=== PATIENT | female | born 1995 | race Caucasian/White ===

== ENCOUNTER → 2024-09-13 | Outpatient (CLI) | payer BC, SELFPAY ==
[2024-09-13 11:57] LABS: Absolute Lymphocyte Count 1.12 X10^3/uL (0.83-4.51); Absolute Neutrophil Count 4.6 X10^3/uL (2.0-7.7); Basophil# 0.02 X10^3/uL; Basophil% 0.3 % (0-1); Eosinophil# 0.05 X10^3/uL; Eosinophils% 0.8 % (0-5); Hemoglobin 14.1 g/dL (12.0-15.0); Lymphocyte # 1.12 X10^3/ul (0.83-4.51); Mean Corp Hgb Conc 34.4 g/dL (32-36); Mean Corpuscular Hgb 30.1 pg (27.0-32.0); Mean Corpuscular Volume 87.4 fL (81-99); Mean Platelet Vol. 10.9 fl (6.2-12.0); Monocyte# 0.44 X10^3/uL; Monocyte% 7.1 % (0-10); NRBC Flagged by Analyzer 0 % (0-5); Neutrophil # 4.58 X10^3/uL (2.7-7.7); Neutrophil % 73.5 % (47-70); Platelet Count 198 K/mm3 (150-450); RBC Distribution Width CV 12.3 % (11.6-14.6); RBC Distribution Width SD 38.9 fl (35.1-43.9); Red Blood Count 4.69 M/mm3 (4.2-5.4); White Blood Count 6.2 K/mm3 (4.4-11.0)
[2024-09-13 12:20] LABS: HIV Nonreactive (Nonreactive); Hepatitis C Antibody Nonreactive (Nonreactive); Rubella IgG REAC (Nonreactive); Syphilis Antibodies Nonreactive (Nonreactive)
[2024-09-13 12:45] LABS: Hemoglobin A1c 5.1 % (<=5.6)
[2024-09-14 19:20] LABS: Hepatitis B Surface Antigen Nonreactive (Nonreactive)
[2024-09-15 06:07] LABS: Chlamydia By Nucleic Acid AMP Negative (Negative); Gonococcus By Nucleic Acid AMP Negative (Negative)
== END | disposition home or self-care (01) ==
PROVIDERS: PCP Family Medicine; Referring Provider Advanced Practice Midwife; Visit Provider Advanced Practice Midwife
DX: O09.90 Supervision of high risk pregnancy, unspecified, unspecified trimester (principal); Z3A.00 Weeks of gestation of pregnancy not specified
CPT/HCPCS: 36415; 83036; 85025; 86703; 86762; 86780; 86803; 86850; 86900; 86901; 87086; 87088; 87340; 87491; 87591

== ENCOUNTER → 2025-01-11 | Outpatient (CLI) | payer BC, SELFPAY ==
[2025-01-11 16:32] LABS: Hematocrit 34.7 % (37-47); Hemoglobin 11.9 g/dL (12.0-15.0); Immature Granulocytes Count 0.030 X10^3/uL (0.0-0.0); Mean Corp Hgb Conc 34.3 g/dL (32-36); Mean Corpuscular Volume 87.2 fL (81-99); Mean Platelet Vol. 10.9 fl (6.2-12.0); NRBC Flagged by Analyzer 0 % (0-5); Platelet Count 146 K/mm3 (150-450); RBC Distribution Width CV 12.3 % (11.6-14.6); RBC Distribution Width SD 39.3 fl (35.1-43.9); Red Blood Count 3.98 M/mm3 (4.2-5.4); White Blood Count 6.7 K/mm3 (4.4-11.0)
[2025-01-11 17:18] LABS: Glucose Challenge Gest 1H 50g 119 mg/dL (70-140); HIV Nonreactive (Nonreactive); Syphilis Antibodies Nonreactive (Nonreactive)
== END | disposition home or self-care (01) ==
LOC: BWCLAB 15:37
PROVIDERS: PCP Family Medicine; Referring Provider Nurse Practitioner Women's Health; Visit Provider Nurse Practitioner Women's Health
DX: O09.92 Supervision of high risk pregnancy, unspecified, second trimester (principal); Z3A.00 Weeks of gestation of pregnancy not specified; Z13.1 Encounter for screening for diabetes mellitus
CPT/HCPCS: 36415; 82950; 85025; 86703; 86780

== ENCOUNTER → 2025-03-22 | Outpatient (CLI) | payer BC, SELFPAY | END | disposition home or self-care (01) | LOC: LABSPEC 16:35 | PROVIDERS: PCP Family Medicine; Visit Provider Advanced Practice Midwife | DX: O09.93 Supervision of high risk pregnancy, unspecified, third trimester (principal); Z3A.37 37 weeks gestation of pregnancy | CPT/HCPCS: 87081 ==

== ENCOUNTER → 2025-03-31 | Outpatient (CLI) | payer BC, SELFPAY ==
--- NOTE | 2025-03-31 12:50 | US_ITS ---
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 Maximum vertical pocket of 7.5 cm and JOSEF of 18 cm. Placenta is posterior position with grade 3 BPD of 9.5, OFD of the 11.8, HC of 34.2, AC of 37.4, and FL of 7 cm corresponding with average gestational age of 38 weeks and 5 days with FRANNY of 04/09/2025. Estimated weight of 3881g (90 percentile). US/OB Limited With Biometrics IMPRESSION: average gestational age of 38 weeks and 5 days with FRANNY of 04/09/2025. Placenta is posterior position with grade 3 Reading Location: [id number]
--- OUTSIDE RECORDS SUMMARY | 2025-03-31 13:02 | XMS RPT_ITS | CCD ---
Author Organization [facility] Inform ion [facility] Care Team Providers Care Vocational Evaluator Name Role Phone KRUSEMARK-MILLIN DO, CARON Primary Care Physi alessandra JASS COMMUNITY HEALTH WORKER-CNPATRICE Roberson Attending Unav ailable KRUSEMARK-MILLIN DO, CARON Primary Care Un available KRUSEMARK-MILLIN DO, CARON Primary Care Un available BEITYURY COMMUNITY HEALTH WORKER-CNDa, PATRICE Gallardo Attending Unav ailable KRUSEMARK-MILLIN DO, CARON Primary Care Un available BEITYURY DAVILA-GISELLE, PATRICE Gallardo Attending Unav ailable LATOYA IZQUIERDO MD Attending Unavailable KRUSEMARK-MILLIN DO, CARON Primary Care Un available PATRICE REGAN Attending Unavailable KRUSEMARK-MILLIN DO, CARON Primary Care Un available PATRICE REGAN Attending Unavailable KRUSEMARK-MILLIN DO, CARON Primary Care Un available PATRICE REGAN Attending Unavailable KRUSEMARK-MILLIN DO, CARON Primary Care Un available LATOYA IZQUIERDO MD Attending Unavailable KRUSEMARK-MILLIN DO, CARON Primary Care Un available PATRICE REGAN Attending Unavailable KRUSEMARK-MILLIN DO, CARON Primary Care Un available LATOYA IZQUIERDO MD Attending Unavailable KRUSEMARK-MILLIN DO, CARON Primary Care Un available PATRICE REGAN Attending Unavailable KRUSEMARK-MILLIN DO, CARON Primary Care Un available HOLLIS MEHTA MD Attending Unavailable KRUSEMARK-MILLIN DO, CARON Primary Care Un available HOLLIS MEHTA MD Attending Unavailable KRUSEMARK-MILLIN DO, CARON Primary Care Un available PATRICE REGAN Attending Unavailable KRUSEMARK-MILLIN DO, CARON Primary Care Un available BEITLER, PATRICE Attending Unavailable KRUSEMARK-MILLIN DO, CARON Primary Care Un available BEITLER, PATRICE Attending Unavailable KRUSEMARK-MILLIN DO, CARON Primary Care Un available BEITLER, PATRICE Attending Unavailable KRUSEMARK-MILLIN DO, CARON Primary Care Un available BEITLER, PATRICE Admitting Unavailable KRUSEMARK-MILLIN DO, CARON Primary Care Un available LATOYA IZQUIERDO MD Attending Unavailable BEITLER, PATRICE Attending Unavailable KRUSEMARK-MILLIN DO, CARON Primary Care Un available KRUSEMARK-MILLIN DO, CARON Primary Care Un available BEITLER COMMUNITY HEALTH WORKER-CNMPATRICE R Attending Unav ailable KRUSEMARK-MILLIN DO, CARON Primary Care Un available KRUSEMARK-MILLIN DO, CARON Attending Un available Gwen Claudio CNM Attending Provider [phone] Pee MONTELONGO, Dr. Reardon Primary Care Pat silveira Azalia Manzo RN Attending Provider Unavailabl e Ovidio-Natalia MONTELONGO, Dr. Reardon Referring Prov ider Gwen Claudio CNM Referring Provider Jessy Corbin Attending Provider [phone] Rafia Castorena DO, Dr. Reardon Attending Provider Efren VELASCO, Dr. Chavez Attending Provider [phone] GWEN CLAUDIO Referring Unavailable NO PRIMARY CAREMD Primary Care Unavailable BAUDILIO SAN Attending Unavailable NO PRIMARY CAREMD Primary Care Unavailable JUANPABLO CASTAÑEDA Attending Unavailable GWEN CLAUDIO Referring Unavailable Gwen Claudio CNM Attending Provider [phone] Pee MONTELONGO, Dr. Reardon Primary Care P raoul Jessy Corbin Referring Provider Pee MONTELONGO, Dr. Reardon Primary Care P alfie Pee MONTELONGO, Dr. Reardon Referring Prov ider Prudence OCCUPATIONAL SAFETY AND HEALTH MANAGER-C, Jessy Attending Physician [phone] Rafia Castorena DO, Dr. Reardon Attending Physician Efren VELASCO, Dr. Chavez Attending Physician Gwen Claudio CNM Attending Physician [phone] Pee MONTELONGO, Dr. Reardon Primary Care P hysician Miltonusedariusz-Natalia DO, Dr. Reardon Referring Prov ider [place] OCCUPATIONAL SAFETY AND HEALTH MANAGER-C, Jessy Attending Physician [phone] Pee DO, Dr. Reardon Primary Care P hysician Ovidio-Natalia DO, Dr. Reardon Referring Prov ider Efren VELASCO, Dr. Chavez Attending Physician [place] OCCUPATIONAL SAFETY AND HEALTH MANAGER-C, Jessy Attending Physician [phone] Prudence OCCUPATIONAL SAFETY AND HEALTH MANAGER-C, Jessy Referring Provider [phone] Gwen Claudio CNM Attending Physician [phone] Rafia Castorena DO, Dr. Reardon Attending Physician Azalia Manzo Attending Unavailable Krusemark-Millin, Caron Primary Care Unava ilable [place] OCCUPATIONAL SAFETY AND HEALTH MANAGER, Silvia Attending Unavailable Krusemark-Millin, Caron Referring Unava ilable Krusemark-Millin, Caron Primary Care Unava ilable Gwen Claudio Attending Unavailable Krusemark-Millin, Caron Primary Care Unava ilable Gwen Claudio Referring Unavailable Gwen Claudio Attending Unavailable [place] OCCUPATIONAL SAFETY AND HEALTH MANAGERJessy Referring Unavailable [place] OCCUPATIONAL SAFETY AND HEALTH MANAGER, Jessy Attending Unavailable Krusemark-Millin, Caron Primary Care Unava ilable Krusemark-Millin, Caron Referring Unava ilable Prudence OCCUPATIONAL SAFETY AND HEALTH MANAGER, Jessy Attending Unavailable Krusemark-Millin, Caron Primary Care Unava ilable Krusemark-Millin, Caron Referring Unava ilable Vandgarrison Castorena, Caron Attending Unavailabl e Krusemark-Millin, [facility] Care Unava ilable Krusemark-Millin, Caron Referring Unava ilable Marcanthony, Kathy Attending Unavailable Krusemark-Millin, [facility] Unava ilable Krusemark-Millin, Caron Referring Unava ilable Prudence OCCUPATIONAL SAFETY AND HEALTH MANAGER, Jessy Attending Unavailable Krusemark-Millin, [facility] Care Unava ilable Krusemark-Millin, Caron Referring Unava ilable Prudence OCCUPATIONAL SAFETY AND HEALTH MANAGER, Jessy Attending Unavailable Krusemark-Millin, [facility] Care Unava ilable Krusemark-Millin, Caron Referring Unava ilable Gwen Claudio Attending Unavailable Krusemark-Millin, [facility] Unava ilable Vande Velsteven, Caron Attending Unavailabl e Krusemark-Millin, Caron Referring Unava ilable Krusemark-Millin, [facility] Care Unava ilable Krusemark-Millin, [facility] Primary Care Unava ilable Vande Velsteven, Caron Attending Unavailabl e Krusemark-Millin, Caron Referring Unava ilable Krusemark-Millin, [facility] Care Unava ilable Marcsee, Kathy Attending Unavailable Krusemark-Millin, Caron Referring Unava ilable MarcanthKathy gilbert Attending Unavailable Krusemark-Millin, [facility] Care Unava ilable Krusemark-Millin, Caron Referring Unava ilable Gwen Claudio Attending Unavailable Allergies Allergy Classification Reported Allergen(s) Allergy Type Date of Onset Reaction(s) Facility (1 source) Food Allergies: Uncoded; Translations: [Food Allergies: Uncoded] Food allergy (disorder) 05-09-2023 [facility] Repository Medications Current Medications Medication Drug Class(es) Dates Sig (Normalized) Sig (Original) acetaminophen 500 mg oral tablet (2 sources) Start: 12-09-2023 End: 01-06-2024 Adult Aspirin Regimen 81 mg oral delayed release tablet (1 source) Start: 05-13-2023 Adult Aspirin Regimen 81 mg oral delayed release tablet Dose : 81 mg = 1 tab(s), Oral, qDay, # 30 tab(s), 5 Refill(s), Pharmacy: [facility]/pharmacy #[id number], 153, cm, 05/06/23 15:52:00 EST, Height, kg, 07/24/22 15:49:00 EDT, Dosing Weight Start Date: 05/13/23 Status: Ordered benzocaine 200 mg/ml topical spray (2 sources) Standardized Chemical Allergen Start: 12-09-2023 Start: 12-09-2023 End: 12-23-2023 apply 1 dose topically four times daily Americaine 20% topical spray Dose = 1 zelalem, Topical, QID, X 14 day(s), # 1 EA, 0 Refill(s), Pharmacy: [facility]/pharmacy #[id number], 152.4, cm, 12/08/23 20:15:00 EDT, Height, kg, 12/08/23 20:15:00 EDT, Dosing Weight Start Date: 12/09/23 Stop Date: 12/23/23 Status: Ordered Blood Glucose Test Machine (4 sources) Start: 09-20-2023 Blood Glucose Test Machine See Instructions, Use as directed Brand type per insurance or patient preference, # 1 EA, 0 Refill(s), Pharmacy: [facility]/pharmacy #[id number], Gestational diabetes, 152, cm, 08/25/23 15:07:00 EDT, Height, 73.7, kg, 07/30/23 14:27:00 EDT, Dosing Weight Start Date: 09/20/23 Status: Ordered docosahexaenoic acid 200 mg oral capsule (11 sources) Start: 08-19-2024 famotidine 20 mg oral tablet (5 sources) Histamine-2 Receptor Antagonist Start: 10-08-2023 Multivitamins with Vitamin B Complex, Vitamin C, Minerals and L-Methylfolate oral capsule (8 sources) Start: 12-22-2023 take 1 capsule by mouth once daily Multivitamins with Vitamin B Complex, Vitamin C, Minerals and L-Methylfolate oral capsule Dose = 1 cap(s), Oral, Daily, 0 Refill(s) Start Date: 12/22/23 Status: Ordered Repeat number: 1 Start: 05-06-2023 take 1 capsule by mo uth once daily Multivitamins with Vitamin B Complex, Vitamin C, Minerals and L-Methylfolate oral capsule Dose = 1 cap(s), Oral, Daily, 0 Refill(s) Start Date: 05/06/23 Status: Ordered sertraline 50 mg oral tablet (1 source) Serotonin Reuptake Inhibitor Start: 03-14-2024 sertraline 50 mg ora l tablet Dose : 50 mg = 1 tab(s), Oral, qDay, # 90 tab(s), 3 Refill(s), [id number] 152.4, cm, 02/24/24 13:01:00 EDT, Height, kg, 02/24/24 13:01:00 EDT, Dosing Weight Start Date: 03/14/24 Status: Ordered Quantity: 90.0 Unit: tab(s) Repeat number: 4 valACYclovir 500 mg oral tablet (16 sources) Herpesvirus Nucleoside Analog DNA Polymerase Inhibitor, Herpes Simplex Virus Nucleoside Analog DNA Polymerase Inhibitor, Herpes Zoster Virus Nucleoside Analog DNA Polymerase Inhibitor Start: 07-24-2022 valACYclovir 500 mg oral tablet Dose : 500 mg = 1 tab(s), Oral, qDay, takes PRN for cold sores, # 60 tab(s), 0 Refill(s) Start Date: 04/08/23 Status: Ordered Quantity: 60.0 Unit: tab(s) Repeat number: 1 Start: 11-13-2020 take 1 tablet by raj th once daily valACYclovir 500 mg oral tablet See Instructions, TAKE 1 TABLET BY MOUTH ONCE DAILY, # 90 tab(s), 3 Refill(s), [id number], 154.9, cm, 09/12/20 9:42:00 EDT, Height, 68.6, kg, 09/12/20 9:42:00 EDT, Dosing Weight Start Date: 11/13/20 Status: Ordered Completed/Discontinued Medications Medication Drug Class(es) Dates Sig (Normalized) Sig (Original) ferrous sulfate 325 mg oral tablet (2 sources) Start: 02-24-2024 ferrous sulfate 325 mg (65 mg elemental iron) oral tablet 90 EA, 0 Refill(s), TAKE 1 TABLET BY MOUTH EVERY DAY, 0 Refill(s) Start Date: 02/24/24 Status: Ordered Repeat number: 1 Start: 11-25-2023 ferrous sulfat e 325 mg (65 mg elemental iron) oral tablet Dose : 325 mg = 1 tab(s), Oral, qDay, # 100 tab(s), 0 Refill(s), Pharmacy: [facility]/pharmacy #[id number], 38 weeks gestation of Gestational diabetes, diet controlled, 152, cm, 11/25/23 15:31:00 EDT, Height, kg, 07/30/23 14:27:00 EDT, Dosing Weight Start Date: 11/25/23 Status: Ordered ibuprofen 800 mg oral tablet (2 sources) Nonsteroidal Anti-inflammatory Drug Start: 02-24-2024 ibuprofen 800 mg oral tablet 42 EA, 0 Refill(s), TAKE 1 TABLET BY MOUTH EVERY 8 HOURS FOR 14 DAYS, 0 Refill(s) Start Date: 02/24/24 Status: Ordered Repeat number: 1 Start: 12-09-2023 End: 12-23-2023 ibuprofen 800 mg oral tablet Dose : 800 mg = 1 tab(s), Oral, q8h, X 14 day(s), # 42 tab(s), 0 Refill(s), 12/23/23 10:16:00 PM EDT, [id number], 152.4, cm, 12/08/23 20:15:00 EDT, Height, kg, 12/08/23 20:15:00 EDT, Dosing Weight Start Date: 12/09/23 Stop Date: 12/23/23 Status: Ordered Problems Active Problems Problem Classification Problem Date Documented Da te Episodic/Chronic Abdominal pain (13 sources) Epigastric pain; Translations: [Abdominal pain] 01-23-2020 Episodic Anxiety disorders (1 source) Anxiety 02-24-2024 Chronic Deficiency and other anemia (2 sources) Iron deficiency anemia 06-12-2018 Episodic Diabetes or abnormal glucose tolerance complicating ; childbirth; or the puerperium (3 sources) Gestational diabetes mellitus complicating ; Translations: [Gestational diabetes mellitus in , diet controlled] Onset: Episodic Disorders of lipid metabolism (10 sources) Hyperlipidemia 07-24-2022 Chronic Esophageal disorders (12 sources) Gastroesophageal reflux disease 01-23-2020 Chronic Gastroduodenal ulcer (except hemorrhage) (20 sources) Gastric ulcer; Translations: [Gastric ulcer, unspecified as acute or chronic, without hemorrhage or perforation] Onset: 5 09-09-2024 Chronic Comment on above: +H. Pylori Headache; including migraine (10 sources) Headache 09-12-2020 Episodic Menstrual disorders (5 sources) Secondary amenorrhea; Translations: [Secondary physiologic amenorrhea] Onset: 3 Chronic Miscellaneous mental health disorders (1 source) depression 02-24-2024 Episodic Nausea and vomiting (10 sources) Nausea 01-23-2020 Episodic Nutritional deficiencies (11 sources) Vitamin D deficiency 07-23-2021 Chronic Other complications of (1 source) ; Translations: [Outcome of delivery, unspecified] Onset: 4 Episodic Other complications of (20 sources) History of gestational diabetes mellitus; Translations: [Supervision of with other poor reproductive or obstetric history, unspecified trimester] 09-09-2024 Episodic Comment on above: Was diet controlled Was diet controlled; Nl HgbA1c @ NOB Other complications of (20 sources) High risk ; Translations: [Supervision of high risk , unspecified, unspecified trimester] 09-09-2024 Episodic Comment on above: ; FRANNY 04/11; PC: Malave; : Edinson PRR, ; FRANNY 04/11; PC: Malave; : Edinson PRR, ; FRANNY 04/11; boy PC: Ananda; : Edinson Other complications of (20 sources) H/O: depression; Translations: [History of depression, currently ] 09-09-2024 Episodic Comment on above: no meds Other complications of (1 source) Supervision of with other poor reproductive or obstetric history, unspecified trimester; Translations: [Supervision of with other poor reproductive or obstetric history, unspecified trimester] Onset: 5 Episodic Other complications of (1 source) Supervision of high risk , unspecified, second trimester; Translations: [Supervision of high risk , unspecified, second trimester] Onset: 5 Episodic Other complications of (1 source) Other specified related conditions, unspecified trimester; Translations: [Other specified related conditions, unspecified trimester] Onset: 5 Episodic Other gastrointestinal disorders (5 sources) Abdominal bloating 01-23-2020 Episodic Other inflammatory condition of skin (5 sources) Perioral dermatitis 06-15-2018 Chronic Other lower respiratory disease (1 source) Dyspnea 06-20-2019 Episodic Other non-traumatic joint disorders (12 sources) Knee pain 06-21-2020 Episodic Other screening for suspected conditions (not mental disorders or infectious disease) (4 sources) Finding of screening status; Translations: [Encounter for screening, unspecified] Onset: 4 Episodic Other skin disorders (12 sources) Acne 06-20-2019 Episodic Other upper respiratory disease (11 sources) Allergic rhinitis 07-23-2021 Chronic Other upper respiratory infections (17 sources) Pharyngitis; Translations: [Sore throat symptom] 11-20-2020 Episodic Residual codes; unclassified (12 sources) FH: Hereditary spherocytosis 06-20-2019 Episodic Residual codes; unclassified (1 source) Gestation period, 29 weeks; Translations: [29 weeks gestation of ] Episodic Residual codes; unclassified (1 source) Gestation period, 38 weeks; Translations: [38 weeks gestation of ] Episodic Residual codes; unclassified (3 sources) 35 weeks gestation of ; Translations: [35 weeks gestation of ] Onset: 4 Episodic Residual codes; unclassified (20 sources) Positive measurement finding; Translations: [Other nonspecific abnormal findings] 09-09-2024 Episodic [place] on above: [place] 2022 [place]. Residual codes; unclassified (1 source) 29 weeks gestation of ; Translations: [29 weeks gestation of ] Onset: 5 Episodic Screening and history of mental health and substance abuse codes (1 source) Personal history of other mental and behavioral disorders; Translations: [Personal history of other mental and behavioral disorders] Onset: 5 Episodic Unclassified (15 sources) Patient encounter status 06-20-2019 Unclassified (1 source) Other specified diseases and conditions complicating ; Translations: [Other specified diseases and conditions complicating ] Onset: 5 Unclassified (1 source) Pelvic and perineal pain unspecified side; Translations: [Pelvic and perineal pain unspecified side] Onset: 5 Past or Other Problems Problem Classification Problem Date Documented Da te Episodic/Chronic Other complications of (1 source) Supervision of high risk , unspecified, unspecified trimester; Translations: [Supervision of high risk , unspecified, unspecified trimester] Onset: 09-16-2024 Episodic Other and delivery including normal (20 sources) ; Translations: [Encounter for supervision of normal , unspecified, unspecified trimester] Onset: 03-04-2023 04-08-2023 Episodic Comment on above: Discussed genetic/ca rrier testing - undecided Discussed genetic/ca rrier testing - declined. needs fu views. Residual codes; unclassified (1 source) 21 weeks gestation of ; Translations: [21 weeks gestation of ] Onset: 12-01-2024 Episodic Residual codes; unclassified (1 source) 10 weeks gestation of ; Translations: [10 weeks gestation of ] Onset: 09-13-2024 Episodic Viral infection (20 sources) Oral herpes simplex infection; Translations: [Herpes simplex type 1 infection] Onset: 09-13-2024 07-23-2021 Episodic Comment on above: Valtrex for outbreak s Results Test Name Value Interpretation Reference Range Facility Online Content Developer Office Visit Reporton 03-13-2025 Online Content Developer Office Visit Report [facility] [address], [address] [place] [address] OFFICE VISIT Date of Service: 03/13/25 MR#: [id number] Acct: [id number] Name: CARMEN THOMPSON Rep #: [id number] : 1995 Provider: Dr. Kathy amato MD Age/Sex: 29/F Location: [facility] [place] Status: Signed Intake Vital Signs 02/09/25 15:28 03/08/25 15:34 03/13/25 10:36 Height 5 ft 5 ft 5 ft Weight: 168 lb 1 oz BMI 32.8 BP 108/71 Intake Visit Reasons: 35 WK 6D OB 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: No Is patient in pain?: No Allergies No Known Allergies Allergy (Verified 03/13/25 10:35) Medications ???Medication ???Instructions ???Recorded ???Confirmed ???Type docosahexaenoic acid 200 mg mg PO 08/19/24 03/13/25 History capsule ( DHA) Last Menstrual Period: 06/15/24 Zika: Zika virus screening: Negative : No PFSH PFSH Medical History 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 Hx of gestational diabetes in prior , currently Surgical History H/O colposcopy with cervical biopsy Family History Father Diabetes Hyperlipidemia Hypertension Chronic mental illness Mother Hypertension Sister Hereditary spherocytosis Social History adopted: No household members: spouse, children and other details: Pt's mom housing: house number of children: 1 current occupational status: employed 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 current occupational exposures/hazards: Yes pets and animals: Yes (Not managing litter box) pets and animals: cat(s) and other details: chinchillas history of recent travel: No sexually active: Yes Smoking Status: Never smoker second hand exposure: Yes (PT's mother - smokes outside) alcohol intake: current alcohol intake frequency: holidays/special occasions only details: Not while substance use type: does not use diet: lactose free well-balanced diet: about half the time caffeine: Yes Type: coffee eating out: rarely or never during the past year weight has: decreased > 10 lbs what type of physical activity do you participate in: walking frequency: 1-2 times per week duration: < 15 minutes/day jarrod/christianity: Denominational seatbelt use: always do you feel safe at home: Yes 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 Date Name GA/Weeks Outcome Route Bth Weight Infant Gen Labor Lgth Anesthesia Del Locatn Provider FOB 12/09/23 Ananda 40 live - full term vacuum 7lbs 2oz Male epidural [place] Delivery Date: 12/09/23 Last Updated by: Azalia Manzo RN GDM, nuchal cord, Induced d/t est baby size HPI 35 WK 6D OB Details: CARMEN THOMPSON is a 29 year old who presents for routine OB visit. OB Visit FRANNY Calculator Estimated Delivery Date Method Current WG Current Estimate 04/11/25 Ultrasound #2 35w 6d Other Estimates 04/11/25 Ultrasound #1 35w 6d Expected Delivery Route/Plan Lsvd labor Preferences- CB/BF classes: no labor support person: Edinson labor intervention preferences: [] pain management options preferred: epidural cut cord/dad catch: cord : yes PP control planned: discussed discussed possible routes of delivery and associated risks: [] special requests: [] Specific Issue/Plans Covid status: [] Flu vaccine: declied Tdap vaccine: declined Rhogam: NA LARC form signed: yes movement and labor precautions reviewed. Problem list reviewed and updated with the most current plan of care details and appropriate orders placed. Relevant counseling for the gestational age provided. Continue routine care and follow up unless otherwise noted in visit notes/problem list details Initial Weight: 133 lb Date -???-???-???-???-???-? ??-???-???-???-???-??? -???- EGA Weight BP Urine Prot -???-???-???-???-???-? ??-???-???-???-???-??? -???- Glucose FHR FuHt Pres Dilation -???-???-???-???-???-? ??-???-???-???-???-??? -???- Effaced St Visit Note 09/13/24 -???-???-???-???-???-? ??-???-???-???-???-??? -???- 10w 0d 133 lb 2 oz (+2 oz) 108/74 -???-???-???-???-???-? ??-???-???-???-???-??? -???- 180 -???-???-???-???-???-? ??-???-???-???-???-??? -???- KW- CRL cons with dates. declines NIPT. labs today. anatomy US ordered 10/04/24 -???-???-???-???-???-? ??-???-???-???-???-??? -???- 13w 0d 137 lb 2 oz (+4 lb 2 oz) 100/69 Ne (more content not included)... Normal [facility] - Chemistry and C hemistry - challengeOrdered By: Kathy Schwartz on 03-08-2025 Glucose Ql (U) Negative [facility] - UrinalysisOrder ed By: Kathy Schwartz on 03-08-2025 Protein Ql (U) Negative [facility] Online Content Developer Office Visit Reporton 03-08-2025 Online Content Developer Office Visit Report [facility] [address], [address] [place] [address] OFFICE VISIT Date of Service: 03/08/25 MR#: [id number] Acct: [id number] Name: CARMEN THOMPSON Rep #: [id number] : 1995 Provider: Dr. Kathy amato MD Age/Sex: 29/F Location: [facility] Status: Signed Intake Vital Signs 01/11/25 15:29 02/21/25 15:27 03/08/25 15:34 Height 5 ft 5 ft 5 ft Weight: 167 lb 1 oz BMI 32.6 BP 113/76 Intake Visit Reasons: [id number] ob 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: No Is patient in pain?: No Allergies No Known Allergies Allergy (Verified 03/08/25 15:37) Medications ???Medication ???Instructions ???Recorded ???Confirmed ???Type docosahexaenoic acid 200 mg mg PO 08/19/24 03/08/25 History capsule ( DHA) Last Menstrual Period: 06/15/24 Zika: Zika virus screening: Negative : No PFSH PFSH Medical History 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 Hx of gestational diabetes in prior , currently Surgical History H/O colposcopy with cervical biopsy Family History Father Diabetes Hyperlipidemia Hypertension Chronic mental illness Mother Hypertension Sister Hereditary spherocytosis Social History adopted: No household members: spouse, children and other details: Pt's mom housing: house number of children: 1 current occupational status: employed 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 occupational exposures/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: Yes pets and animals: Yes (Not managing litter box) pets and animals: cat(s) and other details: chinchillas history of recent travel: No sexually active: Yes Smoking Status: Never smoker second hand exposure: Yes (PT's mother - smokes outside) alcohol intake: current alcohol intake frequency: holidays/special occasions only details: Not while substance use type: does not use diet: lactose free well-balanced diet: about half the time caffeine: Yes Type: coffee eating out: rarely or never during the past year weight has: decreased > 10 lbs what type of physical activity do you participate in: walking frequency: 1-2 times per week duration: < 15 minutes/day jarrod/christianity: Denominational seatbelt use: always do you feel safe at home: Yes 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 Date Name GA/Weeks Outcome Route Bth Weight Infant Gen Labor Lgth Anesthesia Del Locatn Provider FOB 12/09/23 Ananda 40 live - full term vacuum 7lbs 2oz Male epidural [facility] [place] Delivery Date: 12/09/23 Last Updated by: Azalia Manzo RN GDM, nuchal cord, Induced d/t est baby size HPI 35wk1d ob Details: CARMEN THOMPSON is a 29 year old who presents for routine OB visit. OB Visit FRANNY Calculator Estimated Delivery Date Method Current WG Current Estimate 04/11/25 Ultrasound #2 35w 1d Other Estimates 04/11/25 Ultrasound #1 35w 1d Expected Delivery Route/Plan Lsvd labor Preferences- CB/BF classes: no labor support person: [place] labor intervention preferences: [] pain management options preferred: epidural cut cord/dad catch: cord : yes PP control planned: discussed discussed possible routes of delivery and associated risks: [] special requests: [] Specific Issue/Plans Covid status: [] Flu vaccine: declied Tdap vaccine: declined Rhogam: NA LARC form signed: yes movement and labor precautions reviewed. Problem list reviewed and updated with the most current plan of care details and appropriate orders placed. Relevant counseling for the gestational age provided. Continue routine care and follow up unless otherwise noted in visit notes/problem list details Initial Weight: 133 lb Date -???-???-???-???-???-? ??-???-???-???-???-??? -???- EGA Weight BP Urine Prot -???-???-???-???-???-? ??-???-???-???-???-??? -???- Glucose FHR FuHt Pres Dilation -???-???-???-???-???-? ??-???-???-???-???-??? -???- Effaced St Visit Note 09/13/24 -???-???-???-???-???-? ??-???-???-???-???-??? -???- 10w 0d 133 lb 2 oz (+2 oz) 108/74 -???-???-???-???-???-? ??-???-???-???-???-??? -???- 180 -???-???-???-???-???-? ??-???-???-???-???-??? -???- KW- CRL cons with dates. declines NIPT. labs today. anatomy US ordered 10/04/24 -???-???-???-???-???-? ??-???-???-???-???-??? -???- 13w 0d 137 lb 2 oz (+4 lb 2 oz) 100/69 Negati (more content not included)... Normal [facility] Laboratory - Chemistry and C hemistry - challengeOrdered By: Caron Castorena on 02-21-2025 Bilirubin Ql (U) Negative [facility] Glucose Ql (U) 100 g/dL [facility] Ketones Ql (U) Negative [facility] pH (U) 5.0 [pH] [facility] Specific gravity (U) [Rel density] 1.020 [facility] Urobilinogen (U) [Mass/Vol] 0.8252310 mg/dL [facility] - Hematology and Cell countsOrdered By: Caron Castorena on 02-21-2025 Hemoglobin Ql (U) Negative [facility] - Specimen inform ationOrdered By: Caron Castorena on 02-21-2025 Clarity (U) Clear [facility] Color (U) Yellow [facility] Laboratory - UrinalysisOrder ed By: Caron Castorena on 02-21-2025 Nitrite Ql (U) Negative [facility] Protein Ql (U) Trace [facility] No Panel InformationOrdered By: Caron Castorena on 02-21-2025 Urine Leukocytes Negatve [facility] Online Content Developer Office Visit Reporton 02-21-2025 Online Content Developer Office Visit Report [facility] [address], [address] [place] [address] OFFICE VISIT Date of Service: 02/21/25 MR#: [id number] Acct: [id number] Name: CARMEN THOMPSON Rep #: [id number] : 1995 Provider: Dr. Caron Castro DO Age/Sex: 29/F Location: [facility] Status: Signed Intake Vital Signs 01/11/25 15:29 02/09/25 15:28 02/21/25 15:26 02/21/25 15:27 Height 5 ft 5 ft 5 ft 5 ft Weight: 168 lb 1 oz BMI 32.8 BP 121/81 H Intake Visit Reasons: 33 wk ob 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: No Is patient in pain?: No Allergies No Known Allergies Allergy (Verified 02/21/25 15:25) Medications ???Medication ???Instructions ???Recorded ???Confirmed ???Type docosahexaenoic acid 200 mg mg PO 08/19/24 02/21/25 History capsule ( DHA) Last Menstrual Period: 06/15/24 Zika: Zika virus screening: Negative : No PFSH PFSH Medical History 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 Hx of gestational diabetes in prior , currently Surgical History H/O colposcopy with cervical biopsy Family History Father Diabetes Hyperlipidemia Hypertension Chronic mental illness Mother Hypertension Sister Hereditary spherocytosis Social History adopted: No household members: spouse, children and other details: Pt's mom housing: house number of children: 1 current occupational status: employed 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 occupational exposures/hazards: Yes pets and animals: Yes (Not managing litter box) pets and animals: cat(s) and other details: [email or web address] history of recent travel: No sexually active: Yes Smoking Status: Never smoker second hand exposure: Yes (PT's mother - smokes outside) alcohol intake: current alcohol intake frequency: holidays/special occasions only details: Not while substance use type: does not use diet: lactose free well-balanced diet: about half the time caffeine: Yes Type: coffee eating out: rarely or never during the past year weight has: decreased > 10 lbs what type of physical activity do you participate in: walking frequency: 1-2 times per week duration: < 15 minutes/day jarrod/christianity: Denominational seatbelt use: always do you feel safe at home: Yes additional 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 Date Name GA/Weeks Outcome Route Bth Weight Gen Labor Lgth Anesthesia Del Locatn Provider FOB 12/09/23 Ananda 40 live - full term vacuum 7lbs 2oz Male epidural [facility] Delivery Date: 12/09/23 Last Updated by: Azalia Manzo RN GDM, nuchal cord, Induced d/t est baby size HPI 33 wk ob Details: CARMEN THOMPSON is a 29 year old who presents for routine OB visit. OB Visit FRANNY Calculator Estimated Delivery Date Method Current WG Current Estimate 04/11/25 Ultrasound #2 33w 0d Other Estimates 04/11/25 Ultrasound #1 33w 0d Expected Delivery Route/Plan Labor Preferences- CB/BF classes: no labor support person: [place] labor intervention preferences: [] pain management options preferred: epidural cut cord/dad catch: cord : yes PP control planned: discussed discussed possible routes of delivery and associated risks: [] special requests: [] Specific Issue/Plans Covid status: [] Flu vaccine: [] Tdap vaccine: [] Rhogam: NA LARC form signed: yes Problem list reviewed and updated with the most current plan of care details and appropriate orders placed. Relevant counseling for the gestational age provided. Continue routine care and follow up unless otherwise noted in visit notes/problem list details Initial Weight: 133 lb Date -???-???-???-???-???-? ??-???-???-???-???-??? -???- EGA Weight BP Urine Prot -???-???-???-???-???-? ??-???-???-???-???-??? -???- Glucose FHR FuHt Pres Dilation -???-???-???-???-???-? ??-???-???-???-???-??? -???- Effaced St Visit Note 09/13/24 -???-???-???-???-???-? ??-???-???-???-???-??? -???- 10w 0d 133 lb 2 oz (+2 oz) 108/74 -???-???-???-???-???-? ??-???-???-???-???-??? -???- 180 -???-???-???-???-???-? ??-???-???-???-???-??? -???- KW- CRL cons with dates. declines NIPT. labs today. anatomy US ordered 10/04/24 -???-???-???-???-???-? ??-???-???-???-???-??? -???- 13w 0d 137 lb 2 oz (+4 lb 2 oz) 100/69 Negative -???-???-???-???-???-? ??-???-? (more content not included)... Normal [facility] - Chemistry and C hemistry - challengeOrdered By: Caron Castorena on 02-09-2025 Glucose Ql (U) Negative [facility] Laboratory - UrinalysisOrder ed By: Caron Castorena on 02-09-2025 Protein Ql (U) Negative [facility] Online Content Developer Office Visit Reporton 02-09-2025 Online Content Developer Office Visit Report [facility]'s [address], [address] [place] [address] OFFICE VISIT Date of Service: 02/09/25 MR#: [id number] Acct: [id number] Name: CARMEN THOMPSON Rep #: [id number] : 1995 Provider: Dr. Caron Castro DO Age/Sex: 29/F Location: [facility] Status: Signed Intake Vital Signs 12/26/24 15:38 01/24/25 14:51 02/09/25 15:27 02/09/25 15:28 Height 5 ft 5 ft 5 ft 5 ft Weight: 165 lb BMI 32.2 BP 103/68 Intake Visit Reasons: 32 WK OB 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: No Is patient in pain?: No Allergies No Known Allergies Allergy (Verified 02/09/25 15:26) Medications ???Medication ???Instructions ???Recorded ???Confirmed ???Type docosahexaenoic acid 200 mg mg PO 08/19/24 02/09/25 History capsule ( DHA) Last Menstrual Period: 06/15/24 Zika: Zika virus screening: Negative : No PFSH PFSH Medical History 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 Hx of gestational diabetes in prior , currently Surgical History H/O colposcopy with cervical biopsy Family History Father Diabetes Hyperlipidemia Hypertension Chronic mental illness Mother Hypertension Sister Hereditary spherocytosis Social History adopted: No household members: spouse, children and other details: Pt's mom housing: house number of children: 1 current occupational status: employed 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 occupational exposures/hazards: Yes pets and animals: Yes (Not managing litter box) pets and animals: cat(s) and other details: jennifer history of recent travel: No sexually active: Yes Smoking Status: Never smoker second hand exposure: Yes (PT's mother - smokes outside) alcohol intake: current alcohol intake frequency: holidays/special occasions only details: Not while substance use type: does not use diet: lactose free well-balanced diet: about half the time caffeine: Yes Type: coffee eating out: rarely or never during the past year weight has: decreased > 10 lbs what type of physical activity do you participate in: walking frequency: 1-2 times per week duration: < 15 minutes/day jarrod/christianity: Denominational seatbelt use: always do you feel safe at home: Yes additional social history: : [place] 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 Date Name GA/Weeks Outcome Route Bth Weight Infant Gen Labor Lgth Anesthesia Del Russellatn Provider FOB 12/09/23 Ananda 40 live - full term vacuum 7lbs 2oz Male epidural [facility] Delivery Date: 12/09/23 Last Updated by: Azalia Manzo RN GDM, nuchal cord, Induced d/t est baby size HPI 32 WK OB Details: CARMEN THOMPSON is a 29 year old who presents for routine OB visit. OB Visit FRANNY Calculator Estimated Delivery Date Method Current WG Current Estimate 04/11/25 Ultrasound #2 31w 2d Other Estimates 04/11/25 Ultrasound #1 31w 2d Expected Delivery Route/Plan Labor Preferences- CB/BF classes: no labor support person: [place] labor intervention preferences: [] pain management options preferred: epidural cut cord/dad catch: cord : yes PP control planned: discussed discussed possible routes of delivery and associated risks: [] special requests: [] Specific Issue/Plans Covid status: [] Flu vaccine: [] Tdap vaccine: [] Rhogam: NA LARC form signed: yes Problem list reviewed and updated with the most current plan of care details and appropriate orders placed. Relevant counseling for the gestational age provided. Continue routine care and follow up unless otherwise noted in visit notes/problem list details Initial Weight: 133 lb Date -???-???-???-???-???-? ??-???-???-???-???-??? -???- EGA Weight BP Urine Prot -???-???-???-???-???-? ??-???-???-???-???-??? -???- Glucose FHR FuHt Pres Dilation -???-???-???-???-???-? ??-???-???-???-???-??? -???- Effaced St Visit Note 09/13/24 -???-???-???-???-???-? ??-???-???-???-???-??? -???- 10w 0d 133 lb 2 oz (+2 oz) 108/74 -???-???-???-???-???-? ??-???-???-???-???-??? -???- 180 -???-???-???-???-???-? ??-???-???-???-???-??? -???- KW- CRL cons with dates. declines NIPT. labs today. anatomy US ordered 10/04/24 -???-???-???-???-???-? ??-???-???-???-???-??? -???- 13w 0d 137 lb 2 oz (+4 lb 2 oz) 100/69 Negative -???-???-???-???-???-? ??-???-???-???- (more content not included)... Normal [facility] - Chemistry and C hemistry - challengeOrdered By: Gwen Claudio on 01-24-2025 Glucose Ql (U) Negative [facility] Laboratory - UrinalysisOrder ed By: Gwen Claudio on 01-24-2025 Protein Ql (U) Negative [facility] Online Content Developer Office Visit Reporton 01-24-2025 Online Content Developer Office Visit Report [facility]'s [address], [address] [place] [address] OFFICE VISIT Date of Service: 01/24/25 MR#: [id number] Acct: [id number] Name: CARMEN THOMPSON Rep #: [id number] : 1995 Provider: GISELLE Brock ams Age/Sex: 29/F Location: [facility] Status: Signed Intake Vital Signs 12/26/24 15:38 01/11/25 15:29 01/24/25 14:51 Height 5 ft 5 ft 5 ft Weight: 164 lb BMI 32.0 BP 105/72 Intake Visit Reasons: 30 WK OB Chief Complaint: 30wk OB 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: No Is patient in pain?: No Allergies No Known Allergies Allergy (Verified 01/24/25 14:48) Medications ???Medication ???Instructions ???Recorded ???Confirmed ???Type docosahexaenoic acid 200 mg mg PO 08/19/24 01/24/25 History capsule ( DHA) Last Menstrual Period: 06/15/24 : No Have you fallen in the past year?: No PFSH PFSH Medical History 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 Hx of gestational diabetes in prior , currently Surgical History H/O colposcopy with cervical biopsy Family History Father Diabetes Hyperlipidemia Hypertension Chronic mental illness Mother Hypertension Sister Hereditary spherocytosis Social History adopted: No household members: spouse, children and other details: Pt's mom housing: house number of children: 1 current occupational status: employed 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 current occupational exposures/hazards: Yes pets and animals: Yes (Not managing litter box) pets and animals: cat(s) and other details: jennifer history of recent travel: No sexually active: Yes Smoking Status: Never smoker second hand exposure: Yes (PT's mother - smokes outside) alcohol intake: current alcohol intake frequency: holidays/special occasions only details: Not while substance use type: does not use diet: lactose free well-balanced diet: about half the time caffeine: Yes Type: coffee eating out: rarely or never during the past year weight has: decreased > 10 lbs what type of physical activity do you participate in: walking frequency: 1-2 times per week duration: < 15 minutes/day jarrod/christianity: Denominational seatbelt use: always do you feel safe at home: Yes 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 Date Name GA/Weeks Outcome Route Bth Weight Infant Gen Labor Lgth Anesthesia Del Locatn Provider FOB 12/09/23 Malave 40 live - full term vacuum 7lbs 2oz Male epidural [facility] Delivery Date: 12/09/23 Last Updated by: Azalia Manzo RN GDM, nuchal cord, Induced d/t est baby size HPI 30 WK OB Details: CARMEN THOMPSON is a 29 year old who presents for routine OB visit. OB Visit FRANNY Calculator Estimated Delivery Date Method Current WG Current Estimate 04/11/25 Ultrasound #2 29w 0d Other Estimates 04/11/25 Ultrasound #1 29w 0d Expected Delivery Route/Plan Labor Preferences- CB/BF classes: no labor support person: [place] labor intervention preferences: [] pain management options preferred: epidural cut cord/dad catch: cord : yes PP control planned: discussed discussed possible routes of delivery and associated risks: [] special requests: [] Specific Issue/Plans Covid status: [] Flu vaccine: [] Tdap vaccine: [] Rhogam: NA LARC form signed: yes Problem list reviewed and updated with the most current plan of care details and appropriate orders placed. Relevant counseling for the gestational age provided. Continue routine care and follow up unless otherwise noted in visit notes/problem list details Initial Weight: 133 lb Date -???-???-???-???-???-? ??-???-???-???-???-??? -???- EGA Weight BP Urine Prot -???-???-???-???-???-? ??-???-???-???-???-??? -???- Glucose FHR FuHt Pres Dilation -???-???-???-???-???-? ??-???-???-???-???-??? -???- Effaced St Visit Note 09/13/24 -???-???-???-???-???-? ??-???-???-???-???-??? -???- 10w 0d 133 lb 2 oz (+2 oz) 108/74 -???-???-???-???-???-? ??-???-???-???-???-??? -???- 180 -???-???-???-???-???-? ??-???-???-???-???-??? -???- KW- CRL cons with dates. declines NIPT. labs today. anatomy US ordered 10/04/24 -???-???-???-???-???-? ??-???-???-???-???-??? -???- 13w 0d 137 lb 2 oz (+4 lb 2 oz) 100/69 Negative -???-???-???-???-???-? ??-???-???-???-???-??? -???- Negative (more content not included)... Normal [facility] Absolute lymphocyte countOrd ered By: Jessy Foss on 01-11-2025 Lymphocytes Auto (Unsp spec) [#/Vol] 1.49 10*3/uL 0.83-4.51 [facility] Absolute neutrophil countOrd ered By: Jessy Foss on 01-11-2025 Neutrophils (Bld) [#/Vol] 4.7 10*3/uL 2.0-7.7 [facility] Automated lymphocyte count a s percentage of total leukocytesOrdered By: Jessy Foss on 01-11-2025 Lymphocytes/100 WBC Auto (Unsp spec) 22.4 % 19-41 [facility] Basophil percentageOrdered B y: Jessy Prudence on 01-11-2025 Basophils/100 WBC (Bld) 0.0 % 0-1 [facility] CBC W/Diff, Automatedon 01-02 Absolute Lymph 1.49 X10 3/uL Normal 0.83-4.51 [facility] Comment on above: Performed By: #### L 501.0250, L100.0100, L509.8002, [id number] #### [facility] [address] [place], [address] Absolute Neut 4.7 X10 3/uL Normal 2.0-7.7 [facility] Comment on above: Performed By: #### L 501.0250, L100.0100, L509.8002, [id number] #### [facility] [address] [place], [address] Basophils/100 WBC (Bld) 0.0 % Normal 0-1 W [facility] Comment on above: Performed By: #### L 501.0250, L100.0100, L509.8002, [id number] #### [facility] [address] [place], [address] Eosinophils/100 WBC (Bld) 0.9 % Normal 0-5 [facility] Comment on above: Performed By: #### L 501.0250, L100.0100, L509.8002, [id number] #### [facility] [address] [place], [address] Erythrocyte distribution width (RBC) [Ratio] 12.3 % Normal 11.6-14.6 [facility] Comment on above: Performed By: #### L 501.0250, L100.0100, L509.8002, [id number] #### [facility] [address] [place], [address] Hematocrit (Bld) [Volume fraction] 34.7 % Low 37-47 [facility] Comment on above: Performed By: #### L 501.0250, L100.0100, L509.8002, [id number] #### [facility] [address] [place], [address] Hemoglobin (Bld) [Mass/Vol] 11.9 g/dL Low 12.0-15.0 [facility] Comment on above: Performed By: #### L 501.0250, L100.0100, L509.8002, [id number] #### [facility] [address] [place], [address] IG% 0.500 Normal 0.0-0.9 [facility] Comment on above: Result Comment: IG% - Immature Granulocytes (promyelocytes, myelocytes and metamyelocytes) > 1% indicates that a LEFT SHIFT is Present. Performed By: #### L 501.0250, L100.0100, L509.8002, [id number] #### [facility] [address], [address] Lymphocytes/100 WBC (Bld) 22.4 % Normal 19-41 [facility] Comment on above: Performed By: #### L 501.0250, L100.0100, L509.8002, [id number] #### [facility] [address] [place], [address] MCH (RBC) [Entitic mass] 29.9 pg Normal 27.0-32.0 [facility] Comment on above: Performed By: #### L 501.0250, L100.0100, L509.8002, [id number] #### [facility] [address] [place], [address] MCHC (RBC) [Mass/Vol] 34.3 g/dL Normal 32-36 [facility] Comment on above: Performed By: #### L 501.0250, L100.0100, L509.8002, [id number] #### [facility] [address] [place], [address] MCV (RBC) [Entitic vol] 87.2 fL Normal 81-99 [facility] Comment on above: Performed By: #### L 501.0250, L100.0100, L509.8002, [id number] #### [facility] [address] [place], [address] Monocytes/100 WBC (Bld) 6.3 % Normal 0-10 W [facility] Comment on above: Performed By: #### L 501.0250, L100.0100, L509.8002, [id number] #### [facility] [address] [place], [address] Neutrophils/100 WBC (Bld) 69.9 % Normal 47-70 [facility] Comment on above: Performed By: #### L 501.0250, L100.0100, L509.8002, [id number] #### [facility] [address] [place], [address] Nucleated RBC (Bld) [#/Vol] 0 10*3/uL Normal 0-5 [facility] Comment on above: Performed By: #### L 501.0250, L100.0100, L509.8002, [id number] #### [facility] [address] [place], [address] Platelet mean volume (Bld) [Entitic vol] 10.9 fL Normal 6.2-12.0 [facility] Comment on above: Performed By: #### L 501.0250, L100.0100, L509.8002, [id number] #### [facility] [address] [place], [address] Platelets (Bld) [#/Vol] 146 10*3/uL Low 150-450 [facility] Comment on above: Performed By: #### L 501.0250, L100.0100, L509.8002, [id number] #### [facility] [address] [place], [address] RBC (Bld) [#/Vol] 3.98 10*6/uL Low 4.2-5.4 [facility] Comment on above: Performed By: #### L 501.0250, L100.0100, L509.8002, [id number] #### [facility] [address] [place], [address] RDW SD 39.3 fl Normal 35.1-43.9 [facility] Comment on above: Performed By: #### L 501.0250, L100.0100, L509.8002, [id number] #### [facility] [address] [place], [address] WBC (Bld) [#/Vol] 6.7 10*3/uL Normal 4.4-11.0 [facility] Comment on above: Performed By: #### L 501.0250, L100.0100, L509.8002, L3890.6006 #### [facility] [address] [place], [address] Eosinophil percentageOrdered By: Jessy Foss on 01-11-2025 Eosinophils/100 WBC (Bld) 0.9 % 0-5 [facility] Erythrocyte distribution wid th ratioOrdered By: Jessymike Foss on 01-11-2025 Erythrocyte distribution width (RBC) [Ratio] 12.3 % 11.6-14.6 [facility] Erythrocyte distribution wid th standard deviationOrdered By: Jessymike Foss on 01-11-2025 Erythrocyte distribution width (RBC) [Ratio] 39.3 fl 35.1-43.9 [facility] Glucose Challenge Gest 1H 50 j carlos 01-11-2025 GLU GEST 50g 1H 119 mg/dL Normal 70-140 [facility] Comment on above: Performed By: #### L 501.0250, L100.0100, L509.8002, L3890.6006 #### [facility] [address] [place], [address] Glucose measurement at 2 melodie rs post-dose gestational glucose tolerance testOrdered By: Jessy Foss on 01-11-2025 Glucose [Mass/Vol] 119 mg/dL 70-140 [facility] HIVon 01-11-2025 HIV Non-Reactive Normal Nonreactive [facility] Comment on above: Result Comment: Non- Reactive Reactive Repeatedly reactive samples must be confirmed according to CDC recommended confirmatory algorithms. The subresults for either HIVAG or AHIV can be used as an aid in the selection of the confirmation algorithm for reactive samples. Send out specimens with Reactive results to [facility] for confirmation. Order the HIV antibody detection and differentiation: lc#[id number] Performed By: #### L 501.9985, L509.4006, L3890.6301, BTS, L3890.6102, L3890.6006, L509.8002, L100.0100 #### [facility] [address] [place], [place], [id number] Hematocrit Auto (Bld) [Volum e fraction]Ordered By: Jessy Foss on 01-11-2025 Hematocrit (Bld) [Volume fraction] 34.7 % Low 37-47 [facility] Hemoglobin measurementOrdere d By: Jessy Foss on 01-11-2025 Hemoglobin (Bld) [Mass/Vol] 11.9 g/dL Low 12.0-15.0 [facility] Immature granulocytes/100 WB C Auto (Bld)Ordered By: Jessy Foss on 01-11-2025 Immature granulocytes/100 WBC (Bld) 0.500 % 0.0-0.9 [facility] Comment on above: IG% - Immature Granu locytes (promyelocytes, myelocytes and metamyelocytes) > 1% indicates that a LEFT SHIFT is Present. Laboratory - Chemistry and C hemistry - challengeOrdered By: Jessy Foss on 01-11-2025 Glucose Ql (U) Negative [facility] - UrinalysisOrder ed By: Jessy Foss on 01-11-2025 Protein Ql (U) Negative [facility] MCV (mean corpuscular volume ) determinationOrdered By: Jessy Foss on 01-11-2025 MCV (RBC) [Entitic vol] 87.2 fL 81-99 [facility] Mean corpuscular hemoglobin (MCH) determinationOrdered By: Jessy Foss on 01-11-2025 MCH (RBC) [Entitic mass] 29.9 pg 27.0-32.0 [facility] Mean corpuscular hemoglobin concentration (MCHC) determinationOrdered By: Jessy Foss on 01-11-2025 MCHC (RBC) [Mass/Vol] 34.3 g/dL 32-36 [facility] Mean platelet volume determi nationOrdered By: Jessy Foss on 01-11-2025 Platelet mean volume (Bld) [Entitic vol] 10.9 fL 6.2-12.0 [facility] Monocyte percentageOrdered B y: Jessy Foss on 01-11-2025 Monocytes/100 WBC (Bld) 6.3 % 0-10 [facility] Neutrophil percentageOrdered By: Jessy Foss on 01-11-2025 Neutrophils/100 WBC (Bld) 69.9 % 47-70 [facility] No Panel InformationOrdered By: Jessy Foss on 01-11-2025 HIV (1&2) Antibody Non-Reactive Nonreactive [facility] Comment on above: Non-ReactiveReactive Repeatedly reactive samples must be confirmed according to CDC recommended confirmatory algorithms. The subresults for either HIVAG or AHIV can be used as an aid in the selection of the confirmation algorithm for reactive samples.Send out specimens with Reactive results to [facility] for confirmation.Order the HIV antibody detection and differentiation: #[id number] Nucleated red blood cell per centageOrdered By: Jessy Foss on 01-11-2025 Nucleated RBC/100 WBC (Bld) [Ratio] 0 % 0-5 [facility] Online Content Developer Office Visit Reporton 01-11-2025 Online Content Developer Office Visit Report [facility]'[address], [address] [place] [address] OFFICE VISIT Date of Service: 01/11/25 MR#: [id number] Acct: [id number] Name: JAYCARMENMARLIN VARNER Rep #: [id number] : 1995 Provider: ANA MARÍA rodriguez Age/Sex: 29/F Location: [facility] Status: Signed Intake Vital Signs 12/01/24 16:03 12/26/24 15:38 01/11/25 15:29 Height 5 ft 5 ft 5 ft Weight: 161 lb 3 oz BMI 31.4 BP 111/74 Intake Visit Reasons: 28wk ob/glucose Chief Complaint: 28 Week OB/Glucose 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: No Is patient in pain?: No Allergies No Known Allergies Allergy (Verified 01/11/25 15:33) Medications ???Medication ???Instructions ???Recorded ???Confirmed ???Type docosahexaenoic acid 200 mg mg PO 08/19/24 01/11/25 History capsule ( DHA) Last Menstrual Period: 06/15/24 Zika: Zika virus screening: Negative : No PFSH PFSH Medical History 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 Hx of gestational diabetes in prior , currently Surgical History H/O colposcopy with cervical biopsy Family History Father Diabetes Hyperlipidemia Hypertension Chronic mental illness Mother Hypertension Sister Hereditary spherocytosis Social History adopted: No household members: spouse, children and other details: Pt's mom housing: house number of children: 1 current occupational status: employed 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 current occupational exposures/hazards: Yes pets and animals: Yes (Not managing litter box) pets and animals: cat(s) and other details: chinchillas history of recent travel: No sexually active: Yes Smoking Status: Never smoker second hand exposure: Yes (PT's mother - smokes outside) alcohol intake: current alcohol intake frequency: holidays/special occasions only details: Not while substance use type: does not use diet: lactose free well-balanced diet: about half the time caffeine: Yes Type: coffee eating out: rarely or never during the past year weight has: decreased > 10 lbs what type of physical activity do you participate in: walking frequency: 1-2 times per week duration: < 15 minutes/day jarrod/christianity: Denominational seatbelt use: always do you feel safe at home: Yes 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 Date Name GA/Weeks Outcome Route Bth Weight Gen Labor Lgth Anesthesia Del Locatn Provider FOB 12/09/23 Ananda 40 live - full term vacuum 7lbs 2oz Male epidural [facility] Delivery Date: 12/09/23 Last Updated by: Azalia Manzo RN GDM, nuchal cord, Induced d/t est baby size HPI 28wk ob/glucose Details: CARMEN THOMPSON is a 29 year old who presents for routine OB visit. OB Visit FRANNY Calculator Estimated Delivery Date Method Current WG Current Estimate 04/11/25 Ultrasound #2 27w 1d Other Estimates 04/11/25 Ultrasound #1 27w 1d Expected Delivery Route/Plan Labor Preferences- CB/BF classes: no labor support person: Edinson labor intervention preferences: [] pain management options preferred: epidural cut cord/dad catch: cord : yes PP control planned: discussed discussed possible routes of delivery and associated risks: [] special requests: [] Specific Issue/Plans Covid status: [] Flu vaccine: [] Tdap vaccine: [] Rhogam: NA LARC form signed: yes Problem list reviewed and updated with the most current plan of care details and appropriate orders placed. Relevant counseling for the gestational age provided. Continue routine care and follow up unless otherwise noted in visit notes/problem list details Initial Weight: 133 lb Date -???-???-???-???-???-? ??-???-???-???-???-??? -???- EGA Weight BP Urine Prot -???-???-???-???-???-? ??-???-???-???-???-??? -???- Glucose FHR FuHt Pres Dilation -???-???-???-???-???-? ??-???-???-???-???-??? -???- Effaced St Visit Note 09/13/24 -???-???-???-???-???-? ??-???-???-???-???-??? -???- 10w 0d 133 lb 2 oz (+2 oz) 108/74 -???-???-???-???-???-? ??-???-???-???-???-??? -???- 180 -???-???-???-???-???-? ??-???-???-???-???-??? -???- KW- CRL cons with dates. declines NIPT. labs today. anatomy US ordered 10/04/24 -???-???-???-???-???-? ??-???-???-???-???-??? -???- 13w 0d 137 lb 2 oz (+4 lb 2 oz) 100/69 Negative -???-?? (more content not included)... Normal [facility] Platelet countOrdered By: Jose Foss on 01-11-2025 Platelets (Bld) [#/Vol] 146 10*3/uL Low 150-450 [facility] RBC Auto (Bld) [#/Vol]Ordere d By: Jessy Foss on 01-11-2025 RBC (Bld) [#/Vol] 3.98 10*6/uL Low 4.2-5.4 [facility] Syphilis Antibodieson 2024 Syphilis Abs Non-Reactive Normal Nonreactive [facility] Comment on above: Performed By: #### L 501.9985, L509.4006, L3890.6301, BTS, L3890.6102, L3890.6006, L509.8002, L100.0100 #### [facility] [address] [place], [address] White blood cell (WBC) count Ordered By: Jessy Foss on 01-11-2025 WBC (Bld) [#/Vol] 6.7 10*3/uL 4.4-11.0 [facility] - Chemistry and C hemistry - challengeOrdered By: Jessy Foss on 12-26-2024 Glucose Ql (U) Negative [facility] - UrinalysisOrder ed By: Jessy Foss on 12-26-2024 Protein Ql (U) Negative [facility] Online Content Developer Office Visit Reporton 12-26-2024 Online Content Developer Office Visit Report [facility]'[address], [address] [place] [address] OFFICE VISIT Date of Service: 12/26/24 MR#: [id number] Acct: [id number] Name: CARMEN THOMPSON Rep #: [id number] : 1995 Provider: ANA MARÍA rodriguez Age/Sex: 29/F Location: [facility] Status: Signed Intake Vital Signs 10/04/24 09:38 12/01/24 16:03 12/26/24 15:33 12/26/24 15:38 Height 5 ft 5 ft 5 ft 5 ft Weight: 158 lb 7 oz BMI 30.9 BP 104/70 Intake Visit Reasons: 26 wk ob Chief Complaint: 26 Week OB 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: No Is patient in pain?: No Allergies No Known Allergies Allergy (Verified 12/26/24 15:31) Medications ???Medication ???Instructions ???Recorded ???Confirmed ???Type docosahexaenoic acid 200 mg mg PO 08/19/24 12/26/24 History capsule ( DHA) Last Menstrual Period: 06/15/24 Zika: Zika virus screening: Negative : Yes PFSH PFSH Medical History 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 Hx of gestational diabetes in prior , currently Surgical History H/O colposcopy with cervical biopsy Family History Father Diabetes Hyperlipidemia Hypertension Chronic mental illness Mother Hypertension Sister Hereditary spherocytosis Social History adopted: No household members: spouse, children and other details: Pt's mom housing: house number of children: 1 current occupational status: employed 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 current occupational exposures/hazards: Yes pets and animals: Yes (Not managing litter box) pets and animals: cat(s) and other details: chinjamiras history of recent travel: No sexually active: Yes Smoking Status: Never smoker second hand exposure: Yes (PT's mother - smokes outside) alcohol intake: current alcohol intake frequency: holidays/special occasions only details: Not while substance use type: does not use diet: lactose free well-balanced diet: about half the time caffeine: Yes Type: coffee eating out: rarely or never during the past year weight has: decreased > 10 lbs what type of physical activity do you participate in: walking frequency: 1-2 times per week duration: < 15 minutes/day jarrod/christianity: Denominational seatbelt use: always do you feel safe at home: Yes 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 Date Name GA/Weeks Outcome Route Bth Weight Infant Gen Labor Lgth Anesthesia Del Locatn Provider FOB 12/09/23 Ananda 40 live - full term vacuum 7lbs 2oz Male epidural [facility] Delivery Date: 12/09/23 Last Updated by: Azalia Manzo RN GDM, nuchal cord, Induced d/t est baby size HPI 26 wk ob Details: CARMEN THOMPSON is a 29 year old who presents for routine OB visit. OB Visit FRANNY Calculator Estimated Delivery Date Method Current WG Current Estimate 04/11/25 Ultrasound #2 24w 6d Other Estimates 04/11/25 Ultrasound #1 24w 6d Expected Delivery Route/Plan Labor Preferences- CB/BF classes: no labor support person: Edinson labor intervention preferences: [] pain management options preferred: epidural cut cord/dad catch: cord : yes PP control planned: discussed discussed possible routes of delivery and associated risks: [] special requests: [] Specific Issue/Plans Covid status: [] Flu vaccine: [] Tdap vaccine: [] Rhogam: [] LARC form signed: yes Problem list reviewed and updated with the most current plan of care details and appropriate orders placed. Relevant counseling for the gestational age provided. Continue routine care and follow up unless otherwise noted in visit notes/problem list details Initial Weight: 133 lb Date -???-???-???-???-???-? ??-???-???-???-???-??? -???- EGA Weight BP Urine Prot -???-???-???-???-???-? ??-???-???-???-???-??? -???- Glucose FHR FuHt Pres Dilation -???-???-???-???-???-? ??-???-???-???-???-??? -???- Effaced St Visit Note 09/13/24 -???-???-???-???-???-? ??-???-???-???-???-??? -???- 10w 0d 133 lb 2 oz (+2 oz) 108/74 -???-???-???-???-???-? ??-???-???-???-???-??? -???- 180 -???-???-???-???-???-? ??-???-???-???-???-??? -???- KW- CRL cons with dates. declines NIPT. labs today. anatomy US ordered 10/04/24 -???-???-???-???-???-? ??-???-???-???-???-??? -???- 13w 0d 137 lb 2 oz (+4 lb 2 oz) 100/69 Negative -???-? (more content not included)... Normal [facility] - Chemistry and C hemistry - challengeOrdered By: Kathy Schwartz on 12-01-2024 Glucose Ql (U) Negative [facility] - UrinalysisOrder ed By: Kathy Schwartz on 12-01-2024 Protein Ql (U) Negative [facility] Online Content Developer Office Visit Reporton 12-01-2024 Online Content Developer Office Visit Report [facility] [address], [address] [place] [address] OFFICE VISIT Date of Service: 12/01/24 MR#: [id number] Acct: [id number] Name: CARMEN THOMPSON Rep #: [id number] : 1995 Provider: Dr. Kathy amato MD Age/Sex: 29/F Location: [facility] Status: Signed Intake Vital Signs 09/13/24 08:51 11/02/24 15:54 12/01/24 15:59 12/01/24 16:03 Height 5 ft 5 ft 5 ft 5 ft Weight: 152 lb 8 oz BMI 29.7 BP 109/71 Intake Visit Reasons: 22wk ob 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: No Is patient in pain?: No Feel stressed/tense/nervous /anxious/difficulty sleeping: not at all Allergies No Known Allergies Allergy (Verified 12/01/24 15:59) Medications ???Medication ???Instructions ???Recorded ???Confirmed ???Type docosahexaenoic acid 200 mg mg PO 08/19/24 12/01/24 History capsule ( DHA) Last Menstrual Period: 06/15/24 Zika: Zika virus screening: Negative : No PFSH PFSH Medical History (Updated 12/01/24 @ 16:[address] 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: Yes pets and animals: Yes (Not managing litter box) pets and animals: cat(s) and other details: chinchillas history of recent travel: No sexually active: Yes Smoking Status: Never smoker second hand exposure: Yes (PT's mother - smokes outside) alcohol intake: current alcohol intake frequency: holidays/special occasions only details: Not while substance use type: does not use diet: lactose free well-balanced diet: about half the time caffeine: Yes Type: coffee eating out: rarely or never during the past year weight has: decreased > 10 lbs what type of physical activity do you participate in: walking frequency: 1-2 times per week duration: < 15 minutes/day jarrod/christianity: Denominational seatbelt use: always do you feel safe at home: Yes 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 Date Name GA/Weeks Outcome Route Bth Weight Gen Labor Lgth Anesthesia Del Locatn Provider FOB 12/09/23 Ananda 40 live - full term vacuum 7lbs 2oz Male epidural [facility] Delivery Date: 12/09/23 Last Updated by: Azalia Manzo RN GDM, nuchal cord, Induced d/t est baby size HPI 22wk ob Details: CARMEN THOMPSON is a 29 year old who presents for routine OB visit. OB Visit FRANNY Calculator Estimated Delivery Date Method Current WG Current Estimate 04/11/25 Ultrasound #2 21w 2d Other Estimates 04/11/25 Ultrasound #1 21w 2d Expected Delivery Route/Plan Labor Preferences- CB/BF classes: [] labor support person: [] labor intervention preferences: [] pain management options preferred: [] cut cord/dad catch: [] : [] PP control planned: [] discussed possible routes of delivery and associated risks: [] special requests: [] Specific Issue/Plans Covid status: [] Flu vaccine: [] Tdap vaccine: [] Rhogam: [] LARC form signed: [] Problem list reviewed and updated with the most current plan of care details and appropriate orders placed. Relevant counseling for the gestational age provided. Continue routine care and follow up unless otherwise noted in visit notes/problem list details Initial Weight: 133 lb Date -???-???-???-???-???-? ??-???-???-???-???-??? -???- EGA Weight BP Urine Prot -???-???-???-???-???-? ??-???-???-???-???-??? -???- Glucose FHR FuHt Pres Dilation -???-???-???-???-???-? ??-???-???-???-???-??? -???- Effaced St Visit Note 09/13/24 -???-???-???-???-???-? ??-???-???-???-???-??? -???- 10w 0d 133 lb 2 oz (+2 oz) 108/74 -???-???-???-???-???-? ??-???-???-???-???-??? -???- 180 -???-???-???-???-???-? ??-???-???-???-???-??? -???- KW- CRL cons with dates. declines NIPT. labs today. anatomy US ordered 10/04/24 -???-???-???-???-???-? ??-???-???-???-???-??? -???- 13w 0d 137 lb 2 oz (+4 lb 2 oz) 1 (more content not included)... Normal [facility] - Chemistry and C hemistry - challengeOrdered By: Caron Castorena on 11-02-2024 Glucose Ql (U) Negative [facility] - UrinalysisOrder ed By: Caron Castorena on 11-02-2024 Protein Ql (U) Negative [facility] Online Content Developer Office Visit Reporton 11-02-2024 Online Content Developer Office Visit Report [facility]'s [address], [address] [place] [address] OFFICE VISIT Date of Service: 11/02/24 MR#: [id number] Acct: [id number] Name: CARMEN THOMPSON Rep #: [id number] : 1995 Provider: Dr. Carno Castro DO Age/Sex: 29/F Location: [facility] Status: Signed Intake Vital Signs 09/13/24 08:51 10/04/24 09:38 11/02/24 15:54 11/02/24 15:54 Height 5 ft 5 ft 5 ft 5 ft Weight: 143 lb 6 oz BMI 28.0 BP 110/70 Intake Visit Reasons: 18wk ob 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: No Is patient in pain?: No Allergies No Known Allergies Allergy (Verified 11/02/24 15:53) Medications ???Medication ???Instructions ???Recorded ???Confirmed ???Type docosahexaenoic acid 200 mg mg PO 08/19/24 11/02/24 History capsule ( DHA) Last Menstrual Period: 06/15/24 Zika: Zika virus screening: Negative : No PFSH PFSH Medical History (Updated 11/02/24 @ 15:54 by Serena Castro) 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 Hx of gestational diabetes in prior , currently Surgical History H/O colposcopy with cervical biopsy Family History Father Diabetes Hyperlipidemia Hypertension Chronic mental illness Mother Hypertension Sister Hereditary spherocytosis Social History adopted: No household members: spouse, children and other details: Pt's mom housing: house number of children: 1 current occupational status: employed 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 occupational exposures/hazards: Yes pets and animals: Yes (Not managing litter box) pets and animals: cat(s) and other details: jennifer history of recent travel: No sexually active: Yes Smoking Status: Never smoker second hand exposure: Yes (PT's mother - smokes outside) alcohol intake: current alcohol intake frequency: holidays/special occasions only details: Not while substance use type: does not use diet: lactose free well-balanced diet: about half the time caffeine: Yes Type: coffee eating out: rarely or never during the past year weight has: decreased > 10 lbs what type of physical activity do you participate in: walking frequency: 1-2 times per week duration: < 15 minutes/day jarrod/christianity: Denominational seatbelt use: always do you feel safe at home: Yes 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 Date Name GA/Weeks Outcome Route Bth Weight Gen [facility] F[facility]/09/23 Ananda 40 live - full term vacuum 7lbs 2oz Male epidural [facility] Delivery Date: 12/09/23 Last Updated by: Azalia Manzo RN GDM, nuchal cord, Induced d/t est baby size HPI 18wk ob Details: CARMEN THOMPSON is a 29 year old who presents for routine OB visit. OB Visit FRANNY Calculator Estimated Delivery Date Method Current WG Current Estimate 04/11/25 Ultrasound #2 17w 1d Other Estimates 04/11/25 Ultrasound #1 17w 1d Expected Delivery Route/Plan Labor Preferences- CB/BF classes: [] labor support person: [] labor intervention preferences: [] pain management options preferred: [] cut cord/dad catch: [] : [] PP control planned: [] discussed possible routes of delivery and associated risks: [] special requests: [] Specific Issue/Plans Covid status: [] Flu vaccine: [] Tdap vaccine: [] Rhogam: [] LARC form signed: [] Problem list reviewed and updated with the most current plan of care details and appropriate orders placed. Relevant counseling for the gestational age provided. Continue routine care and follow up unless otherwise noted in visit notes/problem list details Initial Weight: 133 lb Date -???-???-???-???-???-? ??-???-???-???-???-??? -???- EGA Weight BP Urine Prot -???-???-???-???-???-? ??-???-???-???-???-??? -???- Glucose FHR FuHt Pres Dilation -???-???-???-???-???-? ??-???-???-???-???-??? -???- Effaced St Visit Note 09/13/24 -???-???-???-???-???-? ??-???-???-???-???-??? -???- 10w 0d 133 lb 2 oz (+2 oz) 108/74 -???-???-???-???-???-? ??-???-???-???-???-??? -???- 180 -???-???-???-???-???-? ??-???-???-???-???-??? -???- KW- CRL cons with dates. declines NIPT. labs today. anatomy US ordered 10/04/24 -???-???-???-???-???-? ??-???-???-???-???-??? -???- 13w 0d 137 lb 2 oz (+4 lb 2 oz) 100/69 Negative -???-???-???-???-???-? ??-???-???-???-???-??? -???- (more content not included)... Normal [facility] Laboratory - Chemistry and C hemistry - challengeOrdered By: Jessy Foss on 10-04-2024 Glucose Ql (U) Negative [facility] - UrinalysisOrder ed By: Jessy Foss on 10-04-2024 Protein Ql (U) Negative [facility] Online Content Developer Office Visit Reporton 10-04-2024 Online Content Developer Office Visit Report [facility]'s [address], [address] [place] [address] OFFICE VISIT Date of Service: 10/04/24 MR#: [id number] Acct: [id number] Name: CARMEN THOMPSON Rep #: [id number] : 1995 Provider: ANA MARÍA rodriguez Age/Sex: 29/F Location: [facility] [place] Status: Signed Intake Vital Signs 08/19/24 13:28 09/13/24 08:51 10/04/24 09:38 Height 5 ft 5 ft 5 ft Weight: 138 lb 133 lb 2 oz 137 lb 2 oz BMI 26.9 25.9 26.7 BP 108/74 100/69 Intake Visit Reasons: 14wk OB Chief Complaint: 14 Week OB 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: No Is patient in pain?: No Allergies No Known Allergies Allergy (Verified 10/04/24 09:42) Medications ???Medication ???Instructions ???Recorded ???Confirmed ???Type docosahexaenoic acid 200 mg mg PO 08/19/24 10/04/24 History capsule ( DHA) Last Menstrual Period: 06/15/24 Zika: Zika virus screening: Negative : No PFSH PFSH Medical History (Updated 10/04/24 @ 10:04 by Jessy Foss OCCUPATIONAL SAFETY AND HEALTH MANAGER, DAVINA-C) 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 Hx of gestational diabetes in prior , currently Surgical History H/O colposcopy with cervical biopsy Family History Father Diabetes Hyperlipidemia Hypertension Chronic mental illness Mother Hypertension Sister Hereditary spherocytosis Social History adopted: No household members: spouse, children and other details: Pt's mom housing: house number of children: 1 current occupational status: employed 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 occupational exposures/hazards: Yes pets and animals: Yes (Not managing litter box) pets and animals: cat(s) and other details: chinjoséllas history of recent travel: No sexually active: Yes Smoking Status: Never smoker second hand exposure: Yes (PT's mother - smokes outside) alcohol intake: current alcohol intake frequency: holidays/special occasions only details: Not while substance use type: does not use diet: lactose free well-balanced diet: about half the time caffeine: Yes Type: coffee eating out: rarely or never during the past year weight has: decreased > 10 lbs what type of physical activity do you participate in: walking frequency: 1-2 times per week duration: < 15 minutes/day jarrod/christianity: Denominational seatbelt use: always do you feel safe at home: Yes 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 Date Name GA/Weeks Outcome Route Bth Weight Gen Labor Lgth Anesthesia Del Locatn Provider FOB 12/09/23 Ananda 40 live - full term vacuum 7lbs 2oz Male epidural [facility] Delivery Date: 12/09/23 Last Updated by: Azalia Manzo RN GDM, nuchal cord, Induced d/t est baby size HPI 14wk OB Details: CARMEN THOMPSON is a 29 year old who presents for routine OB visit. OB Visit [place]AN[place] Calculator Estimated Delivery Date Method Current WG Current Estimate 04/11/25 Ultrasound #2 13w 0d Other Estimates 04/11/25 Ultrasound #1 13w 0d Expected Delivery Route/Plan Labor Preferences- CB/BF classes: [] labor support person: [] labor intervention preferences: [] pain management options preferred: [] cut cord/dad catch: [] : [] PP control planned: [] discussed possible routes of delivery and associated risks: [] special requests: [] Specific Issue/Plans Covid status: [] Flu vaccine: [] Tdap vaccine: [] Rhogam: [] LARC form signed: [] Problem list reviewed and updated with the most current plan of care details and appropriate orders placed. Relevant counseling for the gestational age provided. Continue routine care and follow up unless otherwise noted in visit notes/problem list details Initial Weight: 133 lb Date -???-???-???-???-???-? ??-???-???-???-???-??? -???- EGA Weight BP Urine Prot -???-???-???-???-???-? ??-???-???-???-???-??? -???- Glucose FHR FuHt Pres Dilation -???-???-???-???-???-? ??-???-???-???-???-??? -???- Effaced St Visit Note 09/13/24 -???-???-???-???-???-? ??-???-???-???-???-??? -???- 10w 0d 133 lb 2 oz (+2 oz) 108/74 -???-???-???-???-???-? ??-???-???-???-???-??? -???- 180 -???-???-???-???-???-? ??-???-???-???-???-??? -???- KW- CRL cons with dates. declines NIPT. labs today. anatomy US ordered 10/04/24 -???-???-???-???-???-? ??-???-???-???-???-??? -???- 13w 0d 137 lb 2 oz (+4 lb 2 oz) 100/69 Negative -???-???-? (more content not included)... Normal [facility] Chlamydia/GC ÁNGEL aptimaon CHLAMY,NUC ACID Negative Normal Negative [facility] Comment on above: Performed By: #### L 501.9985, L509.4006, L3890.6301, BTS, L3890.6102, L3890.6006, L509.8002, L100.0100 #### [facility] [address] [place], [place], [id number] GC BY NUC ACID Negative Normal Negative [facility] Comment on above: Result Comment: Perf ormed at: =G - [facility] [address] [id number] Edging Catcher: Lara Domingo MD, Phone: [phone] Performed By: #### L 501.9985, L509.4006, L3890.6301, BTS, L3890.6102, L3890.6006, L509.8002, L100.0100 #### [facility] [address] [place], [place], [id number] Urine Cultureon 09-15-2024 URC Below infection leve l. Mixed Gram Pos Gram Neg Org Lemmon Count <1000 MIXC Mixed contaminants. Submit a new specimen if indicated. Normal [facility] Comment on above: Performed By: #### L 501.9985, L509.4006, L3890.6301, BTS, L3890.6102, L3890.6006, L509.8002, L100.0100 #### [facility] [address] [place], [place], [id number] L3890.6102on 09-14-2024 HEP B Surf Ag Non-Reactive Normal Nonreactive [facility] Comment on above: Result Comment: Reac tive: Presumptive evidence of HBV. Repeatedly reactive samples must be confirmed using a neutralization test ([employer] HBsAg Confirmatory Test) Non-Reactive: HBsAg not detected; does not exclude the possibility of exposure to HBV Performed By: #### L 501.9985, L509.4006, L3890.6301, BTS, L3890.6102, L3890.6006, L509.8002, L100.0100 #### [facility] [address] [place], [place], [id number] [phone] Absolute lymphocyte countOrd ered By: Gwen Claudio on 09-13-2024 Lymphocytes Auto (Unsp spec) [#/Vol] 1.12 10*3/uL 0.83-4.51 [facility] Absolute neutrophil countOrd ered By: Gwen Claudio on 09-13-2024 Neutrophils (Bld) [#/Vol] 4.6 10*3/uL 2.0-7.7 [facility] Automated lymphocyte count a s percentage of total leukocytesOrdered By: Gwen Claudio on 09-13-2024 Lymphocytes/100 WBC Auto (Unsp spec) 18.0 % Low 19-41 [facility] Basophil percentageOrdered B y: Gwen Claudio on 09-13-2024 Basophils/100 WBC (Bld) 0.3 % 0-1 W [facility] CBC W/Diff, Automatedon 09-01 Absolute Lymph 1.12 X10 3/uL Normal 0.83-4.51 [facility] Comment on above: Performed By: #### L 501.9985, L509.4006, L3890.6301, BTS, L3890.6102, L3890.6006, L509.8002, L100.0100 #### [facility] [address] [place], [address] Absolute Neut 4.6 X10 3/uL Normal 2.0-7.7 [facility] Comment on above: Performed By: #### L 501.9985, L509.4006, L3890.6301, BTS, L3890.6102, L3890.6006, L509.8002, L100.0100 #### [facility] [address] [place], [address] Basophils/100 WBC (Bld) 0.3 % Normal 0-1 W [facility] Comment on above: Performed By: #### L 501.9985, L509.4006, L3890.6301, BTS, L3890.6102, L3890.6006, L509.8002, L100.0100 #### [facility] [address] [place], [address] Eosinophils/100 WBC (Bld) 0.8 % Normal 0-5 [facility] Comment on above: Performed By: #### L 501.9985, L509.4006, L3890.6301, BTS, L3890.6102, L3890.6006, L509.8002, L100.0100 #### [facility] [address] [place], [address] Erythrocyte distribution width (RBC) [Ratio] 12.3 % Normal 11.6-14.6 [facility] Comment on above: Performed By: #### L 501.9985, L509.4006, L3890.6301, BTS, L3890.6102, L3890.6006, L509.8002, L100.0100 #### [facility] [address] [place], [address] Hematocrit (Bld) [Volume fraction] 41.0 % Normal 37-47 [facility] Comment on above: Performed By: #### L 501.9985, L509.4006, L3890.6301, BTS, L3890.6102, L3890.6006, L509.8002, L100.0100 #### [facility] [address] [place], [address] Hemoglobin (Bld) [Mass/Vol] 14.1 g/dL Normal 12.0-15.0 [facility] Comment on above: Performed By: #### L 501.9985, L509.4006, L3890.6301, BTS, L3890.6102, L3890.6006, L509.8002, L100.0100 #### [facility] [address] [place], [address] IG% 0.300 Normal 0.0-0.9 [facility] Comment on above: Result Comment: IG% - Immature Granulocytes (promyelocytes, myelocytes and metamyelocytes) > 1% indicates that a LEFT SHIFT is Present. Performed By: #### L 501.9985, L509.4006, L3890.6301, BTS, L3890.6102, L3890.6006, L509.8002, L100.0100 #### [facility] [address], [address] Lymphocytes/100 WBC (Bld) 18.0 % Low 19-41 [facility] Comment on above: Performed By: #### L 501.9985, L509.4006, L3890.6301, BTS, L3890.6102, L3890.6006, L509.8002, L100.0100 #### [facility] [address] [place], [address] MCH (RBC) [Entitic mass] 30.1 pg Normal 27.0-32.0 [facility] Comment on above: Performed By: #### L 501.9985, L509.4006, L3890.6301, BTS, L3890.6102, L3890.6006, L509.8002, L100.0100 #### [facility] [address] [place], [address] MCHC (RBC) [Mass/Vol] 34.4 g/dL Normal 32-36 [facility] Comment on above: Performed By: #### L 501.9985, L509.4006, L3890.6301, BTS, L3890.6102, L3890.6006, L509.8002, L100.0100 #### [facility] [address] [place], [address] MCV (RBC) [Entitic vol] 87.4 fL Normal 81-99 W [facility] Comment on above: Performed By: #### L 501.9985, L509.4006, L3890.6301, BTS, L3890.6102, L3890.6006, L509.8002, L100.0100 #### [facility] [address] [place], [address] Monocytes/100 WBC (Bld) 7.1 % Normal 0-10 W [facility] Comment on above: Performed By: #### L 501.9985, L509.4006, L3890.6301, BTS, L3890.6102, L3890.6006, L509.8002, L100.0100 #### [facility] [address] [place], [address] Neutrophils/100 WBC (Bld) 73.5 % High 47-70 [facility] Comment on above: Performed By: #### L 501.9985, L509.4006, L3890.6301, BTS, L3890.6102, L3890.6006, L509.8002, L100.0100 #### [facility] [address] [place], [address] Nucleated RBC (Bld) [#/Vol] 0 10*3/uL Normal 0-5 [facility] Comment on above: Performed By: #### L 501.9985, L509.4006, L3890.6301, BTS, L3890.6102, L3890.6006, L509.8002, L100.0100 #### [facility] [address] [place], [address] Platelet mean volume (Bld) [Entitic vol] 10.9 fL Normal 6.2-12.0 [facility] Comment on above: Performed By: #### L 501.9985, L509.4006, L3890.6301, BTS, L3890.6102, L3890.6006, L509.8002, L100.0100 #### [facility] [address] [place], [address] Platelets (Bld) [#/Vol] 198 10*3/uL Normal 150-450 [facility] Comment on above: Performed By: #### L 501.9985, L509.4006, L3890.6301, BTS, L3890.6102, L3890.6006, L509.8002, L100.0100 #### [facility] [address] [place], [address] RBC (Bld) [#/Vol] 4.69 10*6/uL Normal 4.2-5.4 [facility] Comment on above: Performed By: #### L 501.9985, L509.4006, L3890.6301, BTS, L3890.6102, L3890.6006, L509.8002, L100.0100 #### [facility] [address] [place], [address] RDW SD 38.9 fl Normal 35.1-43.9 [facility] Comment on above: Performed By: #### L 501.9985, L509.4006, L3890.6301, BTS, L3890.6102, L3890.6006, L509.8002, L100.0100 #### [facility] [address] [place], [address] WBC (Bld) [#/Vol] 6.2 10*3/uL Normal 4.4-11.0 [facility] Comment on above: Performed By: #### L 501.9985, L509.4006, L3890.6301, BTS, L3890.6102, L3890.6006, L509.8002, L100.0100 #### [facility] [address] [place], [address] Chlamydia trachomatis rRNA d etection by probe and target amplification methodOrdered By: Gwen Claudio on 09-13-2024 C. trachomatis rRNA ÁNGEL+probe Ql (Unsp spec) Negative Negative [facility] Eosinophil percentageOrdered By: Gwen Claudio on 09-13-2024 Eosinophils/100 WBC (Bld) 0.8 % 0-5 [facility] Erythrocyte distribution wid th ratioOrdered By: Gewn Claudio on 09-13-2024 Erythrocyte distribution width (RBC) [Ratio] 12.3 % 11.6-14.6 [facility] Erythrocyte distribution wid th standard deviationOrdered By: Gwen Claudio on 09-13-2024 Erythrocyte distribution width (RBC) [Ratio] 38.9 fl 35.1-43.9 [facility] HIVon 09-13-2024 HIV Non-Reactive Normal Nonreactive [facility] Comment on above: Result Comment: Non- Reactive Reactive Repeatedly reactive samples must be confirmed according to CDC recommended confirmatory algorithms. The subresults for either HIVAG or AHIV can be used as an aid in the selection of the confirmation algorithm for reactive samples. Send out specimens with Reactive results to [facility] for confirmation. Order the HIV antibody detection and differentiation: lc#[id number] Performed By: #### L 501.9985, L509.4006, L3890.6301, BTS, L3890.6102, L3890.6006, L509.8002, L100.0100 #### [facility] [address] [place], [address] Hematocrit Auto (Bld) [Volum e fraction]Ordered By: Gwen Claudio on 09-13-2024 Hematocrit (Bld) [Volume fraction] 41.0 % 37-47 [facility] Hemoglobin A1con 09-13-2024 HbA1c (Bld) [Mass fraction] 5.1 % Normal <=5.6 [facility] Comment on above: Result Comment: Norm al < 5.7 % Prediabetic 5.7 - 6.4 % Diabetic >or= 6.5 % Please note range changes. Performed By: #### L 501.9985, L509.4006, L3890.6301, BTS, L3890.6102, L3890.6006, L509.8002, L100.0100 #### [facility] [address] [place], [place], [address] Hemoglobin A1c percentageOrd ered By: Gwen Claudio on 09-13-2024 HbA1c (Bld) [Mass fraction] 5.1 % <5.7 [facility] Comment on above: Normal < 5.7 % Predi abetic 5.7 - 6.4 % Diabetic >or= 6.5 % Please note range changes. Hemoglobin measurementOrdere d By: Gwen Claudio on 09-13-2024 Hemoglobin (Bld) [Mass/Vol] 14.1 g/dL 12.0-15.0 [facility] Hepatitis C Antibodyon 09-13 Hepatitis C Ab Non-Reactive Normal Nonreactive [facility] Comment on above: Result Comment: Reac tive: Presumptive evidence of antibodies to HCV. Follow CDC recommendations for supplemental testing. Non-Reactive: Antibodies to HCV were not detected; does not exclude the possibility of exposure to HCV Reactive Results are presumptive evidence of antibodies to HCV. Follow CDC recommendations for supplemental testing. Order confirmation testing: HCV Quant by PCR testing - HCVPCR #[id number] Non Reactive: < 0.8 Equivocal: >/= 0.8 to < 1.0 Reactive: >/= 1.0 The CDC requires that a reactive/equivocal HCV antibody result be sent out for confirmation. HCV Quant by PCR testing. Performed By: #### L 501.9985, L509.4006, L3890.6301, BTS, L3890.6102, L3890.6006, L509.8002, L100.0100 #### [facility] [address] [place], [address] Immature granulocytes/100 WB C Auto (Bld)Ordered By: Gwen Claudio on 09-13-2024 Immature granulocytes/100 WBC (Bld) 0.300 % 0.0-0.9 [facility] Comment on above: IG% - Immature Granu locytes (promyelocytes, myelocytes and metamyelocytes) > 1% indicates that a LEFT SHIFT is Present. L509.4006on 09-13-2024 Rubella IgG REAC Normal Nonreactive [facility] Comment on above: Result Comment: Anti body Result: Interpretation Non-Reactive: Non-Immune Reactive: Immune The following results were obtained with the [employer] Rubella IgG assay. Results from assays of other manufacturers cannot be used interchangeably. Performed By: #### L 501.9985, L509.4006, L3890.6301, BTS, L3890.6102, L3890.6006, L509.8002, L100.0100 #### [facility] [address] [place], [address] Laboratory - Microbiology an d Antimicrobial susceptibilityOrdered By: Gwen Claudio on 09-13-2024 HBV surface Ag Ql (S) Non-Reactive Nonreactive [facility] Comment on above: Reactive: Presumptiv e evidence of HBV. Repeatedly reactive samples must be confirmed using a neutralization test ([employer] HBsAg Confirmatory Test)Non-Reactive: HBsAg not detected; does not exclude the possibility of exposure to HBV MCV (mean corpuscular volume ) determinationOrdered By: Gwen Claudio on 09-13-2024 MCV (RBC) [Entitic vol] 87.4 fL 81-99 [facility] Mean corpuscular hemoglobin (MCH) determinationOrdered By: Gwen Claudio on 09-13-2024 MCH (RBC) [Entitic mass] 30.1 pg 27.0-32.0 [facility] Mean corpuscular hemoglobin concentration (MCHC) determinationOrdered By: Gwen Claudio on 09-13-2024 MCHC (RBC) [Mass/Vol] 34.4 g/dL 32-36 [facility] Mean platelet volume determi nationOrdered By: Gwen Claudio on 09-13-2024 Platelet mean volume (Bld) [Entitic vol] 10.9 fL 6.2-12.0 [facility] Monocyte percentageOrdered B y: Gwen Claudio on 09-13-2024 Monocytes/100 WBC (Bld) 7.1 % 0-10 [facility] Neisseria gonorrhoeae nuclei c acid detection by amplified probe techniqueOrdered By: Gwen Claudio on 09-13-2024 N. gonorrhoeae DNA ÁNGEL+probe Ql (Unsp spec) Negative Negative [facility] Comment on above: Performed at: =[address] [id number] Director: Lara Domingo MD, Phone: [phone] Neutrophil percentageOrdered By: Gwen Claudio on 09-13-2024 Neutrophils/100 WBC (Bld) 73.5 % High 47-70 [facility] No Panel InformationOrdered By: Gwen Claudio on 09-13-2024 HIV (1&2) Antibody Non-Reactive Nonreactive [facility] Comment on above: Non-ReactiveReactive Repeatedly reactive samples must be confirmed according to CDC recommended confirmatory algorithms. The subresults for either HIVAG or AHIV can be used as an aid in the selection of the confirmation algorithm for reactive samples.Send out specimens with Reactive results to [facility] for confirmation.Order the HIV antibody detection and differentiation: #[id number] Nucleated red blood cell per centageOrdered By: Gwen Claudio on 09-13-2024 Nucleated RBC/100 WBC (Bld) [Ratio] 0 % 0-5 [facility] Online Content Developer Office Visit Reporton 09-13-2024 Online Content Developer Office Visit Report [facility]'s [address], [address] [place] [address] OFFICE VISIT Date of Service: 09/13/24 MR#: [id number] Acct: [id number] Name: CARMEN THOMPSON Rep #: [id number] : 1995 Provider: GISELLE Brock ams Age/Sex: 29/F Location: [facility] Status: Signed Intake Vital Signs 03/01/24 15:53 08/19/24 13:28 09/13/24 08:51 Height 5 ft 5 ft 5 ft Weight: 133 lb 2 oz BMI 25.9 BP 108/74 Intake Visit Reasons: New OB, 8 months PP, US at [place], FRANNY 04/11 Chief Complaint: New OB 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: No Is patient in pain?: No Allergies No Known Allergies Allergy (Verified 09/13/24 08:49) Medications ???Medication ???Instructions ???Recorded ???Confirmed ???Type docosahexaenoic acid 200 mg mg PO 08/19/24 09/13/24 History capsule ( DHA) Last Menstrual Period: 06/15/24 : Yes PFSH PFSH Medical History 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 Hx of gestational diabetes in prior , currently Surgical History H/O colposcopy with cervical biopsy Family History Father Diabetes Hyperlipidemia Hypertension Chronic mental illness Mother Hypertension Sister Hereditary spherocytosis Social History adopted: No household members: spouse, children and other details: Pt's mom housing: house number of children: 1 current occupational status: employed 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 occupational exposures/hazards: Yes pets and animals: Yes (Not managing litter box) pets and animals: cat(s) and other details: chinjamiras history of recent travel: No sexually active: Yes Smoking Status: Never smoker second hand exposure: Yes (PT's mother - smokes outside) alcohol intake: current alcohol intake frequency: holidays/special occasions only details: Not while substance use type: does not use diet: lactose free well-balanced diet: about half the time caffeine: Yes Type: coffee eating out: rarely or never during the past year weight has: decreased > 10 lbs what type of physical activity do you participate in: walking frequency: 1-2 times per week duration: < 15 minutes/day jarrod/christianity: Denominational seatbelt use: always do you feel safe at home: Yes additional social history: : [place] 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 Date Name GA/Weeks Outcome Route Bth Weight Gen Labor Lgth Anesthesia Del Locatn Provider FOB 12/09/23 Ananda 40 live - full term vacuum 7lbs 2oz Male epidural [facility] [place] Delivery Date: 12/09/23 Last Updated by: Azalia Manzo RN GDM, nuchal cord, Induced d/t est baby size HPI New OB, 8 months PP, US at [place], FRANNY 04/11 Details: CARMEN THOMPSON is a 29 year old who presents for New OB visit. OB Visit [place]ANNY Calculator Estimated Delivery Date Method Current WG Current Estimate 04/11/25 Ultrasound #2 10w 0d Other Estimates 04/11/25 Ultrasound #1 10w 0d Estimated Due Date: 04/11/25 Expected Delivery Route/Plan Labor Preferences- CB/BF classes: [] labor support person: [] labor intervention preferences: [] pain management options preferred: [] cut cord/dad catch: [] : [] PP control planned: [] discussed possible routes of delivery and associated risks: [] special requests: [] Specific Issue/Plans Covid status: [] Flu vaccine: [] Tdap vaccine: [] Rhogam: [] LARC form signed: [] Problem list reviewed and updated with the most current plan of care details and appropriate orders placed. Relevant counseling for the gestational age provided. Continue routine care and follow up unless otherwise noted in visit notes/problem list details Initial Weight: 133 lb Date -???-???-???-???-???-? ??-???-???-???-???-??? -???- EGA Weight BP Urine Prot -???-???-???-???-???-? ??-???-???-???-???-??? -???- Glucose FHR FuHt Pres Dilation -???-???-???-???-???-? ??-???-???-???-???-??? -???- Effaced St Visit Note 09/13/24 -???-???-???-???-???-? ??-???-???-???-???-??? -???- 10w 0d 133 lb 2 oz (+2 oz) 108/74 -???-???-???-???-???-? ??-???-???-???-???-??? -???- 180 -???-???-???-???-???-? ??-???-???-???-???-??? -???- KW- CRL cons with dates. declines NIPT. labs today. anatomy US ordered Menstrual History Last Menstrual Period: 06/15/24 Reported LMP: unknown (Had period in April and June) Normal amount/ (more content not included)... Normal [facility] Platelet countOrdered By: Benjamin Claudio on 09-13-2024 Platelets (Bld) [#/Vol] 198 10*3/uL 150-450 [facility] RBC Auto (Bld) [#/Vol]Ordere d By: Gwen Claudio on 09-13-2024 RBC (Bld) [#/Vol] 4.69 10*6/uL 4.2-5.4 [facility] Syphilis Antibodieson 2024 Syphilis Abs Non-Reactive Normal Nonreactive [facility] Comment on above: Performed By: #### L 501.9985, L509.4006, L3890.6301, BTS, L3890.6102, L3890.6006, L509.8002, L100.0100 #### [facility] [address] [place], [place], [id number] Type AND Screenon 09-13-2024 Ab SCREEN GEL Negative Normal [facility] Comment on above: Order Comment: PN Performed By: #### L 501.9985, L509.4006, L3890.6301, BTS, L3890.6102, L3890.6006, L509.8002, L100.0100 #### [facility] [address] [place], [address] Urine cultureOrdered By: Titi Claudio on 09-13-2024 Bacteria identified Cx Nom (U) Mixed Gram Pos & Gram Neg Org Abnormal [facility] White blood cell (WBC) count Ordered By: Gwen lCaudio on 09-13-2024 WBC (Bld) [#/Vol] 6.2 10*3/uL 4.4-11.0 [facility] - Chemistry and C hemistry - challengeOrdered By: Gwen Claudio on 08-19-2024 HCG ( test) Ql (U) Positive [facility] Office Visit Reporton 2024 Office Visit Report [facility] [address] [place] [address] OFFICE VISIT Date of Service: 08/19/24 MR#: [id number] Acct: [id number] Patient: CARMEN THOMPSON Rep #: [id number] : 1995 Provider: GISELLE Brock ams Age/Sex: 29/F Location: [facility] Status: Signed Intake Vital Signs 03/01/24 15:53 08/19/24 13:28 Height 5 ft 5 ft Weight: 138 lb BMI 26.9 Intake Visit Reasons: Urine preg, new pt, multipara 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: No Is patient in pain?: No Allergies No Known Allergies Allergy (Verified 08/19/24 13:30) Medications ???Medication ???Instructions ???Recorded ???Confirmed ???Type docosahexaenoic acid 200 mg mg PO 08/19/24 08/19/24 History capsule ( DHA) Post menopausal: No Patient : Yes Have you fallen in the past year?: No Results POC Urine Office , Urine Positive Last Edit by Keisha Osei on 08/19/24 13:36 Assessment and Plan Assessment and Plan Orders: Orders POC Urine 08/19/24 Z34.90 - Encounter for supervision of normal , unspecified, unspecified trimester Clinical Quality Measures Falls Risk Screening/Assistive Devices Have you fallen in the past year?: No 08/22/24 1643 Date Gwen Claudio CNM Cosigner Signature: Date (if applicable) CC: Normal [facility] HPon 05-17-2024 H. Pylori IgG Positive Normal [facility] Comment on above: Result Comment: INTE RPRETATION OF H. PYLORI IGG BY EIA: Negative No detectable antibodies to H. pylori. Positive H. pylori IgG antibody detected. Equivocal Equivocal for IgG antibodies to H. pylori. Repeat testing if still indicated. Performed By: #### L IP, GFR, CMP #### [address] [address] #### HP #### [address] [address] .GFRon 05-11-2024 GFR 161 ml/min/1.73sqm [facility] Comment on above: Result Comment: GFR Population mean for , Non- Americans Ages 20-29 = 116 mL/min/1.73 sq.m. Ages 30-39 = 107 mL/min/1.73 sq.m. Ages 40-49 = 99 mL/min/1.73 sq.m. Ages 50-59 = 93 mL/min/1.73 sq.m. Ages 60-69 = 85 mL/min/1.73 sq.m. Ages 70+ = 75 mL/min/1.73 sq.m. Chronic Kidney Disease: Less than 60 mL/min/1.73 square meters End Stage Renal Disease: Less than 15 mL/min/1.73 square meters Performed By: #### L IP, GFR, CMP #### [address] [address] #### HP #### [address] [address] GFR Non- 133 ml/min/1.73sqm [facility] Comment on above: Result Comment: GFR Population mean for , Non- Americans Ages 20-29 = 116 mL/min/1.73 sq.m. Ages 30-39 = 107 mL/min/1.73 sq.m. Ages 40-49 = 99 mL/min/1.73 sq.m. Ages 50-59 = 93 mL/min/1.73 sq.m. Ages 60-69 = 85 mL/min/1.73 sq.m. Ages 70+ = 75 mL/min/1.73 sq.m. Chronic Kidney Disease: Less than 60 mL/min/1.73 square meters End Stage Renal Disease: Less than 15 mL/min/1.73 square meters Performed By: #### L IP, GFR, CMP #### [place] [address] #### HP #### [address] [address] [facility] Albumin Level 3.7 G/dL Normal 3.5-5.0 [facility] Comment on above: Performed By: #### L IP, GFR, CMP #### [place] [address] #### HP #### [address] [address] Albumin/Globulin [Mass ratio] 1.2 {ratio} Normal 1.1-2.5 [facility] Comment on above: Performed By: #### L IP, GFR, CMP #### [place] [address] #### HP #### [address] [address] ALP [Catalytic activity/Vol] 101 U/L Normal 40-135 [facility] Comment on above: Performed By: #### L IP, GFR, CMP #### [address] [address] #### HP #### [address] [address] ALT [Catalytic activity/Vol] 21 U/L Normal 14-59 [facility] Comment on above: Performed By: #### L IP, GFR, CMP #### [address] [address] #### HP #### [address] [address] AST [Catalytic activity/Vol] 12 U/L Normal 10-40 [facility] Comment on above: Performed By: #### L IP, GFR, CMP #### [place] [address] #### HP #### [address] [address] Bili Total 0.2 mg/dL Normal 0.2-1.0 [facility] Comment on above: Result Comment: Use of this assay is not recommended for patients undergoing treatment with eltrombopag due to the potential for falsely elevated results. Performed By: #### L IP, GFR, CMP #### [place] [address] #### HP #### [place] [address] BUN/Creatinine Ratio 30 ratio High 7-27 [facility] Comment on above: Performed By: #### L IP, GFR, CMP #### [place] [address] #### HP #### [address] [address] Calcium [Mass/Vol] 8.9 mg/dL Normal 8.4-10.2 [facility] Comment on above: Performed By: #### L IP, GFR, CMP #### [place] [address] #### HP #### [address] [address] Chloride [Moles/Vol] 106 mmol/L Normal 98-107 [facility] Comment on above: Performed By: #### L IP, GFR, CMP #### [place] [address] #### HP #### [address] [address] CO2 [Moles/Vol] 29 mmol/L Normal 22-29 [facility] Comment on above: Performed By: #### L IP, GFR, CMP #### [place] [address] #### HP #### [address] [address] Creatinine [Mass/Vol] 0.54 mg/dL Low 0.55-1.02 [facility] Comment on above: Result Comment: Test ing performed on Siemens Dimension EXL analyzer using a modified kinetic Lokesh technique. Performed By: #### L IP, GFR, CMP #### [address] [address] #### HP #### [address] [address] Electrolyte Balance 7.0 mEq/L Normal 4.0-15.0 [facility] Comment on above: Performed By: #### L IP, GFR, CMP #### [place] [address] #### HP #### [address] [address] Globulin 3.0 G/dL Normal [facility] Comment on above: Performed By: #### L IP, GFR, CMP #### [place] [address] #### HP #### [address] [address] Glucose [Mass/Vol] 82 mg/dL Normal 70-105 [facility] Comment on above: Performed By: #### L IP, GFR, CMP #### [place] [address] #### HP #### [address] [address] Potassium [Moles/Vol] 4.5 mmol/L Normal 3.5-5.1 [facility] Comment on above: Performed By: #### L IP, GFR, CMP #### [place] [address] #### HP #### [address] [address] Sodium [Moles/Vol] 142 mmol/L Normal 136-145 [facility] Comment on above: Performed By: #### L IP, GFR, CMP #### [address] [address] #### HP #### [address] [address] Total Protein 6.7 G/dL Normal 6.4-8.2 [facility] Comment on above: Performed By: #### L IP, GFR, CMP #### [place] [address] #### HP #### [place] [address] Urea nitrogen [Mass/Vol] 16 mg/dL Normal 7-18 [facility] Comment on above: Performed By: #### L IP, GFR, CMP #### [place] [id number] #### HP #### [place] [address] LABORATORYOrdered By: SYSTEM SYSTEM on 05-11-2024 Albumin BCP dye [Mass/Vol] 3.7 G/dL Normal 3.5 - 5.0 G/dL AO ADM SS Albumin/Globulin [Mass ratio] 1.2 {ratio} Normal 1.1 - 2.5 ratio AO ADM SS ALP [Catalytic activity/Vol] 101 U/L Normal 40 - 135 U/L AO ADM SS ALT With P-5'-P [Catalytic activity/Vol] 21 U/L Normal 14 - 59 U/L AO ADM SS AST With P-5'-P [Catalytic activity/Vol] 12 U/L Normal 10 - 40 U/L AO ADM SS Bilirubin [Mass/Vol] 0.2 mg/dL Normal 0.2 - 1 .0 mg/dL AO ADM SS Comment on above: Interpretive Data: U se of this assay is not recommended for patients undergoing treatment with eltrombopag due to the potential for falsely elevated results. Calcium [Mass/Vol] 8.9 mg/dL Normal 8.4 - 10. 2 mg/dL AO ADM SS Chloride [Moles/Vol] 106 mmol/L Normal 98 - 10 7 mmol/L AO ADM SS CO2 [Moles/Vol] 29 mmol/L Normal 22 - 29 mmol/L AO ADM SS Creatinine [Mass/Vol] 0.54 mg/dL Low 0.55 - 1.02 mg/dL AO ADM SS Comment on above: Interpretive Data: T esting performed on Siemens Dimension EXL analyzer using a modified kinetic Lokesh technique. Electrolyte Balance 7.0 mEq/L Normal 4.0 - 15 .0 mEq/L AO ADM SS GFR/1.73 sq M.predicted among blacks MDRD (S/P/Bld) [Vol rate/Area] 161 ml/min/1.73sqm Invalid Interpretation Code AO Chemistry S Comment on above: Interpretive Data: GFR Population mean for , Non- Americans Ages 20-29 = 116 mL/min/1.73 sq.m. Ages 30-39 = 107 mL/min/1.73 sq.m. Ages 40-49 = 99 mL/min/1.73 sq.m. Ages 50-59 = 93 mL/min/1.73 sq.m. Ages 60-69 = 85 mL/min/1.73 sq.m. Ages 70+ = 75 mL/min/1.73 sq.m. Chronic Kidney Disease: Less than 60 mL/min/1.73 square meters End Stage Renal Disease: Less than 15 mL/min/1.73 square meters GFR/1.73 sq M.predicted among non-blacks MDRD (S/P/Bld) [Vol rate/Area] 133 ml/min/1.73sqm Invalid Interpretation Code AO Chemistry S Comment on above: Interpretive Data: GFR Population mean for , Non- Americans Ages 20-29 = 116 mL/min/1.73 sq.m. Ages 30-39 = 107 mL/min/1.73 sq.m. Ages 40-49 = 99 mL/min/1.73 sq.m. Ages 50-59 = 93 mL/min/1.73 sq.m. Ages 60-69 = 85 mL/min/1.73 sq.m. Ages 70+ = 75 mL/min/1.73 sq.m. Chronic Kidney Disease: Less than 60 mL/min/1.73 square meters End Stage Renal Disease: Less than 15 mL/min/1.73 square meters Globulin 3.0 G/dL Invalid Interpretation Code AO ADM SS Glucose [Mass/Vol] 82 mg/dL Normal 70 - 105 mg/dL AO ADM SS Lipase [Catalytic activity/Vol] 63 U/L Normal 16 - 77 U/L AO ADM SS Potassium [Moles/Vol] 4.5 mmol/L Normal 3.5 - 5.1 mmol/L AO ADM SS Protein [Mass/Vol] 6.7 G/dL Normal 6.4 - 8.2 G/dL AO ADM SS Sodium [Moles/Vol] 142 mmol/L Normal 136 - 145 mmol/L AO ADM SS Urea nitrogen [Mass/Vol] 16 mg/dL Normal 7 - 18 mg/dL AO ADM SS Urea nitrogen/Creatinine [Mass ratio] 30 ratio High 7 - 27 ratio AO ADM SS LIPon 05-11-2024 Lipase Level 63 U/L Normal 16-77 [facility] Comment on above: Performed By: #### L IP, GFR, CMP #### [place] [address] #### HP #### [place] [address] HHon 12-10-2023 Hematocrit (Bld) [Volume fraction] 30.2 % Low 37.0-47.0 [facility] ([place] Comment on above: Performed By: #### C BC, CMP, A1C, GFR, ANEU, ADIFF #### [place] [address] #### RUBIS, HBSAG, VARIS, RPR, HCV1 #### [place] [address] Hgb 10.2 G/dL Low 12.0-16.0 [facility] ([place] Comment on above: Performed By: #### C BC, CMP, A1C, GFR, ANEU, ADIFF #### [place] [address] #### RUBIS, HBSAG, VARIS, RPR, HCV1 #### [place] [address] LABORATORYOrdered By: SYSTEM SYSTEM on 12-10-2023 Hematocrit (Bld) [Volume fraction] 30.2 % Low 37.0 - 47.0 % AO Workflow SS Hemoglobin (Bld) [Mass/Vol] 10.2 G/dL Low 12.0 - 16.0 G/dL AO Workflow SS RPRon 12-10-2023 Reagin Ab RPR Ql (S) Non-Reactive Normal Non-Reactive [facility] ([place] Comment on above: Result Comment: The RPR test is a non-treponemal assay useful as an aid in the diagnosis of primary and secondary syphilis. It converts to positive generally within 2 weeks after the appearance of a lesion. This test is also useful for monitoring response to antibiotic therapy. A positive RPR screening test will be followed by the FTA ABS test. False positive RPR tests may occur in 1) patients with underlying autoimmune disorders, 2) elderly patients, 3) , and 4) other conditions with abnormal serum globulins. Performed By: #### G L3 #### [address] [address] .Auto Diffon 12-08-2023 Basophil, Absolute 0.0 10 3/mcL Normal 0.0-0.2 [facility] ([place]) Comment on above: Performed By: #### G L2 #### [address] [address] Basophils/100 WBC (Bld) 0.3 % Normal 0.0-2.5 [facility] ([place] Comment on above: Performed By: #### G L2 #### [address] [address] Eosinophil, Absolute 0.0 10 3/mcL Normal 0.0-0.4 [facility] ([place]) Comment on above: Performed By: #### G L2 #### [address] [address] Eosinophils/100 WBC (Bld) 0.6 % Normal 0.0-7.0 [facility] ([place] Comment on above: Performed By: #### G L2 #### [address] [address] Lymphocyte, Absolute 1.7 10 3/mcL Normal 0.8-3.9 [facility] ([place] Comment on above: Performed By: #### G L2 #### [address] [address] Lymphocytes/100 WBC (Bld) 24.6 % Normal 10.0-50.0 [facility] ([place] Comment on above: Performed By: #### G L2 #### [address] [address] Monocyte, Absolute 0.6 10 3/mcL Normal 0.2-1.0 [facility] ([place] Comment on above: Performed By: #### G L2 #### [address] [address] Monocytes/100 WBC (Bld) 8.4 % Normal 1.7-13.0 [facility] [place] Comment on above: Performed By: #### G L2 #### [address] [address] Neutrophils/100 WBC (Bld) 66.1 % Normal 37.0-80.0 [facility] ([place] Comment on above: Performed By: #### G L2 #### [address] [address] .NEUABSon 12-08-2023 Neutrophil, Absolute 4.7 10 3/mcL Normal 2.9-6.2 [facility] ([place] Comment on above: Performed By: #### Mercy L2 #### [address] [address] ABO/Rh (Gel)on 12-08-2023 ABO/Rh Interp Positive Invalid Interpretation Code [facility] ([place] Comment on above: Performed By: #### G L2 #### [address] [address] ABS (Gel)on 12-08-2023 ABSC Interp (Gel) Negative Normal [facility] ([place] Comment on above: Performed By: #### G L3 #### [address] [address] CBCon 12-08-2023 Erythrocyte distribution width (RBC) [Ratio] 14.7 % High 11.5-14.5 [facility] ([place] Comment on above: Performed By: #### G L2 #### [address] [address] Hematocrit (Bld) [Volume fraction] 33.9 % Low 37.0-47.0 [facility] ([place] Comment on above: Performed By: #### G L2 #### [address] [address] Hgb 11.6 G/dL Low 12.0-16.0 [facility] ([place] Comment on above: Performed By: #### G L2 #### [address] [address] MCH (RBC) [Entitic mass] 28.4 pg Normal 27.0-31.2 [facility] ([place] Comment on above: Performed By: #### G L2 #### [address] [address] MCHC 34.3 G/dL Normal 33.0-37.0 [facility] ([place] Comment on above: Performed By: #### G L2 #### [address] [address] MCV (RBC) [Entitic vol] 82.9 fL Normal 80.0-94.0 [facility] [place] Comment on above: Performed By: #### G L2 #### [address] [address] Platelet 147 10 3/mcL Normal 130-400 [facility] ([place] Comment on above: Performed By: #### G L2 #### [address] [address] Platelet mean volume (Bld) [Entitic vol] 9.3 fL Normal 7.4-10.4 [facility] ([place] Comment on above: Performed By: #### G L2 #### [address] [address] RBC 4.09 10 6/mcL Low 4.20-5.40 [facility] ([place] Comment on above: Performed By: #### G L2 #### [address] [address] WBC 7.1 10 3/mcL Normal 4.6-10.8 [facility] ([place] Comment on above: Performed By: #### G L2 #### [address] [address] LABORATORYOrdered By: Cecile Dubon on 12-08-2023 ABO and Rh group Nom (Bld) Blood group A Rh(D) positive Invalid Interpretation Code AO BB Auto SS Blood group antibody screen Ql Negative ABSC (12/08/23 9:13 PM) Normal AO BB Auto SS LABORATORYOrdered By: SYSTEM SYSTEM on 12-08-2023 Basophil, Absolute 0.0 103/mcL Normal 0.0 - 0.2 10^3/mcL AO Workflow SS Basophils/100 WBC (Bld) 0.3 % Normal 0.0 - 2.5 % AO Workflow SS Eosinophil, Absolute 0.0 103/mcL Normal 0.0 - 0 .4 10^3/mcL AO Workflow SS Eosinophils/100 WBC (Bld) 0.6 % Normal 0.0 - 7.0 % AO Workflow SS Erythrocyte distribution width (RBC) [Ratio] 14.7 % High 11.5 - 14.5 % AO Workflow SS Hematocrit (Bld) [Volume fraction] 33.9 % Low 37.0 - 47.0 % AO Workflow SS Hemoglobin (Bld) [Mass/Vol] 11.6 G/dL Low 12.0 - 16.0 G/dL AO Workflow SS Lymphocyte, Absolute 1.7 103/mcL Normal 0.8 - 3 .9 10^3/mcL AO Workflow SS Lymphocytes/100 WBC (Bld) 24.6 % Normal 10.0 - 50.0 % AO Workflow SS MCH (RBC) [Entitic mass] 28.4 pg Normal 27.0 - 31.2 pg AO Workflow SS MCHC 34.3 G/dL Normal 33.0 - 37.0 G/dL AO Workflow SS MCV (RBC) [Entitic vol] 82.9 fL Normal 80.0 - 94.0 fL AO Workflow SS Monocyte, Absolute 0.6 103/mcL Normal 0.2 - 1.0 10^3/mcL AO Workflow SS Monocytes/100 WBC (Bld) 8.4 % Normal 1.7 - 13.0 % AO Workflow SS Neutrophil, Absolute 4.7 103/mcL Normal 2.9 - 6 .2 10^3/mcL AO Workflow SS Neutrophils/100 WBC (Bld) 66.1 % Normal 37.0 - 80.0 % AO Workflow SS Platelet mean volume (Bld) [Entitic vol] 9.3 fL Normal 7.4 - 10.4 fL AO Workflow SS Platelets (Bld) [#/Vol] 147 103/mcL Normal 130 - 400 10^3/mcL AO Workflow SS RBC (Bld) [#/Vol] 4.09 106/mcL Low 4.20 - 5.4 0 10^6/mcL AO Workflow SS WBC (Bld) [#/Vol] 7.1 103/mcL Normal 4.6 - 10.8 10^3/mcL AO Workflow SS LABORATORYOrdered By: Urszula Blanca on 12-08-2023 Reagin Ab RPR Ql (S) Non-Reactive 1 (12/08/23 9:13 PM) Normal Non-Reactive [facility] Viro/Sero SS Comment on above: Interpretive Data: T he RPR test is a non-treponemal assay useful as an aid in the diagnosis of primary and secondary syphilis. It converts to positive generally within 2 weeks after the appearance of a lesion. This test is also useful for monitoring response to antibiotic therapy. A positive RPR screening test will be followed by the FTA ABS test. False positive RPR tests may occur in 1) patients with underlying autoimmune disorders, 2) elderly patients, 3) , and 4) other conditions with abnormal serum globulins. LABORATORYOrdered By: Shravan Villeda on 12-08-2023 ABO and Rh group Nom (Bld) A positive (12/08/23 8:15 PM) [facility] Work Phone: Group B Strep Date Performed [id number] [facility] Work Phone: Group B Strep, External Negative (12/08/23 8:15 PM) [facility] Work Phone: Hepatitis B Date Performed [id number] [facility] Work Phone: Hepatitis B, External Negative (12/08/23 8:15 PM) [facility] Work Phone: HIV Antibodies, External Negative (8/6/24 8:15 PM) [facility] Work Phone: RPR, External Nonreactive (12/08/23 8:15 PM) [facility] Work Phone: Rubella, External Immune (12/08/23 8:15 PM) [facility] Work Phone: [id number] 11-27-2023 HSV 1 IgG Type Spec 36.60 Index High 0.00-0.90 [facility] ([place]) Comment on above: Result Comment: Nega tive <0.91 Equivocal 0.91 - 1.09 Positive >1.09 Note: Negative indicates no antibodies detected to HSV-1. Equivocal may suggest early infection. If clinically appropriate, retest at later date. Positive indicates antibodies detected to HSV-1. Performed By: #### C BC, CMP, A1C, GFR, ANEU, ADIFF #### [facility] [address] [place], [place] [address] #### RUBIS, HBSAG, VARIS, RPR, HCV1 #### [address] [address] HSV 2 IgG Type Spec <0.91 Normal 0.00-0.90 [facility] ([place]) Comment on above: Result Comment: Nega tive <0.91 Equivocal 0.91 - 1.09 Positive >1.09 HSV-2 Antibody Interpretation: Current guidelines and recommendations do not recommend routine screening for HSV-2 in asymptomatic individuals, including those that are . A negative antibody result indicates no detectable antibodies to HSV-2 were found. If recent exposure is suspected, retest in 4 to 6 weeks. Equivocal samples should be retested in 4 to 6 weeks. A positive result indicates the presence of detectable IgG antibody to HSV-2. FALSE POSITIVE RESULTS MAY OCCUR. Repeat testing, or testing by a different method, may be indicated in some settings (e.g. patients with low likelihood of HSV infection). If clinically appropriate, retest 4 to 6 weeks later. HSV-2 IgG antibody testing results should be clinically correlated. Performed At: [address] [id number] Susanne Dwyer PhD Ph:[phone] Performed By: #### C BC, CMP, A1C, GFR, ANEU, ADIFF #### [address] [address] #### RUBIS, HBSAG, VARIS, RPR, HCV1 #### [address] [address] HSVABon 11-20-2023 HSV IgM Qualitative Negative Normal Negative [facility] ([place]) Comment on above: Result Comment: HSV IgM antibody test is typically used as an aid in diagnosis of primary HSV infection. A negative HSV IgM result cannot exclude recent primary HSV infection if the specimen collected within 7-10 days after onset of signs and symptoms. Should suspect lesions be present, HSV PCR is strongly recommended, if possible. Otherwise, repeat serology using both HSV-1 IgG and HSV-2 IgG after 3-6 weeks is suggested. Performed By: [facility] [address] [place] [address] Edging Catcher: Don Connell III, M.D. CLIA#: [id number] Performed By: #### C BC, CMP, A1C, GFR, ANEU, ADIFF #### [address] [address] #### RUBIS, HBSAG, VARIS, RPR, HCV1 #### [place] [id number] RPRon 11-19-2023 Reagin Ab RPR Ql (S) Non-Reactive Normal Non-Reactive [facility] ([place] Comment on above: Result Comment: The RPR test is a non-treponemal assay useful as an aid in the diagnosis of primary and secondary syphilis. It converts to positive generally within 2 weeks after the appearance of a lesion. This test is also useful for monitoring response to antibiotic therapy. A positive RPR screening test will be followed by the FTA ABS test. False positive RPR tests may occur in 1) patients with underlying autoimmune disorders, 2) elderly patients, 3) , and 4) other conditions with abnormal serum globulins. Performed By: #### G L3 #### [address] [address] .Auto Diffon 11-18-2023 Basophil, Absolute 0.0 10 3/mcL Normal 0.0-0.2 [facility] ([place]) Comment on above: Performed By: #### G L3 #### [address] [address] Basophils/100 WBC (Bld) 0.3 % Normal 0.0-2.5 [facility] ([place]) Comment on above: Performed By: #### G L3 #### [address] [address] Eosinophil, Absolute 0.0 10 3/mcL Normal 0.0-0.4 [facility] ([place] Comment on above: Performed By: #### G L3 #### [address] [address] Eosinophils/100 WBC (Bld) 0.5 % Normal 0.0-7.0 [facility] ([place] Comment on above: Performed By: #### G L3 #### [address] [address] Lymphocyte, Absolute 1.8 10 3/mcL Normal 0.8-3.9 [facility] ([place] Comment on above: Performed By: #### G L3 #### [address] [address] Lymphocytes/100 WBC (Bld) 22.5 % Normal 10.0-50.0 [facility] ([place] Comment on above: Performed By: #### G L3 #### [address] [address] Monocyte, Absolute 0.6 10 3/mcL Normal 0.2-1.0 [facility] [facility] ([place] Comment on above: Performed By: #### G L3 #### [address] [address] Monocytes/100 WBC (Bld) 7.2 % Normal 1.7-13.0 [facility] ([place]) Comment on above: Performed By: #### G L3 #### [address] [address] Neutrophils/100 WBC (Bld) 69.5 % Normal 37.0-80.0 [facility] ([place]) Comment on above: Performed By: #### G L3 #### [address] [address] .NEUABSon 11-18-2023 Neutrophil, Absolute 5.5 10 3/mcL Normal 2.9-6.2 [facility] ([place]) Comment on above: Performed By: #### G L3 #### [address] [address] CBCon 11-18-2023 Erythrocyte distribution width (RBC) [Ratio] 13.9 % Normal 11.5-14.5 [facility] ([place] Comment on above: Performed By: #### G L3 #### [address] [address] Hematocrit (Bld) [Volume fraction] 35.1 % Low 37.0-47.0 [facility] ([place] Comment on above: Performed By: #### G L3 #### [address] [address] Hgb 11.9 G/dL Low 12.0-16.0 [facility] ([place] Comment on above: Performed By: #### G L3 #### [address] [address] MCH (RBC) [Entitic mass] 28.6 pg Normal 27.0-31.2 [facility] ([place] Comment on above: Performed By: #### G L3 #### [address] [address] MCHC 33.8 G/dL Normal 33.0-37.0 [facility] ([place] Comment on above: Performed By: #### G L3 #### [address] [address] MCV (RBC) [Entitic vol] 84.7 fL Normal 80.0-94.0 [facility] [place] Comment on above: Performed By: #### G L3 #### [address] [address] Platelet 155 10 3/mcL Normal 130-400 [facility] ([place] Comment on above: Performed By: #### G L3 #### [address] [address] Platelet mean volume (Bld) [Entitic vol] 8.9 fL Normal 7.4-10.4 [facility] ([place] Comment on above: Performed By: #### G L3 #### [address] [address] RBC 4.15 10 6/mcL Low 4.20-5.40 [facility] ([place] Comment on above: Performed By: #### G L3 #### [address] [address] WBC 7.9 10 3/mcL Normal 4.6-10.8 [facility] ([place] Comment on above: Performed By: #### G L3 #### [address] [address] GBSPCRon 11-12-2023 Group B Strep (PCR) Negative Normal Negative [facility] ([place]) Comment on above: Performed By: #### G BSPCR #### [address] [address] Group B Strep PCR Int Normal l [facility] ([place]) Comment on above: Result Comment: Grou p B Streptococcus DNA not detected by Real-Time Polymerase Chain Reaction (PCR). A negative result does rule out the possibility of Group B Streptococcus concentration is below the level of detection. If the patient has signs or symptoms of infection, other laboratory tests and clinical information should be used to confirm the negative result. This test is not intended to differentiate carriers of Group B Streptococcus from those with Streptococcus disease. See Below Performed By: #### G BSPCR #### [address] [address] LABORATORYOrdered By: Dariusz caro on 11-10-2023 Group B Strep PCR Int Group B Streptococ cus DNA not detected by Real-Time Polymerase Chain Reaction (PCR). A negative result does rule out the possibility of Group B Streptococcus concentration is below the level of detection. If the patient has signs or symptoms of infection, other laboratory tests and clinical information should be used to confirm the negative result. This test is not intended to differentiate carriers of Group B Streptococcus from those with Streptococcus disease. Invalid Interpretation Code AO Auto Urine SS S. agalactiae DNA ÁNGEL+probe Ql (Vag+Rectum) Negative (11/10/23 3:36 PM) Normal Negative AO Auto Urine SS ABO/Rh (Gel)on 10-07-2023 ABO/Rh Interp Positive Invalid Interpretation Code [facility] ([place] Comment on above: Performed By: #### G L3 #### [place] [address] LABORATORYOrdered By: James Palacio on 10-07-2023 ABO and Rh group Nom (Bld) Blood group A Rh(D) positive Invalid Interpretation Code AO BB Auto SS GL1on 09-19-2023 Glucose [Mass/Vol] 163 mg/dL Normal 120-190 [facility] ([place]) Comment on above: Performed By: #### G L2 #### [place] [id number] GL2on 09-19-2023 Glucose [Mass/Vol] 158 mg/dL Normal 70-165 [facility] ([place]) Comment on above: Performed By: #### G L2 #### [address] [address] GL3on 09-19-2023 Glucose [Mass/Vol] 142 mg/dL Normal 70-145 [facility] ([place] Comment on above: Performed By: #### G L3 #### [address] [address] GLFon 09-19-2023 Glucose [Mass/Vol] 82 mg/dL Low 83-110 [facility] ([place]) Comment on above: Performed By: #### G L3 #### [address] [address] RPRon 09-16-2023 Reagin Ab RPR Ql (S) Non-Reactive Normal Non-Reactive [facility] ([place] Comment on above: Result Comment: The RPR test is a non-treponemal assay useful as an aid in the diagnosis of primary and secondary syphilis. It converts to positive generally within 2 weeks after the appearance of a lesion. This test is also useful for monitoring response to antibiotic therapy. A positive RPR screening test will be followed by the FTA ABS test. False positive RPR tests may occur in 1) patients with underlying autoimmune disorders, 2) elderly patients, 3) , and 4) other conditions with abnormal serum globulins. Performed By: #### C BC, CMP, A1C, GFR, ANEU, ADIFF #### [place] [address] #### RUBIS, HBSAG, VARIS, RPR, HCV1 #### [place] [address] .Auto Diffon 09-15-2023 Basophil, Absolute 0.0 10 3/mcL Normal 0.0-0.2 [facility] ([place]) Comment on above: Performed By: #### C BC, CMP, A1C, GFR, ANEU, ADIFF #### [place] [address] #### RUBIS, HBSAG, VARIS, RPR, HCV1 #### [place] [address] Basophils/100 WBC (Bld) 0.1 % Normal 0.0-2.5 [facility] [place] Comment on above: Performed By: #### C BC, CMP, A1C, GFR, ANEU, ADIFF #### [place] [address] #### RUBIS, HBSAG, VARIS, RPR, HCV1 #### [place] [address] Eosinophil, Absolute 0.1 10 3/mcL Normal 0.0-0.4 [facility] ([place] Comment on above: Performed By: #### C BC, CMP, A1C, GFR, ANEU, ADIFF #### [place] [address] #### RUBIS, HBSAG, VARIS, RPR, HCV1 #### [address] [address] Eosinophils/100 WBC (Bld) 0.9 % Normal 0.0-7.0 [facility] ([place] Comment on above: Performed By: #### C BC, CMP, A1C, GFR, ANEU, ADIFF #### [address] [address] #### RUBIS, HBSAG, VARIS, RPR, HCV1 #### [address] [address] Lymphocyte, Absolute 1.7 10 3/mcL Normal 0.8-3.9 [facility] ([place] Comment on above: Performed By: #### C BC, CMP, A1C, GFR, ANEU, ADIFF #### [place] [address] #### RUBIS, HBSAG, VARIS, RPR, HCV1 #### [address] [address] Lymphocytes/100 WBC (Bld) 23.2 % Normal 10.0-50.0 [facility] ([place] Comment on above: Performed By: #### C BC, CMP, A1C, GFR, ANEU, ADIFF #### [place] [address] #### RUBIS, HBSAG, VARIS, RPR, HCV1 #### [address] [address] Monocyte, Absolute 0.6 10 3/mcL Normal 0.2-1.0 [facility] ([place]) Comment on above: Performed By: #### C BC, CMP, A1C, GFR, ANEU, ADIFF #### [place] [address] #### RUBIS, HBSAG, VARIS, RPR, HCV1 #### [address] [address] Monocytes/100 WBC (Bld) 8.8 % Normal 1.7-13.0 [facility] ([place]) Comment on above: Performed By: #### C BC, CMP, A1C, GFR, ANEU, ADIFF #### [address] [address] #### RUBIS, HBSAG, VARIS, RPR, HCV1 #### [address] [address] Neutrophils/100 WBC (Bld) 67.0 % Normal 37.0-80.0 [facility] ([place] Comment on above: Performed By: #### C BC, CMP, A1C, GFR, ANEU, ADIFF #### [address] [address] #### RUBIS, HBSAG, VARIS, RPR, HCV1 #### [address] [address] .NEUABSon 09-15-2023 Neutrophil, Absolute 4.8 10 3/mcL Normal 2.9-6.2 [facility] ([place] Comment on above: Performed By: #### C BC, CMP, A1C, GFR, ANEU, ADIFF #### [place] [address] #### RUBIS, HBSAG, VARIS, RPR, HCV1 #### [address] [address] CBCon 09-15-2023 Erythrocyte distribution width (RBC) [Ratio] 13.1 % Normal 11.5-14.5 [facility] ([place] Comment on above: Performed By: #### C BC, CMP, A1C, GFR, ANEU, ADIFF #### [address] [address] #### RUBIS, HBSAG, VARIS, RPR, HCV1 #### [address] [address] Hematocrit (Bld) [Volume fraction] 33.8 % Low 37.0-47.0 [facility] ([place] Comment on above: Performed By: #### C BC, CMP, A1C, GFR, ANEU, ADIFF #### [address] [address] #### RUBIS, HBSAG, VARIS, RPR, HCV1 #### [address] [address] Hgb 11.8 G/dL Low 12.0-16.0 [facility] ([place] Comment on above: Performed By: #### C BC, CMP, A1C, GFR, ANEU, ADIFF #### [place] [address] #### RUBIS, HBSAG, VARIS, RPR, HCV1 #### [place] [address] MCH (RBC) [Entitic mass] 30.2 pg Normal 27.0-31.2 [facility] ([place]) Comment on above: Performed By: #### C BC, CMP, A1C, GFR, ANEU, ADIFF #### [place] [address] #### RUBIS, HBSAG, VARIS, RPR, HCV1 #### [place] [address] MCHC 35.0 G/dL Normal 33.0-37.0 [facility] ([place] Comment on above: Performed By: #### C BC, CMP, A1C, GFR, ANEU, ADIFF #### [place] [address] #### RUBIS, HBSAG, VARIS, RPR, HCV1 #### [place] [address] MCV (RBC) [Entitic vol] 86.5 fL Normal 80.0-94.0 [facility] [place] Comment on above: Performed By: #### C BC, CMP, A1C, GFR, ANEU, ADIFF #### [place] [address] #### RUBIS, HBSAG, VARIS, RPR, HCV1 #### [place] [address] Platelet 165 10 3/mcL Normal 130-400 [facility] ([place] Comment on above: Performed By: #### C BC, CMP, A1C, GFR, ANEU, ADIFF #### [place] [address] #### RUBIS, HBSAG, VARIS, RPR, HCV1 #### [place] [address] Platelet mean volume (Bld) [Entitic vol] 8.7 fL Normal 7.4-10.4 [facility] ([place] Comment on above: Performed By: #### C BC, CMP, A1C, GFR, ANEU, ADIFF #### [place] [address] #### RUBIS, HBSAG, VARIS, RPR, HCV1 #### [place] [address] RBC 3.90 10 6/mcL Low 4.20-5.40 [facility] ([place] Comment on above: Performed By: #### C BC, CMP, A1C, GFR, ANEU, ADIFF #### [place] [address] #### RUBIS, HBSAG, VARIS, RPR, HCV1 #### [place] [address] WBC 7.2 10 3/mcL Normal 4.6-10.8 [facility] ([place] Comment on above: Performed By: #### C BC, CMP, A1C, GFR, ANEU, ADIFF #### [place] [address] #### RUBIS, HBSAG, VARIS, RPR, HCV1 #### [place] [address] [id number] 09-15-2023 Glucose [Mass/Vol] 158 mg/dL High 70-140 [facility] ([place]) Comment on above: Performed By: #### C BC, CMP, A1C, GFR, ANEU, ADIFF #### [place] [address] #### RUBIS, HBSAG, VARIS, RPR, HCV1 #### [place] [address] LABORATORYOrdered By: SYSTEM SYSTEM on 09-15-2023 Basophil, Absolute 0.0 103/mcL Normal 0.0 - 0.2 10^3/mcL AO Workflow SS Basophils/100 WBC (Bld) 0.1 % Normal 0.0 - 2.5 % AO Workflow SS Eosinophil, Absolute 0.1 103/mcL Normal 0.0 - 0 .4 10^3/mcL AO Workflow SS Eosinophils/100 WBC (Bld) 0.9 % Normal 0.0 - 7.0 % AO Workflow SS Erythrocyte distribution width (RBC) [Ratio] 13.1 % Normal 11.5 - 14.5 % AO Workflow SS Glucose [Mass/Vol] 158 mg/dL High 70 - 140 mg/dL AO ADM SS Hematocrit (Bld) [Volume fraction] 33.8 % Low 37.0 - 47.0 % AO Workflow SS Hemoglobin (Bld) [Mass/Vol] 11.8 G/dL Low 12.0 - 16.0 G/dL AO Workflow SS Lymphocyte, Absolute 1.7 103/mcL Normal 0.8 - 3 .9 10^3/mcL AO Workflow SS Lymphocytes/100 WBC (Bld) 23.2 % Normal 10.0 - 50.0 % AO Workflow SS MCH (RBC) [Entitic mass] 30.2 pg Normal 27.0 - 31.2 pg AO Workflow SS MCHC 35.0 G/dL Normal 33.0 - 37.0 G/dL AO Workflow SS MCV (RBC) [Entitic vol] 86.5 fL Normal 80.0 - 94.0 fL AO Workflow SS Monocyte, Absolute 0.6 103/mcL Normal 0.2 - 1.0 10^3/mcL AO Workflow SS Monocytes/100 WBC (Bld) 8.8 % Normal 1.7 - 13.0 % AO Workflow SS Neutrophil, Absolute 4.8 103/mcL Normal 2.9 - 6 .2 10^3/mcL AO Workflow SS Neutrophils/100 WBC (Bld) 67.0 % Normal 37.0 - 80.0 % AO Workflow SS Platelet mean volume (Bld) [Entitic vol] 8.7 fL Normal 7.4 - 10.4 fL AO Workflow SS Platelets (Bld) [#/Vol] 165 103/mcL Normal 130 - 400 10^3/mcL AO Workflow SS RBC (Bld) [#/Vol] 3.90 106/mcL Low 4.20 - 5.4 0 10^6/mcL AO Workflow SS WBC (Bld) [#/Vol] 7.2 103/mcL Normal 4.6 - 10.8 10^3/mcL AO Workflow SS VARISon 05-22-[address] Positive Normal [facility] ([place] Comment on above: Result Comment: INTE RPRETATION OF VARICELLA IMMUNE STATUS IgG BY EIA: Negative: No detectable VZV IgG antibody. Positive: VZV IgG antibody Detected. If clinically indicated, order Varicella IgM to rule out recent infection. Equivocal: Equivocal for antibodies to VZV. Suggest repeat testing in 10-14 days. Performed By: #### G L2 #### [place] [address] RPRon 05-21-2023 Reagin Ab RPR Ql (S) Non-Reactive Normal Non-Reactive [facility] ([place] Comment on above: Result Comment: The RPR test is a non-treponemal assay useful as an aid in the diagnosis of primary and secondary syphilis. It converts to positive generally within 2 weeks after the appearance of a lesion. This test is also useful for monitoring response to antibiotic therapy. A positive RPR screening test will be followed by the FTA ABS test. False positive RPR tests may occur in 1) patients with underlying autoimmune disorders, 2) elderly patients, 3) , and 4) other conditions with abnormal serum globulins. Performed By: #### G L2 #### [place] [address] RUBISon 05-21-[address] Positive Normal Positive [facility] ([place] Comment on above: Result Comment: This immune status assay detects IgM and/or IgG antibody to Rubella. Interpret results in conjunction with clinical history. POS: Antibody detected; exposure at undetermined recent or distant time. If clinically indicated, order Rubella IGM to rule out recent infection. NEG: No antibody detected. Performed By: #### G L2 #### [place] [address] .Auto Diffon 05-20-2023 Basophil, Absolute 0.0 10 3/mcL Normal 0.0-0.2 [facility] ([place]) Comment on above: Performed By: #### C BC, CMP, A1C, GFR, ANEU, ADIFF #### [place] [address] #### RUBIS, HBSAG, VARIS, RPR, HCV1 #### [address] [address] Basophils/100 WBC (Bld) 0.3 % Normal 0.0-2.5 [facility] ([place]) Comment on above: Performed By: #### C BC, CMP, A1C, GFR, ANEU, ADIFF #### [place] [address] #### RUBIS, HBSAG, VARIS, RPR, HCV1 #### [address] [address] Eosinophil, Absolute 0.1 10 3/mcL Normal 0.0-0.4 [facility] ([place]) Comment on above: Performed By: #### C BC, CMP, A1C, GFR, ANEU, ADIFF #### [place] [address] #### RUBIS, HBSAG, VARIS, RPR, HCV1 #### [address] [address] Eosinophils/100 WBC (Bld) 0.9 % Normal 0.0-7.0 [facility] ([place]) Comment on above: Performed By: #### C BC, CMP, A1C, GFR, ANEU, ADIFF #### [place] [address] #### RUBIS, HBSAG, VARIS, RPR, HCV1 #### [address] [address] Lymphocyte, Absolute 1.9 10 3/mcL Normal 0.8-3.9 [facility] ([place]) Comment on above: Performed By: #### C BC, CMP, A1C, GFR, ANEU, ADIFF #### [place] [address] #### RUBIS, HBSAG, VARIS, RPR, HCV1 #### [address] [address] Lymphocytes/100 WBC (Bld) 23.3 % Normal 10.0-50.0 [facility] ([place]) Comment on above: Performed By: #### C BC, CMP, A1C, GFR, ANEU, ADIFF #### [address] [address] #### RUBIS, HBSAG, VARIS, RPR, HCV1 #### [address] [address] Monocyte, Absolute 0.6 10 3/mcL Normal 0.2-1.0 [facility] ([place] Comment on above: Performed By: #### C BC, CMP, A1C, GFR, ANEU, ADIFF #### [address] [address] #### RUBIS, HBSAG, VARIS, RPR, HCV1 #### [address] [address] Monocytes/100 WBC (Bld) 7.0 % Normal 1.7-13.0 [facility] [place] Comment on above: Performed By: #### C BC, CMP, A1C, GFR, ANEU, ADIFF #### [address] [address] #### RUBIS, HBSAG, VARIS, RPR, HCV1 #### [address] [address] Neutrophils/100 WBC (Bld) 68.5 % Normal 37.0-80.0 [facility] ([place] Comment on above: Performed By: #### C BC, CMP, A1C, GFR, ANEU, ADIFF #### [address] [address] #### RUBIS, HBSAG, VARIS, RPR, HCV1 #### [address] [address] .GFRon 05-20-2023 GFR 243 ml/min/1.73sqm Normal [facility] ([place] Comment on above: Result Comment: GFR Population mean for , Non- Americans Ages 20-29 = 116 mL/min/1.73 sq.m. Ages 30-39 = 107 mL/min/1.73 sq.m. Ages 40-49 = 99 mL/min/1.73 sq.m. Ages 50-59 = 93 mL/min/1.73 sq.m. Ages 60-69 = 85 mL/min/1.73 sq.m. Ages 70+ = 75 mL/min/1.73 sq.m. Chronic Kidney Disease: Less than 60 mL/min/1.73 square meters End Stage Renal Disease: Less than 15 mL/min/1.73 square meters Performed By: #### C BC, CMP, A1C, GFR, ANEU, ADIFF #### [address] [address] #### RUBIS, HBSAG, VARIS, RPR, HCV1 #### [address] [address] GFR Non- 200 ml/min/1.73sqm Normal [facility] ([place] Comment on above: Result Comment: GFR Population mean for , Non- Americans Ages 20-29 = 116 mL/min/1.73 sq.m. Ages 30-39 = 107 mL/min/1.73 sq.m. Ages 40-49 = 99 mL/min/1.73 sq.m. Ages 50-59 = 93 mL/min/1.73 sq.m. Ages 60-69 = 85 mL/min/1.73 sq.m. Ages 70+ = 75 mL/min/1.73 sq.m. Chronic Kidney Disease: Less than 60 mL/min/1.73 square meters End Stage Renal Disease: Less than 15 mL/min/1.73 square meters Performed By: #### C BC, CMP, A1C, GFR, ANEU, ADIFF #### [address] [address] #### RUBIS, HBSAG, VARIS, RPR, HCV1 #### [address] [address] .NEUABSon 05-20-2023 Neutrophil, Absolute 5.6 10 3/mcL Normal 2.9-6.2 [facility] ([place] Comment on above: Performed By: #### C BC, CMP, A1C, GFR, ANEU, ADIFF #### [address] [address] #### RUBIS, HBSAG, VARIS, RPR, HCV1 #### [address] [address] A1Con 05-20-2023 HbA1c (Bld) [Mass fraction] 5.0 % Normal 4.3-6.4 [facility] ([place] Comment on above: Performed By: #### C BC, CMP, A1C, GFR, ANEU, ADIFF #### [place] [address] #### RUBIS, HBSAG, VARIS, RPR, HCV1 #### [address] [address] CBCon 05-20-2023 Erythrocyte distribution width (RBC) [Ratio] 12.9 % Normal 11.5-14.5 [facility] ([place] Comment on above: Performed By: #### C BC, CMP, A1C, GFR, ANEU, ADIFF #### [place] [address] #### RUBIS, HBSAG, VARIS, RPR, HCV1 #### [place] [address] Hematocrit (Bld) [Volume fraction] 36.4 % Low 37.0-47.0 [facility] ([place]) Comment on above: Performed By: #### C BC, CMP, A1C, GFR, ANEU, ADIFF #### [place] [address] #### RUBIS, HBSAG, VARIS, RPR, HCV1 #### [address] [address] Hgb 12.8 G/dL Normal 12.0-16.0 [facility] ([place]) Comment on above: Performed By: #### C BC, CMP, A1C, GFR, ANEU, ADIFF #### [place] [address] #### RUBIS, HBSAG, VARIS, RPR, HCV1 #### [place] [id number] MCH (RBC) [Entitic mass] 29.3 pg Normal 27.0-31.2 [facility] ([place] Comment on above: Performed By: #### C BC, CMP, A1C, GFR, ANEU, ADIFF #### [place] [address] #### RUBIS, HBSAG, VARIS, RPR, HCV1 #### [address] [address] MCHC 35.2 G/dL Normal 33.0-37.0 [facility] ([place] Comment on above: Performed By: #### C BC, CMP, A1C, GFR, ANEU, ADIFF #### [place] [address] #### RUBIS, HBSAG, VARIS, RPR, HCV1 #### [place] [address] MCV (RBC) [Entitic vol] 83.2 fL Normal 80.0-94.0 [facility] [place] Comment on above: Performed By: #### C BC, CMP, A1C, GFR, ANEU, ADIFF #### [place] [address] #### RUBIS, HBSAG, VARIS, RPR, HCV1 #### [address] [address] Platelet 233 10 3/mcL Normal 130-400 [facility] ([place] Comment on above: Performed By: #### C BC, CMP, A1C, GFR, ANEU, ADIFF #### [place] [address] #### RUBIS, HBSAG, VARIS, RPR, HCV1 #### [place] [address] Platelet mean volume (Bld) [Entitic vol] 8.2 fL Normal 7.4-10.4 [facility] ([place] Comment on above: Performed By: #### C BC, CMP, A1C, GFR, ANEU, ADIFF #### [place] [address] #### RUBIS, HBSAG, VARIS, RPR, HCV1 #### [place] [id number] RBC 4.38 10 6/mcL Normal 4.20-5.40 [facility] ([place] Comment on above: Performed By: #### C BC, CMP, A1C, GFR, ANEU, ADIFF #### [place] [address] #### RUBIS, HBSAG, VARIS, RPR, HCV1 #### [place] [address] WBC 8.1 10 3/mcL Normal 4.6-10.8 [facility] ([place] Comment on above: Performed By: #### C BC, CMP, A1C, GFR, ANEU, ADIFF #### [place] [address] #### RUBIS, HBSAG, VARIS, RPR, HCV1 #### [place] [address] CMPon 05-20-2023 Albumin Level 3.2 G/dL Low 3.5-5.0 [facility] ([place] Comment on above: Performed By: #### C BC, CMP, A1C, GFR, ANEU, ADIFF #### [place] [address] #### RUBIS, HBSAG, VARIS, RPR, HCV1 #### [place] [address] Albumin/Globulin [Mass ratio] 0.9 {ratio} Low 1.1-2.5 [facility] ([place] Comment on above: Performed By: #### C BC, CMP, A1C, GFR, ANEU, ADIFF #### [place] [address] #### RUBIS, HBSAG, VARIS, RPR, HCV1 #### [place] [address] ALP [Catalytic activity/Vol] 53 U/L Normal 40-135 [facility] ([place] Comment on above: Performed By: #### C BC, CMP, A1C, GFR, ANEU, ADIFF #### [address] [address] #### RUBIS, HBSAG, VARIS, RPR, HCV1 #### [address] [address] ALT [Catalytic activity/Vol] 41 U/L Normal 14-59 [facility] ([place] Comment on above: Performed By: #### C BC, CMP, A1C, GFR, ANEU, ADIFF #### [place] [address] #### RUBIS, HBSAG, VARIS, RPR, HCV1 #### [address] [address] AST [Catalytic activity/Vol] 17 U/L Normal 10-40 [facility] ([place] Comment on above: Performed By: #### C BC, CMP, A1C, GFR, ANEU, ADIFF #### [place] [address] #### RUBIS, HBSAG, VARIS, RPR, HCV1 #### [address] [address] Bili Total 0.2 mg/dL Normal 0.2-1.0 [facility] ([place] Comment on above: Result Comment: Use of this assay is not recommended for patients undergoing treatment with eltrombopag due to the potential for falsely elevated results. Performed By: #### C BC, CMP, A1C, GFR, ANEU, ADIFF #### [place] [address] #### RUBIS, HBSAG, VARIS, RPR, HCV1 #### [address] [address] BUN/Creatinine Ratio 37 ratio High 7-27 [facility] ([place] Comment on above: Performed By: #### C BC, CMP, A1C, GFR, ANEU, ADIFF #### [place] [address] #### RUBIS, HBSAG, VARIS, RPR, HCV1 #### [address] [address] Calcium [Mass/Vol] 9.0 mg/dL Normal 8.4-10.2 [facility] ([place]) Comment on above: Performed By: #### C BC, CMP, A1C, GFR, ANEU, ADIFF #### [address] [address] #### RUBIS, HBSAG, VARIS, RPR, HCV1 #### [address] [address] Chloride [Moles/Vol] 103 mmol/L Normal 98-107 [facility] ([place]) Comment on above: Performed By: #### C BC, CMP, A1C, GFR, ANEU, ADIFF #### [address] [address] #### RUBIS, HBSAG, VARIS, RPR, HCV1 #### [address] [address] CO2 [Moles/Vol] 24 mmol/L Normal 22-29 [facility] ([place] Comment on above: Performed By: #### C BC, CMP, A1C, GFR, ANEU, ADIFF #### [address] [address] #### RUBIS, HBSAG, VARIS, RPR, HCV1 #### [address] [address] Creatinine [Mass/Vol] 0.38 mg/dL Low 0.55-1.02 [facility] ([place]) Comment on above: Performed By: #### C BC, CMP, A1C, GFR, ANEU, ADIFF #### [address] [address] #### RUBIS, HBSAG, VARIS, RPR, HCV1 #### [address] [address] Electrolyte Balance 11.0 mEq/L Normal 4.0-15.0 [facility] ([place]) Comment on above: Performed By: #### C BC, CMP, A1C, GFR, ANEU, ADIFF #### [address] [address] #### RUBIS, HBSAG, VARIS, RPR, HCV1 #### [address] [address] Globulin 3.4 G/dL Normal [facility] ([place]) Comment on above: Performed By: #### C BC, CMP, A1C, GFR, ANEU, ADIFF #### [place] [address] #### RUBIS, HBSAG, VARIS, RPR, HCV1 #### [address] [address] Glucose [Mass/Vol] 84 mg/dL Normal 70-105 [facility] ([place]) Comment on above: Performed By: #### C BC, CMP, A1C, GFR, ANEU, ADIFF #### [place] [id number] #### RUBIS, HBSAG, VARIS, RPR, HCV1 #### [address] [address] Potassium [Moles/Vol] 4.4 mmol/L Normal 3.5-5.1 [facility] ([place]) Comment on above: Performed By: #### C BC, CMP, A1C, GFR, ANEU, ADIFF #### [address] [address] #### RUBIS, HBSAG, VARIS, RPR, HCV1 #### [address] [address] Sodium [Moles/Vol] 138 mmol/L Normal 136-145 [facility] ([place]) Comment on above: Performed By: #### C BC, CMP, A1C, GFR, ANEU, ADIFF #### [place] [address] #### RUBIS, HBSAG, VARIS, RPR, HCV1 #### [address] [address] Total Protein 6.6 G/dL Normal 6.4-8.2 [facility] ([place]) Comment on above: Performed By: #### C BC, CMP, A1C, GFR, ANEU, ADIFF #### [place] [address] #### RUBIS, HBSAG, VARIS, RPR, HCV1 #### [place] [address] Urea nitrogen [Mass/Vol] 14 mg/dL Normal 7-18 [facility] ([place]) Comment on above: Performed By: #### C BC, CMP, A1C, GFR, ANEU, ADIFF #### [place] [address] #### RUBIS, HBSAG, VARIS, RPR, HCV1 #### [place] [address] HBSAGon 05-20-2023 Hep B Surf Ag Non-Reactive Normal Non-Reactive [facility] ([place]) Comment on above: Performed By: #### C BC, CMP, A1C, GFR, ANEU, ADIFF #### [place] [address] #### RUBIS, HBSAG, VARIS, RPR, HCV1 #### [place] [address] HCVon 05-20-2023 Hep C Ab Non-Reactive Normal Non-Reactive [facility] ([place]) Comment on above: Performed By: #### G L2 #### [place] [address] Hep C Ab Int Normal [facility] ([place]) Comment on above: Result Comment: Nonr eactive: Samples with a value < 0.80 are considered nonreactive (negative) for antibodies to HCV. A negative test result does not exclude the possibility of exposure to or infection with HCV. HCV antibodies may be undetectable in some stages of the infection and in some clinical conditions. See Interp Performed By: #### G L2 #### [place] [address] HIVRPon 05-20-2023 HIV p24 Antigen Non-Reactive Normal Non-Reactive [facility] ([place]) Comment on above: Result Comment: Dete ction of p24 may be inhibited by biotin in the sample, causing false negative results in acute infection. Therefore do not test samples from patients who are taking biotin. Performed By: #### G L2 #### [place] [id number] HIV P24 Int Non-Reactive Invalid Interpretation Code [facility] ([place]) Comment on above: Performed By: #### G L2 #### [place] [id number] [place] [id number] Rapid HIV 1/2 Antibody Non-Reactive Normal Non-Reactiv e [facility] ([place]) Comment on above: Performed By: #### G L2 #### [place] [id number] RHIV 1/2 Ab Int Non-Reactive Invalid Interpretation Code [facility] ([place]) Comment on above: Performed By: #### G L2 #### [place] [address] LABORATORYOrdered By: Juma Martinez on 05-20-2023 HIV 1 p24 Ab Ql (S) Non-Reactive 2 (05/20/23 3:44 PM) Normal Non-Reactive AO Rapid Testing SS Comment on above: Interpretive Data: D etection of p24 may be inhibited by biotin in the sample, causing false negative results in acute infection. Therefore do not test samples from patients who are taking biotin. HIV 1 p24 Ab Ql (S) Non-Reactive Invalid Interpretation Code AO Rapid Testing SS HIV 1+2 Ab IA Ql Non-Reactive Invalid Interpretation Code AO Rapid Testing SS HIV 1+2 Ab IA.rapid Ql (Unsp spec) Non-Reactive (05/20/23 3:44 PM) Normal Non-Reactive AO Rapid Testing SS LABORATORYOrdered By: Inst[employer] SYSTEM on 05-20-2023 Albumin BCP dye [Mass/Vol] 3.2 G/dL Low 3.5 - 5.0 G/dL AO ADM SS Albumin/Globulin [Mass ratio] 0.9 {ratio} Low 1.1 - 2.5 ratio AO ADM SS ALP [Catalytic activity/Vol] 53 U/L Normal 40 - 135 U/L AO ADM SS ALT With P-5'-P [Catalytic activity/Vol] 41 U/L Normal 14 - 59 U/L AO ADM SS AST With P-5'-P [Catalytic activity/Vol] 17 U/L Normal 10 - 40 U/L AO ADM SS Basophil, Absolute 0.0 103/mcL Normal 0.0 - 0.2 10^3/mcL AO Workflow SS Basophils/100 WBC (Bld) 0.3 % Normal 0.0 - 2.5 % AO Workflow SS Bilirubin [Mass/Vol] 0.2 mg/dL Normal 0.2 - 1 .0 mg/dL AO ADM SS Comment on above: Interpretive Data: U se of this assay is not recommended for patients undergoing treatment with eltrombopag due to the potential for falsely elevated results. Calcium [Mass/Vol] 9.0 mg/dL Normal 8.4 - 10. 2 mg/dL AO ADM SS Chloride [Moles/Vol] 103 mmol/L Normal 98 - 10 7 mmol/L AO ADM SS CO2 [Moles/Vol] 24 mmol/L Normal 22 - 29 mmol/L AO ADM SS Creatinine [Mass/Vol] 0.38 mg/dL Low 0.55 - 1.02 mg/dL AO ADM SS Electrolyte Balance 11.0 mEq/L Normal 4.0 - 15 .0 mEq/L AO ADM SS Eosinophil, Absolute 0.1 103/mcL Normal 0.0 - 0 .4 10^3/mcL AO Workflow SS Eosinophils/100 WBC (Bld) 0.9 % Normal 0.0 - 7.0 % AO Workflow SS Erythrocyte distribution width (RBC) [Ratio] 12.9 % Normal 11.5 - 14.5 % AO Workflow SS GFR/1.73 sq M.predicted among blacks MDRD (S/P/Bld) [Vol rate/Area] 243 ml/min/1.73sqm Invalid Interpretation Code AO Chemistry S Comment on above: Interpretive Data: GFR Population mean for , Non- Americans Ages 20-29 = 116 mL/min/1.73 sq.m. Ages 30-39 = 107 mL/min/1.73 sq.m. Ages 40-49 = 99 mL/min/1.73 sq.m. Ages 50-59 = 93 mL/min/1.73 sq.m. Ages 60-69 = 85 mL/min/1.73 sq.m. Ages 70+ = 75 mL/min/1.73 sq.m. Chronic Kidney Disease: Less than 60 mL/min/1.73 square meters End Stage Renal Disease: Less than 15 mL/min/1.73 square meters GFR/1.73 sq M.predicted among non-blacks MDRD (S/P/Bld) [Vol rate/Area] 200 ml/min/1.73sqm Invalid Interpretation Code AO Chemistry S Comment on above: Interpretive Data: GFR Population mean for , Non- Americans Ages 20-29 = 116 mL/min/1.73 sq.m. Ages 30-39 = 107 mL/min/1.73 sq.m. Ages 40-49 = 99 mL/min/1.73 sq.m. Ages 50-59 = 93 mL/min/1.73 sq.m. Ages 60-69 = 85 mL/min/1.73 sq.m. Ages 70+ = 75 mL/min/1.73 sq.m. Chronic Kidney Disease: Less than 60 mL/min/1.73 square meters End Stage Renal Disease: Less than 15 mL/min/1.73 square meters Globulin 3.4 G/dL Invalid Interpretation Code AO ADM SS Glucose [Mass/Vol] 84 mg/dL Normal 70 - 105 mg/dL AO ADM SS HbA1c (Bld) [Mass fraction] 5.0 % Normal 4.3 - 6.4 % AO ADM SS HBV surface Ag IA Ql Non-Reactive (05/20/23 3:43 PM) Normal Non-Reactive AH ADM SS Hematocrit (Bld) [Volume fraction] 36.4 % Low 37.0 - 47.0 % AO Workflow SS Hemoglobin (Bld) [Mass/Vol] 12.8 G/dL Normal 12.0 - 16.0 G/dL AO Workflow SS Lymphocyte, Absolute 1.9 103/mcL Normal 0.8 - 3 .9 10^3/mcL AO Workflow SS Lymphocytes/100 WBC (Bld) 23.3 % Normal 10.0 - 50.0 % AO Workflow SS MCH (RBC) [Entitic mass] 29.3 pg Normal 27.0 - 31.2 pg AO Workflow SS MCHC 35.2 G/dL Normal 33.0 - 37.0 G/dL AO Workflow SS MCV (RBC) [Entitic vol] 83.2 fL Normal 80.0 - 94.0 fL AO Workflow SS Monocyte, Absolute 0.6 103/mcL Normal 0.2 - 1.0 10^3/mcL AO Workflow SS Monocytes/100 WBC (Bld) 7.0 % Normal 1.7 - 13.0 % AO Workflow SS Neutrophil, Absolute 5.6 103/mcL Normal 2.9 - 6 .2 10^3/mcL AO Workflow SS Neutrophils/100 WBC (Bld) 68.5 % Normal 37.0 - 80.0 % AO Workflow SS Platelet mean volume (Bld) [Entitic vol] 8.2 fL Normal 7.4 - 10.4 fL AO Workflow SS Platelets (Bld) [#/Vol] 233 103/mcL Normal 130 - 400 10^3/mcL AO Workflow SS Potassium [Moles/Vol] 4.4 mmol/L Normal 3.5 - 5.1 mmol/L AO ADM SS Protein [Mass/Vol] 6.6 G/dL Normal 6.4 - 8.2 G/dL AO ADM SS RBC (Bld) [#/Vol] 4.38 106/mcL Normal 4.20 - 5.4 0 10^6/mcL AO Workflow SS Sodium [Moles/Vol] 138 mmol/L Normal 136 - 145 mmol/L AO ADM SS Urea nitrogen [Mass/Vol] 14 mg/dL Normal 7 - 18 mg/dL AO ADM SS Urea nitrogen/Creatinine [Mass ratio] 37 ratio High 7 - 27 ratio AO ADM SS WBC (Bld) [#/Vol] 8.1 103/mcL Normal 4.6 - 10.8 10^3/mcL AO Workflow SS LABORATORYOrdered By: Pascual Claudio on 05-20-2023 HCV Ab IA Ql Non-Reactive (05/20/23 3:43 PM) Normal Non-Reactive ADM SS HCV Ab IA Ql Nonreactive: Samples with a value < 0.80 are considered nonreactive (negative) for antibodies to HCV.A negative test result does not exclude the possibility of exposure to or infection with HCV. HCV antibodies may be undetectable in some stages of the infection and in some clinical conditions. Invalid Interpretation Code Chemistry S [employer] Coordinator Cytology Reporton 2022 Dental [employer] Coordinator Cytology Report . Pathology Reports Accession: Collected Date/Time: Received Date/Time: Pathologist: [id number] 04/08/2023 16:40 EST 04/08/2023 18:00 EST [employer] Coordinator Cytology Report SPECIMEN: Specimen Description: Liquid Prep Reflex ASCUS+ Specimen: Cervical Screening or Diagnostic: Screening RELEVANT HISTORY: LMP: 03/04 : Yes SPECIMEN ADEQUACY: SATISFACTORY FOR EVALUATION Endocervical/Transform ational zone component present INTERPRETATION/RESULTS : NEGATIVE FOR INTRAEPITHELIAL LESION OR MALIGNANCY COMMENT: This Pap Test was successfully processed and evaluated with the assistance of the [employer] Thin[employer] Test Imaging System. Electronically Signed by Pathology report verified by [facility] Screened by: DW Electronically signed by Keyanna Claudio Sign-Out Date: 04/15/2023 14:00 Performing Lab: [facility], [address] [place] [address] Pathology Dept Disclaimer The Pap test is a screening test for cervical cancer. As evidenced by published data, it is subject to both inherent false negative and false positive results. Your patient's results should be interpreted in context with pertinent clinical history including gynecological examination. Normal [facility] ([place]) CTPCRon 04-10-2023 C. trachomatis Interp Normal See CT Interp N [facility] ([place]) Comment on above: Result Comment: C. t rachomatis DNA not detected. Specimen is presumptive negative for C. trachomatis. A negative result does not preclude C. trachomatis infection because results depend on adequate specimen collection, absence of inhibitors, and sufficient DNA to be detected. See CT Interp N Performed By: #### C TPCR, [id number] #### [place] [address] C.trachomatis PCR Negative Normal Negative [facility] ([place]) Comment on above: Result Comment: Mole cular (PCR) assay performed on the [employer] 4800 system. Performed By: #### C TPCR, [email or web address] #### [place] [address] Chlam Source Cervix Normal [facility] ([place]) Comment on above: Performed By: #### C TPCR, [id number] #### [place] [address] C. trachomatis Interp Normal See CT Interp N [facility] ([place]) Comment on above: Result Comment: C. t rachomatis DNA not detected. Specimen is presumptive negative for C. trachomatis. A negative result does not preclude C. trachomatis infection because results depend on adequate specimen collection, absence of inhibitors, and sufficient DNA to be detected. See CT Interp N Performed By: #### C BC, CMP, A1C, GFR, ANEU, ADIFF #### [address] [address] #### RUBIS, HBSAG, VARIS, RPR, HCV1 #### [address] [address] C.trachomatis PCR Negative Normal Negative [facility] ([place]) Comment on above: Result Comment: Mole cular (PCR) assay performed on the [employer] system. Performed By: #### C BC, CMP, A1C, GFR, ANEU, ADIFF #### [address] [address] #### RUBIS, HBSAG, VARIS, RPR, HCV1 #### [address] [address] Chlam Source Cervix Normal [facility] ([place]) Comment on above: Performed By: #### C BC, CMP, A1C, GFR, ANEU, ADIFF #### [address] [address] #### RUBIS, HBSAG, VARIS, RPR, HCV1 #### [address] [address] [id number] 04-10-2023 GC PCR Source Cervix Normal [facility] ([place]) Comment on above: Performed By: #### C TPCR, NGPCR1 #### [address] [address] N. gonorrhoeae (PCR) Negative Normal Negative [facility] ([place]) Comment on above: Result Comment: Mole cular (PCR) assay performed on the [employer]00 System. Performed By: #### C TPCR, NGPCR1 #### [address] [address] N. gonorrhoeae Interp Normal See NG Interp N [facility] ([place]) Comment on above: Result Comment: N. g onorrhoeae DNA not detected. Specimen is presumptive negative for N. gonorrhoeae. A negative result does not preclude Neisseria gonorrhoeae infection because results depend on adequate specimen collection, absence of inhibitors, and sufficient DNA to be detected. See NG Interp N Performed By: #### C TPCR, NGPCR1 #### [address] [address] GC PCR Source Cervix Normal [facility] ([place]) Comment on above: Performed By: #### C BC, CMP, A1C, GFR, ANEU, ADIFF #### [address] [address] #### RUBIS, HBSAG, VARIS, RPR, HCV1 #### [place] [id number] N. gonorrhoeae (PCR) Negative Normal Negative [facility] ([place]) Comment on above: Result Comment: Casie oneill (PCR) assay performed on the [employer]00 System. Performed By: #### C BC, CMP, A1C, GFR, ANEU, ADIFF #### [place] [address] #### RUBIS, HBSAG, VARIS, RPR, HCV1 #### [place] [id number] N. gonorrhoeae Interp Normal See NG Interp N [facility] ([place]) Comment on above: Result Comment: N. g onorrhoeae DNA not detected. Specimen is presumptive negative for N. gonorrhoeae. A negative result does not preclude Neisseria gonorrhoeae infection because results depend on adequate specimen collection, absence of inhibitors, and sufficient DNA to be detected. See NG Interp N Performed By: #### C BC, CMP, A1C, GFR, ANEU, ADIFF #### [place] [address] #### RUBIS, HBSAG, VARIS, RPR, HCV1 #### [place] [id number] DRUGUon 04-09-2023 Amphetamine (u) Negative Normal Negative [facility] ([place]) Comment on above: Performed By: #### D RUGU #### [place] [id number] Barbiturate (u) Negative Normal Negative [facility] ([place]) Comment on above: Performed By: #### Elizabeth RUGU #### [facility] [address] [place] [address] Benzodiazepine (u) Negative Normal Negative [facility] ([place]) Comment on above: Performed By: #### Elizabeth RUGU #### [facility] [address] [place] [address] Cannabinoid (u) Negative Normal Negative [facility] ([place]) Comment on above: Performed By: #### Elizabeth RUGU #### [facility] [address] [place] [address] Cocaine Ql (U) Negative Normal Negative [facility] ([place]) Comment on above: Performed By: #### Elizabeth RUGU #### [address] [address] Fentanyl (u) Negative Normal Negative [facility] ([place]) Comment on above: Result Comment: Test ing has been performed FOR MEDICAL PURPOSES ONLY. Performed By: #### Elizabeth RUGU #### [address] [address] Methadone Ql (U) Negative Normal Negative [facility] ([place]) Comment on above: Performed By: #### Elizabeth RUGU #### [address] [address] Opiate (u) Negative Normal Negative [facility] ([place]) Comment on above: Performed By: #### Elizabeth RUGU #### [address] [address] Oxycodone (u) Negative Normal Negative [facility] ([place]) Comment on above: Result Comment: Test ing has been performed FOR MEDICAL PURPOSES ONLY. Performed By: #### Elizabeth RUGU #### [facility] [address] [place] [address] PCP (u) Negative Normal Negative [facility] ([place]) Comment on above: Performed By: #### Elizabeth RUGU #### [address] [address] Propoxyphene (u) Negative Normal Negative [facility] ([place]) Comment on above: Performed By: #### Elizabeth RUGU #### [address] [address] U pH Drug Scrn 6.5 Normal 5.0-8.0 [facility] ([place]) Comment on above: Performed By: #### Elizabeth CASTILLO #### [place] [phone] Urine Drugs screened: See Below Normal [facility] ([place]) Comment on above: Result Comment: This drug screen is a presumptive screening only. No confirmation will be performed unless requested. Drugs screened include: Threshold Amphetamines/Methamphetamines 1,000 ng/mL Barbiturates 200 ng/mL Benzodiazepine metabolites 200 ng/mL Cannabinoids (THC metabolites) 50 ng/mL Benzoylecognine (Cocaine metab) 300 ng/mL Opiates 300 ng/mL Phencyclidine (PCP) 25 ng/mL Methadone 300 ng/mL Propoxyphene 300 ng/mL Fentanyl 1.0 ng/mL Oxycodone 100 ng/mL Testing has been performed FOR MEDICAL PURPOSES ONLY. Performed By: ###Susan CASTILLO #### [place] [address] Amphetamine (u) Negative Normal Negative [facility] ([place]) Comment on above: Performed By: #### C BC, CMP, A1C, GFR, ANEU, ADIFF #### [place] [address] #### RUBIS, HBSAG, VARIS, RPR, HCV1 #### [place] [address] Barbiturate (u) Negative Normal Negative [facility] ([place]) Comment on above: Performed By: #### C BC, CMP, A1C, GFR, ANEU, ADIFF #### [address] [address] #### RUBIS, HBSAG, VARIS, RPR, HCV1 #### [place] [phone] Benzodiazepine (u) Negative Normal Negative [facility] ([place]) Comment on above: Performed By: #### C BC, CMP, A1C, GFR, ANEU, ADIFF #### [place] [address] #### RUBIS, HBSAG, VARIS, RPR, HCV1 #### [place] [address] Cannabinoid (u) Negative Normal Negative [facility] ([place] Comment on above: Performed By: #### C BC, CMP, A1C, GFR, ANEU, ADIFF #### [place] [address] #### RUBIS, HBSAG, VARIS, RPR, HCV1 #### [place] [address] Cocaine Ql (U) Negative Normal Negative [facility] ([place] Comment on above: Performed By: #### C BC, CMP, A1C, GFR, ANEU, ADIFF #### [place] [address] #### RUBIS, HBSAG, VARIS, RPR, HCV1 #### [place] [address] Fentanyl (u) Negative Normal Negative [facility] ([place] Comment on above: Result Comment: Test ing has been performed FOR MEDICAL PURPOSES ONLY. Performed By: #### C BC, CMP, A1C, GFR, ANEU, ADIFF #### [place] [address] #### RUBIS, HBSAG, VARIS, RPR, HCV1 #### [place] [address] Methadone Ql (U) Negative Normal Negative [facility] ([place] Comment on above: Performed By: #### C BC, CMP, A1C, GFR, ANEU, ADIFF #### [place] [address] #### RUBIS, HBSAG, VARIS, RPR, HCV1 #### [place] [address] Opiate (u) Negative Normal Negative [facility] ([place] Comment on above: Performed By: #### C BC, CMP, A1C, GFR, ANEU, ADIFF #### [place] [address] #### RUBIS, HBSAG, VARIS, RPR, HCV1 #### [address] [address] Oxycodone (u) Negative Normal Negative [facility] ([place] Comment on above: Result Comment: Test ing has been performed FOR MEDICAL PURPOSES ONLY. Performed By: #### C BC, CMP, A1C, GFR, ANEU, ADIFF #### [address] [address] #### RUBIS, HBSAG, VARIS, RPR, HCV1 #### [address] [address] PCP (u) Negative Normal Negative [facility] ([place] Comment on above: Performed By: #### C BC, CMP, A1C, GFR, ANEU, ADIFF #### [place] [address] #### RUBIS, HBSAG, VARIS, RPR, HCV1 #### [place] [address] Propoxyphene (u) Negative Normal Negative [facility] ([place] Comment on above: Performed By: #### C BC, CMP, A1C, GFR, ANEU, ADIFF #### [place] [address] #### RUBIS, HBSAG, VARIS, RPR, HCV1 #### [place] [phone] U pH Drug Scrn 6.5 Normal 5.0-8.0 [facility] ([place]) Comment on above: Performed By: #### C BC, CMP, A1C, GFR, ANEU, ADIFF #### [place] [address] #### RUBIS, HBSAG, VARIS, RPR, HCV1 #### [place] [address] Urine Drugs screened: See Below Normal [facility] ([place] Comment on above: Result Comment: This drug screen is a presumptive screening only. No confirmation will be performed unless requested. Drugs screened include: Threshold Amphetamines/Methamphetamines 1,000 ng/mL Barbiturates 200 ng/mL Benzodiazepine metabolites 200 ng/mL Cannabinoids (THC metabolites) 50 ng/mL Benzoylecognine (Cocaine metab) 300 ng/mL Opiates 300 ng/mL Phencyclidine (PCP) 25 ng/mL Methadone 300 ng/mL Propoxyphene 300 ng/mL Fentanyl 1.0 ng/mL Oxycodone 100 ng/mL Testing has been performed FOR MEDICAL PURPOSES ONLY. Performed By: #### C BC, CMP, A1C, GFR, ANEU, ADIFF #### [facility] [address] [place], [place] [address] #### RUBIS, HBSAG, VARIS, RPR, HCV1 #### [address] [address] LABORATORYOrdered By: Ana Acosta on 04-08-2023 Amphetamines Screen Ql (U) Negative *NA* (04/08/23 3:49 PM) Invalid Interpretation Code Negative AH ADM SS Barbiturates Screen Ql (U) Negative *NA* (04/08/23 3:49 PM) Invalid Interpretation Code Negative AH ADM SS Benzodiazepines Ql (U) Negative *NA* (04/08/23 3:49 PM) Invalid Interpretation Code Negative AH ADM SS Benzoylecgonine Screen Ql (U) Negative *NA* (04/08/23 3:49 PM) Invalid Interpretation Code Negative AH ADM SS Cannabinoids Screen Ql (U) Negative *NA* (04/08/23 3:49 PM) Invalid Interpretation Code Negative AH ADM SS fentaNYL Screen Ql (U) Negative 1 *NA* (04/08/23 3:49 PM) Invalid Interpretation Code Negative AH ADM SS Comment on above: Interpretive Data: T esting has been performed FOR MEDICAL PURPOSES ONLY. Methadone Screen Ql (U) Negative *NA* (04/08/23 3:49 PM) Invalid Interpretation Code Negative AH ADM SS Opiates Screen Ql (U) Negative *NA* (04/08/23 3:49 PM) Invalid Interpretation Code Negative AH ADM SS oxyCODONE Ql (U) Negative 2 *NA* (04/08/23 3:49 PM) Invalid Interpretation Code Negative AH ADM SS Comment on above: Interpretive Data: T esting has been performed FOR MEDICAL PURPOSES ONLY. pH (U) 6.5 [pH] Normal 5.0 - 8.0 AH Chemistry S Phencyclidine Ql (U) Negative *NA* (04/08/23 3:49 PM) Invalid Interpretation Code Negative AH ADM SS Propoxyphene Screen Ql (U) Negative *NA* (04/08/23 3:49 PM) Invalid Interpretation Code Negative AH ADM SS Urine Drugs screened: See Below 3 (04/08/23 3:49 PM) Normal AH Chemistry S Comment on above: Interpretive Data: T his drug screen is a presumptive screening only. No confirmation will be performed unless requested. Drugs screened include: Threshold Amphetamines/Methamphetamines 1,000 ng/mL Barbiturates 200 ng/mL Benzodiazepine metabolites 200 ng/mL Cannabinoids (THC metabolites) 50 ng/mL Benzoylecognine (Cocaine metab) 300 ng/mL Opiates 300 ng/mL Phencyclidine (PCP) 25 ng/mL Methadone 300 ng/mL Propoxyphene 300 ng/mL Fentanyl 1.0 ng/mL Oxycodone 100 ng/mL Testing has been performed FOR MEDICAL PURPOSES ONLY. LABORATORYOrdered By: Nicole nicole on 04-08-2023 C. trachomatis DNA ÁNGEL+probe Ql (Unsp spec) Negative 5 (04/08/23 3:49 PM) Normal Negative AH Auto Viro/Sero SS Comment on above: Interpretive Data: M olecular (PCR) assay performed on the [employer] system. C. trachomatis DNA ÁNGEL+probe Ql (Unsp spec) C. trachomatis DNA not detected. Specimen is presumptive negative forC. trachomatis.A negative result does not preclude C. trachomatis infection becauseresults depend on adequate specimen collection, absence of inhibitors,and sufficient DNA to be detected. Normal See CT Interp N AH Auto Viro/Sero SS N. gonorrhoeae DNA ÁNGEL+probe Ql (Unsp spec) Negative 4 (04/08/23 3:49 PM) Normal Negative AH Auto Viro/Sero SS Comment on above: Interpretive Data: M olecular (PCR) assay performed on the [employer] System. N. gonorrhoeae DNA ÁNGEL+probe Ql (Unsp spec) N. gonorrhoeae DNA not detected. Specimen is presumptive negative forN. gonorrhoeae. A negative result does not preclude Neisseria gonorrhoeaeinfection because results depend on adequate specimen collection, absenceof inhibitors, and sufficient DNA to be detected. Normal See NG Interp N AH Auto Viro/Sero SS Laboratory - Specimen inform ationOrdered By: Nicole Diehl on 04-08-2023 Specimen source Nom (Unsp spec) Cervix (04/08/23 3:49 PM) Normal Auto Viro/Sero SS No Panel Informationon 04-08 Culture Urine 10,000 - 50,000 cfu/ ml Mixed growth consistent with normal urogenital connie. [facility] Work Phone: LABORATORYOrdered By: SYSTEM SYSTEM on 07-11-2021 Follitropin Qn 4.6 m[IU]/mL Invalid Interpretation Code ADM SS Insulin Qn 31.33 munit/L Invalid Interpretation Code 2.60 - 37.60 mU/L AH ADM SS Lutropin Qn 2.5 m[IU]/mL Invalid Interpretation Code ADM SS LABORATORYOrdered By: Juma Justice on 07-11-2021 Glucose [Mass/Vol] 80 mg/dL Invalid Interpretation Code 70 - 105 mg/dL AO ADM SS TSH Qn 1.36 m[IU]/L Invalid Interpretation Code 0.36 - 3.74 mcIU/mL AO ADM SS Vital Signs Date Time Vital Sign Value Performing Clinician Facility 03-08-2025 15:34-0500 Body height 152.[address] aCron Glasgow DO Work Phone: [facility] 03-08-2025 15:34-0500 Body mass index (BMI) [Ratio] 32.6 kg/m2 Dr. Caron Glasgow DO Work Phone: [facility] 03-08-2025 15:34-0500 Body weight 75.[address] Caron Glasgow DO Work Phone: [facility] 03-08-2025 15:34-0500 Diastolic blood pressure 76 mm[Hg] Dr. Caron Glasgow DO Work Phone: [facility] 03-08-2025 15:34-0500 Systolic blood pressure 113 mm[Hg] Dr. Caron Glasgow DO Work Phone: [facility] 02-21-2025 15:27-0400 Body height 152.[address] Caron Glasgow DO Work Phone: [facility] 02-21-2025 15:26-0400 Body mass index (BMI) [Ratio] 32.8 kg/m2 Dr. Caron Glasgow DO Work Phone: [facility] 02-21-2025 15:26-0400 Body weight 76.[address] Caron Glasgow DO Work Phone: [facility] 02-21-2025 15:26-0400 Diastolic blood pressure 81 mm[Hg] Dr. Caron Glasgow DO Work Phone: [facility] 02-21-2025 15:26-0400 Systolic blood pressure 121 mm[Hg] Dr. Caron Glasgow DO Work Phone: [facility] 02-09-2025 15:27-0400 Body mass index (BMI) [Ratio] 32.2 kg/m2 Dr. Caron Glasgow DO Work Phone: [facility] 02-09-2025 15:27-0400 Body weight 74.[address] Caron Glasgow DO Work Phone: [facility] 02-09-2025 15:27-0400 Diastolic blood pressure 68 mm[Hg] Dr. Caron Glasgow DO Work Phone: [facility] 02-09-2025 15:27-0400 Systolic blood pressure 103 mm[Hg] Dr. Caron Glasgow DO Work Phone: [facility] 01-24-2025 14:51-0400 Body height 152.[address] Caron Glasgow DO Work Phone: [facility] 01-24-2025 14:51-0400 Body mass index (BMI) [Ratio] 32 kg/m2 Dr. Caron Glasgow DO Work Phone: [facility] 01-24-2025 14:51-0400 Body weight 74.[address] Caron Glasgow DO Work Phone: [facility] 01-24-2025 14:51-0400 Diastolic blood pressure 72 mm[Hg] Dr. Caron Glasgow DO Work Phone: [facility] 01-24-2025 14:51-0400 Systolic blood pressure 105 mm[Hg] Dr. Caron Glasgow DO Work Phone: [facility] 01-11-2025 15:29-0400 Body height 152.[address] Caron Glasgow DO Work Phone: [facility] 01-11-2025 15:29-0400 Body mass index (BMI) [Ratio] 31.4 kg/m2 Dr. Caron Glasgow DO Work Phone: [facility] 01-11-2025 15:29-0400 Body weight 73.[address] Caron Glasgow DO Work Phone: [facility] 01-11-2025 15:29-0400 Diastolic blood pressure 74 mm[Hg] Dr. Caron Glasgow DO Work Phone: [facility] 01-11-2025 15:29-0400 Systolic blood pressure 111 mm[Hg] Dr. Caron Glasgow DO Work Phone: [facility] 12-26-2024 15:38-0400 Body height 152.[address] Caron Glasgow DO Work Phone: [facility] 12-26-2024 15:33-0400 Body mass index (BMI) [Ratio] 30.9 kg/m2 Dr. Caron Glasgow DO Work Phone: [facility] 12-26-2024 15:33-0400 Body weight 71.[address] Caron Glasgow DO Work Phone: [facility] 12-26-2024 15:33-0400 Diastolic blood pressure 70 mm[Hg] Dr. Caron Glasgow DO Work Phone: [facility] 12-26-2024 15:33-0400 Systolic blood pressure 104 mm[Hg] Dr. Caron Glasgow DO Work Phone: [facility] 12-01-2024 16:03-0400 Body height 152.[address] Caron Glasgow DO Work Phone: [facility] 12-01-2024 15:59-0400 Body mass index (BMI) [Ratio] 29.7 kg/m2 Dr. Caron Glasgow DO Work Phone: [facility] 12-01-2024 15:59-0400 Body weight 69.[address] Caron Glasgow DO Work Phone: [facility] 12-01-2024 15:59-0400 Diastolic blood pressure 71 mm[Hg] Dr. Caron Glasgow DO Work Phone: [facility] 12-01-2024 15:59-0400 Systolic blood pressure 109 mm[Hg] Dr. Caron Glasgow DO Work Phone: [facility] 11-02-2024 15:54-0400 Body height 152.[address] Caron Glasgow DO Work Phone: [facility] 11-02-2024 15:54-0400 Body mass index (BMI) [Ratio] 28 kg/m2 Dr. Caron Glasgow DO Work Phone: [facility] 11-02-2024 15:54-0400 Body weight 65.[address] Caron Glasgow DO Work Phone: [facility] 11-02-2024 15:54-0400 Diastolic blood pressure 70 mm[Hg] Dr. Caron Glasgow DO Work Phone: [facility] 11-02-2024 15:54-0400 Systolic blood pressure 110 mm[Hg] Dr. Caron Glasgow DO Work Phone: [facility] 10-04-2024 09:38-0400 Body height 152.[address] Caron Glasgow DO Work Phone: [facility] 10-04-2024 09:38-0400 Body mass index (BMI) [Ratio] 26.7 kg/m2 Dr. Caron Glasgow DO Work Phone: [facility] 10-04-2024 09:38-0400 Body weight 62.[address] Caron Glasgow DO Work Phone: [facility] 10-04-2024 09:38-0400 Diastolic blood pressure 69 mm[Hg] Dr. Caron Glasgow DO Work Phone: [facility] 10-04-2024 09:38-0400 Systolic blood pressure 100 mm[Hg] Dr. Caron Glasgow DO Work Phone: [facility] 09-13-2024 08:51-0400 Body height 152.[address] Caron Glasgow DO Work Phone: [facility] 09-13-2024 08:51-0400 Body mass index (BMI) [Ratio] 25.9 kg/m2 Dr. Caron Glasgow DO Work Phone: [facility] 09-13-2024 08:51-0400 Body weight 60.[address] Caron Glasgow DO Work Phone: [facility] 09-13-2024 08:51-0400 Diastolic blood pressure 74 mm[Hg] Dr. Caron Glasgow DO Work Phone: [facility] 09-13-2024 08:51-0400 Systolic blood pressure 108 mm[Hg] Dr. Caron Glasgow DO Work Phone: [facility] 08-19-2024 13:28-0400 Body mass index (BMI) [Ratio] 26.9 kg/m2 Dr. Caron Glasgow DO Work Phone: [facility] 08-19-2024 13:28-0400 Body weight 62.[address] Caron Glasgow DO Work Phone: [facility] 12-11-2023 09:54-0400 Body temperature 97.7 [degF] PATRICE REGAN APRN-CNM [facility] 12-11-2023 09:54-0400 Diastolic Blood Pressure Non-Invasive 72 mm[Hg] PATRICE REGAN APRN-[facility] 12-11-2023 09:54-0400 Heart rate 97 /min PATRICE REGAN COMMUNITY HEALTH WORKER-CNM [facility] 12-11-2023 09:54-0400 Reason For Taking VItal Signs PATRICE REGAN COMMUNITY HEALTH WORKER-CNM [facility] 12-11-2023 09:54-0400 Respiratory rate 18 /min PATRICE REGAN APRN-CN[facility] 12-11-2023 09:54-0400 Systolic Blood Pressure Non-Invasive 110 mm[Hg] PATRICE BEITLER COMMUNITY HEALTH WORKER-CN[facility] 12-11-2023 00:02-0400 Body temperature 96.8 [degF] PATRICE BEITLER COMMUNITY HEALTH WORKER-CN[facility] 12-11-2023 00:02-0400 Diastolic Blood Pressure Non-Invasive 72 mm[Hg] PATRICE BEITLER COMMUNITY HEALTH WORKER-CNM [facility] 12-11-2023 00:02-0400 Heart rate 81 /min PATRICE BEITLER COMMUNITY HEALTH WORKER-CNM [facility] 12-11-2023 00:02-0400 Reason For Taking VItal Signs PATRICE BEITLER COMMUNITY HEALTH WORKER-CNM [facility] 12-11-2023 00:02-0400 Respiratory rate 16 /min PATRICE BEITLER COMMUNITY HEALTH WORKER-CNM [facility] 12-11-2023 00:02-0400 Systolic Blood Pressure Non-Invasive 110 mm[Hg] PATRICE BEITLER COMMUNITY HEALTH WORKER-CN[facility] 12-10-2023 16:30-0400 Body temperature 97.52 [degF] PATRICE BEITLER COMMUNITY HEALTH WORKER-CN[facility] 12-10-2023 16:30-0400 Diastolic Blood Pressure Non-Invasive 63 mm[Hg] PATRICE BEITLER COMMUNITY HEALTH WORKER-CNM [facility] 12-10-2023 16:30-0400 Heart rate 99 /min PATRICE BEITLER COMMUNITY HEALTH WORKER-CN[facility] 12-10-2023 16:30-0400 Respiratory rate 16 /min PTARICE REGAN COMMUNITY HEALTH WORKER-[facility] 12-10-2023 16:30-0400 Systolic Blood Pressure Non-Invasive 100 mm[Hg] PATRICE WHITTENITLER COMMUNITY HEALTH WORKER-CN[facility] 12-10-2023 08:48-0400 Body temperature 97.16 [degF] PATRICE BEITLER COMMUNITY HEALTH WORKER-CN[facility] 12-10-2023 08:48-0400 Reason For Taking VItal Signs PATRICE REGAN COMMUNITY HEALTH WORKER-[facility] 12-09-2023 06:00-0400 Body temperature 98.6 [degF] PATRICE WHITTENITLER COMMUNITY HEALTH WORKER-[facility] 12-09-2023 03:40-0400 Body temperature 98.24 [degF] PATRICE BEITLER COMMUNITY HEALTH WORKER-CN[facility] 12-08-2023 20:15-0400 Body height 152.4 cm PATRICE WHITTENRANLER COMMUNITY HEALTH WORKER-CN[facility] 12-08-2023 20:15-0400 Body weight 78.1 kg PATRICE BARRAGANLER COMMUNITY HEALTH WORKER-CN[facility] 12-08-2023 20:15-0400 Body weight 33.63 kg/m2 PATRICE BEITLER COMMUNITY HEALTH WORKER-CNM [facility] 06-16-2022 18:33-0500 Body height 152.[address] FAITH COOK DO [facility] 06-16-2022 18:33-0500 Body temperature 98.06 [degF] DR FAITH COOK DO [facility] 06-16-2022 18:33-0500 Body weight 68.[address] FAITH COOK DO [facility] 06-16-2022 18:33-0500 Diastolic Blood Pressure Non-Invasive [address] FAITH COOK DO [facility] 06-16-2022 18:33-0500 Heart rate 88 /min DR FAITH COOK DO [facility] 06-16-2022 18:33-0500 Respiratory rate 20 /min DR FAITH COOK DO [facility] 06-16-2022 18:33-0500 Systolic Blood Pressure Non-Invasive [address] FAITH COOK DO [facility] Encounters Encounter Date Encounter Type Care Provider Facility Start: 03-13-2025 End: 03-13-2025 ambulatory Kathy Schwartz Facility:[facility] Start: 03-08-2025 End: 03-08-2025 ambulatory Caron Glasgow Facility:[facility] Start: 02-21-2025 End: 02-21-[address] Caron Everett DO -[facility] Work Phone: Start: 02-21-2025 End: 02-21-[address] Caron Glasgow DO Work Phone: -[facility] Start: 02-09-2025 End: 02-09-[address] Caron Everett DO -[facility] Work Phone: Start: 02-09-2025 End: 02-09-[address] Caron Glasgow DO Work Phone: -[facility] Start: 01-24-2025 End: 01-24-2025 Patient encounter procedure Gwen Claudio CNM -[facility] Work Phone: Start: 01-24-2025 End: 01-24-[address] Caron Glasgow DO Work Phone: -[facility] Start: 01-11-2025 End: 01-11-2025 Patient encounter procedure Jessy Foss OCCUPATIONAL SAFETY AND HEALTH MANAGER-C -[facility] Work Phone: Start: 01-11-2025 End: 01-11-[address] Caron Glasgow DO Work Phone: [facility] Start: 01-11-2025 End: 01-11-2025 ambulatory Jessy Foss OCCUPATIONAL SAFETY AND HEALTH MANAGER Facility:[facility] Start: 12-26-2024 End: 12-26-2024 Patient encounter procedure Jessy Foss OCCUPATIONAL SAFETY AND HEALTH MANAGER-C -[facility] Work Phone: Start: 12-26-2024 End: 12-26-[address] Caron Glasgow DO Work Phone: -[facility] Start: 12-22-2024 End: 12-22-2024 ambulatory GWEN CLAUDIO [facility] Start: 12-01-2024 End: 12-01-[address] Kathy Schwartz MD -[facility] Work Phone: Start: 12-01-2024 End: 12-01-[address] Caron Glasgow DO Work Phone: -[facility] Start: 11-17-2024 End: 11-17-2024 ambulatory MD ARUN PEREZ [facility] Start: 11-02-2024 End: 11-02-[address] Caron Everett DO -[facility] Work Phone: Start: 11-02-2024 End: 11-02-[address] Caron Glasgow DO Work Phone: -[facility] Start: 10-04-2024 End: 10-04-2024 Patient encounter procedure Jessy GOTTI -[facility] Work Phone: Start: 10-04-2024 End: 10-04-[address] Caron Glasgow DO Work Phone: [facility] Work Phone: Start: 09-13-2024 End: 09-13-2024 Patient encounter procedure Gwen FRANKS -[facility] Work Phone: Start: 09-13-2024 End: 09-13-[address] Caron Glasgow DO Work Phone: [facility] Work Phone: Start: 09-13-2024 End: 09-13-2024 ambulatory Caron Glasgow Facility:[facility] Start: 09-09-2024 Non-patient / Non-visit Azalia Manzo RN -[facility] Work Phone: Start: 09-09-2024 ambulatory Azalia Manzo Facility :[facility] Start: 08-19-2024 End: 08-19-2024 Patient encounter procedure Gwen Claudio CNM -[facility] Work Phone: Start: 08-19-2024 End: 08-19-2024 ambulatory Gwen Claudio Facility:[facility] Start: 08-16-2024 ambulatory CARON GLASGOW DO Facility:[facility] Start: 05-11-2024 End: 05-11-2024 ambulatory CARON GLASGOW DO Facility:[facility] Start: 05-11-2024 End: 05-11-2024 Patient encounter procedure CARON PEE DO [facility] Start: 04-05-2024 ambulatory Silvia Nils OCCUPATIONAL SAFETY AND HEALTH MANAGER Faci lity:[facility] Start: 12-08-2023 End: 12-11-2023 Evaluation and management of inpatient PATRICE Gallardo JASS COMMUNITY HEALTH WORKER-CNM [facility] Start: 11-26-2023 End: 11-26-2023 ambulatory HOLLIS MEHTA MD Facility:[facility] Start: 11-26-2023 End: 11-26-2023 Patient encounter procedure HOLLIS MEHTA MD [facility] Start: 11-18-2023 End: 11-18-2023 ambulatory HOLLIS MEHTA MD Facility:[facility] Start: 11-12-2023 End: 11-12-2023 ambulatory PATRICE REGAN Facility:[facility] Start: 11-10-2023 End: 11-14-2023 ambulatory LATOYA IZQUIERDO MD Facility:[facility] Start: 11-10-2023 End: 11-14-2023 Outreach Lab LATOYA IZQUIERDO MD [facility] Start: 10-23-2023 ambulatory PATRICE REGAN Facilit y:B Start: 10-14-2023 End: 10-14-2023 ambulatory PATRICE REGAN Facility:[facility] Start: 10-14-2023 End: 10-14-2023 Patient encounter procedure PATRICE Gallardo JASS COMMUNITY HEALTH WORKER-CNM [facility] Start: 10-07-2023 End: 10-07-2023 ambulatory PATRICE JASS Facility:[facility] Start: 10-07-2023 End: 10-07-2023 Patient encounter procedure PATRICEMICHEAL REGAN COMMUNITY HEALTH WORKER-CNM [facility] Start: 09-19-2023 End: 09-19-2023 ambulatory LATOYA IZQUIERDO MD Facility:[facility] Start: 09-15-2023 End: 09-15-2023 ambulatory LATOYA IZQUIERDO MD Facility:[facility] Start: 09-15-2023 End: 09-15-2023 Patient encounter procedure LATOYA IZQUIERDO MD [facility] Start: 07-20-2023 End: 07-20-2023 ambulatory PATRICE JASS Facility:[facility] Start: 07-20-2023 End: 07-20-2023 Patient encounter procedure PATRICE BARRAGANYURY COMMUNITY HEALTH WORKER-CNM [facility] Start: 05-20-2023 End: 05-20-2023 ambulatory PATRICE WHITTENVINEET Facility:[facility] Start: 05-20-2023 End: 05-20-2023 Patient encounter procedure PATRICE WHITTENITYURY COMMUNITY HEALTH WORKER-CNM [facility] Start: 04-23-2023 End: 04-23-2023 ambulatory PATRICE WHITTENVINEET Facility:[facility] Start: 04-23-2023 End: 04-23-2023 Patient encounter procedure PATRICE WHITTENITLER COMMUNITY HEALTH WORKER-CNM [facility] Start: 04-16-2023 ambulatory PATRICERAYMOND WHITTENVINEET Facilit y:B Start: 04-08-2023 End: 04-13-2023 ambulatory PATRICE WHITTENVINEET COMMUNITY HEALTH WORKER-CNM Facility:A Start: 04-08-2023 End: 04-12-2023 ambulatory PATRICE JASS Facility:A Start: 04-08-2023 End: 04-13-2023 ambulatory CARON GLASGOW DO Facility:[facility] Start: 04-08-2023 End: 04-12-2023 ambulatory PATRICE REGAN Facility:[facility] Start: 04-08-2023 End: 04-12-2023 Outreach Lab PATRICE REGAN COMMUNITY HEALTH WORKER-CNM [facility] Start: 06-16-2022 End: 06-16-2022 Emergency department patient visit DR FAITH COOK DO [facility] Start: 07-11-2021 End: 07-11-2021 Patient encounter procedure LEY LEE MD [facility] Procedures Date Procedure Procedure Detail Performing Clinician Start: 01-11-2025 Serologic test for syphilis Dr. Caron Glasgow DO Work Phone: Start: 09-13-[address] Guerda Glasgow DO Work Phone: Start: 09-13-2024 Hepatitis C antibody measurement Dr. Caron Glasgow DO Work Phone: Comment on above: Reactive: Presumptiv e evidence of antibodies to HCV. Follow CDC recommendations for supplemental testing.Non-Reactive: Antibodies to HCV were not detected; does not exclude the possibility of exposure to HCVReactive Results are presumptive evidence of antibodies to HCV. Follow CDC recommendations for supplemental testing.Order confirmation testing: HCV Quant by PCR testing - HCVPCR #[id number] Non Reactive: < 0.8 Equivocal: >/= 0.8 to < 1.0 Reactive: >/= 1.0The CDC requires that a reactive/equivocal HCV antibody result be sent out for confirmation. HCV Quant by PCR testing. Start: 09-13-[address] Caron Glasgow DO Work Phone: Comment on above: Antibody Result: Int erpretationNon-Reactive: Non- ImmuneReactive: ImmuneThe following results were obtained with the [employer] Rubella IgG assay. Results from assays of other manufacturers cannot be used interchangeably. Start: 09-13-2024 Serologic test for syphilis Dr. Caron Glasgow DO Work Phone: [employer] PATRICE JASS JIMENEZ None (qualifier value) SREE LEE MD None (qualifier value) GUERDA GLASGOW DO Plan of Treatment Date Care Activity Detail Author Start: 03-08-2025 End: 03-08-2025 Patient encounter procedure History of depression, currently -[facility] Work Phone: Start: 02-21-2025 End: 02-21-2025 Patient encounter procedure History of depression, currently -[facility] Work Phone: Start: 02-21-2025 [facility] Start: 01-11-2025 CBC W Auto Differential panel - Blood [facility] Start: 01-11-2025 Measurement of glucose 2 hours after glucose challenge for glucose tolerance test [facility] Start: 01-11-2025 Serologic test for syphilis [facility] Start: 01-11-2025 [facility] Start: 09-13-2024 CBC W Auto Differential panel - Blood [facility] Start: 09-13-2024 Hemoglobin A1c/Hemoglobin.total in Blood [facility] Start: 09-13-2024 Hepatitis C antibody measurement [facility] Start: 09-13-2024 Rubella IgG measurement [facility] Start: 09-13-2024 Serologic test for syphilis [facility] Start: 09-13-2024 [facility] CBC W Auto Different ial panel - Blood [facility] Chlamydia deoxyribon ucleic acid detection [facility] Erythrocyte mean cor puscular volume determination [facility] Erythrocyte mean cor puscular volume determination [facility] Hematocrit [Volume F raction] of Blood [facility] Hematocrit [Volume F raction] of Blood [facility] Hemoglobin [Mass/vol ume] in Blood [facility] Hemoglobin [Mass/vol ume] in Blood [facility] Hepatitis B virus canales rface Ag [Presence] in Serum [facility] Leukocytes [#/volume ] in Blood [facility] Leukocytes [#/volume ] in Blood [facility] Mean corpuscular hem oglobin concentration determination [facility] Mean corpuscular hem oglobin concentration determination [facility] Mean corpuscular hem oglobin determination [facility] Mean corpuscular hem oglobin determination [facility] Measurement of gluco se 2 hours after glucose challenge for glucose tolerance test [facility] Neutrophil count [facility] Neutrophil count [facility] Neutrophil percent differential count [facility] Neutrophil percent differential count [facility] Platelets [#/volume] in Blood [facility] Platelets [#/volume] in Blood [facility] Red blood cell count [facility] Red blood cell count [facility] Red cell distributio n width determination [facility] Red cell distributio n width determination [facility] Serologic test for syph[place] [facility] P[place] Date Payer Category Payer Unknown [id number] 2024 Unknown [id number] 2024 Self-pay 2023 Unknown [id number] 1993 Unknown [id number] 2.16.8 40.1.100502.3.579.2.627 1993 Unknown [id number] 2.16.8 40.1.699549.3.579.2.627 1993 Unknown [id number] 2.16.8 40.1.445730.3.579.2.627 1993 Unknown [id number] 2.16.8 40.1.975295.3.579.2.627 1993 Unknown [id number] 2.16.8 40.1.913145.3.579.2.627 1993 Unknown [id number] 2.16.8 40.1.944538.3.579.2.627 1993 Unknown [id number] 2.16.8 40.1.129525.3.579.2.627 1993 Unknown [id number] 2.16.8 40.1.826210.3.579.2.627 1993 Unknown [id number] 2.16.8 40.1.640584.3.579.2.627 1993 Unknown [id number] 2.16.8 40.1.443710.3.579.2.627 1993 Unknown [id number] 2.16.8 40.1.231237.3.579.2.627 1993 Unknown [id number] 2.16.8 40.1.944585.3.579.2.627 1993 Unknown [id number] 2.16.8 40.1.194603.3.579.2.627 1993 Unknown [id number] 2.16.8 40.1.312724.3.579.2.627 1993 Unknown [id number] 2.16.8 40.1.815212.3.579.2.627 1993 Unknown [id number] 2.16.8 40.1.482994.3.579.2.627 1993 Unknown [id number] 2.16.8 40.1.185506.3.579.2.627 1993 Unknown [id number] 2.16.8 40.1.848619.3.579.2.627 1993 Unknown [id number] 2.16.8 40.1.333521.3.579.2.627 1993 Unknown [id number] 2.16.8 40.1.293097.3.579.2.627 1993 Unknown [id number] 2.16.8 40.1.704917.3.579.2.627 1993 Unknown [id number] 2.16. 840.1.603903.3.579.2.479 1993 Unknown [id number] 2.16. 840.1.254092.3.579.2.479 Unknown [id number] 2.16.8 40.1.178092.3.579.2.462 Unknown [id number] 2.16.8 40.1.160488.3.579.2.462 Unknown [id number] 2.16.8 40.1.587289.3.579.2.462 Unknown [id number] 2.16.8 40.1.256403.3.579.2.462 Unknown [id number] 2.16.8 40.1.985214.3.579.2.462 Unknown [id number] 2.16.8 40.1.585092.3.579.2.462 Unknown [id number] 2.16.8 40.1.465413.3.579.2.462 Unknown [id number] 2.16.8 40.1.327686.3.579.2.462 Unknown [id number] 2.16.8 40.1.489801.3.579.2.462 Unknown [id number] 2.16.8 40.1.744899.3.579.2.462 Unknown [id number] 2.16.8 40.1.264677.3.579.2.462 Unknown [id number] 2.16.8 40.1.496754.3.579.2.462 Unknown [id number] 2.16.8 40.1.661835.3.579.2.462 Unknown [id number] 2.16.8 40.1.892082.3.579.2.462 Unknown [id number] 2.16.8 40.1.485373.3.579.2.462 Unknown [id number] 2.16.8 40.1.356216.3.579.2.462 Social History Date Type Detail Facility Start: 06-15-2018 End: 09-09-2024 Never smoked tobacco (finding) [facility] Sex Assigned At [facility] Start: 1995 Sex Assigned At Female A [facility] Start: 06-12-2005 Sex Female (finding) [facility] Sex Female [facility] Medical Equipment Procedure Code Equipment Code Equipment Origin al Text Equipment Identifier Dates See Instructions , 1 bottle of 100, # 1 EA, 11 Refill(s), Pharmacy: [facility]/pharmacy #[id number], Gestational diabetes, 152, cm, 08/25/23 15:07:00 EDT, Height, 73.7, kg, 07/30/23 14:27:00 EDT, Dosing Weight Start: 09-20-2023 See Instructions , check blood sugar 4x per day, # 100 EA, 11 Refill(s), Pharmacy: [facility]/pharmacy #[id number], Gestational diabetes, 152, cm, 08/25/23 15:07:00 EDT, Height, 73.7, kg, 07/30/23 14:27:00 EDT, Dosing Weight Start: 09-20-2023 See Instructions , 1 bottle of 100, # 200 EA, 3 Refill(s), Pharmacy: [facility]/pharmacy #[id number], Gestational diabetes, 152, cm, 10/06/23 15:45:00 EDT, Height, 73.7, kg, 07/30/23 14:27:00 EDT, Dosing Weight Start: 10-14-2023 See Instructions , check blood sugar 4x per day, # 200 EA, 3 Refill(s), Pharmacy: [facility]/pharmacy #[id number], Gestational diabetes, 152, cm, 10/06/23 15:45:00 EDT, Height, 73.7, kg, 07/30/23 14:27:00 EDT, Dosing Weight Start: 10-14-2023 See Instructions , 1 bottle of 200. check glucose 4 times per day., # 200 EA, 2 Refill(s), Pharmacy: [facility]/pharmacy #[id number], Gestational diabetes, 152, cm, 10/06/23 15:45:00 EDT, Height, 73.7, kg, 07/30/23 14:27:00 EDT, Dosing Weight Start: 10-15-2023 See Instructions , check blood sugar 4x per day, # 200 EA, 3 Refill(s), Pharmacy: [facility]/pharmacy #[id number], Gestational diabetes, 152, cm, 10/06/23 15:45:00 EDT, Height, 73.7, kg, 07/30/23 14:27:00 EDT, Dosing Weight Start: 10-14-2023 See Instructions , 1 bottle of 200. check glucose 4 times per day., # 200 EA, 2 Refill(s), Pharmacy: [facility]/pharmacy #[id number], Gestational diabetes, 152, cm, 10/06/23 15:45:00 EDT, Height, 73.7, kg, 07/30/23 14:27:00 EDT, Dosing Weight Start: 10-15-2023 See Instructions , check blood sugar 4x per day, # 200 EA, 3 Refill(s), Pharmacy: [facility]/pharmacy #[id number], Gestational diabetes, 152, cm, 10/06/23 15:45:00 EDT, Height, 73.7, kg, 07/30/23 14:27:00 EDT, Dosing Weight Start: 10-14-2023 Functional Status Date Assessment Result Facility 12-11-2023 Functional Status Repositions self [facility] 12-11-2023 Functional Status [facility] 12-11-2023 Functional Status [facility] 12-10-2023 Functional Status Ambulation in Room [facility] 12-10-2023 Functional Status [facility] 12-08-2023 Functional Status Home independently [facility] 06-16-2022 Functional Status Room check performed [facility] 06-16-2022 Functional Status [facility] Mental Status Date Assessment Result Facility 12-10-2023 Mental Status Oriented x 4 [facility] 06-16-2022 Mental Status Orientation Oriented x 4 [facility] 06-16-2022 Mental Status [facility] Clinical Notes 06-16-2022 to 02-21-2025 Note Date & Type Note Facility 02-21-2025 Progress note [facility] 02-21-2025 Progress note Note Date/Time February 21, 2025 4:54pm [facility] [address], [address] [place] [address] OFFICE VISIT Date of Service: 02/21/25 MR#: [id number] Acct: [id number] Name: CARMEN THOMPSON Rep #: [id number] : 1995 Provider: Dr. Antonia Everett DO Age/Sex: 29/F Location: [facility] Status: Signed Intake Vital Signs 01/11/25 15:29 02/09/25 15:28 02/21/25 15:26 02/21/25 15:27 Height 5 ft 5 ft 5 ft 5 ft Weight: 168 lb 1 oz BMI 32.8 BP 121/81 H Intake Visit Reasons: 33 wk ob 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: No Is patient in pain?: No Allergies No Known Allergies Allergy (Verified 02/21/25 15:25) Medications ?Medication ?Instructions ?Recorded ?Confirmed ?Type docosahexaenoic acid 200 mg mg PO 08/19/24 02/21/25 Hi story capsule ( DHA) Last Menstrual Period: 06/15/24 Zika: Zika virus screening: Negative : No PFSH PFSH Medical History 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 Hx of gestational diabetes in prior , currently Surgical History H/O colposcopy with cervical biopsy Family History Father Diabetes Hyperlipidemia Hypertension Chronic mental illness Mother Hypertension Sister Hereditary spherocytosis Social History adopted: No household members: spouse, children and other details: Pt's mom housing: house number of children: 1 current occupational status: employed 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 occupational exposures/hazards: Yes pets and animals: Yes (Not managing litter box) pets and animals: cat(s) and other details: chinchillas history of recent travel: No sexually active: Yes Smoking Status: Never smoker second hand exposure: Yes (PT's mother - smokes outside) alcohol intake: current alcohol intake frequency: holidays/special occasions only details: Not while substance use type: does not use diet: lactose free well-balanced diet: about half the time caffeine: Yes Type: coffee eating out: rarely or never during the past year weight has: decreased > 10 lbs what type of physical activity do you participate in: walking frequency: 1-2 times per week duration: < 15 minutes/day jarrod/christianity: Denominational seatbelt use: always do you feel safe at home: Yes 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 Date Name GA/Weeks Outcome Route Bth Weight Gen Labor Lgth Anesthesia Del Locatn Provider FOB 12/09/23 Ananda 40 live - full term vacuum 7lbs 2oz Male epidural [facility] [place] Delivery Date: 12/09/23 Last Updated by: Azalia Manzo RN GDM, nuchal cord, Induced d/t est baby size HPI 33 wk ob Details: CARMEN THOMPSON is a 29 year old who presents for routine OB visit. OB Visit FRANNY Calculator Estimated Delivery Date Method Current WG Current Estimate 04/11/25 Ultrasound #2 33w 0d Other Estimates 04/11/25 Ultrasound #1 33w 0d Expected Delivery Route/Plan Labor Preferences- CB/BF classes: no labor support person: Edinson labor intervention preferences: [] pain management options preferred: epidural cut cord/dad catch: cord : yes PP control planned: discussed discussed possible routes of delivery and associated risks: [] special requests: [] Specific Issue/Plans Covid status: [] Flu vaccine: [] Tdap vaccine: [] Rhogam: NA LARC form signed: yes Problem list reviewed and updated with the most current plan of care details and appropriate orders placed. Relevant counseling for the gestational age provided. Continue routine care and follow up unless otherwise noted in visit notes/problem list details Initial Weight: 133 lb Date -?-?-?-?-?-?-?-?-?-?-?-?- EGA Weight BP Urine Prot -?-?-?-?-?-?-?-?-?-?-?-?- Glucose FHR FuHt Pres Dilation -?-?-?-?-?-?-?-?-?-?-?-?- Effaced St Visit Note 09/13/24 -?-?-?-?-?-?-?-?-?-?-?-?- 10w 0d 133 lb 2 oz (+2 oz) 108/74 -?-?-?-?-?-?-?-?-?-?-?-?- 180 -?-?-?-?-?-?-?-?-?-?-?-?- KW- CRL cons wit h dates. declines NIPT. labs today. anatomy US ordered 10/04/24 -?-?-?-?-?-?-?-?-?-?-?-?- 13w 0d 137 lb 2 oz (+4 lb 2 oz) 100/69 Negative -?-?-?-?-?-?-?-?-?-?-?-?- Negative 164 -?-?-?-?-?-?-?-?-?-?-?-?- MH-No VB. Nausea persists but manageable. Reviewed nl PN labs. 11/02/24 -?-?-?-?-?-?-?-?-?-?-?-?- 17w 1d 143 lb 6 oz (+10 lb 6 oz) 110/70 Negative -?-?-?-?-?-?-?-?-?-?-?-?- Negative 145 -?-?-?-?-?-?-?-?-?-?-?-?- JV- no complaint s today. has anatomy scan 11/1712/01/24 -?-?-?-?-?-?-?-?-?-?-?-?- 21w 2d 152 lb 8 oz (+19 lb 8 oz) 109/71 Negative -?-?-?-?-?-?-?-?-?-?-?-?- Negative 145 -?-?-?-?-?-?-?-?-?-?-?-?- - no vb lof go od fm no regular ctx 12/26/24 -?-?-?-?-?-?-?-?-?-?-?-?- 24w 6d 158 lb 7 oz (+25 lb 7 oz) 104/70 Negative -?-?-?-?-?-?-?-?-?-?-?-?- Negative 152 -?-?-?-?-?-?-?-?-?-?-?-?- -No vB, LOF. G ood FM. Larc 01/11/25 -?-?-?-?-?-?-?-?-?-?--?-?- 27w 1d 161 lb 3 oz (+28 lb 3 oz) 111/74 Negative -?-?-?-?-?-?-?-?-?-?-?-?- Negative 142 28 -?-?-?-?-?-?-?-?-?-?-?-?- -No Vb, LOF. G ood FM. 28 wk labs pending 01/24/25 -?-?-?-?-?-?-?-?-?-?-?-?- 29w 0d 164 lb (+31 lb) 105/72 Negative -?-?-?--?-?-?-?-?-?-?-?-?- Negative 138 30 -?-?-?-?-?-?-?-?-?-?-?-?- - no vb/lof/ct x. good fm. 02/09/25 -?-?-?-?-?-?-?-?-?-?-?-?- 31w 2d 165 lb (+32 lb) 103/68 Negative -?-?-?-?-?-?-?-?-?-?-?-?- Negative 130 32 -?-?-?-?-?-?-?-?-?-?-?-?- JV- declines flu . wants to use FMLA a few days a week at end of . no lof, vaginal bleeding, or dec. 02/21/25 -?-?-?-?-?-?-?-?-?-?-?-?- 33w 0d 168 lb 1 oz (+35 lb 1 oz) 121/81 Trace -?-?-?-?-?-?-?-?-?-?-?-?- 100 g/dL 160 33 Cephalic -?-?-?-?-?-?-?-?-?-?-?-?- JV- no lof, vagi nal bleeding, or dec fm. has lower pelvic pressure. baby may have moved from transverse to head down. ACOG First Trimester First Trimester: Desire for , Alcohol, Tobacco Cessation, Illicit/Recreational Drug/Substance Use, Intimate Partner Violence, Barriers to care, Unstable Housing, Communication Barriers, Environmental/Work Hazards, Anticipated Course of Care, Toxoplasmosis Precations, Use of Any medications, Sexual activity, Exercise, Dental Care, Sauna/Hot tub use, Seat Belt use, Childbirth classes/Hospital facilities, Travel, Indications for Ultrasound and Screening for Aneuploidy; Discussed Second Trimester Second Trimester: Signs and Symptoms of Labor, Selecting a care provider, Reproductive Life Planning & Contreception, Care Planning, Depression/Anxiety and Intimate Partner Violence; Discussed Tobacco Cessation Third Trimester Third Trimester: Pain Management Plans, Labor support person(s), Immediate Larc, Circumcision preference, Signs and Symptoms of Preeclampsia, Feeding No , [place] Education and Family Medical Leave or Disability Forms Results POC Urinalysis Dip (Clinic) Office Urine Color Yellow Last Edit by Serena Castro on 02/21/25 15:37 Office Urine Clarity Clear Last Edit by Serena Castro on 02/21/25 15:37 Office Urine Glucose 100 g/dL Last Edit by Serena Castro on 02/21/25 15: 37 Office Urine Ketones Negative Last Edit by Serena Castro on 02/21/25 15: 37 Off Ur Spec [place] 1.020 Last Edit by Serena Castro on 02/21/25 15:37 Office Urine pH 5.0 Last Edit by Serena Castro on 02/21/25 15:37 Office Urine Bilirubin Negative Last Edit by Serena Castro on 02/21/25 15:37 Office Urine Urobilinogen 0.2 mg/dL Last Edit by Serena Castro on 15:37 Office Urine Blood Negative Last Edit by Serena Castro on 02/21/25 15:37 Office Urine Blood Hemolyzed Last Edit by Serena Castro on 02/21/25 15: 37 Office Urine Protein Trace Last Edit by Serena Castro on 02/21/25 15:37 Office Urine Nitrate Negative Last Edit by Serena Castro on 02/21/25 15: 37 Off Ur Leukocytes Negatve Last Edit by Serena Castro on 02/21/25 15:37 Coding Level of Care Code OB Routine Diagnoses Supervision of high risk in second trimester O09.92 Trimester: second trimester 33 weeks gestation of Z3A.33 Weeks of gestation: 33 weeks History of depression, currently O99.891; Z86.59 Hx of gestational diabetes in prior , currently O09.299; Z86.32 Assessment and Plan Assessment and Plan (1) Supervision of high-risk : Status: Acute Qualifiers: Trimester: second trimester Qualified Code(s): O09.92 - Supervision of high risk , unspecified, second trimester Comment: PRR, ; FRANNY 04/11; boy PC: Ananda; : [place] (2) : Status: Acute Qualifiers: Weeks of gestation: 33 weeks Qualified Code(s): Z3A.33 - 33 weeks gestation of Comment: Discussed genetic/carrier testing - declined. needs fu views. (3) History of depression, currently : Status: Acute Comment: no meds (4) Hx of gestational diabetes in prior , currently : Status: Acute Comment: Was diet controlled; Nl HgbA1c @ NOB Orders: Orders POC Urinalysis 2 Dip (Clinic) Today POC Urinalysis Dip (Clinic) Today O26.899 - Other specified related conditions, unspecified trimester, R10.20 - Pelvic and perineal pain unspecified side 02/21/25 1557 <Electronically signed by Caron Figueroa DO> Date _ Caron Vande Velde DO [facility] Signature: Date (if applicable) CC: ~ [facility] Work Phone: 1(281) 486-429010-09-2025 [facility] [address] [place] [address], [address] [place] [phone] OFFICE VISIT Date of Service: 02/09/25 MR#: [id number] Acct: [id number] Name: CARMEN THOMPSON Rep #: [id number] : 1995 Provider: Dr. Antonia Everett DO Age/Sex: 29/F Location: [facility] Status: Signed Intake Vital Signs 12/26/24 15:38 01/24/25 14:51 02/09/25 15:27 02/09/25 15:28 Height 5 ft 5 ft 5 ft 5 ft Weight: 165 lb BMI 32.2 BP 103/68 Intake Visit Reasons: 32 WK OB 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: No Is patient in pain?: No Allergies No Known Allergies Allergy (Verified 02/09/25 15:26) Medications ?Medication ?Instructions ?Recorded ?Confirmed ?Type docosahexaenoic acid 200 mg mg PO 08/19/24 02/09/25 Hi story capsule ( DHA) Last Menstrual Period: 06/15/24 Zika: Zika virus screening: Negative : No PFSH PFSH Medical History 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 Hx of gestational diabetes in prior , currently Surgical History H/O colposcopy with cervical biopsy Family History Father Diabetes Hyperlipidemia Hypertension Chronic mental illness Mother Hypertension Sister Hereditary spherocytosis Social History adopted: No household members: spouse, children and other details: Pt's mom housing: house number of children: 1 current occupational status: employed 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 occupational exposures/hazards: Yes pets and animals: Yes (Not managing litter box) pets and animals: cat(s) and other details: jennifer history of recent travel: No sexually active: Yes Smoking Status: Never smoker second hand exposure: Yes (PT's mother - smokes outside) alcohol intake: current alcohol intake frequency: holidays/special occasions only details: Not while substance use type: does not use diet: lactose free well-balanced diet: about half the time caffeine: Yes Type: coffee eating out: rarely or never during the past year weight has: decreased > 10 lbs what type of physical activity do you participate in: walking frequency: 1-2 times per week duration: < 15 minutes/day jarrod/christianity: Denominational seatbelt use: always do you feel safe at home: Yes 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 Date Name GA/Weeks Outcome Route Bth Weight Infant Gen Labor Lgth Anesthesia Del Locatn Provider FOB 12/09/23 Ananda 40 live - full term vacuum 7lbs 2oz Male epidural [place] [facility] [place] Delivery Date: 12/09/23 Last Updated by: Azalia Manzo RN GDM, nuchal cord, Induced d/t est baby size HPI 32 WK OB Details: CARMEN THOMPSON is a 29 year old who presents for routine OB visit. OB Visit FRANNY Calculator Estimated Delivery Date Method Current WG Current Estimate 04/11/25 Ultrasound #2 31w 2d Other Estimates 04/11/25 Ultrasound #1 31w 2d Expected Delivery Route/Plan Labor Preferences- CB/BF classes: no labor support person: Edinson labor intervention preferences: [] pain management options preferred: epidural cut cord/dad catch: cord : yes PP control planned: discussed discussed possible routes of delivery and associated risks: [] special requests: [] Specific Issue/Plans Covid status: [] Flu vaccine: [] Tdap vaccine: [] Rhogam: NA LARC form signed: yes Problem list reviewed and updated with the most current plan of care details and appropriate ordersplaced. Relevant counseling for the gestational age provided. Continue routine care and follow up unless otherwise noted in visit notes/problem list details Initial Weight: 133 lb Date -?-?-?-?-?-?-?-?-?-?-?-?- EGA Weight BP Urine Prot -?-?-?-?-?-?-?-?-?-?-?-?- Glucose FHR FuHt Pres Dilation -?-?-?-?-?-?-?-?-?-?-?-?- Effaced St Visit Note 09/13/24 -?-?-?-?-?-?-?-?-?-?-?-?- 10w 0d 133 lb 2 oz (+2 oz) 108/74 -?-?-?-?-?-?-?-?-?-?-?-?- 180 -?-?-?-?-?-?-?-?-?-?-?-?- KW- CRL cons wit h dates. declines NIPT. labs today. anatomy US ordered 10/04/24 -?-?-?-?-?-?-?-?-?-?-?-?- 13w 0d 137 lb 2 oz (+4 lb 2 oz) 100/69 Negative -?-?-?-?-?-?-?-?-?-?-?-?- Negative 164 -?-?-?--?-?-?-?-?-?-?-?-?- MH-No VB. Nausea persists but manageable. Reviewed nl PN labs. 11/02/24 -?-?-?-?-?-?-?-?-?-?-?-?- 17w 1d 143 lb 6 oz (+10 lb 6 oz) 110/70 Negative -?-?-?-?-?-?-?-?-?-?-?-?- Negative 145 -?-?-?-?-?-?-?-?-?-?-?-?- JV- no complaint s today. has anatomy scan 11/1712/01/24 -?-?-?-?-?-?-?-?-?-?-?-?- 21w 2d 152 lb 8 oz (+19 lb 8 oz) 109/71 Negative -?-?-?-?-?-?-?-?-?-?-?-?- Negative 145 -?-?-?-?-?-?-?-?-?-?-?-?- - no vb lof go od fm no regular ctx 12/26/24 -?-?-?-?-?-?-?-?-?-?-?-?- 24w 6d 158 lb 7 oz (+25 lb 7 oz) 104/70 Negative -?-?-?-?-?-?-?-?-?-?-?-?- Negative 152 -?-?-?-?-?-?-?-?-?-?-?-?- -No vB, LOF. G ood FM. [place] 01/11/25 -?-?-?-?-?-?-?-?-?-?-?-?- 27w 1d 161 lb 3 oz (+28 lb 3 oz) 111/74 Negative -?-?-?-?-?-?-?-?-?-?-?-?- Negative 142 28 -?-?-?-?-?-?-?-?-?-?-?-?- -No Vb, LOF. G ood FM. 28 wk labs pending 01/24/25 -?-?-?-?-?-?-?-?-?-?-?-?- 29w 0d 164 lb (+31 lb) 105/72 Negative -?-?-?-?-?-?-?-?-?-?--?-?- Negative 138 30 -?-?-?-?-?-?-?-?-?-?-?-?- KW- no vb/lof/ct x. good fm. 02/09/25 -?-?-?-?-?-?-?-?-?-?-?-?- 31w 2d 165 lb (+32 lb) 103/68 Negative -?-?-?-?-?-?-?-?-?-?-?-?- Negative 130 32 -?-?-?-?-?-?-?-?-?-?-?-?- JV- declines flu . wants to use FMLA a few days a week at end of . no lof, vaginal bleeding, or dec. ACOG First Trimester First Trimester: Desire for , Alcohol, Tobacco Cessation, Illicit/Recreational Drug/Substance Use, Intimate Partner Violence, Barriers to care, Unstable Housing, Communication Barriers, Environmental/Work Hazards, Anticipated Course of Care, Toxoplasmosis Precations, Use of Any med ications, Sexual activity, Exercise, Dental Care, Sauna/Hot tub use, Seat Belt use, Childbirth classes/Hospital facilities, Travel, Indications for Ultrasound and Screening for Aneuploidy; Discussed Second Trimester Second Trimester: Signs and Symptoms of Labor, Selecting a care provider, Reproductive Life Planning & Contreception, Care Planning, Depression/Anxiety and Intimate Partner Violence; Discussed Tobacco Cessation Third Trimester Third Trimester: Pain Management Plans, Labor support person(s), Immediate Larc, Circumcision preference, Signs and Symptoms of Preeclampsia, Feeding No , Education and Family Medical Leave or Disability Forms Results POC Urinalysis 2 Dip (Clinic) Office Urine Glucose Negative Last Edit by Serena Castro on 02/09/25 15: 34 Office Urine Protein Negative Last Edit by Serena Castro on 02/09/25 15: 34 Coding Level of Care Code OB Routine Diagnoses Supervision of high risk in second trimester O09.92 Trimester: second trimester 29 weeks gestation of Z3A.29 Weeks of gestation: 29 weeks History of depression, currently O99.891; Z86.59 Hx of gestational diabetes in prior , currently O09.299; Z86.32 Assessment and Plan Assessment and Plan (1) Supervision of high-risk : Status: Acute Qualifiers: Trimester: second trimester Qualified Code(s): O09.92 - Supervision of high risk , unspecified, second trimester Comment: PRR, ; FRANNY 04/11; boy PC: Ananda; : [place] (2) : Status: Acute Qualifiers: Weeks of gestation: 29 weeks Qualified Code(s): Z3A.29 - 29 weeks gestation of Comment: Discussed genetic/carrier testing - declined. needs fu views. (3) History of depression, currently : Status: Acute Comment: no meds (4) Hx of gestational diabetes in prior , currently : Status: Acute Comment: Was diet controlled; Nl HgbA1c @ NOB Orders: Orders POC Urinalysis 2 Dip (Clinic) Today 02/09/25 1551 e Raffaele DO> Date _ Caron Everett DO Cosigner Signature: Date (if applicable) CC: ~ [facility]10-09-2025 Progress note Author Caron Castorena [facility] Note Date/Time February 09, 2025 3: 51pm [facility] [address], [address] [place] [address] OFFICE VISIT Date of Service: 02/09/25 MR#: [id number] Acct: [id number] Name: CARMEN THOMPSON Rep #: [id number] : 1995 Provider: Dr. Antonia Everett DO Age/Sex: 29/F Location: [facility] Status: Signed Intake Vital Signs 12/26/24 15:38 01/24/25 14:51 02/09/25 15:27 02/09/25 15:28 Height 5 ft 5 ft 5 ft 5 ft Weight: 165 lb BMI 32.2 BP 103/68 Intake Visit Reasons: 32 WK OB 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: No Is patient in pain?: No Allergies No Known Allergies Allergy (Verified 02/09/25 15:26) Medications ?Medication ?Instructions ?Recorded ?Confirmed ?Type docosahexaenoic acid 200 mg mg PO 08/19/24 02/09/25 Hi story capsule ( DHA) Last Menstrual Period: 06/15/24 Zika: Zika virus screening: Negative : No PFSH PFSH Medical History 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 Hx of gestational diabetes in prior , currently Surgical History H/O colposcopy with cervical biopsy Family History Father Diabetes Hyperlipidemia Hypertension Chronic mental illness Mother Hypertension Sister Hereditary spherocytosis Social History adopted: No household members: spouse, children and other details: Pt's mom housing: house number of children: 1 current occupational status: employed 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 current occupational exposures/hazards: Yes pets and animals: Yes (Not managing litter box) pets and animals: cat(s) and other details: chinchillas history of recent travel: No sexually active: Yes Smoking Status: Never smoker second hand exposure: Yes (PT's mother - smokes outside) alcohol intake: current alcohol intake frequency: holidays/special occasions only details: Not while substance use type: does not use diet: lactose free well-balanced diet: about half the time caffeine: Yes Type: coffee eating out: rarely or never during the past year weight has: decreased > 10 lbs what type of physical activity do you participate in: walking frequency: 1-2 times per week duration: < 15 minutes/day jarrod/christianity: Denominational seatbelt use: always do you feel safe at home: Yes 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 Date Name GA/Weeks Outcome Route Bth Weight Gen Labor Lgth Anesthesia Del Locatn Provider FOB 12/09/23 [place] 40 live - full term vacuum 7lbs 2oz Male epidural [place] [facility] Delivery Date: 12/09/23 Last Updated by: Azalia Manzo RN GDM, nuchal cord, Induced d/t est baby size HPI 32 WK OB Details: CARMEN THOMPSON is a 29 year old who presents for routine OB visit. OB Visit FRANNY Calculator Estimated Delivery Date Method Current WG Current Estimate 04/11/25 Ultrasound #2 31w 2d Other Estimates 04/11/25 Ultrasound #1 31w 2d Expected Delivery Route/Plan Labor Preferences- CB/BF classes: no labor support person: Edinson labor intervention preferences: [] pain management options preferred: epidural cut cord/dad catch: cord : yes PP control planned: discussed discussed possible routes of delivery and associated risks: [] special requests: [] Specific Issue/Plans Covid status: [] Flu vaccine: [] Tdap vaccine: [] Rhogam: NA LARC form signed: yes Problem list reviewed and updated with the most current plan of care details and appropriate orders placed. Relevant counseling for the gestational age provided. Continue routine care and follow up unless otherwise noted in visit notes/problem list details Initial Weight: 133 lb Date -?-?-?-?-?-?-?-?-?-?-?-?- EGA Weight BP Urine Prot -?-?-?-?-?-?-?-?-?-?-?-?- Glucose FHR FuHt Pres Dilation -?-?-?-?-?-?-?-?-?-?-?-?- Effaced St Visit Note 09/13/24 -?-?-?-?-?-?-?-?-?-?-?-?- 10w 0d 133 lb 2 oz (+2 oz) 108/74 -?-?-?-?-?-?-?-?-?-?-?-?- 180 -?-?-?-?-?-?-?-?-?-?-?-?- KW- CRL cons wit h dates. declines NIPT. labs today. anatomy US ordered 10/04/24 -?-?-?-?-?-?-?-?-?-?-?-?- 13w 0d 137 lb 2 oz (+4 lb 2 oz) 100/69 Negative -?-?-?-?-?-?-?-?-?-?-?-?- Negative 164 -?-?-?--?-?-?-?-?-?-?-?-?- MH-No VB. Nausea persists but manageable. Reviewed nl PN labs. 11/02/24 -?-?-?-?-?-?-?-?-?-?-?-?- 17w 1d 143 lb 6 oz (+10 lb 6 oz) 110/70 Negative -?-?-?-?-?-?-?-?-?-?-?-?- Negative 145 -?-?-?-?-?-?-?-?-?-?-?-?- JV- no complaint s today. has anatomy scan 11/1712/01/24 -?-?-?-?-?-?-?-?-?-?-?-?- 21w 2d 152 lb 8 oz (+19 lb 8 oz) 109/71 Negative -?-?-?-?-?-?-?-?-?-?-?-?- Negative 145 -?-?-?-?-?-?-?-?-?-?-?-?- - no vb lof go od fm no regular ctx 12/26/24 -?-?-?-?-?-?-?-?-?-?-?-?- 24w 6d 158 lb 7 oz (+25 lb 7 oz) 104/70 Negative -?-?-?-?-?-?-?-?-?-?-?-?- Negative 152 -?-?-?-?-?-?-?-?-?-?-?-?- -No vB, LOF. G ood FM. [facility] 01/11/25 -?-?-?-?-?-?-?-?-?-?-?-?- 27w 1d 161 lb 3 oz (+28 lb 3 oz) 111/74 Negative -?-?-?-?-?-?-?-?-?-?-?-?- Negative 142 28 -?-?-?-?-?-?-?-?-?-?-?-?- MH-No Vb, LOF. G ood FM. 28 wk labs pending 01/24/25 -?-?-?-?-?-?-?-?-?-?-?-?- 29w 0d 164 lb (+31 lb) 105/72 Negative -?-?-?-?-?-?-?-?-?-?--?-?- Negative 138 30 -?-?-?-?-?-?-?-?-?-?-?-?- KW- no vb/lof/ct x. good fm. 02/09/25 -?-?-?-?-?-?-?-?-?-?-?-?- 31w 2d 165 lb (+32 lb) 103/68 Negative -?-?-?-?-?-?-?-?-?-?-?-?- Negative 130 32 -?-?-?-?-?-?-?-?-?-?-?-?- JV- declines flu . wants to use FMLA a few days a week at end of . no lof, vaginal bleeding, or dec. ACOG First Trimester First Trimester: Desire for , Alcohol, Tobacco Cessation, Illicit/Recreational Drug/Substance Use, Intimate Partner Violence, Barriers to care, Unstable Housing, Communication Barriers, Environmental/Work Hazards, Anticipated Course of Care, Toxoplasmosis Precations, Use of Any medications, Sexual activity, Exercise, Dental Care, Sauna/Hot tub use, Seat Belt use, Childbirth classes/Hospital facilities, Travel, Indications for Ultrasound and Screening for Aneuploidy; Discussed Second Trimester Second Trimester: Signs and Symptoms of Labor, Selecting a care provider, Reproductive Life Planning & Contreception, Care Planning, Depression/Anxiety and Intimate Partner Violence; Discussed Tobacco Cessation Third Trimester Third Trimester: Pain Management Plans, Labor support person(s), Immediate Larc, Circumcision preference, Signs and Symptoms of Preeclampsia, Infant Feeding No , Education and Family Medical Leave or Disability Forms Results POC Urinalysis 2 Dip (Clinic) Office Urine Glucose Negative Last Edit by Serena Castro on 02/09/25 15: 34 Office Urine Protein Negative Last Edit by Serena Castro on 02/09/25 15: 34 Coding Level of Care Code OB Routine Diagnoses Supervision of high risk in second trimester O09.92 Trimester: second trimester 29 weeks gestation of Z3A.29 Weeks of gestation: 29 weeks History of depression, currently O99.891; Z86.59 Hx of gestational diabetes in prior , currently O09.299; Z86.32 Assessment and Plan Assessment and Plan (1) Supervision of high-risk : Status: Acute Qualifiers: Trimester: second trimester Qualified Code(s): O09.92 - Supervision of high risk , unspecified, second trimester Comment: PRR, ; FRANNY 04/11; boy PC: Ananda; : Edinson (2) : Status: Acute Qualifiers: Weeks of gestation: 29 weeks Qualified Code(s): Z3A.29 - 29 weeks gestation of Comment: Discussed genetic/carrier testing - declined. needs fu views. (3) History of depression, currently : Status: Acute Comment: no meds (4) Hx of gestational diabetes in prior , currently : Status: Acute Comment: Was diet controlled; Nl HgbA1c @ NOB Orders: Orders POC Urinalysis 2 Dip (Clinic) Today 02/09/25 1551 <Electronically signed by Caron Figueroa DO> Date _ Caron Everett DO [facility] Bransonign Signature: Date (if applicable) CC: ~ [facility] Work Phone: [phone] [phone] [facility] [address] [place] [address], [address] [place] [address] OFFICE VISIT Date of Service: 01/24/25 MR#: [id number] Acct: [id number] Name: CARMEN THOMPSON Rep #: [id number] : 1995 Provider: GISELLE Claudio Age/Sex: 29/F Location: [facility] [place] Status: Signed Intake Vital Signs 12/26/24 15:38 01/11/25 15:29 01/24/25 14:51 Height 5 ft 5 ft 5 ft Weight: 164 lb BMI 32.0 BP 105/72 Intake Visit Reasons: 30 WK OB Chief Complaint: 30wk OB 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: No Is patient in pain?: No Allergies No Known Allergies Allergy (Verified 01/24/25 14:48) Medications ?Medication ?Instructions ?Recorded ?Confirmed ?Type docosahexaenoic acid 200 mg mg PO 08/19/24 01/24/25 Hi story capsule ( DHA) Last Menstrual Period: 06/15/24 : No Have you fallen in the past year?: No PFSH PFSH Medical History 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 Hx of gestational diabetes in prior , currently Surgical History H/O colposcopy with cervical biopsy Family History Father Diabetes Hyperlipidemia Hypertension Chronic mental illness Mother Hypertension Sister Hereditary spherocytosis Social History adopted: No household members: spouse, children and other details: Pt's mom housing: house number of children: 1 current occupational status: employed 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 current occupational exposures/hazards: Yes pets and animals: Yes (Not managing litter box) pets and animals: cat(s) and other details[facility] history of recent travel: No sexually active: Yes Smoking Status: Never smoker second hand exposure: Yes (PT's mother - smokes outside) alcohol intake: current alcohol intake frequency: holidays/special occasions only details: Not while substance use type: does not use diet: lactose free well-balanced diet: about half the time caffeine: Yes Type: coffee eating out: rarely or never during the past year weight has: decreased > 10 lbs what type of physical activity do you participate in: walking frequency: 1-2 times per week duration: < 15 minutes/day jarrod/christianity: Denominational seatbelt use: always do you feel safe at home: Yes additional 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 Date Name GA/Weeks Outcome Route Bth Weight Infant Gen Labor Lgth Anesthesia Del Locatn Provider FOB 12/09/23 Ananda 40 live - full term vacuum 7lbs 2oz Male epidural [facility] Delivery Date: 12/09/23 Last Updated by: Azalia Manzo RN GDM, nuchal cord, Induced d/t est baby size HPI 30 WK OB Details: CARMEN THOMPSON is a 29 year old who presents for routine OB visit. OB Visit FRANNY Calculator Estimated Delivery Date Method Current WG Current Estimate 04/11/25 Ultrasound #2 29w 0d Other Estimates 04/11/25 Ultrasound #1 29w 0d Expected Delivery Route/Plan Labor Preferences- CB/BF classes: no labor support person: Edinson labor intervention preferences: [] pain management options preferred: epidural cut cord/dad catch: cord : yes PP control planned: discussed discussed possible routes of delivery and associated risks: [] special requests: [] Specific Issue/Plans Covid status: [] Flu vaccine: [] Tdap vaccine: [] Rhogam: NA LARC form signed: yes Problem list reviewed and updated with the most current plan of care details and appropriate ordersplaced. Relevant counseling for the gestational age provided. Continue routine care and follow up unless otherwise noted in visit notes/problem list details Initial Weight: 133 lb Date -?-?-?-?-?-?-?-?-?-?-?-?- EGA Weight BP Urine Prot -?-?-?-?-?-?-?-?-?-?-?-?- Glucose FHR FuHt Pres Dilation -?-?-?-?-?-?-?-?-?-?-?-?- Effaced St Visit Note 09/13/24 -?-?-?-?-?-?-?-?-?-?-?-?- 10w 0d 133 lb 2 oz (+2 oz) 108/74 -?-?-?-?-?-?-?-?-?-?-?-?- 180 -?-?-?-?-?-?-?-?-?-?-?-?- KW- CRL cons wit h dates. declines NIPT. labs today. anatomy US ordered 10/04/24 -?-?-?-?-?-?-?-?--?-?-?-?- 13w 0d 137 lb 2 oz (+4 lb 2 oz) 100/69 Negative -?-?-?-?-?-?-?-?-?-?-?-?- Negative 164 -?-?-?-?-?-?-?-?-?-?-?-?- -No VB. Nausea persists but manageable. Reviewed nl PN labs. 11/02/24 -?-?-?-?-?-?-?-?-?-?-?-?- 17w 1d 143 lb 6 oz (+10 lb 6 oz) 110/70 Negative -?-?-?-?-?-?-?-?-?-?-?-?- Negative 145 -?-?-?-?-?-?-?-?-?-?-?-?- JV- no complaint s today. has anatomy scan 11/1712/01/24 -?-?-?-?-?-?-?-?-?-?-?-?- 21w 2d 152 lb 8 oz (+19 lb 8 oz) 109/71 Negative -?-?-?-?-?-?-?-?-?-?-?-?- Negative 145 -?-?-?-?-?-?-?-?-?-?-?-?- SM- no vb lof go od fm no regular ctx 12/26/24 -?-?-?-?-?-?-?-?-?-?-?-?- 24w 6d 158 lb 7 oz (+25 lb 7 oz) 104/70 Negative -?-?-?-?-?-?-?-?-?-?-?-?- Negative 152 -?-?-?-?-?-?-?-?-?-?-?-?- MH-No vB, LOF. G ood FM. Larc 01/11/25 -?-?-?-?-?-?-?-?-?-?-?-?- 27w 1d 161 lb 3 oz (+28 lb 3 oz) 111/74 Negative -?-?-?-?-?-?-?-?-?-?-?-?- Negative 142 28 -?-?-?-?-?-?-?-?-?-?-?-?- MH-No Vb, LOF. G ood FM. 28 wk labs pending 01/24/25 -?-?-?-?-?-?-?-?-?-?-?-?- 29w 0d 164 lb (+31 lb) 105/72 Negative -?-?-?-?-?-?-?-?-?-?-?-?- Negative 138 30 -?-?-?-?-?-?-?-?-?-?-?-?- KW- no vb/lof/ct x. good fm. ACOG First Trimester First Trimester: Desire for , Alcohol, Tobacco Cessation, Illicit/Recreational Drug/Substance Use, Intimate Partner Violence, Barriers to care, Unstable Housing, Communication Barriers, Environmental/Work Hazards, Anticipated Course of Care, Toxoplasmosis Precations, Use of Any med ications, Sexual activity, Exercise, Dental Care, Sauna/Hot tub use, Seat Belt use, Childbirth classes/Hospital facilities, Travel, Indications for Ultrasound and Screening for Aneuploidy; Discussed Second Trimester Second Trimester: Signs and Symptoms of Labor, Selecting a care provider, Reproductive Life Planning & Contreception, Care Planning, Depression/Anxiety and Intimate Partner Violence; Discussed Tobacco Cessation Third Trimester Third Trimester: Pain Management Plans, Labor support person(s), Immediate Larc, Circumcision preference, Signs and Symptoms of Preeclampsia, Infant Feeding No , Education and Family Medical Leave or Disability Forms ROS Const Reports system reviewed and no additional complaints, except as documented Eyes Reports system reviewed and no additional complaints, except as documented ENT Reports system reviewed and no additional complaints, except as documented Card Reports system reviewed and no additional complaints, except as documented Resp Reports system reviewed and no additional complaints, except as documented GI Reports system reviewed and no additional complaints, except as documented, Denies nausea and Denies vomiting Reports system reviewed and no additional complaints, except as documented Musc Reports system reviewed and no additional complaints, except as documented Skin/Breast Reports system reviewed and no additional complaints, except as documented Neuro Yes system reviewed and no additional complaints, except as documented Psych Reports system reviewed and no additional complaints, except as documented Endo Reports system reviewed and no additional complaints, except as documented Francesco/Lymph Reports system reviewed and no additional complaints, except as documented Aller/Immun Reports system reviewed and no additional complaints, except as documented Exam Const General: cooperative, healthy appearing and no acute distress Orientation: alert, awake and oriented x3 Neck Neck: normal visual inspection and full ROM Resp Effort & Inspection: normal respiratory effort, able to speak in complete sentences and symmetric chest movement GI Inspection: normal to inspection Palpation: soft and other Other: gravid Skin General: no rashes or lesions noted Neuro General: patient alert, patient awake and patient oriented x3 Cognition: normal cognition Speech: speech normal Gait: normal gait Motor: muscle tone normal throughout Extrem General: normal to inspection and full ROM Psych Appearance: grossly normal Mental Status: mental status grossly normal Mood: congruent mood Affect: normal affect Speech and Movement: speech and movement normal Attitude: cooperative Thought Process: normal Thought Content: normal Judgment: judgment good Results POC Urinalysis 2 Dip (Clinic) Office Urine Glucose Negative Last Edit by Kristina Veras on 01/24/25 14:57 Office Urine Protein Negative Last Edit by Kristina Veras on 01/24/25 14:57 Coding Level of Care Code OB Routine Diagnoses Supervision of high risk in second trimester O09.92 Trimester: second trimester 29 weeks gestation of Z3A.29 Weeks of gestation: 29 weeks History of depression, currently O99.891; Z86.59 Hx of gestational diabetes in prior , currently O09.299; Z86.32 Assessment and Plan Assessment and Plan (1) Supervision of high-risk : Status: Acute Qualifiers: Trimester: second trimester Qualified Code(s): O09.92 - Supervision of high risk , unspecified, second trimester Comment: PRR, ; FRANNY 04/11; boy PC: Ananda; : Edinson (2) : Status: Acute Qualifiers: Weeks of gestation: 29 weeks Qualified Code(s): Z3A.29 - 29 weeks gestation of Comment: Discussed genetic/carrier testing - declined. needs fu views. (3) History of depression, currently : Status: Acute Comment: no meds (4) Hx of gestational diabetes in prior , currently : Status: Acute Comment: Was diet controlled; Nl HgbA1c @ NOB Orders: Orders POC Urinalysis 2 Dip (Clinic) Today Plan Details Additional Comments: ACOG trimester education reviewed and updated. see problem list details for updated plan management information and see below for orders placed atthis visit. [place] appropriate handout given. Clinical Quality Measures Falls Risk Screening/Assistive Devices Have you fallen in the past year?: No 01/24/25 1509 s CNM> Date _ Gwen Noam GISELLE Cosigner Signature: Date (if applicable) CC: ~ [facility]09-23-2025 Progress note Author Gwen Claudio [facility] Note Date/Time January 24, 2025 3:09pm [facility] [address], [address] [place] [address] OFFICE VISIT Date of Service: 01/24/25 MR#: [id number] Acct: [id number] Name: CARMEN THOMPSON Rep #: [id number] : 1995 Provider: GISELLE Claudio Age/Sex: 29/F Location: [facility] [place] Status: Signed Intake Vital Signs 12/26/24 15:38 01/11/25 15:29 01/24/25 14:51 Height 5 ft 5 ft 5 ft Weight: 164 lb BMI 32.0 BP 105/72 Intake Visit Reasons: 30 WK OB Chief Complaint: 30wk OB 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: No Is patient in pain?: No Allergies No Known Allergies Allergy (Verified 01/24/25 14:48) Medications ?Medication ?Instructions ?Recorded ?Confirmed ?Type docosahexaenoic acid 200 mg mg PO 08/19/24 01/24/25 Hi story capsule ( DHA) Last Menstrual Period: 06/15/24 : No Have you fallen in the past year?: No PFSH PFSH Medical History 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 Hx of gestational diabetes in prior , currently Surgical History H/O colposcopy with cervical biopsy Family History Father Diabetes Hyperlipidemia Hypertension Chronic mental illness Mother Hypertension Sister Hereditary spherocytosis Social History adopted: No household members: spouse, children and other details: Pt's mom housing: house number of children: 1 current occupational status: employed 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 occupational exposures/hazards: Yes pets and animals: Yes (Not managing litter box) pets and animals: cat(s) and other details: [place] history of recent travel: No sexually active: Yes Smoking Status: Never smoker second hand exposure: Yes (PT's mother - smokes outside) alcohol intake: current alcohol intake frequency: holidays/special occasions only details: Not while substance use type: does not use diet: lactose free well-balanced diet: about half the time caffeine: Yes Type: coffee eating out: rarely or never during the past year weight has: decreased > 10 lbs what type of physical activity do you participate in: walking frequency: 1-2 times per week duration: < 15 minutes/day jarrod/christianity: Denominational seatbelt use: always do you feel safe at home: Yes 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 Date Name GA/Weeks Outcome Route Bth Weight Infant Gen Labor Lgth Anesthesia Del Locatn Provider FOB 12/09/23 Ananda 40 live - full term vacuum 7lbs 2oz Male epidural [facility] Delivery Date: 12/09/23 Last Updated by: Azalia Manzo RN GDM, nuchal cord, Induced d/t est baby size HPI 30 WK OB Details: CARMEN THOMPSON is a 29 year old who presents for routine OB visit. OB Visit FRANNY Calculator Estimated Delivery Date Method Current WG Current Estimate 04/11/25 Ultrasound #2 29w 0d Other Estimates 04/11/25 Ultrasound #1 29w 0d Expected Delivery Route/Plan Labor Preferences- CB/BF classes: no labor support person: Edinson labor intervention preferences: [] pain management options preferred: epidural cut cord/dad catch: cord : yes PP control planned: discussed discussed possible routes of delivery and associated risks: [] special requests: [] Specific Issue/Plans Covid status: [] Flu vaccine: [] Tdap vaccine: [] Rhogam: NA LARC form signed: yes Problem list reviewed and updated with the most current plan of care details and appropriate orders placed. Relevant counseling for the gestational age provided. Continue routine care and follow up unless otherwise noted in visit notes/problem list details Initial Weight: 133 lb Date -?-?-?-?-?-?-?-?-?-?-?-?- EGA Weight BP Urine Prot -?-?-?-?-?-?-?-?-?-?-?-?- Glucose FHR FuHt Pres Dilation -?-?-?-?-?-?-?-?-?-?-?-?- Effaced St Visit Note 09/13/24 -?-?-?-?-?-?-?-?-?-?-?-?- 10w 0d 133 lb 2 oz (+2 oz) 108/74 -?-?-?-?-?-?-?-?-?-?-?-?- 180 -?-?-?-?-?-?-?-?-?-?-?-?- KW- CRL cons wit h dates. declines NIPT. labs today. anatomy US ordered 10/04/24 -?-?-?-?-?-?-?-?--?-?-?-?- 13w 0d 137 lb 2 oz (+4 lb 2 oz) 100/69 Negative -?-?-?-?-?-?-?-?-?-?-?-?- Negative 164 -?-?-?-?-?-?-?-?-?-?-?-?- MH-No VB. Nausea persists but manageable. Reviewed nl PN labs. 11/02/24 -?-?-?-?-?-?-?-?-?-?-?-?- 17w 1d 143 lb 6 oz (+10 lb 6 oz) 110/70 Negative -?-?-?-?-?-?-?-?-?-?-?-?- Negative 145 -?-?-?-?-?-?-?-?-?-?-?-?- JV- no complaint s today. has anatomy scan 11/1712/01/24 -?-?-?-?-?-?-?-?-?-?-?-?- 21w 2d 152 lb 8 oz (+19 lb 8 oz) 109/71 Negative -?-?-?-?-?-?-?-?-?-?-?-?- Negative 145 -?-?-?-?-?-?-?-?-?-?-?-?- - no vb lof go od fm no regular ctx 12/26/24 -?-?-?-?-?-?-?-?-?-?-?-?- 24w 6d 158 lb 7 oz (+25 lb 7 oz) 104/70 Negative -?-?-?-?-?-?-?-?-?-?-?-?- Negative 152 -?-?-?-?-?-?-?-?-?-?-?-?- -No vB, LOF. G ood FM. Larc 01/11/25 -?-?-?-?-?-?-?-?-?-?-?-?- 27w 1d 161 lb 3 oz (+28 lb 3 oz) 111/74 Negative -?-?-?-?-?-?-?-?-?-?-?-?- Negative 142 28 -?-?-?-?-?-?-?-?-?-?-?-?- -No Vb, LOF. G ood FM. 28 wk labs pending 01/24/25 -?-?-?-?-?-?-?-?-?-?-?-?- 29w 0d 164 lb (+31 lb) 105/72 Negative -?-?-?-?-?-?-?-?-?-?-?-?- Negative 138 30 -?-?-?-?-?-?-?-?-?-?-?-?- - no vb/lof/ct x. good fm. ACOG First Trimester First Trimester: Desire for , Alcohol, Tobacco Cessation, Illicit/Recreational Drug/Substance Use, Intimate Partner Violence, Barriers to care, Unstable Housing, Communication Barriers, Environmental/Work Hazards, Anticipated Course of Care, Toxoplasmosis Precations, Use of Any medications, Sexual activity, Exercise, Dental Care, Sauna/Hot tub use, Seat Belt use, Childbirth classes/Hospital facilities, Travel, Indications for Ultrasound and Screening for Aneuploidy; Discussed Second Trimester Second Trimester: Signs and Symptoms of Labor, Selecting a care provider, Reproductive Life Planning & Contreception, Care Planning, Depression/Anxiety and Intimate Partner Violence; Discussed Tobacco Cessation Third Trimester Third Trimester: Pain Management Plans, Labor support person(s), Immediate Larc, Circumcision preference, Signs and Symptoms of Preeclampsia, Infant Feeding No , [place] Education and Family Medical Leave or Disability Forms ROS Const Reports system reviewed and no additional complaints, except as documented Eyes Reports system reviewed and no additional complaints, except as documented ENT Reports system reviewed and no additional complaints, except as documented Card Reports system reviewed and no additional complaints, except as documented Resp Reports system reviewed and no additional complaints, except as documented GI Reports system reviewed and no additional complaints, except as documented, Denies nausea and Denies vomiting Reports system reviewed and no additional complaints, except as documented Musc Reports system reviewed and no additional complaints, except as documented Skin/Breast Reports system reviewed and no additional complaints, except as documented Neuro Yes system reviewed and no additional complaints, except as documented Psych Reports system reviewed and no additional complaints, except as documented Endo Reports system reviewed and no additional complaints, except as documented Francesco/Lymph Reports system reviewed and no additional complaints, except as documented Aller/Immun Reports system reviewed and no additional complaints, except as documented Exam Const General: cooperative, healthy appearing and no acute distress Orientation: alert, awake and oriented x3 Neck Neck: normal visual inspection and full ROM Resp Effort & Inspection: normal respiratory effort, able to speak in complete sentences and symmetric chest movement GI Inspection: normal to inspection Palpation: soft and other Other: gravid Skin General: no rashes or lesions noted Neuro General: patient alert, patient awake and patient oriented x3 Cognition: normal cognition Speech: speech normal Gait: normal gait Motor: muscle tone normal throughout Extrem General: normal to inspection and full ROM Psych Appearance: grossly normal Mental Status: mental status grossly normal Mood: congruent mood Affect: normal affect Speech and Movement: speech and movement normal Attitude: cooperative Thought Process: normal Thought Content: normal Judgment: judgment good Results POC Urinalysis 2 Dip (Clinic) Office Urine Glucose Negative Last Edit by Kristina Veras on 01/24/25 14:57 Office Urine Protein Negative Last Edit by Kristina Veras on 01/24/25 14:57 Coding Level of Care Code OB Routine Diagnoses Supervision of high risk in second trimester O09.92 Trimester: second trimester 29 weeks gestation of Z3A.29 Weeks of gestation: 29 weeks History of depression, currently O99.891; Z86.59 Hx of gestational diabetes in prior , currently O09.299; Z86.32 Assessment and Plan Assessment and Plan (1) Supervision of high-risk : Status: Acute Qualifiers: Trimester: second trimester Qualified Code(s): O09.92 - Supervision of high risk , unspecified, second trimester Comment: PRR, ; FRANNY 04/11; boy PC: Ananda; : Edinson (2) : Status: Acute Qualifiers: Weeks of gestation: 29 weeks Qualified Code(s): Z3A.29 - 29 weeks gestation of Comment: Discussed genetic/carrier testing - declined. needs fu views. (3) History of depression, currently : Status: Acute Comment: no meds (4) Hx of gestational diabetes in prior , currently : Status: Acute Comment: Was diet controlled; Nl HgbA1c @ NOB Orders: Orders POC Urinalysis 2 Dip (Clinic) Today Plan Details Additional Comments: ACOG trimester education reviewed and updated. see problem list details for updated plan management information and see below for orders placed at this visit. [place] appropriate handout given. Clinical Quality Measures Falls Risk Screening/Assistive Devices Have you fallen in the past year?: No 01/24/25 1509 <Electronically signed by Gwen mclean CNM> Date _ Gwen Claudio CNM Cosigner Signature: Date (if applicable) CC: ~ [facility] Work Phone: 1(194) 597-893808-25-2025 [facility] [address] [place] [address], [address] [place] [address] OFFICE VISIT Date of Service: 12/26/24 MR#: [id number] Acct: [id number] Name: CARMEN THOMPSON Rep #: [id number] : 1995 Provider: ANA MARÍA Foss Age/Sex: 29/F Location: [facility] [place] Status: Signed Intake Vital Signs 10/04/24 09:38 12/01/24 16:03 12/26/24 15:33 12/26/24 15:38 Height 5 ft 5 ft 5 ft 5 ft Weight: 158 lb 7 oz BMI 30.9 BP 104/70 Intake Visit Reasons: 26 wk ob Chief Complaint: 26 Week OB 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: No Is patient in pain?: No Allergies No Known Allergies Allergy (Verified 12/26/24 15:31) Medications ?Medication ?Instructions ?Recorded ?Confirmed ?Type docosahexaenoic acid 200 mg mg PO 08/19/24 12/26/24 Hi story capsule ( DHA) Last Menstrual Period: 06/15/24 Zika: Zika virus screening: Negative : Yes PFSH PFSH Medical History 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 Hx of gestational diabetes in prior , currently Surgical History H/O colposcopy with cervical biopsy Family History Father Diabetes Hyperlipidemia Hypertension Chronic mental illness Mother Hypertension Sister Hereditary spherocytosis Social History adopted: No household members: spouse, children and other details: Pt's mom housing: house number of children: 1 current occupational status: employed 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 occupational exposures/hazards: Yes pets and animals: Yes (Not managing litter box) pets and animals: cat(s) and other details: chinchillas history of recent travel: No sexually active: Yes Smoking Status: Never smoker second hand exposure: Yes (PT's mother - smokes outside) alcohol intake: current alcohol intake frequency: holidays/special occasions only details: Not while substance use type: does not use diet: lactose free well-balanced diet: about half the time caffeine: Yes Type: coffee eating out: rarely or never during the past year weight has: decreased > 10 lbs what type of physical activity do you participate in: walking frequency: 1-2 times per week duration: < 15 minutes/day jarrod/christianity: Denominational seatbelt use: always do you feel safe at home: Yes 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 Date Name GA/Weeks Outcome Route Bth Weight Gen Labor Lgth Anesthesia Del Locatn Provider FOB 12/09/23 Ananda 40 live - full term vacuum 7lbs 2oz Male epidural [facility] [place] Delivery Date: 12/09/23 Last Updated by: Azalia Manzo RN GDM, nuchal cord, Induced d/t est baby size HPI 26 wk ob Details: CARMEN THOMPSON is a 29 year old who presents for routine OB visit. OB Visit FRANNY Calculator Estimated Delivery Date Method Current WG Current Estimate 04/11/25 Ultrasound #2 24w 6d Other Estimates 04/11/25 Ultrasound #1 24w 6d Expected Delivery Route/Plan Labor Preferences- CB/BF classes: no labor support person: Ed[place] labor intervention preferences: [] pain management options preferred: epidural cut cord/dad catch: cord : yes PP control planned: discussed discussed possible routes of delivery and associated risks: [] special requests: [] Specific Issue/Plans Covid status: [] Flu vaccine: [] Tdap vaccine: [] Rhogam: [] LARC form signed: yes Problem list reviewed and updated with the most current plan of care details and appropriate ordersplaced. Relevant counseling for the gestational age provided. Continue routine care and follow up unless otherwise noted in visit notes/problem list details Initial Weight: 133 lb Date -?-?-?-?-?-?-?-?-?-?-?-?- EGA Weight BP Urine Prot -?-?-?-?-?-?-?-?-?-?-?-?- Glucose FHR FuHt Pres Dilation -?-?-?-?-?-?-?-?-?-?-?-?- Effaced St Visit Note 09/13/24 -?-?-?-?-?-?-?-?-?-?-?-?- 10w 0d 133 lb 2 oz (+2 oz) 108/74 -?-?-?-?-?-?-?-?-?-?-?-?- 180 -?-?-?-?-?-?-?-?-?-?-?-?- KW- CRL cons wit h dates. declines NIPT. labs today. anatomy US ordered 10/04/24 -?-?-?-?-?-?-?-?-?-?-?-?- 13w 0d 137 lb 2 oz (+4 lb 2 oz) 100/69 Negative -?-?-?-?-?-?-?-?-?-?-?-?- Negative 164 -?-?-?-?-?-?-?-?-?-?-?-?- MH-No VB. Nausea persists but manageable. Reviewed nl PN labs. 11/02/24 -?-?-?-?-?-?-?-?-?-?-?-?- 17w 1d 143 lb 6 oz (+10 lb 6 oz) 110/70 Negative -?-?-?-?-?-?-?-?-?-?-?-?- Negative 145 -?-?-?-?-?-?-?-?-?-?-?-?- JV- no complaint s today. has anatomy scan 11/1712/01/24 -?-?-?-?-?-?-?-?-?-?-?-?- 21w 2d 152 lb 8 oz (+19 lb 8 oz) 109/71 Negative -?-?-?-?-?--?-?-?-?-?-?-?- Negative 145 -?-?-?-?-?-?-?-?-?-?-?-?- SM- no vb lof go od fm no regular ctx 12/26/24 -?-?-?-?-?-?-?-?-?-?-?-?- 24w 6d 158 lb 7 oz (+25 lb 7 oz) 104/70 Negative -?-?-?-?-?-?-?-?-?-?-?-?- Negative 152 -?-?-?-?-?-?-?-?-?-?-?-?- MH-No vB, LOF. G ood FM. Larc ACOG First Trimester First Trimester: Desire for , Alcohol, Tobacco Cessation, Illicit/Recreational Drug/Substance Use, Intimate Partner Violence, Barriers to care, Unstable Housing, Communication Barriers, Environmental/Work Hazards, Anticipated Course of Care, Toxoplasmosis Precations, Use of Any med ications, Sexual activity, Exercise, Dental Care, Sauna/Hot tub use, Seat Belt use, Childbirth classes/Hospital facilities, , Travel, Indications for Ultrasound and Screening for Aneuploidy Second Trimester Second Trimester: Signs and Symptoms of Labor, Selecting a care provider, Reproductive Life Planning & Contreception, Care Planning, Depression/Anxiety and Intimate Partner Violence; Discussed Tobacco Cessation Third Trimester Third Trimester: Pain Management Plans, Labor support person(s), Immediate Larc, Circumcision preference Yes Yes, Signs and Symptoms of Preeclampsia, Feeding Yes , [place] Education and Family Medical Leave or Disability Forms ROS Const Reports system reviewed and no additional complaints, except as documented GI Denies abdominal pain, Denies nausea and Denies vomiting Exam Const General: cooperative Nutritional Appearance: well nourished GI Palpation: soft, nontender and other (gravid) Results POC Urinalysis 2 Dip (Clinic) Office Urine Glucose Negative Last Edit by Aurelia Franklin on 12/26/24 15 :39 Office Urine Protein Negative Last Edit by Aurelia Franklin on 12/26/24 15 :39 Coding Level of Care Code OB Routine Diagnoses Supervision of high risk in second trimester O09.92 Trimester: second trimester 24 weeks gestation of Z3A.24 Weeks of gestation: 24 weeks History of depression, currently O99.891; Z86.59 Hx of gestational diabetes in prior , currently O09.299; Z86.32 Assessment and Plan Assessment and Plan (1) Supervision of high-risk : Status: Acute Qualifiers: Trimester: second trimester Qualified Code(s): O09.92 - Supervision of high risk , unspecified, second trimester Comment: PRR, ; FRANNY 04/11; boy PC: Ananda; : [place] (2) : Status: Acute Qualifiers: Weeks of gestation: 24 weeks Qualified Code(s): Z3A.24 - 24 weeks gestation of Comment: Discussed genetic/carrier testing - declined. needs fu views. (3) History of depression, currently : Status: Acute Comment: no meds (4) Hx of gestational diabetes in prior , currently : Status: Acute Comment: Was diet controlled; Nl HgbA1c @ NOB Orders: Orders POC Urinalysis 2 Dip (Clinic) Today CBC W/Diff, Automated Today O09.92 - Supervision of high risk , unspecified, second trimester Glucose Challenge Gest 1H 50g Today O09.92 - Supervision of high risk , unspecified, second trimester, Z13.1 - Encounter for screening for diabetes mellitus HIV Today O09.92 - Supervision of high risk , unspecified, second trimester Syphilis Antibodies Today O09.92 - Supervision of high risk , unspecified, second trimester Plan problem list reviewed and updated for most current plan of care and appropriate orders placed. Relevant counseling for the gestational age appropriate provided and ACOG education checklist updated. Continue routine care and follow up. 12/26/24 1549 s OCCUPATIONAL SAFETY AND HEALTH MANAGER OCCUPATIONAL SAFETY AND HEALTH MANAGER-C> Date _ Jessy Foss OCCUPATIONAL SAFETY AND HEALTH MANAGER OCCUPATIONAL SAFETY AND HEALTH MANAGER-C Cosigner Signature: Date (if applicable) CC: ~ [facility]08-25-2025 Progress note Author Jessy Foss [facility] Note Date/Time December 26, 2024 3: 49pm [facility] [address], [address] [place] [id number] OFFICE VISIT Date of Service: 12/26/24 MR#: [id number] Acct: [id number] Name: CARMEN THOMPSON Rep #: [id number] : 1995 Provider: ANA MARÍA Foss Age/Sex: 29/F Location: [facility] [place] Status: Signed Intake Vital Signs 10/04/24 09:38 12/01/24 16:03 12/26/24 15:33 12/26/24 15:38 Height 5 ft 5 ft 5 ft 5 ft Weight: 158 lb 7 oz BMI 30.9 BP 104/70 Intake Visit Reasons: 26 wk ob Chief Complaint: 26 Week OB 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: No Is patient in pain?: No Allergies No Known Allergies Allergy (Verified 12/26/24 15:31) Medications ?Medication ?Instructions ?Recorded ?Confirmed ?Type docosahexaenoic acid 200 mg mg PO 08/19/24 12/26/24 Hi story capsule ( DHA) Last Menstrual Period: 06/15/24 Zika: Zika virus screening: Negative : Yes PFSH PFSH Medical History 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 Hx of gestational diabetes in prior , currently Surgical History H/O colposcopy with cervical biopsy Family History Father Diabetes Hyperlipidemia Hypertension Chronic mental illness Mother Hypertension Sister Hereditary spherocytosis Social History adopted: No household members: spouse, children and other details: Pt's mom housing: house number of children: 1 current occupational status: employed 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 current occupational exposures/hazards: Yes pets and animals: Yes (Not managing litter box) pets and animals: cat(s) and other details: chinchillas history of recent travel: No sexually active: Yes Smoking Status: Never smoker second hand exposure: Yes (PT's mother - smokes outside) alcohol intake: current alcohol intake frequency: holidays/special occasions only details: Not while substance use type: does not use diet: lactose free well-balanced diet: about half the time caffeine: Yes Type: coffee eating out: rarely or never during the past year weight has: decreased > 10 lbs what type of physical activity do you participate in: walking frequency: 1-2 times per week duration: < 15 minutes/day jarrod/christianity: Denominational seatbelt use: always do you feel safe at home: Yes 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 Date Name GA/Weeks Outcome Route Bth Weight Gen Labor Lgth Anesthesia Del Locatn Provider FOB 12/09/23 Ananda 40 live - full term vacuum 7lbs 2oz Male epidural [facility] Delivery Date: 12/09/23 Last Updated by: Azalia Manzo RN GDM, nuchal cord, Induced d/t est baby size HPI 26 wk ob Details: CARMEN THOMPSON is a 29 year old who presents for routine OB visit. OB Visit FRANNY Calculator Estimated Delivery Date Method Current WG Current Estimate 04/11/25 Ultrasound #2 24w 6d Other Estimates 04/11/25 Ultrasound #1 24w 6d Expected Delivery Route/Plan Labor Preferences- CB/BF classes: no labor support person: Ed[place] labor intervention preferences: [] pain management options preferred: epidural cut cord/dad catch: cord : yes PP control planned: discussed discussed possible routes of delivery and associated risks: [] special requests: [] Specific Issue/Plans Covid status: [] Flu vaccine: [] Tdap vaccine: [] Rhogam: [] LARC form signed: yes Problem list reviewed and updated with the most current plan of care details and appropriate orders placed. Relevant counseling for the gestational age provided. Continue routine care and follow up unless otherwise noted in visit notes/problem list details Initial Weight: 133 lb Date -?-?-?-?-?-?-?-?-?-?-?-?- EGA Weight BP Urine Prot -?-?-?-?-?-?-?-?-?-?-?-?- Glucose FHR FuHt Pres Dilation -?-?-?-?-?-?-?-?-?-?-?-?- Effaced St Visit Note 09/13/24 -?-?-?-?-?-?-?-?-?-?-?-?- 10w 0d 133 lb 2 oz (+2 oz) 108/74 -?-?-?-?-?-?-?-?-?-?-?-?- 180 -?-?-?-?-?-?-?-?-?-?-?-?- KW- CRL cons wit h dates. declines NIPT. labs today. anatomy US ordered 10/04/24 -?-?-?-?-?-?-?-?-?-?-?-?- 13w 0d 137 lb 2 oz (+4 lb 2 oz) 100/69 Negative -?-?-?-?-?-?-?-?-?-?-?-?- Negative 164 -?-?-?-?-?-?-?-?-?-?-?-?- MH-No VB. Nausea persists but manageable. Reviewed nl PN labs. 11/02/24 -?-?-?-?-?-?-?-?-?-?-?-?- 17w 1d 143 lb 6 oz (+10 lb 6 oz) 110/70 Negative -?-?-?-?-?-?-?-?-?-?-?-?- Negative 145 -?-?-?-?-?-?-?-?-?-?-?-?- JV- no complaint s today. has anatomy scan 11/1712/01/24 -?-?-?-?-?-?-?-?-?-?-?-?- 21w 2d 152 lb 8 oz (+19 lb 8 oz) 109/71 Negative -?-?-?-?-?--?-?-?-?-?-?-?- Negative 145 -?-?-?-?-?-?-?-?-?-?-?-?- SM- no vb lof go od fm no regular ctx 12/26/24 -?-?-?-?-?-?-?-?-?-?-?-?- 24w 6d 158 lb 7 oz (+25 lb 7 oz) 104/70 Negative -?-?-?-?-?-?-?-?-?-?-?-?- Negative 152 -?-?-?-?-?-?-?-?-?-?-?-?- MH-No vB, LOF. G ood FM. Larc ACOG First Trimester First Trimester: Desire for , Alcohol, Tobacco Cessation, Illicit/Recreational Drug/Substance Use, Intimate Partner Violence, Barriers to care, Unstable Housing, Communication Barriers, Environmental/Work Hazards, Anticipated Course of Care, Toxoplasmosis Precations, Use of Any medications, Sexual activity, Exercise, Dental Care, Sauna/Hot tub use, Seat Belt use, Childbirth classes/Hospital facilities, , Travel, Indications for Ultrasound and Screening for Aneuploidy Second Trimester Second Trimester: Signs and Symptoms of Labor, Selecting a care provider, Reproductive Life Planning & Contreception, Care Planning, Depression/Anxiety and Intimate Partner Violence; Discussed Tobacco Cessation Third Trimester Third Trimester: Pain Management Plans, Labor support person(s), Immediate Larc, Circumcision preference Yes Yes, Signs and Symptoms of Preeclampsia, Infant Feeding Yes , [place] Education and Family Medical Leave or Disability Forms ROS Const Reports system reviewed and no additional complaints, except as documented GI Denies abdominal pain, Denies nausea and Denies vomiting Exam Const General: cooperative Nutritional Appearance: well nourished GI Palpation: soft, nontender and other (gravid) Results POC Urinalysis 2 Dip (Clinic) Office Urine Glucose Negative Last Edit by Aurelia Franklin on 12/26/24 15 :39 Office Urine Protein Negative Last Edit by Aurelia Franklin on 12/26/24 15 :39 Coding Level of Care Code OB Routine Diagnoses Supervision of high risk in second trimester O09.92 Trimester: second trimester 24 weeks gestation of Z3A.24 Weeks of gestation: 24 weeks History of depression, currently O99.891; Z86.59 Hx of gestational diabetes in prior , currently O09.299; Z86.32 Assessment and Plan Assessment and Plan (1) Supervision of high-risk : Status: Acute Qualifiers: Trimester: second trimester Qualified Code(s): O09.92 - Supervision of high risk , unspecified, second trimester Comment: PRR, ; FRANNY 04/11; boy PC: Mal[place]; : [place] (2) : Status: Acute Qualifiers: Weeks of gestation: 24 weeks Qualified Code(s): Z3A.24 - 24 weeks gestation of Comment: Discussed genetic/carrier testing - declined. needs fu views. (3) History of depression, currently : Status: Acute Comment: no meds (4) Hx of gestational diabetes in prior , currently : Status: Acute Comment: Was diet controlled; Nl HgbA1c @ NOB Orders: Orders POC Urinalysis 2 Dip (Clinic) Today CBC W/Diff, Automated Today O09.92 - Supervision of high risk , unspecified, second trimester Glucose Challenge Gest 1H 50g Today O09.92 - Supervision of high risk , unspecified, second trimester, Z13.1 - Encounter for screening for diabetes mellitus HIV Today O09.92 - Supervision of high risk , unspecified, second trimester Syphilis Antibodies Today O09.92 - Supervision of high risk , unspecified, second trimester Plan problem list reviewed and updated for most current plan of care and appropriate orders placed. Relevant counseling for the gestational age appropriate provided and ACOG education checklist updated. Continue routine care and follow up. 12/26/24 4139 <Electronically signed by Jessy mclean NP OCCUPATIONAL SAFETY AND HEALTH MANAGER-C> Date _ Jessy Foss NP OCCUPATIONAL SAFETY AND HEALTH MANAGER-C Cosigner Signature: Date (if applicable) CC: ~ [facility] Work Phone: 1(578) 777-412907-31-2025 Evaluation note* Diagnosis Onset Date Resolution Status Admit Date History of depression, currently acute December 01, 2024 3:55pm Hx of gestational diabetes i n prior , currently acute December 01, 2024 3:55pm acute December 01 3:55pm Supervision of high-risk acute December 01, 2024 3:55pm History of depression, currently acute December 26 3:28pm Hx of gestational diabetes i n prior , currently acute December 26 3:28pm acute December 26, 2 025 3:28pm Supervision of high-risk acute December 26 3:28pm History of depression, currently acute January 11, 2025 3:23pm Hx of gestational diabetes i n prior , currently acute January 11, 2025 3:23pm acute January 3:23pm Supervision of high-risk acute January 11, 2025 3:23pm History of depression, currently acute January 24, 2025 2:47pm Hx of gestational diabetes i n prior , currently acute January 24, 2025 2:47pm acute January 2:47pm Supervision of high-risk acute January 24, 2025 2:47pm History of depression, currently acute February 09 3:14pm Hx of gestational diabetes i n prior , currently acute February 09 3:14pm acute February 09, 2 025 3:14pm Supervision of high-risk acute February 09 3:14pm History of depression, currently acute February 21 3:19pm Hx of gestational diabetes i n prior , currently acute February 21 3:19pm acute February 21, 2025 3:19pm Supervision of high-risk acute February 21 3:19pm History of depression, currently acute March 08 3:30pm Hx of gestational diabetes i n prior , currently acute March 08 3:30pm acute March 08, 2025 3:30pm Supervision of high-risk acute March 08 3:30pm [facility] Work Phone: 1(437) 764-504607-31-2025 [facility] [address] [place] [address], [address] [place], [place] [id number] OFFICE VISIT Date of Service: 12/01/24 MR#: [id number] Acct: [id number] Name: JAYCARMEN MENEZESN Rep #: [id number] : 1995 Provider: Dr. Johnny Schwartz MD Age/Sex: 29/F Location: [facility] [place] Status: Signed Intake Vital Signs 09/13/24 08:51 11/02/24 15:54 12/01/24 15:59 12/01/24 16:03 Height 5 ft 5 ft 5 ft 5 ft Weight: 152 lb 8 oz BMI 29.7 BP 109/71 Intake Visit Reasons: 22wk ob 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: No Is patient in pain?: No Feel stressed/tense/nervous/anxious/difficulty sleeping: not at all Allergies No Known Allergies Allergy (Verified 12/01/24 15:59) Medications ?Medication ?Instructions ?Recorded ?Confirmed ?Type docosahexaenoic acid 200 mg mg PO 08/19/24 12/01/24 Hi story capsule ( DHA) Last Menstrual Period: 06/15/24 Zika: Zika virus screening: Negative : No PFSH PFSH Medical History (Updated 12/01/24 @ 16:[address] 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 current occupational exposures/hazards: Yes pets and animals: Yes (Not managing litter box) pets and animals: cat(s) and other details: chinchillas history of recent travel: No sexually active: Yes Smoking Status: Never smoker second hand exposure: Yes (PT's mother - smokes outside) alcohol intake: current alcohol intake frequency: holidays/special occasions only details: Not while substance use type: does not use diet: lactose free well-balanced diet: about half the time caffeine: Yes Type: coffee eating out: rarely or never during the past year weight has: decreased > 10 lbs what type of physical activity do you participate in: walking frequency: 1-2 times per week duration: < 15 minutes/day jarrod/christianity: Denominational seatbelt use: always do you feel safe at home: Yes 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 Date Name GA/Weeks Outcome Route Bth Weight Gen Labor Lgth Anesthesia Del Locatn Provider FOB 12/09/23 Malave 40 live - full term vacuum 7lbs 2oz Male epidural [place] Delivery Date: 12/09/23 Last Updated by: Azalia Manzo RN GDM, nuchal cord, Induced d/t est baby size HPI 22wk ob Details: CARMEN THOMPSON is a 29 year old who presents for routine OB visit. OB Visit FRANNY Calculator Estimated Delivery Date Method Current WG Current Estimate 04/11/25 Ultrasound #2 21w 2d Other Estimates 04/11/25 Ultrasound #1 21w 2d Expected Delivery Route/Plan Labor Preferences- CB/BF classes: [] labor support person: [] labor intervention preferences: [] pain management options preferred: [] cut cord/dad catch: [] : [] PP control planned: [] discussed possible routes of delivery and associated risks: [] special requests: [] Specific Issue/Plans Covid status: [] Flu vaccine: [] Tdap vaccine: [] Rhogam: [] LARC form signed: [] Problem list reviewed and updated with the most current plan of care details and appropriate ordersplaced. Relevant counseling for the gestational age provided. Continue routine care and follow up unless otherwise noted in visit notes/problem list details Initial Weight: 133 lb Date -?-?-?-?-?-?-?-?-?-?-?-?- EGA Weight BP Urine Prot -?-?-?-?-?-?-?-?-?-?-?-?- Glucose FHR FuHt Pres Dilation -?-?-?-?-?-?-?-?-?-?-?-?- Effaced St Visit Note 09/13/24 -?-?-?-?-?-?-?-?-?--?-?-?- 10w 0d 133 lb 2 oz (+2 oz) 108/74 -?-?-?-?-?-?-?-?-?-?-?-?- 180 -?-?-?-?-?-?-?-?-?-?-?-?- KW- CRL cons wit h dates. declines NIPT. labs today. anatomy US ordered 10/04/24 -?-?-?-?-?-?-?-?-?-?-?-?- 13w 0d 137 lb 2 oz (+4 lb 2 oz) 100/69 Negative -?-?-?-?-?-?-?-?-?-?-?-?- Negative 164 -?-?-?-?-?-?-?-?-?-?-?-?- MH-No VB. Nausea persists but manageable. Reviewed nl PN labs. 11/02/24 -?--?-?-?-?-?-?-?-?-?-?-?- 17w 1d 143 lb 6 oz (+10 lb 6 oz) 110/70 Negative -?-?-?-?-?-?-?-?-?-?-?-?- Negative 145 -?-?-?-?-?-?-?-?-?-?-?-?- JV- no complaint s today. has anatomy scan 11/1712/01/24 -?-?-?-?-?-?-?-?-?-?-?-?- 21w 2d 152 lb 8 oz (+19 lb 8 oz) 109/71 Negative -?-?-?-?-?-?-?-?-?-?-?-?- Negative 145 -?-?-?-?-?-?-?-?-?-?-?-?- SM- no vb lof go od fm no regular ctx ACOG First Trimester First Trimester: Desire for , Alcohol, Tobacco Cessation, Illicit/Recreational Drug/Substance Use, Intimate Partner Violence, Barriers to care, Unstable Housing, Communication Barriers, Environmental/Work Hazards, Anticipated Course of Care, Toxoplasmosis Precations, Use of Any med ications, Sexual activity, Exercise, Dental Care, Sauna/Hot tub use, Seat Belt use, Childbirth classes/Hospital facilities, Travel, Indications for Ultrasound and Screening for Aneuploidy; Discussed Second Trimester Second Trimester: Signs and Symptoms of Labor, Selecting a care provider, Reproductive Life Planning & Contreception, Care Planning, Depression/Anxiety and Intimate Partner Violence; Discussed Tobacco Cessation Third Trimester Third Trimester: Pain Management Plans, Labor support person(s), Immediate Larc, Signs and Symptoms of Preeclampsia, Feeding No , [place] Education and Family Medical Leave or Disability Forms Results POC Urinalysis 2 Dip (Clinic) Office Urine Glucose Negative Last Edit by Jessy Vazquez on 12/01/24 16:04 Office Urine Protein Negative Last Edit by Jessy Vazquez on 12/01/24 16:04 Coding Level of Care Code OB Routine Diagnoses Supervision of high risk in second trimester O09.92 Trimester: second trimester 21 weeks gestation of Z3A.21 Weeks of gestation: 21 weeks History of depression, currently O99.891; Z86.59 Hx of gestational diabetes in prior , currently O09.299; Z86.32 Assessment and Plan Assessment and Plan (1) Supervision of high-risk : Status: Acute Qualifiers: Trimester: second trimester Qualified Code(s): O09.92 - Supervision of high risk , unspecified, second trimester Comment: PRR, ; FRANNY 04/11; boy PC: Ananda; : [place] (2) : Status: Acute Qualifiers: Weeks of gestation: 21 weeks Qualified Code(s): Z3A.21 - 21 weeks gestation of Comment: Discussed genetic/carrier testing - declined. needs fu views. (3) History of depression, currently : Status: Acute Comment: no meds (4) Hx of gestational diabetes in prior , currently : Status: Acute Comment: Was diet controlled; Nl HgbA1c @ NOB Orders: Orders POC Urinalysis 2 Dip (Clinic) Today 12/01/24 1623 ortiz VELASCO> Date _ Kathy Schwartz MD Cosigner Signature: Date (if applicable) CC: ~ [facility]07-31-2025 Progress note Author Kathy Schwartz [facility] Note Date/Time December 01, 2024 4:23 pm [facility] [address] [place] [address], [address] [place] [address] OFFICE VISIT Date of Service: 12/01/24 MR#: [id number] Acct: [id number] Name: CARMEN THOMPSON Rep #: [id number] : 1995 Provider: Dr. 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: Yes pets and animals: Yes (Not managing litter box) pets and animals: cat(s) and other details: jennifer history of recent travel: No sexually active: Yes Smoking Status: Never smoker second hand exposure: Yes (PT's mother - smokes outside) alcohol intake: current alcohol intake frequency: holidays/special occasions only details: Not while substance use type: does not use diet: lactose free well-balanced diet: about half the time caffeine: Yes Type: coffee eating out: rarely or never during the past year weight has: decreased > 10 lbs what type of physical activity do you participate in: walking frequency: 1-2 times per week duration: < 15 minutes/day jarrod/christianity: Denominational seatbelt use: always do you feel safe at home: Yes 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 Date Name GA/Weeks Outcome Route Bth Weight Infant Gen Labor Lgth Anesthesia Del Locatn Provider FOB 12/09/23 Malave 40 live - full term vacuum 7lbs 2oz Male epidural [facility] Delivery Date: 12/09/23 Last Updated by: Azalia Manzo RN GDM, nuchal cord, Induced d/t est baby size HPI 22wk ob Details: CARMEN THOMPSON is a 29 year old who presents for routine OB visit. OB Visit FRANNY Calculator Estimated Delivery Date Method Current WG Current Estimate 04/11/25 Ultrasound #2 21w 2d Other Estimates 04/11/25 Ultrasound #1 21w 2d Expected Delivery Route/Plan Labor Preferences- CB/BF classes: [] labor support person: [] labor intervention preferences: [] pain management options preferred: [] cut cord/dad catch: [] : [] PP control planned: [] discussed possible routes of delivery and associated risks: [] special requests: [] Specific Issue/Plans Covid status: [] Flu vaccine: [] Tdap vaccine: [] Rhogam: [] LARC form signed: [] Problem list reviewed and updated with the most current plan of care details and appropriate orders placed. Relevant counseling for the gestational age provided. Continue routine care and follow up unless otherwise noted in visit notes/problem list details Initial Weight: 133 lb Date -?-?-?-?-?-?-?-?-?-?-?-?- EGA Weight BP Urine Prot -?-?-?-?-?-?-?-?-?-?-?-?- Glucose FHR FuHt Pres Dilation -?-?-?-?-?-?-?-?-?-?-?-?- Effaced St Visit Note 09/13/24 -?-?-?-?-?-?-?-?-?--?-?-?- 10w 0d 133 lb 2 oz (+2 oz) 108/74 -?-?-?-?-?-?-?-?-?-?-?-?- 180 -?-?-?-?-?-?-?-?-?-?-?-?- KW- CRL cons wit h dates. declines NIPT. labs today. anatomy US ordered 10/04/24 -?-?-?-?-?-?-?-?-?-?-?-?- 13w 0d 137 lb 2 oz (+4 lb 2 oz) 100/69 Negative -?-?-?-?-?-?-?-?-?-?-?-?- Negative 164 -?-?-?-?-?-?-?-?-?-?-?-?- MH-No VB. Nausea persists but manageable. Reviewed nl PN labs. 11/02/24 -?--?-?-?-?-?-?-?-?-?-?-?- 17w 1d 143 lb 6 oz (+10 lb 6 oz) 110/70 Negative -?-?-?-?-?-?-?-?-?-?-?-?- Negative 145 -?-?-?-?-?-?-?-?-?-?-?-?- JV- no complaint s today. has anatomy scan 11/1712/01/24 -?-?-?-?-?-?-?-?-?-?-?-?- 21w 2d 152 lb 8 oz (+19 lb 8 oz) 109/71 Negative -?-?-?-?-?-?-?-?-?-?-?-?- Negative 145 -?-?-?-?-?-?-?-?-?-?-?-?- SM- no vb lof go od fm no regular ctx ACOG First Trimester First Trimester: Desire for , Alcohol, Tobacco Cessation, Illicit/Recreational Drug/Substance Use, Intimate Partner Violence, Barriers to care, Unstable Housing, Communication Barriers, Environmental/Work Hazards, Anticipated Course of Care, Toxoplasmosis Precations, Use of Any medications, Sexual activity, Exercise, Dental Care, Sauna/Hot tub use, Seat Belt use, Childbirth classes/Hospital facilities, Travel, Indications for Ultrasound and Screening for Aneuploidy; Discussed Second Trimester Second Trimester: Signs and Symptoms of Labor, Selecting a care provider, Reproductive Life Planning & Contreception, Care Planning, Depression/Anxiety and Intimate Partner Violence; Discussed Tobacco Cessation Third Trimester Third Trimester: Pain Management Plans, Labor support person(s), Immediate Larc, Signs and Symptoms of Preeclampsia, Infant Feeding No , Education and Family Medical Leave or Disability Forms Results POC Urinalysis 2 Dip (Clinic) Office Urine Glucose Negative Last Edit by Jessy Vazquez on 12/01/24 16:04 Office Urine Protein Negative Last Edit by Jessy Vazquez on 12/01/24 16:04 Coding Level of Care Code OB Routine Diagnoses Supervision of high risk in second trimester O09.92 Trimester: second trimester 21 weeks gestation of Z3A.21 Weeks of gestation: 21 weeks History of depression, currently O99.891; Z86.59 Hx of gestational diabetes in prior , currently O09.299; Z86.32 Assessment and Plan Assessment and Plan (1) Supervision of high-risk : Status: Acute Qualifiers: Trimester: second trimester Qualified Code(s): O09.92 - Supervision of high risk , unspecified, second trimester Comment: PRR, ; FRANNY 04/11; boy PC: Ananda; : Edinson (2) : Status: Acute Qualifiers: Weeks of gestation: 21 weeks Qualified Code(s): Z3A.21 - 21 weeks gestation of Comment: Discussed genetic/carrier testing - declined. needs fu views. (3) History of depression, currently : Status: Acute Comment: no meds (4) Hx of gestational diabetes in prior , currently : Status: Acute Comment: Was diet controlled; Nl HgbA1c @ NOB Orders: Orders POC Urinalysis 2 Dip (Clinic) Today 12/01/24 1623 <Electronically signed by Kathy alcantar MD> Date _ Kathy Schwartz MD Cosigner Signature: Date (if applicable) CC: ~ [facility] Work Phone: 1(297) 197-748107-02-2025 Evaluation note* Diagnosis Onset Date Resolution Status Admit Date History of depression, currently acute November 02, 2024 3 :50pm Hx of gestational diabetes in prior , currently acute November 02 3:50pm acute November 02, 2024 3:50pm Supervision of high-risk acute November 02, 2024 3 :50pm 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 resolved November 3:50pm HSV-1 (herpes simplex virus 1) infection resolved November 02, 2024 3 :50pm Stomach ulcer resolved November 02 025 3:50pm History of depression, currently acute December 01, 2024 3:55pm Hx of gestational diabetes in prior , currently acute December 01 3:55pm acute December 01 3:55pm Supervision of high-risk acute December 01, 2024 3:55pm History of depression, currently acute December 26 3:28pm Hx of gestational diabetes in prior , currently acute December 26, 2024 3:28pm acute December 26, 2 025 3:28pm Supervision of high-risk acute December 26 3:28pm History of depression, currently acute January 11, 2025 3:23pm Hx of gestational diabetes in prior , currently acute January 3:23pm acute January 3:23pm Supervision of high-risk acute January 11, 2025 3:23pm History of depression, currently acute January 24, 2025 2:47pm Hx of gestational diabetes in prior , currently acute January 2:47pm acute January 2:47pm Supervision of high-risk acute January 24, 2025 2:47pm History of depression, currently acute February 09 3:14pm Hx of gestational diabetes in prior , currently acute February 09, 2025 3:14pm acute February 09, 2 025 3:14pm Supervision of high-risk acute February 09 3:14pm History of depression, currently acute February 21 3:19pm Hx of gestational diabetes in prior , currently acute February 21, 2025 3:19pm acute February 21, 2025 3:19pm Supervision of high-risk acute February 21 3:19pm [facility] Work Phone: 1([phone]) 597-583206-03-2025 Evaluation note* Diagnosis Onset Date Resolution Status Admit Date History of depression, currently acute October 04, 2024 9 :35am Hx of gestational diabetes in prior , currently acute October 04 9:35am acute October 04, 2024 9:35am Supervision of high-risk acute October 04, 2024 9 :35am 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 resolved October 9:35am HSV-1 (herpes simplex virus 1) infection resolved October 04, 2024 9 :35am History of depression, currently acute November 02, 2024 3 :50pm Hx of gestational diabetes in prior , currently acute November 02 3:50pm acute November 02, 2024 3:50pm Supervision of high-risk acute November 02, 2024 3 :50pm 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 resolved November 3:50pm HSV-1 (herpes simplex virus 1) infection resolved November 02, 2024 3 :50pm Stomach ulcer resolved November 02, 2 025 3:50pm History of depression, currently acute December 01, 2024 3:55pm Hx of gestational diabetes in prior , currently acute December 01 3:55pm acute December 01 3:55pm Supervision of high-risk acute December 01, 2024 3:55pm History of depression, currently acute December 26 3:28pm Hx of gestational diabetes in prior , currently acute December 26, 2024 3:28pm acute December 26, 2 025 3:28pm Supervision of high-risk acute December 26 3:28pm History of depression, currently acute January 11, 2025 3:23pm Hx of gestational diabetes in prior , currently acute January 3:23pm acute January 3:23pm Supervision of high-risk acute January 11, 2025 3:23pm History of depression, currently acute January 24, 2025 2:47pm Hx of gestational diabetes in prior , currently acute January 2:47pm acute January 2:47pm Supervision of high-risk acute January 24, 2025 2:47pm [facility] Work Phone: 1(972) 423-826105-13-2025 Evaluation note* Diagnosis Onset Date Resolution Status Admit Date History of depres alban, currently acute September 13 8:46am 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 acute September 8:46am HSV-1 (herpes simplex virus 1) infection acute September 13, 2024 8 :46am Hx of gestational diabetes i n prior , currently acute September 13, 2024 8 :46am acute September 13, 2024 8:46am Stomach ulcer acute September 13, 2 025 8:46am Supervision of high-risk a cute September 13, 2024 8:46am [facility] Work Phone: 1(557) 478-322105-13-2025 Evaluation note* Diagnosis Onset Date Resolution Status Admit Date History of depres alban, currently acute September 13 8:46am 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 acute September 8:46am HSV-1 (herpes simplex virus 1) infection acute September 13, 2024 8 :46am Hx of gestational diabetes i n prior , currently acute September 13, 2024 8 :46am acute September 13, 2024 8:46am Stomach ulcer acute September 13, 025 8:46am Supervision of high-risk a cute September 13, 2024 8:46am History of depres alban, currently acute October 04 9:35am 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 acute October 9:35am HSV-1 (herpes simplex virus 1) infection acute October 04, 2024 9 :35am Hx of gestational diabetes i n prior , currently acute October 04, 2024 9 :35am acute October 04, 2024 9:35am Stomach ulcer acute October 04 9:35am Supervision of high-risk a cute October 04, 2024 9:35am [facility] Work Phone: 1(846) 682-262605-13-2025 Evaluation note* Diagnosis Onset Date Resolution Status Admit Date History of depres alban, currently acute September 13 8:46am 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 acute September 8:46am HSV-1 (herpes simplex virus 1) infection acute September 13, 2024 8 :46am Hx of gestational diabetes i n prior , currently acute September 13, 2024 8 :46am acute September 13, 2024 8:46am Stomach ulcer acute September 13, 025 8:46am Supervision of high-risk a cute September 13, 2024 8:46am History of depres alban, currently acute October 04 9:35am 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 acute October 9:35am HSV-1 (herpes simplex virus 1) infection acute October 04, 2024 9 :35am Hx of gestational diabetes i n prior , currently acute October 04, 2024 9 :35am acute October 04, 2024 9:35am Supervision of high-risk a cute October 04, 2024 9:35am History of depres alban, currently acute November 02 3:50pm 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 acute November 3:50pm HSV-1 (herpes simplex virus 1) infection acute November 02, 2024 3 :50pm Hx of gestational diabetes i n prior , currently acute November 02, 2024 3 :50pm acute November 02, 2024 3:50pm Stomach ulcer acute November 02 025 3:50pm Supervision of high-risk a cute November 02, 2024 3:50pm [facility] Work Phone: 1([phone]) 149-846305-13-2025 Evaluation note* Diagnosis Onset Date Resolution Status Admit Date History of depression, currently acute M 2024 8:46am Hx of gestational diabetes i n prior , currently acute September 13, 2024 8 :46am acute September 13, 2024 8:46am Supervision of high-risk acute September 13, 2024 8 :46am 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 resolved September 8:46am HSV-1 (herpes simplex virus 1) infection resolved September 13, 2024 8 :46am Stomach ulcer resolved September 13, 025 8:46am History of depression, currently acute J 2024 9:35am Hx of gestational diabetes i n prior , currently acute October 04, 2024 9 :35am acute October 04, 2024 9:35am Supervision of high-risk acute October 04, 2024 9 :35am 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 resolved October 9:35am HSV-1 (herpes simplex virus 1) infection resolved October 04, 2024 9 :35am History of depression, currently acute J 2024 3:50pm Hx of gestational diabetes i n prior , currently acute November 02, 2024 3 :50pm acute November 02, 2024 3:50pm Supervision of high-risk acute November 02, 2024 3 :50pm 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 resolved November 3:50pm HSV-1 (herpes simplex virus 1) infection resolved November 02, 2024 3 :50pm Stomach ulcer resolved November 02, 2 025 3:50pm History of depression, currently acute J do 2024 3:55pm Hx of gestational diabetes i n prior , currently acute December 01, 2024 3:55pm acute December 01 3:55pm Supervision of high-risk acute December 01, 2024 3:55pm [facility] Work Phone: 1(519) 615-265505-13-2025 Evaluation note* Diagnosis Onset Date Resolution Status Admit Date History of depression, currently acute M ay 2024 8:46am Hx of gestational diabetes i n prior , currently acute September 13, 2024 8 :46am acute September 13, 2024 8:46am Supervision of high-risk acute September 13, 2024 8 :46am 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 resolved September 8:46am HSV-1 (herpes simplex virus 1) infection resolved September 13, 2024 8 :46am Stomach ulcer resolved September 13, 2 025 8:46am History of depression, currently acute J une 2024 9:35am Hx of gestational diabetes i n prior , currently acute October 04, 2024 9 :35am acute October 04, 2024 9:35am Supervision of high-risk acute October 04, 2024 9 :35am 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 resolved October 9:35am HSV-1 (herpes simplex virus 1) infection resolved October 04, 2024 9 :35am History of depression, currently acute J do 2024 3:50pm Hx of gestational diabetes i n prior , currently acute November 02, 2024 3 :50pm acute November 02, 2024 3:50pm Supervision of high-risk acute November 02, 2024 3 :50pm 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 resolved November 3:50pm HSV-1 (herpes simplex virus 1) infection resolved November 02, 2024 3 :50pm Stomach ulcer resolved November 02 025 3:50pm History of depression, currently acute J do 2024 3:55pm Hx of gestational diabetes i n prior , currently acute December 01, 2024 3:55pm acute December 01 3:55pm Supervision of high-risk acute December 01, 2024 3:55pm History of depression, currently acute A ugust 2024 3:28pm Hx of gestational diabetes i n prior , currently acute December 26 3:28pm acute December 26, 2 025 3:28pm Supervision of high-risk acute December 26 3:28pm [facility] Work Phone: 1(525) 179-333605-13-2025 Evaluation note* Diagnosis Onset Date Resolution Status Admit Date History of depression, currently acute September 13, 2024 8 :46am Hx of gestational diabetes in prior , currently acute September 13 8:46am acute September 13, 2024 8:46am Supervision of high-risk acute September 13, 2024 8 :46am 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 resolved September 8:46am HSV-1 (herpes simplex virus 1) infection resolved September 13, 2024 8 :46am Stomach ulcer resolved September 13, 2 025 8:46am History of depression, currently acute October 04, 2024 9 :35am Hx of gestational diabetes in prior , currently acute October 04 9:35am acute October 04, 2024 9:35am Supervision of high-risk acute October 04, 2024 9 :35am 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 resolved October 9:35am HSV-1 (herpes simplex virus 1) infection resolved October 04, 2024 9 :35am History of depression, currently acute November 02, 2024 3 :50pm Hx of gestational diabetes in prior , currently acute November 02 3:50pm acute November 02, 2024 3:50pm Supervision of high-risk acute November 02, 2024 3 :50pm 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 resolved November 3:50pm HSV-1 (herpes simplex virus 1) infection resolved November 02, 2024 3 :50pm Stomach ulcer resolved November 02 025 3:50pm History of depression, currently acute December 01, 2024 3:55pm Hx of gestational diabetes in prior , currently acute December 01 3:55pm acute December 01 3:55pm Supervision of high-risk acute December 01, 2024 3:55pm History of depression, currently acute December 26 3:28pm Hx of gestational diabetes in prior , currently acute December 26, 2024 3:28pm acute December 26, 2 025 3:28pm Supervision of high-risk acute December 26 3:28pm History of depression, currently acute January 11, 2025 3:23pm Hx of gestational diabetes in prior , currently acute January 3:23pm acute January 3:23pm Supervision of high-risk acute January 11, 2025 3:23pm [facility] Work Phone: 1([phone]) 748-821705-13-2025 [facility] [address] [place] [address], [address] [place] [address] OFFICE VISIT Date of Service: 09/13/24 MR#: [id number] Acct: [id number] Name: CARMEN THOMPSON Rep #: [id number] : 1995 Provider: GISELLE Claudio Age/Sex: 29/F Location: [facility] Status: Signed Intake Vital Signs 03/01/24 15:53 08/19/24 13:28 09/13/24 08:51 Height 5 ft 5 ft 5 ft Weight: 133 lb 2 oz BMI 25.9 BP 108/74 Intake Visit Reasons: New OB, 8 months PP, US at [place], [facility] 04/11 Chief Complaint: New OB 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: No Is patient in pain?: No Allergies No Known Allergies Allergy (Verified 09/13/24 08:49) Medications ?Medication ?Instructions ?Recorded ?Confirmed ?Type docosahexaenoic acid 200 mg mg PO 08/19/24 09/13/24 Hi story capsule ( DHA) Last Menstrual Period: 06/15/24 : Yes PFSH PFSH Medical History 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 Hx of gestational diabetes in prior , currently Surgical History H/O colposcopy with cervical biopsy Family History Father Diabetes Hyperlipidemia Hypertension Chronic mental illness Mother Hypertension Sister Hereditary spherocytosis Social History adopted: No household members: spouse, children and other details: Pt's mom housing: house number of children: 1 current occupational status: employed 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 occupational exposures/hazards: Yes pets and animals: Yes (Not managing litter box) pets and animals: cat(s) and other details: jimllas history of recent travel: No sexually active: Yes Smoking Status: Never smoker second hand exposure: Yes (PT's mother - smokes outside) alcohol intake: current alcohol intake frequency: holidays/special occasions only details: Not while substance use type: does not use diet: lactose free well-balanced diet: about half the time caffeine: Yes Type: coffee eating out: rarely or never during the past year weight has: decreased > 10 lbs what type of physical activity do you participate in: walking frequency: 1-2 times per week duration: < 15 minutes/day jarrod/christianity: Denominational seatbelt use: always do you feel safe at home: Yes 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 Date Name GA/Weeks Outcome Route Bth Weight Gen Labor Lgth Anes t hesia Del Locatn Provider FOB 12/09/23 Ananda 40 live - full term vacuum 7lbs 2oz Male epidural [facility] Delivery Date: 12/09/23 Last Updated by: Azalia Manzo RN GDM, nuchal cord, Induced d/t est baby size HPI New OB, 8 months PP, US at [place], FRANNY 04/11 Details: CARMEN THOMPSON is a 29 year old who presents for New OB visit. OB Visit FRANNY Calculator Estimated Delivery Date Method Current WG Current Estimate 04/11/25 Ultrasound #2 10w 0d Other Estimates 04/11/25 Ultrasound #1 10w 0d Estimated Due Date: 04/11/25 Expected Delivery Route/Plan Labor Preferences- CB/BF classes: [] labor support person: [] labor intervention preferences: [] pain management options preferred: [] cut cord/dad catch: [] : [] PP control planned: [] discussed possible routes of delivery and associated risks: [] special requests: [] Specific Issue/Plans Covid status: [] Flu vaccine: [] Tdap vaccine: [] Rhogam: [] LARC form signed: [] Problem list reviewed and updated with the most current plan of care details and appropriate ordersplaced. Relevant counseling for the gestational age provided. Continue routine care and follow up unless otherwise noted in visit notes/problem list details Initial Weight: 133 lb Date -?-?-?-?-?-?-?-?-?-?-?-?- EGA Weight BP Urine Prot -?-?-?-?-?-?-?--?-?-?-?-?- Glucose FHR FuHt Pres Dilation -?-?-?-?-?-?-?-?-?-?-?-?- Effaced St Visit Note 09/13/24 -?-?-?-?-?-?-?-?-?-?-?-?- 10w 0d 133 lb 2 oz (+2 oz) 108/74 -?-?-?-?-?-?-?-?-?-?-?-?- 180 -?-?-?-?-?-?-?-?-?-?-?-?- KW- CRL cons wit h dates. declines NIPT. labs today. anatomy US ordered Menstrual History Last Menstrual Period: 06/15/24 Reported LMP: unknown (Had period in April and June) Normal amount/duration: No On hormonal BC at conception: No hCG+: 08/07/24 Antepartum Record Genetic Screening: Congenital Heart Defect: Other, Neural Tube Defect: Other, Hemoglobinopathy Or Carrier: Other, Cystic Fibrosis: Other, Chromosome Abnormality: Other, Ruben-Sachs: Other, Hemophilia: Other, Intellectual Disability/Autism: Other, Recurrent Loss/Stillbirth: Other, Other Structural Defect: Other, Other Genetic Disease: Patient (Pt's sister & nephew with hereditaryspherocytosis) and Maternal Metabolic Disorder: Other Infection History: Live with someone with TB or Exposed to TB: No, Patient or Partner has history of Genital Herpes: No, Rash or Viral illness since last mentrual period: No, Prior GBS-Infected child: No, History of STD: Yes (HPV - 2020), HIV Infection: No, History of Hepatitis: No, Recent travel outside of [place]: No, Concern for hepatitis exposure: No, Varicella immune: Yes (Had chicken pox & vaccine) and Covid Vaccinated: No Medical History Medical History: Positive: Diabetes (GDM), Depression/ depression ( depression), 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), History of abnormal pap (HPV+) and Uterine anomaly/rodrigo (Inverted uterus) and Negative: Hypertension, Heart disease, Auto-immune disorder, Kidney disease/UTI, Neurologic/epilepsy, Psychiatric, Hepatitis/liver disease, Varicosities/phlebitis, Thyroid dysfunction, Trauma/domestic violence, History of blood transfusions, D (Rh) Sensitized, Pulmonary (e.g.,TB,Asthma), Seasonal allergies, Drug/latex allergies/reactions, Breast, Operations/hospitalizations, Anesthetic compl ications, Infertility, Anti-retroviral treatment, Relevant family history and Other ACOG First Trimester First Trimester: Desire for , Alcohol, Tobacco Cessation, Illicit/Recreational Drug/Substance Use, Intimate Partner Violence, Barriers to care, Unstable Housing, Communication Barriers, Environmental/Work Hazards, Anticipated Course of Care, Toxoplasmosis Precations, Use of Any med ications, Sexual activity, Exercise, Dental Care, Sauna/Hot tub use, Seat Belt use, Childbirth classes/Hospital facilities, , Travel, Indications for Ultrasound and Screening for Aneuploidy Second Trimester Second Trimester: Signs and Symptoms of Labor, Selecting a care provider, Reproductive Life Planning & Contreception, Care Planning, Depression/Anxiety and Intimate Partner Violence; Discussed Tobacco Cessation Third Trimester Third Trimester: Pain Management Plans, Labor support person(s), Immediate Larc, Signs and Symptoms of Preeclampsia, Infant Feeding Yes , [place] Education and Family Medical Leave or Disability Forms ROS Const Reports system reviewed and no additional complaints, except as documented, Denies fatigue, Denies headache(s) and Denies lethargy ENT Denies headache(s) Card Reports system reviewed and no additional complaints, except as documented Resp Reports system reviewed and no additional complaints, except as documented GI Reports system reviewed and no additional complaints, except as documented, Denies abdominal pain, Denies constipation, Denies cramping, Denies diarrhea and Denies dyspepsia Reports system reviewed and no additional complaints, except as documented, Denies abnormal vaginalbleeding, Denies difficulty voiding, Denies dyspareunia and Denies dysuria Musc Reports system reviewed and no additional complaints, except as documented Skin/Breast Reports system reviewed and no additional complaints, except as documented Neuro Yes system reviewed and no additional complaints, except as documented and No headache(s) Psych Reports system reviewed and no additional complaints, except as documented, Denies anhedonia and Denies anxiety Endo Reports system reviewed and no additional complaints, except as documented and Denies fatigue Exam Const General: cooperative, healthy appearing and comfortable Neck Neck: normal visual inspection and full ROM Chest Chest palpation & inspection: normal inspection of the chest Breast inspection: normal inspection of the breasts and normal inspection of the axillae Breast palpation: normal palpation of the breasts and normal palpation of the axillae Resp Effort & Inspection: normal respiratory effort and able to speak in complete sentences GI Inspection: normal to inspection Palpation: soft External Female Exam: normal external appearance and normal appearance of the urethra Urethra: normal appearance of the urethra Skin General: no rashes or lesions noted Neuro General: patient alert, patient awake and patient oriented x3 Extrem General: normal to inspection and full ROM Psych Appearance: grossly normal and well kempt Mental Status: mental status grossly normal Mood: congruent mood Affect: normal affect Speech and Movement: speech and movement normal Thought Process: normal Thought Content: normal Coding Level of Care Code OB Routine Diagnoses Supervision of high-risk O09.90 10 weeks gestation of Z3A.10 Weeks of gestation: 10 weeks History of depression, currently O99.891; Z86.59 Stomach ulcer K25.9 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 HSV-1 (herpes simplex virus 1) infection B00.9 Hx of gestational diabetes in prior , currently O09.299; Z86.32 Assessment and Plan Assessment and Plan (1) Supervision of high-risk : Status: Acute Comment: ; FRANNY 04/11; PC: Ananda; : [place] (2) : Status: Acute Qualifiers: Weeks of gestation: 10 weeks Qualified Code(s): Z3A.10 - 10 weeks gestation of Comment: Discussed genetic/carrier testing - undecided (3) History of depression, currently : Status: Acute Comment: no meds (4) Stomach ulcer: Status: Acute Comment: +H. Pylori (5) 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: Status: Acute Comment: 2020 - [place] (6) HSV-1 (herpes simplex virus 1) infection: Status: Acute Comment: Valtrex for outbreaks (7) Hx of gestational diabetes in prior , currently : Status: Acute Comment: Was diet controlled Comments Comments: Patient oriented to practice and discussed care expectations and screenings. ACOG book offered to patient. Discussed routine and specially indicated labs if needed- patient consents to testing. See problem list details for plan information. Optional screening including maternal carrier screenings, neural tube defect screening, genetic screening options including quad screen, nuchal translucency, sequential screening, and NIPT screening offered to patient and patient chose: [ ] 09/13/24 0940 s CNM> Date _ Gwen Claudio CNM Cosigner Signature: Date (if applicable) CC: ~ [facility]08-09-2024 Note Discharge Instructions Thank you for allowing [facility] to assist you with your healthcare needs. The following is importantdischarge information regarding your hospital visit. Your Care Team CARON GLASGOW DO Your Diagnosis Gestational diabetes, diet controlled Vacuum-assisted vaginal delivery What to do next Scheduled Follow-Up Appointments Thursday 10:45 AM EDT Type: WH OV With: LATOYA IZQUIERDO MD Where: [facility] Services Status: Confirmed Follow Up Appointments Follow Up with LATOYA IZQUIERDO MD When:12/22/2023 10:45 AM EDT Where:[address] [facility] [address] [facility] [place] [address]- [phone] Someone Will Contact You Regarding These Home Health Referrals No home referrals have been ordered for you. No one will call you. The Following Activity and Diet Have Been Ordered for You Discharge Activity - Ordered -- Lifting Restricted less than 10 pounds, 12/11/23 10:16:00 EDT Discharge Driving Restrictions - Ordered -- No driving until pain-free, 12/11/23 10:16:00 EDT Discharge Diet - Ordered -- No changes were made to your diet during your hospital stay. Please resume your pre hospitalization diet on discharge., 12/11/23 10:16:00 EDT The Following Equipment Has Been Ordered for You No qualifying data available. The Following Treatments Have Been Arranged for You Discharge Labs No qualifying data available. Discharge Radiology No qualifying data available. Other Therapies No qualifying data available. Allergies NKDA none Medications Please ask your primary doctor or pharmacist before taking any other medication not listed, including over the counter drugs, herbal medications, vitamins and or supplements as they may interact withyour home medications. What How Much When Instructions Last Dose Changed valACYclovir (valACYclovir 500 mg oral tablet) 1 tab(s) by mouth Once a day takes PRN for cold sores Unchanged acetaminophen (Tylenol Extra Strength 500 mg oral tablet) 1 tab(s) by mouth Every 4 hours Duration: [facility] Unchanged benzocaine topical (Americaine 20% topical spray) 1 application Topical Four (4) times a day Duration: 14 Days [facility] Unchanged famotidine (Pepcid 20 mg oral tablet) 1 tab(s) by mouth Two (2) times a day Unchanged ibuprofen (ibuprofen 800 mg oral tablet) 1 tab(s) by mouth Every 8 hours Duration: 14 [facility] Pharm[facility] Information [facility] #[id number]: [address], [place] [id number] [phone] What How Much When Why Comments Stop Taking DME (Blood Glucose Test Machine) See instructions Gestational diabetes Use as directed Brand type per insurance or patient preference Stop Taking DME (Blood Glucose Test Strips) See instructions Gestational diabetes 1 bottle of 200. check glucose 4 times per day. Stop Taking DME (Lancets) See instructions Gestational diabetes check blood sugar 4x per day Stop Taking multivitamin, ( Multivitamins with Vitamin B Complex, Vitamin C, Minerals and L-Methylfolate oral capsule) 1 cap by mouth Every day Please take this list to your next doctor s visit. Bring all medications you take, including over the counter medications, herbals and other supplements with you to your doctor s visit. Patients and families are reminded to discard old lists and to update any records with all medication providers or retail pharmacies. Education Materials Care After Vaginal Delivery This sheet gives you information about how to care for yourself from the time you deliver your babyto up to 6 12 weeks after delivery ( period). Your health care provider may also give youmore specific instructions. If you have problems or questions, contact your health care provider. Follow these instructions at home: Vaginal bleeding It is normal to have vaginal bleeding (lochia) after delivery. Wear a sanitary pad for vaginal bleeding and discharge. ? During the first week after delivery, the amount and appearance of lochia is often similar to a menstrual period. ? Over the next few weeks, it will gradually decrease to a dry, yellow-brown discharge. ? For most women, lochia stops completely by 4 6 weeks after delivery. Vaginal bleeding can vary fromwoman to woman. Change your sanitary pads frequently. Watch for any changes in your flow, such as: ? A sudden increase in volume. ? A change in color. ? Large blood clots. If you pass a blood clot from your vagina, save it and call your health care provider to discuss. Do not flush blood clots down the toilet before talking with your health care provider. Do not use tampons or douches until your health care provider says this is safe. If you are not , your period should return 6 8 weeks after delivery. If you are feeding your child breast milk only (exclusive ), your period may not return until you stop . Perineal care Keep the area between the vagina and the anus (perineum) clean and dry as told by your health care provider. Use medicated pads and pain-relieving sprays and creams as directed. If you had a cut in the perineum (episiotomy) or a tear in the vagina, check the area for signs of infection until you are healed. Check for: ? More redness, swelling, or pain. ? Fluid or blood coming from the cut or tear. ? Warmth. ? Pus or a bad smell. You may be given a squirt bottle to use instead of wiping to clean the perineum area after you go to the bathroom. As you start healing, you may use the squirt bottle before wiping yourself. Make sure to wipe gently. To relieve pain caused by an episiotomy, a tear in the vagina, or swollen veins in the anus (hemorrhoids), try taking a warm sitz bath 2 3 times a day. A sitz bath is a warm water bath that is taken while you are sitting down. The water should only come up to your hips and should cover your buttocks. Breast care Within the first few days after delivery, your breasts may feel heavy, full, and uncomfortable (breast engorgement). Milk may also leak from your breasts. Your health care provider can suggest ways to help relieve the discomfort. Breast engorgement should go away within a few days. If you are : ? Wear a bra that supports your breasts and fits you well. ? Keep your nipples clean and dry. Apply creams and ointments as told by your health care provider. ? You may need to use breast pads to absorb milk that leaks from your breasts. ? You may have uterine contractions every time you breastfeed for up to several weeks after delivery.Uterine contractions help your uterus return to its normal size. ? If you have any problems with , work with your health care provider or management consultant. If you are not : ? Avoid touching your breasts a lot. Doing this can make your breasts produce more milk. ? Wear a good-fitting bra and use cold packs to help with swelling. ? Do not squeeze out (express) milk. This causes you to make more milk. Intimacy and sexuality Ask your health care provider when you can engage in sexual activity. This may depend on: ? Your risk of infection. ? How fast you are healing. ? Your comfort and desire to engage in sexual activity. You are able to get after delivery, even if you have not had your period. If desired, talkwith your health care provider about methods of control (contraception). Medicines Take kxyz-gcs-ercephl and prescription medicines only as told by your health care provider. If you were prescribed an antibiotic medicine, take it as told by your health care provider. Do notstop taking the antibiotic even if you start to feel better. Activity Gradually return to your normal activities as told by your health care provider. Ask your health care provider what activities are safe for you. Rest as much as possible. Try to rest or take a nap while your baby is sleeping. Eating and drinking Drink enough fluid to keep your urine pale yellow. Eat high-fiber foods every day. These may help prevent or relieve constipation. High-fiber foods include: ? Whole grain cereals and breads. ? Brown rice. ? Beans. ? Fresh fruits and vegetables. Do not try to lose weight quickly by cutting back on calories. Take your vitamins until your checkup or until your health care provider tells you it is okay to stop. Lifestyle Do not use any products that contain nicotine or tobacco, such as cigarettes and e-cigarettes. If you need help quitting, ask your health care provider. Do not drink alcohol, especially if you are . General instructions Keep all follow-up visits for you and your baby as told by your health care provider. Most women visit their health care provider for a checkup within the first 3 6 weeks after delivery. Contact a health care provider if: You feel unable to cope with the changes that your child brings to your life, and these feelings donot go away. You feel unusually sad or worried. Your breasts become red, painful, or hard. You have a fever. You have trouble holding urine or keeping urine from leaking. You have little or no interest in activities you used to enjoy. You have not breastfed at all and you have not had a menstrual period for 12 weeks after delivery. You have stopped and you have not had a menstrual period for 12 weeks after you stopped . You have questions about caring for yourself or your baby. You pass a blood clot from your vagina. Get help right away if: You have chest pain. You have difficulty breathing. You have sudden, severe leg pain. You have severe pain or cramping in your lower abdomen. You bleed from your vagina so much that you fill more than one sanitary pad in one hour. Bleeding should not be heavier than your heaviest period. You develop a severe headache. You faint. You have blurred vision or spots in your vision. You have bad-smelling vaginal discharge. You have thoughts about hurting yourself or your baby. If you ever feel like you may hurt yourself or others, or have thoughts about taking your own life,get help right away. You can go to the nearest emergency department or call: Your local emergency services (911 in the [place] A suicide crisis helpline, such as the National Suicide Prevention Lifeline at . Thisis open 24 hours a day. Summary The period of time right after you deliver your up to 6 12 weeks after delivery is called the period. Gradually return to your normal activities as told by your health care provider. Keep all follow-up visits for you and your baby as told by your health care provider. This information is not intended to replace advice given to you by your health care provider. Make sure you discuss any questions you have with your health care provider. Document Released: 02/15/2008 Document Revised: 04/23/2018 Document Reviewed: 02/01/2018 [employer] Patient Education 2020 [employer]. [facility] Depression and Blues All mothers are at risk of developing depression or the blues. These mood changes can occur right after giving , or they may occur many months after giving . blues or depression can be mild or severe. Additionally, depression can goaway rather quickly, or it can be a long-term condition. CAUSES Raised hormone levels and the rapid drop in those levels are thought to be a main cause of depression and blues. A number of hormones change during and after . Estrogenand progesterone usually decrease right after delivery. The levels of thyroid hormone and various cortisol steroids also rapidly drop. Other factors that play a role in these mood changes include major life events and genetics. RISK FACTORS If you have any of the following risks for blues or depression, know what symptoms to watch out for during the period. Risk factors that may increase the likelihood of getting blues or depression include: Having a personal or family history of depression. Having depression while being . Having premenstrual mood issues or mood issues related to oral contraceptives. Having a lot of life stress. Having marital conflict. Lacking a social support network. Having health problems, such as diabetes. SIGNS AND SYMPTOMS Symptoms of blues include: Brief changes in mood, such as going from extreme happiness to sadness. Decreased concentration. Difficulty sleeping. Crying spells, tearfulness. Irritability. Anxiety. Symptoms of depression typically begin within the first month after giving . These symptoms include: Difficulty sleeping or excessive sleepiness. Marked weight loss. Agitation. Feelings of worthlessness. Lack of interest in activity or food. psychosis is a very serious condition and can be dangerous. Fortunately, it is rare. Displaying any of the following symptoms is cause for immediate medical attention. Symptoms of psychosis include: Hallucinations and delusions. Bizarre or disorganized behavior. Confusion or disorientation. DIAGNOSIS A diagnosis is made by an evaluation of your symptoms. There are no medical or lab tests that lead to a diagnosis, but there are various questionnaires that a health care provider may use to identifythose with blues, depression, or psychosis. Often, a screening tool called the Buckner Depression Scale is used to diagnose depression in the period. TREATMENT blues usually goes away on its own in 1 2 weeks. Social support is often all that is needed. You will be encouraged to get adequate sleep and rest. Occasionally, you may be given medicinesto help you sleep. depression requires treatment because it can last several months or longer if it is not treated. Treatment may include individual or group therapy, medicine, or both to address any social,physiological, and psychological factors that may play a role in the depression. Regular exercise, a healthy diet, rest, and social support may also be strongly recommended. psychosis is more serious and needs treatment right away. Hospitalization is often needed. HOME CARE INSTRUCTIONS Get as much rest as you can. Exercise regularly. Some women find yoga and walking to be beneficial. Eat a balanced and nourishing diet. Do little things that you enjoy. Have a cup of tea, take a bubble bath, read your favorite magazine, or listen to your favorite music. Avoid alcohol. Ask for help with dry cleaning checker, cooking, grocery shopping, or running errands as needed. Do nottry to do everything. Talk to people close to you about how you are feeling. Get support from your partner, family members, and friends. Try to stay positive in how you think. Think about the things you are grateful for. Do not spend a lot of time alone. Only take xcyp-wgl-kbynbai or prescription medicine as directed by your health care provider. Keep all your appointments. Let your health care provider know if you have any concerns. SEEK MEDICAL CARE IF: You are having a reaction to or problems with your medicine. SEEK IMMEDIATE MEDICAL CARE IF: You have suicidal feelings. You think you may harm yourself or someone else. MAKE SURE YOU: Understand these instructions. Will watch your condition. Will get help right away if you are not doing well or get worse. Resource: ExitCare Patient Information 2015 [employer]. This information is not intended to replace advicegiven to you by your health care provider. Make sure you discuss any questions you have with your health care provider. Choosing to breastfeed is one of the best decisions you can make for yourself and your baby. A change in hormones during causes your breasts to make breast milk in your milk-producing glands. Hormones prevent breast milk from being released before your baby is born. They also prompt milk flow after . Once has begun, thoughts of your baby, as well as his or her suckingor crying, can stimulate the release of milk from your milk-producing glands. Benefits of Research shows that offers many health benefits for infants and mothers. It also offers a cost-free and convenient way to feed your baby. For your baby Your first milk (colostrum) helps your baby's digestive system to function better. Special cells in your milk (antibodies) help your baby to fight off infections. Breastfed babies are less likely to develop asthma, allergies, obesity, or type 2 diabetes. They are also at lower risk for sudden syndrome (SIDS). Nutrients in breast milk are better able to meet your baby s needs compared to infant formula. Breast milk improves your baby's brain development. For you helps to create a very special baker between you and your baby. is convenient. Breast milk costs nothing and is always available at the correct temperature. helps to burn calories. It helps you to lose the weight that you gained during . makes your uterus return faster to its size before . It also slows bleeding (lochia) after you give . helps to lower your risk of developing type 2 diabetes, osteoporosis, rheumatoid arthritis, cardiovascular disease, and breast, ovarian, uterine, and endometrial cancer later in life. basics Starting Find a comfortable place to sit or lie down, with your neck and back well-supported. Place a pillow or a rolled-up blanket under your baby to bring him or her to the level of your breast (if you are seated). Nursing pillows are specially designed to help support your arms and your baby while you breastfeed. Make sure that your baby's tummy (abdomen) is facing your abdomen. Gently massage your breast. With your fingertips, massage from the outer edges of your breast inward toward the nipple. This encourages milk flow. If your milk flows slowly, you may need to continue this action during the feeding. Support your breast with 4 fingers underneath and your thumb above your nipple (make the letter Cwith your hand). Make sure your fingers are well away from your nipple and your baby s mouth. Stroke your baby's lips gently with your finger or nipple. When your baby's mouth is open wide enough, quickly bring your baby to your breast, placing your entire nipple and as much of the areola as possible into your baby's mouth. The areola is the colored area around your nipple. ? More areola should be visible above your baby's upper lip than below the lower lip. ? Your baby's lips should be opened and extended outward (flanged) to ensure an adequate, comfortablelatch. ? Your baby's tongue should be between his or her lower gum and your breast. Make sure that your baby's mouth is correctly positioned around your nipple (latched). Your baby's lips should create a seal on your breast and be turned out (everted). It is common for your baby to suck about 2 3 minutes in order to start the flow of breast milk. Latching Teaching your baby how to latch onto your breast properly is very important. An improper latch can cause nipple pain, decreased milk supply, and poor weight gain in your baby. Also, if your baby is not latched onto your nipple properly, he or she may swallow some air during feeding. This can make your baby fussy. Burping your baby when you switch breasts during the feeding can help to get rid of the air. However, teaching your baby to latch on properly is still the best way to prevent fussinessfrom swallowing air while . Signs that your baby has successfully latched onto your nipple Silent tugging or silent sucking, without causing you pain. Infant's lips should be extended outward (flanged). Swallowing heard between every 3 4 sucks once your milk has started to flow (after your let-down milk reflex occurs). Muscle movement above and in front of his or her ears while sucking. Signs that your baby has not successfully latched onto your nipple Sucking sounds or smacking sounds from your baby while . Nipple pain. If you think your baby has not latched on correctly, slip your finger into the corner of your baby s mouth to break the suction and place it between your baby's gums. Attempt to start again. Signs of successful Signs from your baby Your baby will gradually decrease the number of sucks or will completely stop sucking. Your baby will fall asleep. Your baby's body will relax. Your baby will retain a small amount of milk in his or her mouth. Your baby will let go of your breast by himself or herself. Signs from you Breasts that have increased in firmness, weight, and size 1 3 hours after feeding. Breasts that are softer immediately after . Increased milk volume, as well as a change in milk consistency and color by the fifth day of . Nipples that are not sore, cracked, or bleeding. Signs that your baby is getting enough milk Wetting at least 1 2 diapers during the first 24 hours after . Wetting at least 5 6 diapers every 24 hours for the first week after . The urine should be clear or pale yellow by the age of 5 days. Wetting 6 8 diapers every 24 hours as your baby continues to grow and develop. At least 3 stools in a 24-hour period by the age of 5 days. The stool should be soft and yellow. At least 3 stools in a 24-hour period by the age of 7 days. The stool should be seedy and yellow. No loss of weight greater than 10% of weight during the first 3 days of life. Average weight gain of 4 7 oz (113 198 g) per week after the age of 4 days. Consistent daily weight gain by the age of 5 days, without weight loss after the age of 2 weeks. After a feeding, your baby may spit up a small amount of milk. This is normal. frequency and duration Frequent feeding will help you make more milk and can prevent sore nipples and extremely full breasts (breast engorgement). Breastfeed when you feel the need to reduce the fullness of your breasts orwhen your baby shows signs of hunger. This is called on demand. Signs that your baby is hungry include: Increased alertness, activity, or restlessness. Movement of the head from side to side. Opening of the mouth when the corner of the mouth or cheek is stroked (rooting). Increased sucking sounds, smacking lips, cooing, sighing, or squeaking. Rexs-fe-pchtc movements and sucking on fingers or hands. Fussing or crying. Avoid introducing a pacifier to your baby in the first 4-6 weeks after your baby is born. After this time, you may choose to use a pacifier. Research has shown that pacifier use during the first yearof a baby's life decreases the risk of sudden infant syndrome (SIDS). Allow your baby to feed on each breast as long as he or she wants. When your baby unlatches or falls asleep while feeding from the first breast, offer the second breast. Because newborns are often sleepy in the first few weeks of life, you may need to awaken your baby to get him or her to feed. times will vary from baby to baby. However, the following rules can serve as a guide to help you make sure that your baby is properly fed: Newborns (babies 4 weeks of age or younger) may breastfeed every 1 3 hours. Newborns should not go without for longer than 3 hours during the day or 5 hours during the night. You should breastfeed your baby a minimum of 8 times in a 24-hour period. Breast milk pumping Pumping and storing breast milk allows you to make sure that your baby is exclusively fed your breast milk, even at times when you are unable to breastfeed. This is especially important if you go back to work while you are still , or if you are not able to be present during feedings. Your management consultant can help you find a method of pumping that works best for you and give you guidelines about how long it is safe to store breast milk. Caring for your breasts while you breastfeed Nipples can become dry, cracked, and sore while . The following recommendations can help keep your breasts moisturized and healthy: Avoid using soap on your nipples. Wear a supportive bra designed especially for nursing. Avoid wearing underwire- style bras or extremely tight bras (sports bras). Air-dry your nipples for 3 4 minutes after each feeding. Use only cotton bra pads to absorb leaked breast milk. Leaking of breast milk between feedings is normal. Use lanolin on your nipples after . Lanolin helps to maintain your skin's normal moisture barrier. Pure lanolin is not harmful (not toxic) to your baby. You may also hand express a few drops of breast milk and gently massage that milk into your nipples and allow the milk to air-dry. In the first few weeks after giving , some women experience breast engorgement. Engorgement can make your breasts feel heavy, warm, and tender to the touch. Engorgement peaks within 3 5 days after you give . The following recommendations can help to ease engorgement: Completely empty your breasts while or pumping. You may want to start by applying warm, moist heat (in the shower or with warm, water-soaked hand towels) just before feeding or pumping.This increases circulation and helps the milk flow. If your baby does not completely empty your breasts while , pump any extra milk after he or she is finished. Apply ice packs to your breasts immediately after or pumping, unless this is too uncomfortable for you. To do this: ? Put ice in a plastic bag. ? Place a towel between your skin and the bag. ? Leave the ice on for 20 minutes, 2 3 times a day. Make sure that your baby is latched on and positioned properly while . If engorgement persists after 48 hours of following these recommendations, contact your health careprovider or a management consultant. Overall health care recommendations while Eat 3 healthy meals and 3 snacks every day. Well-nourished mothers who are need an additional 450 500 calories a day. You can meet this requirement by increasing the amount of a balanced diet that you eat. Drink enough water to keep your urine pale yellow or clear. Rest often, relax, and continue to take your vitamins to prevent fatigue, stress, and low vitamin and mineral levels in your body (nutrient deficiencies). Do not use any products that contain nicotine or tobacco, such as cigarettes and e-cigarettes. Yourbaby may be harmed by chemicals from cigarettes that pass into breast milk and exposure to secondhand smoke. If you need help quitting, ask your health care provider. Avoid alcohol. Do not use illegal drugs or marijuana. Talk with your health care provider before taking any medicines. These include hsvc-zxd-hxsyfko andprescription medicines as well as vitamins and herbal supplements. Some medicines that may be harmful to your baby can pass through breast milk. It is possible to become while . If control is desired, ask your healthcare provider about options that will be safe while your baby. Where to find more information: [employer]: www.llli.org Contact a health care provider if: You feel like you want to stop or have become frustrated with . Your nipples are cracked or bleeding. Your breasts are red, tender, or warm. You have: ? Painful breasts or nipples. ? A swollen area on either breast. ? A fever or chills. ? Nausea or vomiting. ? Drainage other than breast milk from your nipples. Your breasts do not become full before feedings by the fifth day after you give . You feel sad and depressed. Your baby is: ? Too sleepy to eat well. ? Having trouble sleeping. ? More than 1 week old and wetting fewer than 6 diapers in a 24-hour period. ? Not gaining weight by 5 days of age. Your baby has fewer than 3 stools in a 24-hour period. Your baby's skin or the white parts of his or her eyes become yellow. Get help right away if: Your baby is overly tired (lethargic) and does not want to wake up and feed. Your baby develops an unexplained fever. Summary offers many health benefits for and mothers. Try to breastfeed your infant when he or she shows early signs of hunger. Gently tickle or stroke your baby's lips with your finger or nipple to allow the baby to open his or her mouth. Bring the baby to your breast. Make sure that much of the areola is in your baby's mouth. Offer one side and burp the baby before you offer the other side. Talk with your health care provider or management consultant if you have questions or you face problems as you breastfeed. This information is not intended to replace advice given to you by your health care provider. Make sure you discuss any questions you have with your health care provider. Document Released: 04/20/2006 Document Revised: 07/15/2018 Document Reviewed: 05/22/2017 [employer] Patient Education 2020 [employer] Additional Information VACCINATE! IT SAVES LIVES! Members of the community who have not yet received the COVID-19 vaccine and would like to receive it can visit one of [facility] vaccine clinics. There are many vaccine clinic locations within the [facility]. For locations and available times, please visit www.[email or web address].[place].gov/. It is important to note that some COVID mobile vaccine clinics are held outdoors and may be canceled in rainy or stormy conditions. To learn more about pediatric vaccinations (ages 5-11), we invite you to visit the [facility] webpage. [email or web address]/[email or web address] learn more about the COVID-19 vaccine, we invite you to visit the CDC website for a list of frequently asked questions. https://www.cdc.gov/coronavirus/2019-ncov/vaccines/faq.html [facility] Patient Portal Access Instructions: Stay connected with your healthcare team and access your personal medical information anytime with the [facility] [facility] Patient Portal.If you would like a full copy of your medical records, please contact the [facility] Medical Records Department, Thursday through Thursday between 8a.m. and 4:30p.m. Please follow the directions below to access the portal: 1.Access the email account you provided upon registration to the [facility].2.Look for an invitation email from [facility].3.Open the email and access the invitation link: Accept Invitation to [facility]4.Fill in the required pagan to create your account. Sign into www.[employer] with your username and password that you created in the above steps to stay up to date. You can then view a summary of results, a summary of your visits, and the ability to download your summaries to your computer or send the information securely to a physician. Remember that your healthcare information is confidential, so carefully consider who you will allow to register on the [employer] Patient Portal for access to your information. You can also access the [facility] Patient Portal on the [employer]. Simply click on Health Records under HealthData and then click on the [employer] logo. HOW TO SAFELY DISPOSE OF PRESCRIPTION MEDICATIONS Please use one of the following methods to safely dispose of your unused medications. 1.Use a drug disposal kit: the drug disposal pouch allows you to safely discard your old and unuseddrugs. Ask your nurse to give you one when you are discharged.2.Visit a local take-back location: Many local pharmacies and police departments have programs that collect old and unwanted prescriptiondrugs. Call your local pharmacy or go to http://bit.ly/5G0Ry8r to find one close to you.3.Make use of household items: Use cat litter or old coffee grounds to dispose medications if other options arenot available. Mix your drugs with these household products, seal them in an airtight container andthrow it into the garbage. Call [facility]: [phone] to be sure your drugs can be disposed of in this way. Some medicines may require a different approach.4.Never flush your medications down the toilet. IF YOU HAVE BEEN PRESCRIBED AN OPIOID FOR PAIN If you have been prescribed an opioid (such as hydrocodone, oxycodone or morphine), it is critical to understand the possible side effects and risks of opioid pain medications. Even when taken as directed, opioids can have several side effects including: Tolerance, meaning you might need to take more of a medication for the same pain relief. Nausea, vomiting and/or constipation. Sleepiness, dizziness, dry mouth, confusion, depression or itching. Physical dependence, meaning you have withdrawal symptoms when a medication is stopped, can develop within a few days. KNOW YOUR RESPONSIBILITIES It is important to know exactly how much and how often to take the opioid pain medications you are prescribed. Never take opioids in higher amounts or more often than prescribed. Do not combine opioids with alcohol or other drugs that cause drowsiness, such as benzodiazepines, also known as benzos,including diazepam and alprazolam, muscle relaxants or sleep aids. Never sell or share prescriptionopioids. This is illegal. Store opioids in a secure place and out of reach of others (including children, family, friends and visitors). The last page of this document has been signed and retained as a CHART COPY Signatures Patient Education Materials Care After Vaginal Delivery 7b- Depression and Blues (02/2020) (CUSTOM) Medication Leaflets My discharge plan and instructions have been reviewed and explained to me and I,JAY, CARMEN Cruz understand my current condition and have read and understand these discharge instructions. I have received a written copy of the plan/instructions. If I have questions, I am aware that I should contact my doctor. 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 1 episode of uptake and bleeding in about 530 this morning but overall not heavy. Cramping. Breast- feeding. Voiding without difficulty. No nausea or vomiting. Afebrile vital signs stable. Hemoglobin appropriate on day #1. Abdomen is soft nontenderfundus is firm and nontender. Bleeding is light. No significant lower extremity edema. Well on day #1. Continue routine care and anticipate discharge home tomorrow. Digitally Signed by ZINA FUETNES MD on 12/10/2023 08:30 AM [facility]08-08-2024 Hospital Discharge instructions Patient Education 12/09/2023 22:17:42 Care After Vaginal Delivery Care After Vaginal Delivery This sheet gives you information about how to care for yourself from the time you deliver your babyto up to 6 12 weeks after delivery ( period). Your health care provider may also give youmore specific instructions. If you have problems or questions, contact your health care provider. Follow these instructions at home: Vaginal bleeding It is normal to have vaginal bleeding (lochia) after delivery. Wear a sanitary pad for vaginal bleeding and discharge. ?During the first week after delivery, the amount and appearance of lochia is often similar to a menstrual period. ?Over the next few weeks, it will gradually decrease to a dry, yellow-brown discharge. ?For most women, lochia stops completely by 4 6 weeks after delivery. Vaginal bleeding can vary from woman to woman. Change your sanitary pads frequently. Watch for any changes in your flow, such as: ?A sudden increase in volume. ?A change in color. ?Large blood clots. If you pass a blood clot from your vagina, save it and call your health care provider to discuss. Do not flush blood clots down the toilet before talking with your health care provider. Do not use tampons or douches until your health care provider says this is safe. If you are not , your period should return 6 8 weeks after delivery. If you are feeding your child breast milk only (exclusive ), your period may not return until you stop . Perineal care Keep the area between the vagina and the anus (perineum) clean and dry as told by your health care provider. Use medicated pads and pain-relieving sprays and creams as directed. If you had a cut in the perineum (episiotomy) or a tear in the vagina, check the area for signs of infection until you are healed. Check for: ?More redness, swelling, or pain. ?Fluid or blood coming from the cut or tear. ?Warmth. ?Pus or a bad smell. You may be given a squirt bottle to use instead of wiping to clean the perineum area after you go to the bathroom. As you start healing, you may use the squirt bottle before wiping yourself. Make sure to wipe gently. To relieve pain caused by an episiotomy, a tear in the vagina, or swollen veins in the anus (hemorrhoids), try taking a warm sitz bath 2 3 times a day. A sitz bath is a warm water bath that is taken while you are sitting down. The water should only come up to your hips and should cover your buttocks. Breast care Within the first few days after delivery, your breasts may feel heavy, full, and uncomfortable (breast engorgement). Milk may also leak from your breasts. Your health care provider can suggest ways to help relieve the discomfort. Breast engorgement should go away within a few days. If you are : ?Wear a bra that supports your breasts and fits you well. ?Keep your nipples clean and dry. Apply creams and ointments as told by your health care provider. ?You may need to use breast pads to absorb milk that leaks from your breasts. ?You may have uterine contractions every time you breastfeed for up to several weeks after delivery. Uterine contractions help your uterus return to its normal size. ?If you have any problems with , work with your health care provider or management consultant. If you are not : ?Avoid touching your breasts a lot. Doing this can make your breasts produce more milk. ?Wear a good-fitting bra and use cold packs to help with swelling. ?Do not squeeze out (express) milk. This causes you to make more milk. Intimacy and sexuality Ask your health care provider when you can engage in sexual activity. This may depend on: ?Your risk of infection. ?How fast you are healing. ?Your comfort and desire to engage in sexual activity. You are able to get after delivery, even if you have not had your period. If desired, talkwith your health care provider about methods of control (contraception). Medicines Take uzmk-cjc-nqonhfc and prescription medicines only as told by your health care provider. If you were prescribed an antibiotic medicine, take it as told by your health care provider. Do notstop taking the antibiotic even if you start to feel better. Activity Gradually return to your normal activities as told by your health care provider. Ask your health care provider what activities are safe for you. Rest as much as possible. Try to rest or take a nap while your baby is sleeping. Eating and drinking Drink enough fluid to keep your urine pale yellow. Eat high-fiber foods every day. These may help prevent or relieve constipation. High-fiber foods include: ?Whole grain cereals and breads. ?Brown rice. ?Beans. ?Fresh fruits and vegetables. Do not try to lose weight quickly by cutting back on calories. Take your vitamins until your checkup or until your health care provider tells you it is okay to stop. Lifestyle Do not use any products that contain nicotine or tobacco, such as cigarettes and e-cigarettes. If you need help quitting, ask your health care provider. Do not drink alcohol, especially if you are . General instructions Keep all follow-up visits for you and your baby as told by your health care provider. Most women visit their health care provider for a checkup within the first 3 6 weeks after delivery. Contact a health care provider if: You feel unable to cope with the changes that your child brings to your life, and these feelings donot go away. You feel unusually sad or worried. Your breasts become red, painful, or hard. You have a fever. You have trouble holding urine or keeping urine from leaking. You have little or no interest in activities you used to enjoy. You have not breastfed at all and you have not had a menstrual period for 12 weeks after delivery. You have stopped and you have not had a menstrual period for 12 weeks after you stopped . You have questions about caring for yourself or your baby. You pass a blood clot from your vagina. Get help right away if: You have chest pain. You have difficulty breathing. You have sudden, severe leg pain. You have severe pain or cramping in your lower abdomen. You bleed from your vagina so much that you fill more than one sanitary pad in one hour. Bleeding should not be heavier than your heaviest period. You develop a severe headache. You faint. You have blurred vision or spots in your vision. You have bad-smelling vaginal discharge. You have thoughts about hurting yourself or your baby. If you ever feel like you may hurt yourself or others, or have thoughts about taking your own life,get help right away. You can go to the nearest emergency department or call: Your local emergency services (911 in the [place] A suicide crisis helpline, such as the National Suicide Prevention Lifeline at . Thisis open 24 hours a day. Summary The period of time right after you deliver your up to 6 12 weeks after delivery is called the period. Gradually return to your normal activities as told by your health care provider. Keep all follow-up visits for you and your baby as told by your health care provider. This information is not intended to replace advice given to you by your health care provider. Make sure you discuss any questions you have with your health care provider. Document Released: 02/15/2008 Document Revised: 04/23/2018 Document Reviewed: 02/01/2018 [employer] Patient Education 2020 [employer]. 12/09/2023 22:17:41 7b- Depression and Blues (02/2020) (CUSTOM) [facility] Depression and Blues All mothers are at risk of developing depression or the blues. These mood changes can occur right after giving , or they may occur many months after giving . blues or depression can be mild or severe. Additionally, depression can goaway rather quickly, or it can be a long-term condition. CAUSES Raised hormone levels and the rapid drop in those levels are thought to be a main cause of depression and blues. A number of hormones change during and after . Estrogenand progesterone usually decrease right after delivery. The levels of thyroid hormone and various cortisol steroids also rapidly drop. Other factors that play a role in these mood changes include major life events and genetics. RISK FACTORS If you have any of the following risks for blues or depression, know what symptoms to watch out for during the period. Risk factors that may increase the likelihood of getting blues or depression include: Having a personal or family history of depression. Having depression while being . Having premenstrual mood issues or mood issues related to oral contraceptives. Having a lot of life stress. Having marital conflict. Lacking a social support network. Having health problems, such as diabetes. SIGNS AND SYMPTOMS Symptoms of blues include: Brief changes in mood, such as going from extreme happiness to sadness. Decreased concentration. Difficulty sleeping. Crying spells, tearfulness. Irritability. Anxiety. Symptoms of depression typically begin within the first month after giving . These symptoms include: Difficulty sleeping or excessive sleepiness. Marked weight loss. Agitation. Feelings of worthlessness. Lack of interest in activity or food. psychosis is a very serious condition and can be dangerous. Fortunately, it is rare. Displaying any of the following symptoms is cause for immediate medical attention. Symptoms of psychosis include: Hallucinations and delusions. Bizarre or disorganized behavior. Confusion or disorientation. DIAGNOSIS A diagnosis is made by an evaluation of your symptoms. There are no medical or lab tests that lead to a diagnosis, but there are various questionnaires that a health care provider may use to identifythose with blues, depression, or psychosis. Often, a screening tool called the Buckner Depression Scale is used to diagnose depression in the period. TREATMENT blues usually goes away on its own in 1 2 weeks. Social support is often all that is needed. You will be encouraged to get adequate sleep and rest. Occasionally, you may be given medicinesto help you sleep. depression requires treatment because it can last several months or longer if it is not treated. Treatment may include individual or group therapy, medicine, or both to address any social,physiological, and psychological factors that may play a role in the depression. Regular exercise, a healthy diet, rest, and social support may also be strongly recommended. psychosis is more serious and needs treatment right away. Hospitalization is often needed. HOME CARE INSTRUCTIONS Get as much rest as you can. Exercise regularly. Some women find yoga and walking to be beneficial. Eat a balanced and nourishing diet. Do little things that you enjoy. Have a cup of tea, take a bubble bath, read your favorite magazine, or listen to your favorite music. Avoid alcohol. Ask for help with dry cleaning checker, cooking, grocery shopping, or running errands as needed. Do nottry to do everything. Talk to people close to you about how you are feeling. Get support from your partner, family members, and friends. Try to stay positive in how you think. Think about the things you are grateful for. Do not spend a lot of time alone. Only take nkaj-utc-oulrhlk or prescription medicine as directed by your health care provider. Keep all your appointments. Let your health care provider know if you have any concerns. SEEK MEDICAL CARE IF: You are having a reaction to or problems with your medicine. SEEK IMMEDIATE MEDICAL CARE IF: You have suicidal feelings. You think you may harm yourself or someone else. MAKE SURE YOU: Understand these instructions. Will watch your condition. Will get help right away if you are not doing well or get worse. Resource: [facility] Patient Information 2015 [facility]. This information is not intended to replace advicegiven to you by your health care provider. Make sure you discuss any questions you have with your health care provider. 12/09/2023 22:17:35 Choosing to breastfeed is one of the best decisions you can make for yourself and your baby. A change in hormones during causes your breasts to make breast milk in your milk-producing glands. Hormones prevent breast milk from being released before your baby is born. They also prompt milk flow after . Once has begun, thoughts of your baby, as well as his or her suckingor crying, can stimulate the release of milk from your milk-producing glands. Benefits of Research shows that offers many health benefits for infants and mothers. It also offers a cost-free and convenient way to feed your baby. For your baby Your first milk (colostrum) helps your baby's digestive system to function better. Special cells in your milk (antibodies) help your baby to fight off infections. Breastfed babies are less likely to develop asthma, allergies, obesity, or type 2 diabetes. They are also at lower risk for sudden syndrome (SIDS). Nutrients in breast milk are better able to meet your baby s needs compared to formula. Breast milk improves your baby's brain development. For you helps to create a very special baker between you and your baby. is convenient. Breast milk costs nothing and is always available at the correct temperature. helps to burn calories. It helps you to lose the weight that you gained during . makes your uterus return faster to its size before . It also slows bleeding (lochia) after you give . helps to lower your risk of developing type 2 diabetes, osteoporosis, rheumatoid arthritis, cardiovascular disease, and breast, ovarian, uterine, and endometrial cancer later in life. basics Starting Find a comfortable place to sit or lie down, with your neck and back well-supported. Place a pillow or a rolled-up blanket under your baby to bring him or her to the level of your breast (if you are seated). Nursing pillows are specially designed to help support your arms and your baby while you breastfeed. Make sure that your baby's tummy (abdomen) is facing your abdomen. Gently massage your breast. With your fingertips, massage from the outer edges of your breast inward toward the nipple. This encourages milk flow. If your milk flows slowly, you may need to continue this action during the feeding. Support your breast with 4 fingers underneath and your thumb above your nipple (make the letter Cwith your hand). Make sure your fingers are well away from your nipple and your baby s mouth. Stroke your baby's lips gently with your finger or nipple. When your baby's mouth is open wide enough, quickly bring your baby to your breast, placing your entire nipple and as much of the areola as possible into your baby's mouth. The areola is the colored area around your nipple. ?More areola should be visible above your baby's upper lip than below the lower lip. ?Your baby's lips should be opened and extended outward (flanged) to ensure an adequate, comfortable latch. ?Your baby's tongue should be between his or her lower gum and your breast. Make sure that your baby's mouth is correctly positioned around your nipple (latched). Your baby's lips should create a seal on your breast and be turned out (everted). It is common for your baby to suck about 2 3 minutes in order to start the flow of breast milk. Latching Teaching your baby how to latch onto your breast properly is very important. An improper latch can cause nipple pain, decreased milk supply, and poor weight gain in your baby. Also, if your baby is not latched onto your nipple properly, he or she may swallow some air during feeding. This can make your baby fussy. Burping your baby when you switch breasts during the feeding can help to get rid of the air. However, teaching your baby to latch on properly is still the best way to prevent fussinessfrom swallowing air while . Signs that your baby has successfully latched onto your nipple Silent tugging or silent sucking, without causing you pain. 's lips should be extended outward (flanged). Swallowing heard between every 3 4 sucks once your milk has started to flow (after your let-down milk reflex occurs). Muscle movement above and in front of his or her ears while sucking. Signs that your baby has not successfully latched onto your nipple Sucking sounds or smacking sounds from your baby while . Nipple pain. If you think your baby has not latched on correctly, slip your finger into the corner of your baby s mouth to break the suction and place it between your baby's gums. Attempt to start again. Signs of successful Signs from your baby Your baby will gradually decrease the number of sucks or will completely stop sucking. Your baby will fall asleep. Your baby's body will relax. Your baby will retain a small amount of milk in his or her mouth. Your baby will let go of your breast by himself or herself. Signs from you Breasts that have increased in firmness, weight, and size 1 3 hours after feeding. Breasts that are softer immediately after . Increased milk volume, as well as a change in milk consistency and color by the fifth day of . Nipples that are not sore, cracked, or bleeding. Signs that your baby is getting enough milk Wetting at least 1 2 diapers during the first 24 hours after . Wetting at least 5 6 diapers every 24 hours for the first week after . The urine should be clear or pale yellow by the age of 5 days. Wetting 6 8 diapers every 24 hours as your baby continues to grow and develop. At least 3 stools in a 24-hour period by the age of 5 days. The stool should be soft and yellow. At least 3 stools in a 24-hour period by the age of 7 days. The stool should be seedy and yellow. No loss of weight greater than 10% of weight during the first 3 days of life. Average weight gain of 4 7 oz (113 198 g) per week after the age of 4 days. Consistent daily weight gain by the age of 5 days, without weight loss after the age of 2 weeks. After a feeding, your baby may spit up a small amount of milk. This is normal. frequency and duration Frequent feeding will help you make more milk and can prevent sore nipples and extremely full breasts (breast engorgement). Breastfeed when you feel the need to reduce the fullness of your breasts orwhen your baby shows signs of hunger. This is called on demand. Signs that your baby is hungry include: Increased alertness, activity, or restlessness. Movement of the head from side to side. Opening of the mouth when the corner of the mouth or cheek is stroked (rooting). Increased sucking sounds, smacking lips, cooing, sighing, or squeaking. Jcbe-tb-ayewp movements and sucking on fingers or hands. Fussing or crying. Avoid introducing a pacifier to your baby in the first 4-6 weeks after your baby is born. After this time, you may choose to use a pacifier. Research has shown that pacifier use during the first yearof a baby's life decreases the risk of sudden infant syndrome (SIDS). Allow your baby to feed on each breast as long as he or she wants. When your baby unlatches or falls asleep while feeding from the first breast, offer the second breast. Because newborns are often sleepy in the first few weeks of life, you may need to awaken your baby to get him or her to feed. times will vary from baby to baby. However, the following rules can serve as a guide to help you make sure that your baby is properly fed: Newborns (babies 4 weeks of age or younger) may breastfeed every 1 3 hours. Newborns should not go without for longer than 3 hours during the day or 5 hours during the night. You should breastfeed your baby a minimum of 8 times in a 24-hour period. Breast milk pumping Pumping and storing breast milk allows you to make sure that your baby is exclusively fed your breast milk, even at times when you are unable to breastfeed. This is especially important if you go back to work while you are still , or if you are not able to be present during feedings. Your management consultant can help you find a method of pumping that works best for you and give you guidelines about how long it is safe to store breast milk. Caring for your breasts while you breastfeed Nipples can become dry, cracked, and sore while . The following recommendations can help keep your breasts moisturized and healthy: Avoid using soap on your nipples. Wear a supportive bra designed especially for nursing. Avoid wearing underwire- style bras or extremely tight bras (sports bras). Air-dry your nipples for 3 4 minutes after each feeding. Use only cotton bra pads to absorb leaked breast milk. Leaking of breast milk between feedings is normal. Use lanolin on your nipples after . Lanolin helps to maintain your skin's normal moisture barrier. Pure lanolin is not harmful (not toxic) to your baby. You may also hand express a few drops of breast milk and gently massage that milk into your nipples and allow the milk to air-dry. In the first few weeks after giving , some women experience breast engorgement. Engorgement can make your breasts feel heavy, warm, and tender to the touch. Engorgement peaks within 3 5 days after you give . The following recommendations can help to ease engorgement: Completely empty your breasts while or pumping. You may want to start by applying warm, moist heat (in the shower or with warm, water-soaked hand towels) just before feeding or pumping.This increases circulation and helps the milk flow. If your baby does not completely empty your breasts while , pump any extra milk after he or she is finished. Apply ice packs to your breasts immediately after or pumping, unless this is too uncomfortable for you. To do this: ?Put ice in a plastic bag. ?Place a towel between your skin and the bag. ?Leave the ice on for 20 minutes, 2 3 times a day. Make sure that your baby is latched on and positioned properly while . If engorgement persists after 48 hours of following these recommendations, contact your health careprovider or a management consultant. Overall health care recommendations while Eat 3 healthy meals and 3 snacks every day. Well-nourished mothers who are need an additional 450 500 calories a day. You can meet this requirement by increasing the amount of a balanced diet that you eat. Drink enough water to keep your urine pale yellow or clear. Rest often, relax, and continue to take your vitamins to prevent fatigue, stress, and low vitamin and mineral levels in your body (nutrient deficiencies). Do not use any products that contain nicotine or tobacco, such as cigarettes and e-cigarettes. Yourbaby may be harmed by chemicals from cigarettes that pass into breast milk and exposure to secondhand smoke. If you need help quitting, ask your health care provider. Avoid alcohol. Do not use illegal drugs or marijuana. Talk with your health care provider before taking any medicines. These include cdam-lcf-hfgnrsn andprescription medicines as well as vitamins and herbal supplements. Some medicines that may be harmful to your baby can pass through breast milk. It is possible to become while . If control is desired, ask your healthcare provider about options that will be safe while your baby. Where to find more information: [employer]: www.llli.org Contact a health care provider if: You feel like you want to stop or have become frustrated with . Your nipples are cracked or bleeding. Your breasts are red, tender, or warm. You have: ?Painful breasts or nipples. ?A swollen area on either breast. ?A fever or chills. ?Nausea or vomiting. ?Drainage other than breast milk from your nipples. Your breasts do not become full before feedings by the fifth day after you give . You feel sad and depressed. Your baby is: ?Too sleepy to eat well. ?Having trouble sleeping. ?More than 1 week old and wetting fewer than 6 diapers in a 24-hour period. ?Not gaining weight by 5 days of age. Your baby has fewer than 3 stools in a 24-hour period. Your baby's skin or the white parts of his or her eyes become yellow. Get help right away if: Your baby is overly tired (lethargic) and does not want to wake up and feed. Your baby develops an unexplained fever. Summary offers many health benefits for and mothers. Try to breastfeed your infant when he or she shows early signs of hunger. Gently tickle or stroke your baby's lips with your finger or nipple to allow the baby to open his or her mouth. Bring the baby to your breast. Make sure that much of the areola is in your baby's mouth. Offer one side and burp the baby before you offer the other side. Talk with your health care provider or management consultant if you have questions or you face problems as you breastfeed. This information is not intended to replace advice given to you by your health care provider. Make sure you discuss any questions you have with your health care provider. Document Released: 04/20/2006 Document Revised: 07/15/2018 Document Reviewed: 05/22/2017 [facility] Patient Education 2020 [employer]. Follow Up Care 12/08/2023 20:05:04 With:LATOYA IZQUIERDO MD Address: [address] [place] [address] [facility] [place] [address] [phone] When:12/22/2023 10:45:00 [facility] 08-07-2024 Note Date of Service 12/09/23 Chief Complaint IOL Subjective 28 yo G1@40 weeks here for IOL for GDMA1, also c/b obesity and HSV1 Patient has been having early decelerations and mild variables and some bloody show. tachycardia up to 170s. Given IVF bolus. Patient making good cervical change. Will closely monitor and anticipate delivery soon. Objective Vitals and Measurements T: 37.0 C (Temporal Artery) TMIN: 35.9 C (Temporal Artery) TMAX: 37.2 C (Temporal Artery) HR: 116 (Monitored) RR: 18 BP: 102/71 SpO2: 99% Intake and Output 7AM Yesterday to 7AM Today Intake and Output (Last 24 hours) Intake Output Urinary Catheter Output: 100.00 Total Summary Total Intake 0.00 Total Output 100.00 Fluid Balance -100.00 Physical Exam SCE /+1 Weight Dosing Weight: 78.1 kg (12/08/23) Medications Medications (19) Active Scheduled: (1) misoprostol 25 mcg tablet (1/4 of 100 mcg tab) 25 mcg 1 EA, Vaginal, q4h Continuous: (4) bupivacaine-fentaNYL ANESTHESIA 100 mL 100 mL, Epidural, 11 mL/hr Lactated Ringers 1,000 mL 1,000 mL, Intravenous, 125 mL/hr Oxytocin 20 units in Lactated Ringers 1000 mL 20 unit(s) + LR Premix Diluent 1,000 mL 1,000 mL, Intravenous, 999 mL/hr Oxytocin 20 units in Lactated Ringers 1000 mL 20 unit(s) [2 munit/min] + LR Premix Diluent 1,000 mL1,000 mL, Intravenous, 6 mL/hr PRN: (14) carboprost 250 mcg/ml 1mL ampule 250 mcg 1 mL, Intramuscular, Once citric acid-sodium citrate 334 mg-500 mg/5 mL (30 mL) Krystal UD 30 mL, Oral, AsDirected Lactated Ringers Injection 500 mL * Bolus * 500 mL, IV Bolus, AsDirected lidocaine 1% preservative-free Soln 30 mL 100 mg 10 mL, Perineum, AsDirected methylergonovine 0.2 mg/mL (1 mL) ampule 0.2 mg 1 mL, Intramuscular, Once misoprostol 200 mcg tablet 1,000 mcg 5 tab(s), Rectal, Once naloxone 0.4 mg/mL (1mL) vial 0.1 mg 0.25 mL, IV Push, AsDirected naloxone 0.4 mg/mL (1mL) vial 0.4 mg 1 mL, IV Push, AsDirected ondansetron 2 mg/ 1 mL 2 mL INJ 4 mg 2 mL, IV Push, q4h ondansetron 2 mg/ 1 mL 2 mL INJ 4 mg 2 mL, IV Push, q4h oxytocin 10 units/mL 1 mL vial 20 unit(s) 2 mL, Intramuscular, Once terbutaline 1 mg/ml vial 0.25 mg 0.25 mL, Subcutaneous, AsDirected terbutaline 1 mg/ml vial 0.25 mg 0.25 mL, Subcutaneous, AsDirected tranexamic acid PMX 1 gram(s) 100 mL, IV Piggyback, AsDirected Lab Results 12/07 21:13 WBC: 7.1 Hgb: 11.6 L Hct: 33.9 L Platelet: 147 Neutrophil %: 66.1 EKG No qualifying data available. Assessment/Plan Gestational diabetes, diet controlled Anticipated Date of Discharge 12/08/23 Digitally Signed by LATOYA IZQUIERDO MD on 12/09/2023 08:59 PM [facility]08-07-2024 Anesthesiology Consult note Patient: CARMEN THOMPSON Age: 28 years Sex: Female : 1995 Associated Diagnoses: None Author: JAYCEE HENDERSON APRN-ASSEMBLER FILTERS Preoperative Information Anesthesia history Patient's history: negative. Family's history: negative. Health Status Allergies: Allergic Reactions (Selected) Severity Not Documented NKDA- None., Allergies (1) ActiveSeverityReaction NKDAnone Current medications: (Selected) Inpatient Medications Ordered Bicitra: 30 mL, Oral, AsDirected, PRN: Gastric Upset Brethine: 0.25 mg, 0.25 mL, Subcutaneous, AsDirected, PRN: Control symptoms Brethine: 0.25 mg, 0.25 mL, Subcutaneous, AsDirected, PRN: Other (see order comments) Cytotec 25 mcg VAGINAL tablet: 25 mcg, 1 EA, Vaginal, q4h Cytotec: 1,000 mcg, 5 tab(s), Rectal, Once, PRN: Other (see order comments) Hemabate: 250 mcg, 1 mL, Intramuscular, Once, PRN: Other (see order comments) LR 1,000 mL: 125 mL/hr, Intravenous LR 500 mL Bolus: 500 mL, IV Bolus, AsDirected, PRN: Other (see order comments) Methergine: 0.2 mg, 1 mL, Intramuscular, Once, PRN: Other (see order comments) Oxytocin for IV (mL/hr) 20 unit(s) + LR Premix Diluent 1,000 mL: 999 mL/hr, Intravenous Oxytocin for IV (munit/min) 20 unit(s) [2 munit/min] + LR Premix Diluent 1,000 mL: 6 mL/hr, Intravenous Pitocin: 20 unit(s), 2 mL, Intramuscular, Once, PRN: Other (see order comments) Xylocaine HCl 1% injectable solution: 100 mg, 10 mL, Perineum, AsDirected, PRN: to perineal sutures Zofran: 4 mg, 2 mL, IV Push, q4h, PRN: Nausea tranexamic acid 1 g / 100 mL 0.7% NaCl PMX: 1 gram(s), 100 mL, 300 mL/hr, IV Piggyback, AsDirected,PRN: Other (see order comments) Prescriptions Prescribed Blood Glucose Test Machine: See Instructions, Use as directed Brand type per insurance or patient preference, 1 EA, 0 Refill(s) Blood Glucose Test Strips: See Instructions, 1 bottle of 200. check glucose 4 times per day., 200 EA, 2 Refill(s) Lancets: See Instructions, check blood sugar 4x per day, 200 EA, 3 Refill(s) Pepcid 20 mg oral tablet: 20 mg, 1 tab(s), Oral, BID, 60 tab(s), 4 Refill(s) Valtrex 500 mg oral tablet: 500 mg, 1 tab(s), Oral, BID, 60 tab(s), 1 Refill(s) Documented Medications Documented Multivitamins with Vitamin B Complex, Vitamin C, Minerals and L- Methylfolate oral capsule...: 1 cap(s), Oral, Daily, 0 Refill(s) valACYclovir 500 mg oral tablet: 500 mg, 1 tab(s), Oral, qDay, takes PRN for cold sores, 60 tab(s),0 Refill(s), Medications (15) Active Scheduled: (1) misoprostol 25 mcg tablet (1/4 of 100 mcg tab) 25 mcg 1 EA, Vaginal, q4h Continuous: (3) Lactated Ringers 1,000 mL 1,000 mL, Intravenous, 125 mL/hr Oxytocin 20 units in Lactated Ringers 1000 mL 20 unit(s) + LR Premix Diluent 1,000 mL 1,000 mL, Intravenous, 999 mL/hr Oxytocin 20 units in Lactated Ringers 1000 mL 20 unit(s) [2 munit/min] + LR Premix Diluent 1,000 mL1,000 mL, Intravenous, 6 mL/hr PRN: (11) carboprost 250 mcg/ml 1mL ampule 250 mcg 1 mL, Intramuscular, Once citric acid-sodium citrate 334 mg-500 mg/5 mL (30 mL) Krystal UD 30 mL, Oral, AsDirected Lactated Ringers Injection 500 mL * Bolus * 500 mL, IV Bolus, AsDirected lidocaine 1% preservative-free Soln 30 mL 100 mg 10 mL, Perineum, AsDirected methylergonovine 0.2 mg/mL (1 mL) ampule 0.2 mg 1 mL, Intramuscular, Once misoprostol 200 mcg tablet 1,000 mcg 5 tab(s), Rectal, Once ondansetron 2 mg/ 1 mL 2 mL INJ 4 mg 2 mL, IV Push, q4h oxytocin 10 units/mL 1 mL vial 20 unit(s) 2 mL, Intramuscular, Once terbutaline 1 mg/ml vial 0.25 mg 0.25 mL, Subcutaneous, AsDirected terbutaline 1 mg/ml vial 0.25 mg 0.25 mL, Subcutaneous, AsDirected tranexamic acid PMX 1 gram(s) 100 mL, IV Piggyback, AsDirected Problem list: Medical Acne / SNOMED CT 28379078 / Confirmed Allergic rhinitis / SNOMED CT 068923532 / Confirmed Epigastric pain / SNOMED CT 011488634 / Confirmed Family history of hereditary spherocytosis / SNOMED CT 276810864 / Confirmed Acid reflux / SNOMED CT 511720659 / Confirmed Headache / SNOMED CT 65150658 / Confirmed Hyperlipidemia / SNOMED CT 40024393 / Confirmed Bilateral knee pain / SNOMED CT 60241579 / Confirmed Nausea / SNOMED CT 8015879483 / Confirmed Oral herpes / SNOMED CT 892384500 / Confirmed Annual physical exam / SNOMED CT 367944353 / Confirmed / SNOMED CT 863979242 / Confirmed Vitamin D deficiency / SNOMED CT 97044535 / Confirmed, Active Problems (13) Acid reflux Acne Allergic rhinitis Annual physical exam Bilateral knee pain Epigastric pain Family history of hereditary spherocytosis Headache Hyperlipidemia Nausea Oral herpes Vitamin D deficiency Histories Past Medical History: Resolved Anemia, iron deficiency (295565603): Resolved. Perioral dermatitis (715696047): Resolved. Shortness of breath (003649612): Resolved. Bloating (331787882): Resolved. Pharyngitis (1160661375): Resolved. Lipid screening (279177319): Resolved. Sore throat (6363813977): Resolved. Family History: Diabetes mellitus Father Hypertension Mother Father Mental illness Father Comments: 06/12/2018 10:47 CARON ALLEN DO anxiety and depression Malignant tumor of lung Grandparent Comments: 04/08/2023 16:03 Corazon Strange LPN Maternal Grandmother (smoker) Hyperlipidemia Father Other Mother Comments: 06/12/2018 10:47 CARON ALLEN DO kidney stones HTN - Hypertension Mother Grandparent Comments: 04/08/2023 16:03 Corazon Strange LPN maternal grandmother Diabetes Father Procedure history: No active procedure history items have been selected or recorded. 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 - 07/23/2021 14:11 - CARON GLASGOW DO Substance Abuse 12/08/2023 Use: Never Tobacco 12/08/2023 Tobacco Use: Never (less than 100 in l 12/08/2023 Tobacco Use: Never (less than 100 in l Nutrition/Health 12/08/2023 Caffeine intake amount: 1 cup daily Physical Examination Vital Signs 12/09/2023 13:52 EDT Heart Rate Monitored 109 bpm HI Respiratory Rate 18 br/min Systolic Blood Pressure Non-Invasive 107 mmHg Diastolic Blood Pressure Non-Invasive 60 mmHg 12/09/2023 13:50 EDT Heart Rate Monitored 104 bpm HI Respiratory Rate 18 br/min Systolic Blood Pressure Non-Invasive 102 mmHg Diastolic Blood Pressure Non-Invasive 62 mmHg 12/09/2023 13:47 EDT Heart Rate Monitored 105 bpm HI Respiratory Rate 16 br/min Systolic Blood Pressure Non-Invasive 114 mmHg Diastolic Blood Pressure Non-Invasive 66 mmHg 12/09/2023 12:40 EDT Heart Rate Monitored 95 bpm Respiratory Rate 18 br/min Systolic Blood Pressure Non-Invasive 126 mmHg Diastolic Blood Pressure Non-Invasive 76 mmHg 12/09/2023 12:30 EDT Temperature Temporal Artery 36.5 DegC 12/09/2023 11:33 EDT Temperature Temporal Artery 36.5 DegC Heart Rate Monitored 97 bpm Respiratory Rate 16 br/min Systolic Blood Pressure Non-Invasive 123 mmHg Diastolic Blood Pressure Non-Invasive 72 mmHg 12/09/2023 7:40 EDT Temperature Temporal Artery 35.9 DegC Heart Rate Monitored 92 bpm Respiratory Rate 18 br/min Systolic Blood Pressure Non-Invasive 122 mmHg Diastolic Blood Pressure Non-Invasive 89 mmHg 12/09/2023 6:55 EDT Temperature Temporal Artery 36 DegC Heart Rate Monitored 82 bpm Respiratory Rate 16 br/min Systolic Blood Pressure Non-Invasive 134 mmHg Diastolic Blood Pressure Non-Invasive 73 mmHg 12/09/2023 6:00 EDT Temperature Oral 37.0 DegC 12/09/2023 3:40 EDT Temperature Oral 36.8 DegC Heart Rate Monitored 85 bpm Respiratory Rate 14 br/min Systolic Blood Pressure Non-Invasive 101 mmHg Diastolic Blood Pressure Non-Invasive 61 mmHg Reason For Taking VItal Signs Routine 12/09/2023 0:50 EDT Temperature Oral 36.8 DegC Heart Rate Monitored 87 bpm Respiratory Rate 18 br/min Systolic Blood Pressure Non-Invasive 117 mmHg Diastolic Blood Pressure Non-Invasive 73 mmHg Reason For Taking VItal Signs Routine 12/08/2023 22:09 EDT Temperature Oral 37.1 DegC Heart Rate Monitored 90 bpm Respiratory Rate 18 br/min Systolic Blood Pressure Non-Invasive 112 mmHg Diastolic Blood Pressure Non-Invasive 69 mmHg Reason For Taking VItal Signs Routine 12/08/2023 20:14 EDT Temperature Oral 36.6 DegC Heart Rate Monitored 95 bpm Respiratory Rate 16 br/min Systolic Blood Pressure Non-Invasive 119 mmHg Diastolic Blood Pressure Non-Invasive 77 mmHg Reason For Taking VItal Signs Admission Vital Signs (last 24 hrs) Last Charted Temp [id number] DegC (DEC 08 12:30) Heart Rate MonitoredH 109 bpm (DEC 08 13:52) IUB806 mmHg (DEC 08 13:52) DBP60 mmHg (DEC 08 13:52) BMI33.63 (DEC 07 20:15) Measurements from flowsheet : Measurements 12/08/2023 20:15 EDT Height 152.4 cm Admission Weight 78.1 kg [place] Body Weight 45.50 kg BSA Admission 1.75 Body Mass Index 33.63 kg/m2 Pain assessment: Pain Assessment 12/09/2023 12:40 EDT Primary Pain Intensity 6 Pain Scale Type 0-10 Pain scale 12/09/2023 11:33 EDT Primary Pain Intensity 5 Pain Scale Type 0-10 Pain scale 12/09/2023 9:30 EDT Primary Pain Intensity 5 Primary Pain Quality Contraction Pain Scale Type 0-10 Pain scale 12/09/2023 9:00 EDT Primary Pain Intensity 5 Primary Pain Quality Contraction Pain Scale Type 0-10 Pain scale 12/09/2023 7:40 EDT Primary Pain Intensity 5 Primary Pain Quality Contraction Pain Scale Type 0-10 Pain scale 12/09/2023 6:55 EDT Primary Pain Location Uterine Primary Pain Intensity 2 Primary Pain Quality Tightness, Contraction Primary Pain Non-Pharma Intervention Lights dimmed, Repositioning Pain Scale Type 0-10 Pain scale 12/09/2023 6:00 EDT Primary Pain Intensity 0 Pain Scale Type 0-10 Pain scale 12/09/2023 5:00 EDT Primary Pain Intensity 0 Pain Scale Type 0-10 Pain scale 12/09/2023 3:40 EDT Primary Pain Intensity 0 Pain Scale Type 0-10 Pain scale 12/09/2023 3:00 EDT Primary Pain Intensity 0 Pain Scale Type 0-10 Pain scale 12/09/2023 2:05 EDT Primary Pain Intensity 0 Pain Scale Type 0-10 Pain scale 12/09/2023 1:14 EDT Primary Pain Intensity 0 Pain Scale Type 0-10 Pain scale 12/09/2023 0:50 EDT Primary Pain Intensity 0 Pain Scale Type 0-10 Pain scale 12/08/2023 22:09 EDT Primary Pain Intensity 0 Pain Scale Type 0-10 Pain scale 12/08/2023 20:14 EDT Primary Pain Intensity 0 Pain Scale Type 0-10 Pain scale . General: Alert and oriented, Moderate distress. Airway: Normal temporomandibular joint mobility. Mallampati classification: II (soft palate, fauces, uvula visible). Dentition Evaluation: Denies loose/chipped teeth. Cardiovascular: Normal rate, Regular rhythm. Neurologic: Alert, Oriented. Review / Management Results review: Labs (Last four charted values) WBC 7.1(DEC 07) Hgb L 11.6(DEC 07) Hct L 33.9(DEC 07) Plt 147(DEC 07) , Lab results 12/09/2023 13:52 EDT Heart Rate Monitored 109 bpm HI Respiratory Rate 18 br/min Systolic Blood Pressure Non-Invasive 107 mmHg Diastolic Blood Pressure Non-Invasive 60 mmHg Oxygen Saturation 97 % Epidural Bolus, Anesthesia 12/09/2023 13:52 12/09/2023 13:50 EDT Heart Rate Monitored 104 bpm HI Respiratory Rate 18 br/min Systolic Blood Pressure Non-Invasive 102 mmHg Diastolic Blood Pressure Non-Invasive 62 mmHg Oxygen Saturation 97 % Patient Position, OB Right tilt 12/09/2023 13:47 EDT Heart Rate Monitored 105 bpm HI Respiratory Rate 16 br/min Systolic Blood Pressure Non-Invasive 114 mmHg Diastolic Blood Pressure Non-Invasive 66 mmHg Oxygen Saturation 98 % Epidural Patient Position Side of bed, leaning forward with support Epidural Placed By JAYCEE HENDERSON APRN-[employer] Epidural Test Dose Time 12/09/2023 13:41 Epidural Care Patient Response pt tolerated well 12/09/2023 13:30 EDT Cervix Dilation 3 cm Cervix Effacement 80 Station -2 Cervical Consistency Soft Cervical Position Mid Presenting Part Vertex Presenting Part Applied to Cervix Yes Vaginal Exam Performed By TATO Burns Uterine Contraction Monitoring Method External toco Uterine Contraction Frequency 3 Uterine Contraction Duration 70-90 Uterine Contraction Intensity, Ext Palp Mild Uterine Resting Tone, External Soft Uterine Activity Regular contractions Baby A FHR Baseline: 150 bpm FHR Baseline Variability: Moderate variability Garces's Score 9 12/09/2023 13:00 EDT Uterine Contraction Monitoring Method External toco Uterine Contraction Frequency 3-5 Uterine Contraction Duration 50-80 Uterine Contraction Intensity, Ext Palp Mild Uterine Resting Tone, External Soft Uterine Activity Regular contractions Baby A FHR Baseline: 145 bpm FHR Baseline Variability: Moderate variability FHR Accelerations: Present FHR Deceleration: Present FHR Deceleration Description: Variable X 1 periodic FHR Interpretation Category: Category One 12/09/2023 12:40 EDT Heart Rate Monitored 95 bpm Respiratory Rate 18 br/min Systolic Blood Pressure Non-Invasive 126 mmHg Diastolic Blood Pressure Non-Invasive 76 mmHg Primary Pain Intensity 6 Pain Scale Type 0-10 Pain scale 12/09/2023 12:30 EDT Temperature Temporal Artery 36.5 DegC Uterine Contraction Monitoring Method External toco Uterine Contraction Frequency 3 Uterine Contraction Duration 60-80 Uterine Contraction Intensity, Ext Palp Mild Uterine Resting Tone, External Soft Uterine Activity Regular contractions Patient Position, OB Right tilt, Sitting Baby A FHR Baseline: 140 bpm FHR Baseline Variability: Moderate variability 12/09/2023 12:00 EDT Uterine Contraction Monitoring Method External toco Uterine Contraction Frequency 2-3 Uterine Contraction Duration 50-70 Uterine Contraction Intensity, Ext Palp Mild Uterine Resting Tone, External Soft Uterine Activity Regular contractions Patient Position, OB Sitting Baby A FHR Baseline: 140 bpm FHR Baseline Variability: Moderate variability FHR Accelerations: Present FHR Deceleration: Absent FHR Interpretation Category: Category One 12/09/2023 11:33 EDT Temperature Temporal Artery 36.5 DegC Heart Rate Monitored 97 bpm Respiratory Rate 16 br/min Systolic Blood Pressure Non-Invasive 123 mmHg Diastolic Blood Pressure Non-Invasive 72 mmHg Primary Pain Intensity 5 Pain Scale Type 0-10 Pain scale 12/09/2023 11:30 EDT Uterine Contraction Monitoring Method External toco Uterine Contraction Frequency 2-4 Uterine Contraction Duration 50-80 Uterine Contraction Intensity, Ext Palp Mild Uterine Resting Tone, External Soft Uterine Activity Regular contractions Baby A FHR Baseline: 150 bpm FHR Baseline Variability: Moderate variability FHR Accelerations: Present FHR Deceleration: Absent FHR Interpretation Category: Category One 12/09/2023 11:25 EDT Monitoring Annotations Tocotransducer adjusted, pt on birthing ball 12/09/2023 11:25 EDT Notify date/time 12/09/2023 11:30 Provider Notified HOLLIS MEHTA MD Notification Method Phone Information Communicated Nurse communication Details Communicated updated on pt status, ok for epi when pt requests 12/09/2023 11:00 EDT Uterine Contraction Monitoring Method External toco Uterine Contraction Frequency 3 Uterine Contraction Duration 60-80 Uterine Contraction Intensity, Ext Palp Mild Uterine Resting Tone, External Soft Uterine Activity Regular contractions Baby A FHR Baseline: 145 bpm FHR Baseline Variability: Moderate variability FHR Accelerations: Present FHR Deceleration: Absent FHR Interpretation Category: Category One 12/09/2023 10:30 EDT Uterine Contraction Monitoring Method External toco Uterine Contraction Frequency 2-3 Uterine Contraction Duration 80-100 Uterine Contraction Intensity, Ext Palp Mild Uterine Resting Tone, External Soft Uterine Activity Regular contractions Baby A FHR Baseline: 145 bpm FHR Baseline Variability: Moderate variability FHR Accelerations: Present FHR Interpretation Category: Category One 12/09/2023 10:28 EDT Monitoring Annotations to l lat 12/09/2023 10:24 EDT oxytocin 2 munit/min unit(s) LR Premix Diluent LR Premix Diluent mL 12/09/2023 10:00 EDT Uterine Contraction Monitoring Method External toco Uterine Contraction Frequency 2-3 Uterine Contraction Duration 80-90 Uterine Contraction Intensity, Ext Palp Mild Uterine Resting Tone, External Soft Uterine Activity Regular contractions Baby A FHR Baseline: 145 bpm FHR Baseline Variability: Moderate variability FHR Accelerations: Present FHR Deceleration: Absent FHR Interpretation Category: Category One 12/09/2023 9:30 EDT Primary Pain Intensity 5 Primary Pain Quality Contraction Pain Scale Type 0-10 Pain scale Uterine Contraction Monitoring Method External toco Uterine Contraction Frequency 3-4 Uterine Contraction Duration 70-90 Uterine Contraction Intensity, Ext Palp Mild Uterine Resting Tone, External Soft Uterine Activity Regular contractions Baby A FHR Baseline: 145 bpm FHR Baseline Variability: Moderate variability FHR Accelerations: Present FHR Deceleration: Absent FHR Interpretation Category: Category One oxytocin 4 munit/min unit(s) LR Premix Diluent LR Premix Diluent mL 12/09/2023 9:27 EDT [place] Progress Note Obstetric Progress notes. (Modified) 12/09/2023 9:20 EDT Monitoring Annotations pt in bathroom 12/09/2023 9:02 EDT Monitoring Annotations pt ambulating in room 12/09/2023 9:00 EDT Primary Pain Intensity 5 Primary Pain Quality Contraction Pain Scale Type 0-10 Pain scale Uterine Contraction Monitoring Method External toco Uterine Contraction Frequency 3-4 Uterine Contraction Duration 60-80 Uterine Contraction Intensity, Ext Palp Mild Uterine Resting Tone, External Soft Uterine Activity Irregular contractions Baby A FHR Baseline: 140 bpm FHR Baseline Variability: Moderate variability FHR Accelerations: Present FHR Deceleration: Absent 12/09/2023 8:45 EDT oxytocin Begin Bag 20 unit(s) unit(s) LR Premix Diluent Begin Bag 1,000 mL mL 12/09/2023 8:23 EDT Notify date/time 12/09/2023 8:20 Provider Notified HOLLIS MEHTA MD Notification Method Face to face conversation Information Communicated Nurse communication Details Communicated in to see pt discuss POC Notification Outcome Orders received Person Reporting Result(s) LMaier Details of Results Received start pitocin 12/09/2023 8:00 EDT Uterine Contraction Monitoring Method External toco Uterine Contraction Frequency 2-6 Uterine Contraction Duration 60-80 Uterine Contraction Intensity, Ext Palp Mild Uterine Resting Tone, External Soft Uterine Activity Irregular contractions Patient Position, OB Sitting Baby A FHR Baseline: 145 bpm FHR Baseline Variability: Moderate variability FHR Accelerations: Present FHR Deceleration: Absent 12/09/2023 7:40 EDT Temperature Temporal Artery 35.9 DegC Heart Rate Monitored 92 bpm Respiratory Rate 18 br/min Systolic Blood Pressure Non-Invasive 122 mmHg Diastolic Blood Pressure Non-Invasive 89 mmHg Primary Pain Intensity 5 Primary Pain Quality Contraction Pain Scale Type 0-10 Pain scale 12/09/2023 7:35 EDT Cervix Dilation 3 cm Cervix Effacement 80 Station -2 Cervical Consistency Soft Cervical Position Mid Presenting Part Vertex Vaginal Exam Performed By PATRICE REGAN Garces's Score 9 Station Calculation -2 [place] [facility] Progress Note OB Labor Progress Note 12/09/2023 7:12 EDT Monitoring Annotations Report to oncoming shift. Sign off care of patient. 12/09/2023 7:03 EDT Positioning Repositions self 12/09/2023 7:02 EDT Monitoring Annotations FM picking up maternal pulse 12/09/2023 7:00 EDT Uterine Contraction Monitoring Method External toco Uterine Contraction Frequency 1.5-4 Uterine Contraction Duration 60-100 Uterine Contraction Intensity, Ext Palp Mild Uterine Resting Tone, External Soft Uterine Activity Irregular contractions Baby A FHR Baseline: 145 bpm FHR Baseline Variability: Minimal variability FHR Accelerations: Absent FHR Deceleration: Present FHR Deceleration Description: Variable FHR Deceleration Intervention: Turn to left side, Turn to right side, Palpate uterus at rest to ensure relaxation Standard Safety Safety level maintained 12/09/2023 6:55 EDT Temperature Temporal Artery 36 DegC Heart Rate Monitored 82 bpm Respiratory Rate 16 br/min Systolic Blood Pressure Non-Invasive 134 mmHg Diastolic Blood Pressure Non-Invasive 73 mmHg Primary Pain Location Uterine Primary Pain Intensity 2 Primary Pain Quality Tightness, Contraction Primary Pain Non-Pharma Intervention Lights dimmed, Repositioning Pain Scale Type 0-10 Pain scale 12/09/2023 6:46 EDT Monitoring Annotations Tocotransducer adjusted; Ultrasound transducer adjusted; Primary nurse at bedside 12/09/2023 6:38 EDT Monitoring Annotations FM picking up maternal pulse 12/09/2023 6:37 EDT Monitoring Annotations Up to BR. 12/09/2023 6:30 EDT Uterine Contraction Monitoring Method External toco Uterine Contraction Intensity, Ext Palp Mild Uterine Activity Irregular contractions Baby A FHR Baseline: 140 bpm FHR Baseline Variability: Moderate variability FHR Accelerations: Present FHR Deceleration: Absent 12/09/2023 6:03 EDT Monitoring Annotations Patient Repositioned; Ultrasound transducer adjusted; Primary nurse at bedside 12/09/2023 6:00 EDT Temperature Oral 37.0 DegC Primary Pain Intensity 0 Pain Scale Type 0-10 Pain scale Uterine Contraction Monitoring Method External toco Uterine Contraction Frequency 2-6 Uterine Contraction Duration 60-80 Uterine Contraction Intensity, Ext Palp Mild Uterine Resting Tone, External Soft Uterine Activity Irregular contractions Baby A FHR Baseline: 140 bpm FHR Baseline Variability: Moderate variability FHR Accelerations: Present FHR Deceleration: Present FHR Deceleration Description: Variable FHR Deceleration Intervention: Turn to left side, Turn to right side, Palpate uterus at rest to ensure relaxation Hand Right 12/08/2023 18 gauge Peripheral IV Activity: Assessed Peripheral IV Dressing Condition: Clean, Dry, Intact Peripheral IV Dressing Activity: Transparent dressing Peripheral IV Line Status/Patency: Continuous infusion Peripheral IV Site Condition: No complications Peripheral IV Equipment: IV Pump Positioning Repositions self Activity Status ADL Lights dimmed, Up ad angela Standard Safety Safety level maintained 12/09/2023 5:45 EDT Monitoring Annotations Patient updated on POC. 12/09/2023 5:39 EDT Monitoring Annotations GISELLE Samaniego, called and notified of SROM. No new orders at this time. Will monitor labor progress and update provider as needed. 12/09/2023 5:30 EDT Cervix Dilation 2 cm Cervix Effacement 50 Station -2 Cervical Consistency Medium Cervical Position Mid Presenting Part Vertex Vaginal Exam Performed By Jens Don RN 12/09/2023 5:25 EDT Baby A Membrane Status: S.R.O.M. Amniotic Fluid Amount: Moderate amount Amniotic Fluid Color/Descrip: Clear Amniotic Fluid Odor: None 12/09/2023 5:00 EDT Primary Pain Intensity 0 Pain Scale Type 0-10 Pain scale Uterine Contraction Monitoring Method External toco Uterine Contraction Frequency 3-7 Uterine Contraction Duration 60-100 Uterine Contraction Intensity, Ext Palp Mild Uterine Resting Tone, External Soft Uterine Activity Irregular contractions Baby A FHR Baseline: 135 bpm FHR Baseline Variability: Moderate variability FHR Accelerations: Present FHR Deceleration: Absent Positioning Repositions self Standard Safety Safety level maintained 12/09/2023 4:55 EDT Monitoring Annotations GISELLE Samaniego, called to review tracing and evaluate for cytotec placement. Will wait for return call. 12/09/2023 4:33 EDT Monitoring Annotations Primary nurse at bedside; Ultrasound transducer adjusted; Tocotransducer adjusted; Patient Repositioned 12/09/2023 4:00 EDT Uterine Contraction Monitoring Method External toco Uterine Contraction Frequency 3-6 Uterine Contraction Duration 60-100 Uterine Contraction Intensity, Ext Palp Mild Uterine Resting Tone, External Soft Uterine Activity Irregular contractions Baby A FHR Baseline: 135 bpm FHR Baseline Variability: Moderate variability FHR Accelerations: Present FHR Deceleration: Absent 12/09/2023 3:40 EDT Temperature Oral 36.8 DegC Heart Rate Monitored 85 bpm Respiratory Rate 14 br/min Systolic Blood Pressure Non-Invasive 101 mmHg Diastolic Blood Pressure Non-Invasive 61 mmHg Reason For Taking VItal Signs Routine Primary Pain Intensity 0 Pain Scale Type 0-10 Pain scale Heart Rhythm Regular Positioning Repositions self Standard Safety Safety level maintained 12/09/2023 3:32 EDT Monitoring Annotations Primary nurse at bedside; Ultrasound transducer adjusted; Tocotransducer adjusted; Patient Repositioned 12/09/2023 3:00 EDT Primary Pain Intensity 0 Pain Scale Type 0-10 Pain scale Uterine Contraction Monitoring Method External toco Uterine Contraction Frequency 2-5 Uterine Contraction Duration 60-100 Uterine Contraction Intensity, Ext Palp Mild Uterine Resting Tone, External Soft Uterine Activity Irregular contractions Baby A FHR Baseline: 140 bpm FHR Baseline Variability: Moderate variability FHR Accelerations: Present FHR Deceleration: Present FHR Deceleration Description: Variable FHR Deceleration Intervention: Turn to left side, Turn to right side, Palpate uterus at rest to ensure relaxation Positioning Repositions self Standard Safety Safety level maintained 12/09/2023 2:33 EDT Monitoring Annotations Patient Repositioned; Primary nurse at bedside; Ultrasound transducer adjusted; Tocotransducer adjusted 12/09/2023 2:25 EDT [place] [facility] Progress Note OB Labor Progress Note 12/09/2023 2:24 EDT Monitoring Annotations Patient up to BR. 12/09/2023 2:20 EDT Monitoring Annotations SVE per CNM. Cervix unchanged from previous. Will hold off on second dose of cytotc for now - RN will notify CNM if contractions space out. 12/09/2023 2:20 EDT Cervix Dilation 1 cm Cervix Effacement 50 Station -2 Cervical Consistency Medium Cervical Position Mid Vaginal Exam Performed By PATRICE REGAN Garces's Score 5 Station Calculation -2 12/09/2023 2:05 EDT Monitoring Annotations CNM on unit. Tracing reviewed. POC discussed. 12/09/2023 2:05 EDT Primary Pain Intensity 0 Pain Scale Type 0-10 Pain scale 12/09/2023 2:00 EDT Uterine Contraction Monitoring Method External toco Uterine Contraction Frequency 2-5 Uterine Contraction Duration 60-120 Uterine Contraction Intensity, Ext Palp Mild Uterine Resting Tone, External Soft Uterine Activity Irregular contractions Baby A FHR Baseline: 140 bpm FHR Baseline Variability: Moderate variability FHR Accelerations: Present FHR Deceleration: Absent 12/09/2023 1:14 EDT Primary Pain Intensity 0 Pain Scale Type 0-10 Pain scale Murmur Auscultated No Respirations Unlabored Respiratory Pattern Regular All Lobes Breath Sounds Clear, Equal Abdomen Description Non-distended, Soft Bowel Sounds All Quadrants Present Tolerating Oral Intake Yes Urinary Elimination Voiding, no difficulties Bladder Distention Absent Skin Temperature Warm Skin Description [place], Dry Skin Integrity Intact Sensory Perception Duncan No impairment Moisture Duncan Rarely moist Activity Duncan Walks frequently Mobility Duncan No limitations Nutrition Duncan Excellent Friction and Shear Duncan No apparent problem Duncan Score 23 Hospital Acquired Pressure Injury Risk None/minimal risk (score 19-23) Hand Right 12/08/2023 18 gauge Peripheral IV Activity: Assessed Peripheral IV Dressing Condition: Clean, Dry, Intact Peripheral IV Dressing Activity: Transparent dressing Peripheral IV Line Status/Patency: Continuous infusion Peripheral IV Site Condition: No complications Peripheral IV Equipment: IV Pump Neurological Symptoms Patient denies Strength All Extremities Strong Tone All Extremities Normal Dey Screen Daily History of Fall in Last 3 Months Dey No Presence of Secondary Diagnosis Dey No Use of Ambulatory Aid Dey None, bedrest, wheelchair, nurse IV/PRN Adapter Fall Risk Dey Yes Gait Weak or Impaired Fall Risk Dey Normal, bedrest, immobile Mental Status Fall Risk Dey Oriented to own ability Dey Fall Risk Score 20 Violence Risk Confused No Violence Risk Irritable No Violence Risk Boisterous No Violence Risk Verbal Threats No Violence Risk Physical Threats No Violence Risk Attacking Objects No Violence Risk Predictor Score 0 Violence Risk Intervention None Violence Risk Current Interventions None Positioning Repositions self Activity Status ADL Lights dimmed, Resting Standard Safety ID band on, Call device within reach, Bed in low position, Wheels locked, Upper/Half-Length side-rails up, Phone within reach, personal items within reach, Visitor at bedside Appetite Good 12/09/2023 1:06 EDT Monitoring Annotations Primary nurse at bedside; Tocotransducer adjusted; Ultrasound transducer adjusted 12/09/2023 1:04 EDT Monitoring Annotations Care of patient assumed following report. 12/09/2023 1:00 EDT Monitoring Annotations report given to oncoming nurse, Alina Don RN 12/09/2023 0:53 EDT Uterine Contraction Monitoring Method External toco Uterine Resting Tone, External Soft Uterine Activity Occasional contractions Baby A FHR Baseline: 140 bpm FHR Baseline Variability: Minimal variability FHR Monitoring Method: External US transducer 12/09/2023 0:50 EDT Temperature Oral 36.8 DegC Heart Rate Monitored 87 bpm Respiratory Rate 18 br/min Systolic Blood Pressure Non-Invasive 117 mmHg Diastolic Blood Pressure Non-Invasive 73 mmHg Reason For Taking VItal Signs Routine Primary Pain Intensity 0 Pain Scale Type 0-10 Pain scale Oxygen Therapy Room air Positioning Repositions self Activity Status ADL Lights dimmed, Resting Standard Safety Safety level maintained, Precautions maintained 12/09/2023 0:00 EDT Uterine Contraction Monitoring Method External toco Uterine Contraction Intensity, Ext Palp Mild Uterine Resting Tone, External Soft Uterine Activity Irregular contractions Baby A FHR Baseline: 145 bpm FHR Baseline Variability: Moderate variability FHR Accelerations: Present FHR Deceleration: Absent FHR Monitoring Method: External US transducer 12/08/2023 23:58 EDT Monitoring Annotations Ailna Regan CNM at pt's bedside discussing plan of care with pt 12/08/2023 23:16 EDT Monitoring Annotations Primary nurse at bedside; EFM switched to tele 12/08/2023 23:00 EDT Uterine Contraction Monitoring Method External toco Uterine Resting Tone, External Soft Uterine Activity Occasional contractions Baby A FHR Baseline: 150 bpm FHR Baseline Variability: Moderate variability FHR Accelerations: Present FHR Deceleration: Absent FHR Monitoring Method: External US transducer 12/08/2023 22:09 EDT Temperature Oral 37.1 DegC Heart Rate Monitored 90 bpm Respiratory Rate 18 br/min Systolic Blood Pressure Non-Invasive 112 mmHg Diastolic Blood Pressure Non-Invasive 69 mmHg Reason For Taking VItal Signs Routine Primary Pain Intensity 0 Pain Scale Type 0-10 Pain scale Oxygen Therapy Room air Positioning Repositions self Activity Status ADL Awake, Up ad angela Standard Safety Safety level maintained, Precautions maintained 12/08/2023 22:04 EDT Monitoring Annotations 25 mcg placed per Alina Regan CNM 12/08/2023 22:03 EDT misoprostol 25 mcg mcg 12/08/2023 22:00 EDT Uterine Contraction Monitoring Method External toco Uterine Resting Tone, External Soft Uterine Activity Occasional contractions Baby A FHR Baseline: 145 bpm FHR Baseline Variability: Moderate variability FHR Accelerations: Present FHR Deceleration: Absent FHR Monitoring Method: External US transducer 12/08/2023 21:57 EDT Monitoring Annotations Primary nurse at bedside; Alina Regan CNM at pt's bedside performing ultrasound to confirm presentation 12/08/2023 21:55 EDT Monitoring Annotations Primary nurse at bedside; pt returned to bed from bathroom 12/08/2023 21:40 EDT [place] History and Physical OB Admission H&P (Modified) 12/08/2023 21:30 EDT Uterine Contraction Monitoring Method External toco Uterine Resting Tone, External Soft Uterine Activity Occasional contractions Baby A FHR Baseline: 150 bpm FHR Baseline Variability: Moderate variability FHR Accelerations: Present FHR Deceleration: Absent FHR Monitoring Method: External US transducer 12/08/2023 21:13 EDT WBC 7.1 10^3/mcL RBC 4.09 10^6/mcL LOW Hgb 11.6 G/dL LOW Hct 33.9 % LOW MCV 82.9 fL MCH 28.4 pg MCHC 34.3 G/dL RDW 14.7 % HI Platelet 147 10^3/mcL MPV 9.3 fL Neutrophil % 66.1 % Lymphocyte % 24.6 % Monocyte % 8.4 % Eosinophil % 0.6 % Basophil % 0.3 % Neutrophil, Absolute 4.7 10^3/mcL Lymphocyte, Absolute 1.7 10^3/mcL Monocyte, Absolute 0.6 10^3/mcL Eosinophil, Absolute 0.0 10^3/mcL Basophil, Absolute 0.0 10^3/mcL ABO/Rh Interp A POS ABSC Interp (Gel) Negative ABSC 12/08/2023 21:06 EDT Monitoring Annotations FM picking up maternal pulse 12/08/2023 21:00 EDT Lactated Ringers Injection Begin Bag 1,000 mL mL 12/08/2023 20:57 EDT Hand Right 12/08/2023 18 gauge Peripheral IV Activity: Insert new site Peripheral IV Dressing Condition: Clean, Dry, Intact Peripheral IV Dressing Activity: Applied, Transparent dressing Peripheral IV Line Status/Patency: Flushes easily, Continuous infusion Peripheral IV Line Care: Secured with tape Peripheral IV Site Condition: No complications Peripheral IV Equipment: Manual, Extension set, Stopcock, IV Pump, PRN Adaptor Peripheral IV Number of Attempts: 1 12/08/2023 20:42 EDT Cervix Dilation 1 cm Cervix Effacement 50 Station -2 Cervical Consistency Medium Cervical Position Mid (Modified) Vaginal Exam Performed By TATO Dsouza Garces's Score 5 (Modified) Baby A Membrane Status: Intact 12/08/2023 20:30 EDT Uterine Contraction Monitoring Method External toco Uterine Resting Tone, External Soft Uterine Activity Occasional contractions Baby A FHR Baseline: 140 bpm FHR Baseline Variability: Minimal variability FHR Accelerations: Absent FHR Deceleration: Absent FHR Monitoring Method: External US transducer 12/08/2023 20:15 EDT Blood Type, External A positive Rubella, External Immune HIV Antibodies, External Negative Group B Strep, External Negative Group B Strep Date Performed 11/10/2023 Hepatitis B, External Negative Hepatitis B Date Performed 05/20/2023 RPR, External Nonreactive Designated Person #1 We May Share PHI [place] Designated Person #1 Relationship Spouse Privacy Restrictions Requested None Height 152.4 cm Admission Weight 78.1 kg [place] Body Weight 45.50 kg BSA Admission 1.75 Body Mass Index 33.63 kg/m2 Expected Outcome Live Patient Type Inpatient Thrombosis Risk Factors (1) or post- less than 1 month Thrombosis Risk Factor Add'l Assessment NA Thrombosis Risk Score 1 Status Yes Risk Factors, Antepartum Current Preg Diabetes, gestational, non-insulin dependent Movement Present Vaginal bleeding No PPH Risk Low risk for hemorrhage PPH Low Risk Factors [place] , Less than 4 previous deliveries, Unscarred uterus, Absence of hemorrhage history Infant Feeding Breast milk Anesthesia/Pain Medication During Labor None planned Circumcision Yes Baby For Adoption No (Modified) Surrogate No (Modified) Discharge Physician MARCIAL Cannon [facility] Participant No Safe Sleep Environment for Baby Yes Safe Sleep Environment Outside Home Yes Maternal Transport No Thoughts of Harming Others - History No Thoughts of Suicide - History No Coping Effective Emotional Abuse History Denies Physical Abuse History Denies Sexual Abuse Denies Hospital Clergy to Visit Patient Verbalizes No Spiritual Needs Financial Concerns Re: Hospital/Disch No Living Situation Home independently Current Home Treatments Blood Glucose monitoring Professional Skilled Services None Special Services and Community Resources None Advanced Directives No - refuses information Infectious Disease Symptoms Patient states no symptoms Infectious Disease Recent Exposure No Alcohol and Drug Use No Employee of Institutional Living No Health Care Employee No History of Exposure to TB No History of Positive Chest X-Ray for TB No History of Positive TB Skin Test No Homeless No Known Immunosuppression No Recent Immigrant No Resident of Institutional Living No Bloody Sputum No Fatigue No Fever No Loss of Appetite No Night Sweats No Persistent Cough > 3 Weeks No Weight Loss No Preferred Spoken Language [place] Preferred Written Language [place]o Teaching Evaluation No further teaching needed Safety Brochure Information Reviewed Unable to complete Mendoza Gupta Video Viewed Patient refused Chief Complaint IOL Accompanied by Spouse Information Given by Spouse Patient's Current Physicians Lucita Regan CNM Emergency Contact Number [place] () [phone] Reason For Visit OB Induction Mode of Transfer Private vehicle Belongings At Bedside None Personal Home Medications Received No home medications were brought in Belongings Sent Home None Belongings to Security/Secured in Dept None Discharge To, Anticipated Home independently Other Anticipated Needs After Discharge No Anticoagulants Taken In Past 6 Wks. No Prev Test Positive/Diagnosis w/COVID-19 No Current Quarantine/Isolated any Illness No Any Contact with Sick Animals/Birds No Traveled Anywhere in Last 30 Days No No Anesthesia/Transfusions None Admission Note-Nursing Patient History OB (Modified) 12/08/2023 20:14 EDT Temperature Oral 36.6 DegC Heart Rate Monitored 95 bpm Respiratory Rate 16 br/min Systolic Blood Pressure Non-Invasive 119 mmHg Diastolic Blood Pressure Non-Invasive 77 mmHg Reason For Taking VItal Signs Admission Primary Pain Intensity 0 Pain Scale Type 0-10 Pain scale Oxygen Therapy Room air Activity Status ADL Awake Standard Safety Call device within reach, Bed in low position, Wheels locked, Upper/Half-Length side-rails up, Phone within reach, personal items within reach, Visitor at bedside 12/08/2023 20:10 EDT Uterine Contraction Monitoring Method External toco Uterine Resting Tone, External Soft Uterine Activity Occasional contractions Baby A FHR Monitoring Method: monitoring explained, External US transducer Heart Tone: 170 . Assessment and Plan [place] [employer] Anesthesiologists (ASA) physical status classification: Class II. Anesthetic Preoperative Plan Anesthetic technique: Epidural. Regional: Epidural. Postoperative pain management: Per surgeon. Risks discussed: nausea, vomiting, headache, serious complications. Informed consent: signed by patient. Digitally Signed by JAYCEE HENDERSON on 12/09/2023 01:57 PM [facility]08-07-2024 Note Met with patient brought in for induction yesterday pm @ 40 wks. : G1, GDM well controlledon diet. EFW at 36 wks was 5lb 8oz. Nuchal cord x 2 per ultrasound. S/P Cytotec x 1 dose and has changed from 1/50/-2 to 3/80/-2.SROM occurred at 0535. FHR has been category I. Ctxs were q 2-6 minutes at 0830, recommended starting Pitocin with goal of ctxs q 2-3 minutes. Patient is comfortable for now and may have epidural later as desired. Digitally Signed by HOLLIS MEHTA MD on 12/09/2023 09:32 AM [facility]08-07-2024 Note Met with patient brought in for induction yesterday pm @ 40 wks. : G1, GDM well controlledon diet. EFW at 36 wks was 5lb 8oz. Nuchal cord x 2 per ultrasound. S/P Cytotec x 1 dose and has changed from 1/50/-2 to 3/80/-2.SROM occurred at 0535. FHR has been category I. Ctxs were q 2-6 minutes at 0830, recommended starting Pitocin with goal of ctxs q 2-3 minutes. Patient is comfortable for now and may have epidural later as desired. Digitally Signed by HOLLIS MEHTA MD on 12/09/2023 09:32 AM [facility]08-07-2024 Note Labor Details Baby A FHR Baseline:145 bpm FHR Baseline Variability:Minimal variability FHR Deceleration Description:Variable Membranes Membrane Status:S.R.O.M. Amniotic Fluid Color/Descrip:Clear FHR Accelerations:Absent Uterine Uterine Contraction Frequency1.5-4 Uterine Contraction Monitoring MethodExternal toco Cervical Cervix Dilation3 cm Cervix [id number] Station-2 Called by RN SROM at 0535- clear fluid in small amounts pt up and ambulating in room for assessment. Feeling more pain with contractions but tolerating well Physical Exam Vitals & Measurements T: 36 C (Temporal Artery) TMIN: 36 C (Temporal Artery) TMAX: 37.1 C (Oral) HR: 82 (Monitored) RR: 16 BP: 134/73 HT: 152.4 cm WT: 78.1 kg BMI: 33.63 Assessment/Plan 1. Gestational diabetes, diet controlled Cont exp management for now consider Pitocin if contractions slow c-EFM DW Dr Mehta Orders: carboprost(Hemabate), 250 mcg= 1 mL, Intramuscular, Once, PRN citric acid-sodium citrate(Bicitra), 30 mL, Oral, AsDirected, PRN Lactated Ringers Infusion(LR 500 mL Bolus), 500 mL, IV Bolus, AsDirected, PRN Lactated Ringers Infusion 1,000 mL(LR 1,000 mL), 1000 mL, Intravenous lidocaine(Xylocaine HCl 1% injectable solution), 100 mg= 10 mL, Perineum, AsDirected, PRN methylergonovine(Methergine), 0.2 mg= 1 mL, Intramuscular, Once, PRN miSOPROStol(Cytotec 25 mcg VAGINAL tablet), 25 mcg= 1 EA, Vaginal, q4h miSOPROStol(Cytotec), 1000 mcg= 5 tab(s), Rectal, Once, PRN ondansetron(Zofran), 4 mg= 2 mL, IV Push, q4h, PRN oxytocin(Pitocin), 20 unit(s)= 2 mL, Intramuscular, Once, PRN oxytocin 20 unit(s) + LR Premix Diluent 1,000 mL(Oxytocin for IV (mL/hr) 20 unit(s) + LR Premix Diluent 1,000 mL), Start: 12/08/23 20:30:00 EDT, Rate: 999 mL/hr, 12/08/23 20:30:00 EDT terbutaline(Brethine), 0.25 mg= 0.25 mL, Subcutaneous, AsDirected, PRN terbutaline(Brethine), 0.25 mg= 0.25 mL, Subcutaneous, AsDirected, PRN tranexamic acid(tranexamic acid 1 g / 100 mL 0.7% NaCl PMX), 1 gram(s)= 100 mL, IV Piggyback, AsDirected, PRN Admit to Inpatient, 12/08/23 20:30:00 EDT, Level of Care: Obstetrics, Reason for Admission: See History & Physical, Expected Length of Stay: No More Than 96 Hours, Constant Order Ambulate, 12/08/23 20:30:00 EDT, PRN Order, as tolerated Call Parameters, 12/08/23 21:51:00 EDT, PRN order. Notify provider if RN discontinues Oxytocin infusion and if contractions frequency exceeds 5 in 10 minutes averaged over a 30 minute period, increased resting tone, persistent noncategory one FHR tracing, Constant order Code Status, 12/08/23 20:30:00 EDT, Full Code, Constant Order Consult to Anesthesia, 12/08/23 20:30:00 EDT, not specified, As needed for epidural insertion or for delivery Diet Order, 12/08/23 20:30:00 EDT, Start Meal: Next meal, Clear Liquid Diet, Constant Order, : Yes, : No Discontinue Order, 12/08/23 21:51:00 EDT, Once, PRN order. RN may discontinue Oxytocin infusion if contractions frequency exceeds 5 in 10 minutes averaged over a 30 minute period, increased resting tone, non-reassuring surveillance(persistent non category one fet... Epidural Anesthesia, 12/08/23 20:30:00 EDT, PRN order, With patient consent, when patient requests Monitoring, 12/08/23 20:30:00 EDT, Continuous Monitoring, 12/08/23 21:51:00 EDT, continuous while Oxytocin infusion running, monitor heart rate, palpate resting tone, frequency and duration per protocol Intake and Output, 12/08/23 20:30:00 EDT, q8hr, while IV running IV Catheter Insertion/Care, 12/08/23 20:30:00 EDT, IV Care: q4h, Rotate when clinically indicated & q7day drsg change Oxygen Administration (LDRP)(Oxygen Administration (OB)), 12/08/23 20:30:00 EDT, Non-Rebreather Mask, 10 LPM, PRN Order, Adjust flow rate to maintain proper inflation Prn Adapter, 12/08/23 20:30:00 EDT, Once Rapid Plasma Reagin Test(RPR), 12/08/23 20:30:00 EDT, URGENT (collect within 2 hrs), Blood, Once, Nurse Collect, Preferred Lab: [facility], Stop date 12/08/23 20:31:00 EDT Straight Cath, 12/08/23 20:30:00 EDT, PRN Order Urinary Catheter Insertion/Care, 12/08/23 20:30:00 EDT, Do Not Remove Urinary Catheter, Undergoing/Undergone Pelvic procedure, to gravity drainage, Cath Care: Daily, Following epidural insertion, PRNOrder Vital Signs, 12/08/23 20:30:00 EDT, 12/08/23 20:30:00 EDT, On admission, then BP, P, R q 1 hour while in labor. Temp q 2 hours until rupture of membranes then q 1 hour Vital Signs Call Parameters, 12/08/23 20:30:00 EDT, Temp Range: > 38C, Pulse Range: > 120 BPM, Resp Rate Range: <12 or >24, BP Range SBP <100 or >160; DBP <50 or >105, 02 Sat Range: < 95%, Constant Order, Call HO Medications Inpatient Bicitra, 30 mL, Oral, AsDirected, PRN Brethine, 0.25 mg= 0.25 mL, Subcutaneous, AsDirected, PRN Brethine, 0.25 mg= 0.25 mL, Subcutaneous, AsDirected, PRN Cytotec, 1000 mcg= 5 tab(s), Rectal, Once, PRN Cytotec 25 mcg VAGINAL tablet, 25 mcg= 1 EA, Vaginal, q4h Hemabate, 250 mcg= 1 mL, Intramuscular, Once, PRN LR 1,000 mL, 1000 mL, Intravenous LR 500 mL Bolus, 500 mL, IV Bolus, AsDirected, PRN Methergine, 0.2 mg= 1 mL, Intramuscular, Once, PRN Oxytocin for IV (mL/hr) 20 unit(s) + LR Premix Diluent 1,000 mL Pitocin, 20 unit(s)= 2 mL, Intramuscular, Once, PRN tranexamic acid 1 g / 100 mL 0.7% NaCl PMX, 1 gram(s)= 100 mL, IV Piggyback, AsDirected, PRN Xylocaine HCl 1% injectable solution, 100 mg= 10 mL, Perineum, AsDirected, PRN Zofran, 4 mg= 2 mL, IV Push, q4h, PRN Home Blood Glucose Test Machine, See Instructions Blood Glucose Test Strips, See Instructions, 2 refills Lancets, See Instructions, 3 refills Pepcid 20 mg oral tablet, 20 mg= 1 tab(s), Oral, BID, 4 refills Multivitamins with Vitamin B Complex, Vitamin C, Minerals and L- Methylfolate oral capsule,1 cap(s), Oral, Daily valACYclovir 500 mg oral tablet, 500 mg= 1 tab(s), Oral, qDay Valtrex 500 mg oral tablet, 500 mg= 1 tab(s), Oral, BID, 1 refills, Still taking, not as prescribed: takes as needed Digitally Signed by PATRICE REGAN on 12/09/2023 07:54 AM [facility]08-06-2024 Note Reason for Visit OB Induction LMP/EGA/FRANNY Gestational Age (EGA) and FRANNY * Note: EGA calculated as of 12/08/2023 FRANNY: 12/09/2023 EGA*: 39 weeks 6 days Type: Final Method Date: 03/04/2023 Method: Last Menstrual Period (03/04/2023) Confirmation: Confirmed Description: -- Comments: LMP confirmed by 7 week us Entered by: HOLLIS MEHTA MD on 2023 Other FRANNY Calculations for this : No additional FRANNY calculations have been recorded for this History of Present Illness 28 yo G1 at 39.5 admitted to LD for IOL. FRANNY 12/08 by LMP and confirmed by 7 week US. Patient had early and consistent PNC c/b gestational DM-diet controlled, ho hsv-1 declined 36 week prophylactic treatment Last growth US 6lbs 8oz (54) HC 77 AC 65 JOSEF 13 right kidney dilation 6mm OB History History (0,0,0,0) No previous pregnancies history have been recorded Review of Systems all neg Obstetric Exam Cervix Dilation: 1 cm (12/08/23 20:42:00) Cervix Effacement: 50 (12/08/23 20:42:00) Station: -2 (12/08/23 20:42:00) Baby A - Membrane Status: Intact (12/08/23 20:42:00) Cervix Dilation: 1 cm (12/08/23 20:42:00) Cervix Effacement: 50 (12/08/23 20:42:00) Station: -2 (12/08/23 20:42:00) Baby A - FHR Baseline: 145 bpm (12/08/23 22:00:00) Baby A - FHR Baseline Variability: Moderate variability (12/08/23 22:00:00) Baby A - FHR Accelerations: Present (12/08/23 22:00:00) Baby A - FHR Deceleration: Absent (12/08/23 22:00:00) Uterine Contraction Monitoring Method: External toco (12/08/23 22:00:00) Garces's Score5 Physical Exam Vitals & Measurements T: 37.1 C (Oral) TMIN: 36.6 C (Oral) TMAX: 37.1 C (Oral) HR: 90 (Monitored) RR: 18 BP: 112/69 HT: 152.4 cm WT: 78.1 kg BMI: 33.63 Pain: Denies any pain at current time. Mood: Alert and oriented x4, Calm and cooperative. Resp: Even and nonlabored. Clear to auscultation bilaterally CV: Regular rate Abd: gravid, soft VE: 1/50/-2 LE: No edema, DTRs 2+, no clonus Neuro: Ricardo Jamison, changes in vision or RUQ pain Labs Blood Type, External: A positive Rubella, External: Immune HIV Antibodies, External: Negative Group B Strep, External: Negative Group B Strep Date Performed: 11/10/23 Hepatitis B, External: Negative RPR, External: Nonreactive Diagnostics BS US Cephalic presentation Assessment/Plan 1. Gestational diabetes, diet controlled Admit to LD Cefm Cytotec q 4 Recc Castillo bulb -pt declines for now will consider in am DW Dr Hawkins Orders: carboprost(Hemabate), 250 mcg= 1 mL, Intramuscular, Once, PRN citric acid-sodium citrate(Bicitra), 30 mL, Oral, AsDirected, PRN Lactated Ringers Infusion(LR 500 mL Bolus), 500 mL, IV Bolus, AsDirected, PRN Lactated Ringers Infusion 1,000 mL(LR 1,000 mL), 1000 mL, Intravenous lidocaine(Xylocaine HCl 1% injectable solution), 100 mg= 10 mL, Perineum, AsDirected, PRN methylergonovine(Methergine), 0.2 mg= 1 mL, Intramuscular, Once, PRN miSOPROStol(Cytotec 25 mcg VAGINAL tablet), 25 mcg= 1 EA, Vaginal, q4h miSOPROStol(Cytotec), 1000 mcg= 5 tab(s), Rectal, Once, PRN ondansetron(Zofran), 4 mg= 2 mL, IV Push, q4h, PRN oxytocin(Pitocin), 20 unit(s)= 2 mL, Intramuscular, Once, PRN oxytocin 20 unit(s) + LR Premix Diluent 1,000 mL(Oxytocin for IV (mL/hr) 20 unit(s) + LR Premix Diluent 1,000 mL), Start: 12/08/23 20:30:00 EDT, Rate: 999 mL/hr, 12/08/23 20:30:00 EDT terbutaline(Brethine), 0.25 mg= 0.25 mL, Subcutaneous, AsDirected, PRN terbutaline(Brethine), 0.25 mg= 0.25 mL, Subcutaneous, AsDirected, PRN tranexamic acid(tranexamic acid 1 g / 100 mL 0.7% NaCl PMX), 1 gram(s)= 100 mL, IV Piggyback, AsDirected, PRN Admit to Inpatient, 12/08/23 20:30:00 EDT, Level of Care: Obstetrics, Reason for Admission: See History & Physical, Expected Length of Stay: No More Than 96 Hours, Constant Order Ambulate, 12/08/23 20:30:00 EDT, PRN Order, as tolerated Call Parameters, 12/08/23 21:51:00 EDT, PRN order. Notify provider if RN discontinues Oxytocin infusion and if contractions frequency exceeds 5 in 10 minutes averaged over a 30 minute period, increased resting tone, persistent noncategory one FHR tracing, Constant order Code Status, 12/08/23 20:30:00 EDT, Full Code, Constant Order Consult to Anesthesia, 12/08/23 20:30:00 EDT, not specified, As needed for epidural insertion or for delivery Diet Order, 12/08/23 20:30:00 EDT, Start Meal: Next meal, Clear Liquid Diet, Constant Order, : Yes, : No Discontinue Order, 12/08/23 21:51:00 EDT, Once, PRN order. RN may discontinue Oxytocin infusion if contractions frequency exceeds 5 in 10 minutes averaged over a 30 minute period, increased resting tone, non-reassuring surveillance(persistent non category one fet... Epidural Anesthesia, 12/08/23 20:30:00 EDT, PRN order, With patient consent, when patient requests Monitoring, 12/08/23 20:30:00 EDT, Continuous Monitoring, 12/08/23 21:51:00 EDT, continuous while Oxytocin infusion running, monitor heart rate, palpate resting tone, frequency and duration per protocol Intake and Output, 12/08/23 20:30:00 EDT, q8hr, while IV running IV Catheter Insertion/Care, 12/08/23 20:30:00 EDT, IV Care: q4h, Rotate when clinically indicated & q7day drsg change Oxygen Administration (LDRP)(Oxygen Administration (OB)), 12/08/23 20:30:00 EDT, Non-Rebreather Mask, 10 LPM, PRN Order, Adjust flow rate to maintain proper inflation Prn Adapter, 12/08/23 20:30:00 EDT, Once Rapid Plasma Reagin Test(RPR), 12/08/23 20:30:00 EDT, URGENT (collect within 2 hrs), Blood, Once, Nurse Collect, Preferred Lab: [facility], Stop date 12/08/23 20:31:00 EDT Straight Cath, 12/08/23 20:30:00 EDT, PRN Order Urinary Catheter Insertion/Care, 12/08/23 20:30:00 EDT,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 Medication Leaflets My discharge plan and instructions have been reviewed and explained to me and IAVA MIRANDA L understand my current condition and have read and understand these discharge instructions. I have received a written copy of the plan/instructions. If I have questions, I am aware that I should contactmy doctor. 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 Signature: Date/Time: Relationship to Patient: Witness Name/Signature: [facility] Appointment Date:07/23/2021 01:40:00 PM Scheduled Provider:CARON GLASGOW DO Location:[facility] Appointment Type: Wellness Annual w/Labs Future Scheduled Tests Laboratory* Complete Blood Count 06/21/21 * Lipid Profile 06/21/21 * Vitamin D Level 06/21/21 * Complete Metabolic Panel 06/21/21 [facility] Evaluation + Plan note Future Appointments Appointment Date:07/24/2022 04:00:00 PM Scheduled Provider:CARON GLASGOW DO Location:[facility] Appointment Type: Wellness Annual Future Scheduled Tests Laboratory* Basic Metabolic Panel 07/30/22 * Aspartate Aminotransferase 07/30/22 * ALT / SGPT 07/30/22 * Complete Blood Count 07/30/22 * Lipid Profile 07/30/22 * Vitamin D Level 07/30/22 [facility] Evaluation + Plan note Future Appointments Appointment Date:04/23/2023 04:00:00 PM Scheduled Provider: Location:[facility] Appointment Type:US OB < 14 weeks Appointment Date:05/06/2023 03:45:00 PM Scheduled Provider:PATRICE REGAN Location:[facility] Appointment Type:[facility] OB Routine Follow Up Future Scheduled Tests Laboratory* Type and Screen (AO) 04/08/23 * Hepatitis B Surface Antigen 04/08/23 * Rapid Plasma Reagin Test 04/08/23 * Rubella Antibody 04/08/23 * A1C Hemoglobin 04/08/23 * Complete Blood Count 04/08/23 * Hepatitis C Antibody IgG 04/08/23 * HIV 1/2 Ab 04/08/23 * Varicella Zoster Antibody 04/08/23 * Complete Metabolic Panel 04/08/23 * MISC Lab Send out (Blood Specimens) 04/08/23 * MISC Lab Send out (Blood Specimens) 04/08/23 Radiology* US OB < 14 weeks 04/23/23 [facility] Evaluation + Plan note Future Appointments Appointment Date:05/06/2023 03:45:00 PM Scheduled Provider:PATRICE REGAN Location:[facility] Appointment Type:[facility] OB Routine Follow Up Appointment Date:07/27/2023 03:20:00 PM Scheduled Provider:CARON GLASGOW DO Location:[facility] Appointment Type:PC Wellness Annual w/Labs Future Scheduled Tests Laboratory* Type and Screen (AO) 04/08/23 * Basic Metabolic Panel 07/30/22 * Aspartate Aminotransferase 07/30/22 * Hepatitis B Surface Antigen 04/08/23 * Rapid Plasma Reagin Test 04/08/23 * Rubella Antibody 04/08/23 * A1C Hemoglobin 04/08/23 * ALT / SGPT 07/30/22 * Complete Blood Count 04/08/23 * Complete Blood Count 07/25/23 * Complete Blood Count 07/30/22 * Lipid Profile 07/25/23 * Lipid Profile 07/30/22 * Hepatitis C Antibody IgG 04/08/23 * Hepatitis C Antibody IgG 07/25/23 * HIV 1/2 Ab 04/08/23 * Varicella Zoster Antibody 04/08/23 * Vitamin D Level 07/25/23 * Vitamin D Level 07/30/22 * Complete Metabolic Panel 04/08/23 * Complete Metabolic Panel 07/25/23 * MISC Lab Send out (Blood Specimens) 04/08/23 * MISC Lab Send out (Blood Specimens) 04/08/23 [facility] Evaluation + Plan note Future Appointments Appointment Date:06/03/2023 03:30:00 PM Scheduled Provider:PATRICE REGAN Location:[facility] Appointment Type: OV OB Routine Follow Up Appointment Date:07/27/2023 03:20:00 PM Scheduled Provider:CARON GLASGOW DO Location:[facility] Appointment Type:PC Wellness Annual w/Labs Diagnostic Tests Pending * Varicella Zoster Antibody 05/20/23 * Rubella Antibody 05/20/23 * Rapid Plasma Reagin Test 05/20/23 Future Scheduled Tests Laboratory* Type and Screen (AO) 04/08/23 * Basic Metabolic Panel 07/30/22 * Aspartate Aminotransferase 07/30/22 * ALT / SGPT 07/30/22 * Complete Blood Count 07/25/23 * Complete Blood Count 07/30/22 * Lipid Profile 07/25/23 * Lipid Profile 07/30/22 * Hepatitis C Antibody IgG 07/25/23 * Vitamin D Level 07/25/23 * Vitamin D Level 07/30/22 * Complete Metabolic Panel 07/25/23 [facility] Evaluation + Plan note Future Appointments Appointment Date:2023 03:30:00 PM Scheduled Provider:HOLLIS MEHTA MD Location:[facility] Appointment Type: OV OB Routine Follow Up Appointment Date:07/30/2023 02:20:00 PM Scheduled Provider:CARON GLASGOW DO Location:[facility] Appointment Type:PC Wellness Annual w/Labs Future Scheduled Tests Laboratory* Type and Screen (AO) 04/08/23 * Basic Metabolic Panel 07/30/22 * Aspartate Aminotransferase 07/30/22 * ALT / SGPT 07/30/22 * Complete Blood Count 07/25/23 * Complete Blood Count 07/30/22 * Lipid Profile 07/25/23 * Lipid Profile 07/30/22 * Hepatitis C Antibody IgG 07/25/23 * Vitamin D Level 07/25/23 * Vitamin D Level 07/30/22 * Complete Metabolic Panel 07/25/23 [facility] Evaluation + Plan note Future Appointments Appointment Date:09/22/2023 03:30:00 PM Scheduled Provider:PATRICE REGAN Location:[facility] Appointment Type: OV OB Routine Follow Up Diagnostic Tests Pending * Rapid Plasma Reagin Test 09/15/23 Future Scheduled Tests Laboratory* Complete Blood Count 07/25/23 * Lipid Profile 07/25/23 * Hepatitis C Antibody IgG 07/25/23 * Vitamin D Level 07/25/23 * Complete Metabolic Panel 07/25/23 [facility] Evaluation + Plan note Future Appointments Appointment Date:10/14/2023 01:00:00 PM Scheduled Provider: Location:[facility] Appointment Type:US OB > 14 wks Appointment Date:10/20/2023 03:45:00 PM Scheduled Provider:LATOYA IZQUIERDO MD Location:[facility] Appointment Type: OV OB Routine Follow Up Appointment Date:11/10/2023 01:00:00 PM Scheduled Provider: Location:[facility] Appointment Type:US OB > 14 wks Future Scheduled Tests Laboratory* Glucose Tolerance Test 3 Hour (AO) 09/16/23 * Complete Blood Count 07/25/23 * Lipid Profile 07/25/23 * Hepatitis C Antibody IgG 07/25/23 * Vitamin D Level 07/25/23 * Complete Metabolic Panel 07/25/23 Radiology* US OB > 14 weeks 10/14/23 * US OB > 14 weeks 11/10/23 [facility] Evaluation + Plan note Future Appointments Appointment Date:10/20/2023 03:45:00 PM Scheduled Provider:LATOYA IZQUIERDO MD Location:[facility] Appointment Type: OV OB Routine Follow Up Appointment Date:11/10/2023 01:00:00 PM Scheduled Provider: Location:[facility] Appointment Type:US OB > 14 wks Future Scheduled Tests Laboratory* Glucose Tolerance Test 3 Hour (AO) 09/16/23 * Complete Blood Count 07/25/23 * Lipid Profile 07/25/23 * Hepatitis C Antibody IgG 07/25/23 * Vitamin D Level 07/25/23 * Complete Metabolic Panel 07/25/23 Radiology* US OB > 14 weeks 11/10/23 [facility] Evaluation + Plan note Future Appointments Appointment Date:11/18/2023 11:15:00 AM Scheduled Provider:HOLLIS MEHTA MD Location:[facility] Appointment Type: OV OB Routine Follow Up Future Scheduled Tests Laboratory* Glucose Tolerance Test 3 Hour (AO) 09/16/23 * Complete Blood Count 07/25/23 * Lipid Profile 07/25/23 * Hepatitis C Antibody IgG 07/25/23 * Vitamin D Level 07/25/23 * Complete Metabolic Panel 07/25/23 Radiology* US OB > 14 weeks 11/10/23 [facility] Evaluation + Plan note Future Appointments Appointment Date:12/01/2023 03:45:00 PM Scheduled Provider:PATRICE REGAN Location:[facility] Appointment Type: OV OB Routine Follow Up Diagnostic Tests Pending * HSV 1 and 2 Ab, IgG 11/26/23 Future Scheduled Tests Laboratory* Glucose Tolerance Test 3 Hour (AO) 09/16/23 * Complete Blood Count 07/25/23 * Lipid Profile 07/25/23 * Hepatitis C Antibody IgG 07/25/23 * Vitamin D Level 07/25/23 * Complete Metabolic Panel 07/25/23 Radiology* US OB > 14 weeks 11/10/23 [facility] Evaluation + Plan note Future Appointments Appointment Date:07/18/2024 03:45:00 PM Scheduled Provider:LATOYA IZQUIERDO MD Location:[facility] Appointment Type: OV Diagnostic Tests Pending * Helicobacter Pylori Antibody 05/11/24 Future Scheduled Tests Laboratory* Glucose Tolerance Test 3 Hour (AO) 09/16/23 * Complete Blood Count 07/25/23 * Lipid Profile 07/25/23 * Hepatitis C Antibody IgG 07/25/23 * Vitamin D Level 07/25/23 * Complete Metabolic Panel 07/25/23 Radiology* US OB > 14 weeks 11/10/23 [facility] Evaluation note* Diagnosis Onset Date Resolution Status Admit Date History of depres alban, currently acute September 13 8:46am 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 acute September 8:46am HSV-1 (herpes simplex virus 1) infection acute September 13, 2024 8 :46am Hx of gestational diabetes i n prior , currently acute September 13, 2024 8 :46am acute September 13, 2024 8:46am Stomach ulcer acute September 13, 2 025 8:46am Supervision of high-risk [place] cummins September 13, 2024 8:46am [facility] Work Phone: Hospital course Narrative No data available for this section [facility] Discharge instructions No data available for this section [facility] Progress note No data available for this section [facility] Prozcess note Author Gwen Claudio [facility] Services Note Date/Time September 13, 2024 9:40a m [facility] [address] [place] [address], [address] [place] [address] OFFICE VISIT Date of Service: 09/13/24 MR#: [id number] Acct: [id number] Name: CARMEN THOMPSON Rep #: [id number] : 1995 Provider: GISELLE Claudio Age/Sex: 29/F Location: [facility] Status: Signed Intake Vital Signs 03/01/24 15:53 08/19/24 13:28 09/13/24 08:51 Height 5 ft 5 ft 5 ft Weight: 133 lb 2 oz BMI 25.9 BP 108/74 Intake Visit Reasons: New OB, 8 months PP, US at [place], FRANNY 04/11 Chief Complaint: New OB 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: No Is patient in pain?: No Allergies No Known Allergies Allergy (Verified 09/13/24 08:49) Medications ?Medication ?Instructions ?Recorded ?Confirmed ?Type docosahexaenoic acid 200 mg mg PO 08/19/24 09/13/24 Hi story capsule ( DHA) Last Menstrual Period: 06/15/24 : Yes PFSH PFSH Medical History 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 Hx of gestational diabetes in prior , currently Surgical History H/O colposcopy with cervical biopsy Family History Father Diabetes Hyperlipidemia Hypertension Chronic mental illness Mother Hypertension Sister Hereditary spherocytosis Social History adopted: No household members: spouse, children and other details: Pt's mom housing: house number of children: 1 current occupational status: employed 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 occupational exposures/hazards: Yes pets and animals: Yes (Not managing litter box) pets and animals: cat(s) and other details: jennifer history of recent travel: No sexually active: Yes Smoking Status: Never smoker second hand exposure: Yes (PT's mother - smokes outside) alcohol intake: current alcohol intake frequency: holidays/special occasions only details: Not while substance use type: does not use diet: lactose free well-balanced diet: about half the time caffeine: Yes Type: coffee eating out: rarely or never during the past year weight has: decreased > 10 lbs what type of physical activity do you participate in: walking frequency: 1-2 times per week duration: < 15 minutes/day jarrod/christianity: Denominational seatbelt use: always do you feel safe at home: Yes additional social history: : [employer]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 Date Name GA/Weeks Outcome Route Bth Weight Infant Gen Labor Lgth Anes t hesia Del Locatn Provider FOB 12/09/23 Ananda 40 live - full term vacuum 7lbs 2oz Male epidural [facility] Delivery Date: 12/09/23 Last Updated by: Azalia Manzo RN GDM, nuchal cord, Induced d/t est baby size HPI New OB, 8 months PP, US at [place], FRANNY 04/11 Details: CARMEN THOMPSON is a 29 year old who presents for New OB visit. OB Visit FRANNY Calculator Estimated Delivery Date Method Current WG Current Estimate 04/11/25 Ultrasound #2 10w 0d Other Estimates 04/11/25 Ultrasound #1 10w 0d Estimated Due Date: 04/11/25 Expected Delivery Route/Plan Labor Preferences- CB/BF classes: [] labor support person: [] labor intervention preferences: [] pain management options preferred: [] cut cord/dad catch: [] : [] PP control planned: [] discussed possible routes of delivery and associated risks: [] special requests: [] Specific Issue/Plans Covid status: [] Flu vaccine: [] Tdap vaccine: [] Rhogam: [] LARC form signed: [] Problem list reviewed and updated with the most current plan of care details and appropriate orders placed. Relevant counseling for the gestational age provided. Continue routine care and follow up unless otherwise noted in visit notes/problem list details Initial Weight: 133 lb Date -?-?-?-?-?-?-?-?-?-?-?-?- EGA Weight BP Urine Prot -?-?-?-?-?-?-?--?-?-?-?-?- Glucose FHR FuHt Pres Dilation -?-?-?-?-?-?-?-?-?-?-?-?- Effaced St Visit Note 09/13/24 -?-?-?-?-?-?-?-?-?-?-?-?- 10w 0d 133 lb 2 oz (+2 oz) 108/74 -?-?-?-?-?-?-?-?-?-?-?-?- 180 -?-?-?-?-?-?-?-?-?-?-?-?- KW- CRL cons wit h dates. declines NIPT. labs today. anatomy US ordered Menstrual History Last Menstrual Period: 06/15/24 Reported LMP: unknown (Had period in April and June) Normal amount/duration: No On hormonal BC at conception: No hCG+: 08/07/24 Antepartum Record Genetic Screening: Congenital Heart Defect: Other, Neural Tube Defect: Other, Hemoglobinopathy Or Carrier: Other, Cystic Fibrosis: Other, Chromosome Abnormality: Other, Ruben-Sachs: Other, Hemophilia: Other, Intellectual Disability/Autism: Other, Recurrent Loss/Stillbirth: Other, Other Structural Defect: Other, Other Genetic Disease: Patient (Pt's sister & nephew with hereditary spherocytosis) and Maternal Metabolic Disorder: Other Infection History: Live with someone with TB or Exposed to TB: No, Patient or Partner has history of Genital Herpes: No, Rash or Viral illness since last mentrual period: No, Prior GBS-Infected child: No, History of STD: Yes (HPV - 2020), HIV Infection: No, History of Hepatitis: No, Recent travel outside of [place]: No, Concern for hepatitis exposure: No, Varicella immune: Yes (Had chicken pox & vaccine) and Covid Vaccinated: No Medical History Medical History: Positive: Diabetes (GDM), Depression/ depression ( depression), 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), History of abnormal pap (HPV+) and Uterine anomaly/rodrigo (Inverted uterus) and Negative: Hypertension, Heart disease, Auto-immune disorder, Kidney disease/UTI, Neurologic/epilepsy, Psychiatric, Hepatitis/liver disease, Varicosities/phlebitis, Thyroid dysfunction, Trauma/domestic violence, History of blood transfusions, D (Rh) Sensitized, Pulmonary (e.g.,TB,Asthma), Seasonal allergies, Drug/latex allergies/reactions, Breast, Operations/hospitalizations, Anesthetic complications, Infertility, Anti- retroviral treatment, Relevant family history and Other ACOG First Trimester First Trimester: Desire for , Alcohol, Tobacco Cessation, Illicit/Recreational Drug/Substance Use, Intimate Partner Violence, Barriers to care, Unstable Housing, Communication Barriers, Environmental/Work Hazards, Anticipated Course of Care, Toxoplasmosis Precations, Use of Any medications, Sexual activity, Exercise, Dental Care, Sauna/Hot tub use, Seat Belt use, Childbirth classes/Hospital facilities, , Travel, Indications for Ultrasound and Screening for Aneuploidy Second Trimester Second Trimester: Signs and Symptoms of Labor, Selecting a care provider, Reproductive Life Planning & Contreception, Care Planning, Depression/Anxiety and Intimate Partner Violence; Discussed Tobacco Cessation Third Trimester Third Trimester: Pain Management Plans, Labor support person(s), Immediate Larc, Signs and Symptoms of Preeclampsia, Infant Feeding Yes , [place] Education and Family Medical Leave or Disability Forms ROS Const Reports system reviewed and no additional complaints, except as documented, Denies fatigue, Denies headache(s) and Denies lethargy ENT Denies headache(s) Card Reports system reviewed and no additional complaints, except as documented Resp Reports system reviewed and no additional complaints, except as documented GI Reports system reviewed and no additional complaints, except as documented, Denies abdominal pain, Denies constipation, Denies cramping, Denies diarrhea and Denies dyspepsia Reports system reviewed and no additional complaints, except as documented, Denies abnormal vaginal bleeding, Denies difficulty voiding, Denies dyspareunia and Denies dysuria Musc Reports system reviewed and no additional complaints, except as documented Skin/Breast Reports system reviewed and no additional complaints, except as documented Neuro Yes system reviewed and no additional complaints, except as documented and No headache(s) Psych Reports system reviewed and no additional complaints, except as documented, Denies anhedonia and Denies anxiety Endo Reports system reviewed and no additional complaints, except as documented and Denies fatigue Exam Const General: cooperative, healthy appearing and comfortable Neck Neck: normal visual inspection and full ROM Chest Chest palpation & inspection: normal inspection of the chest Breast inspection: normal inspection of the breasts and normal inspection of the axillae Breast palpation: normal palpation of the breasts and normal palpation of the axillae Resp Effort & Inspection: normal respiratory effort and able to speak in complete sentences GI Inspection: normal to inspection Palpation: soft External Female Exam: normal external appearance and normal appearance of the urethra Urethra: normal appearance of the urethra Skin General: no rashes or lesions noted Neuro General: patient alert, patient awake and patient oriented x3 Extrem General: normal to inspection and full ROM Psych Appearance: grossly normal and well kempt Mental Status: mental status grossly normal Mood: congruent mood Affect: normal affect Speech and Movement: speech and movement normal Thought Process: normal Thought Content: normal Coding Level of Care Code OB Routine Diagnoses Supervision of high-risk O09.90 10 weeks gestation of Z3A.10 Weeks of gestation: 10 weeks History of depression, currently O99.891; Z86.59 Stomach ulcer K25.9 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 HSV-1 (herpes simplex virus 1) infection B00.9 Hx of gestational diabetes in prior , currently O09.299; Z86.32 Assessment and Plan Assessment and Plan (1) Supervision of high-risk : Status: Acute Comment: ; FRANNY 04/11; PC: Ananda; : Edinson (2) : Status: Acute Qualifiers: Weeks of gestation: 10 weeks Qualified Code(s): Z3A.10 - 10 weeks gestation of Comment: Discussed genetic/carrier testing - undecided (3) History of depression, currently : Status: Acute Comment: no meds (4) Stomach ulcer: Status: Acute Comment: +H. Pylori (5) 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: Status: Acute Comment: 2020 - [place] (6) HSV-1 (herpes simplex virus 1) infection: Status: Acute Comment: Valtrex for outbreaks (7) Hx of gestational diabetes in prior , currently : Status: Acute Comment: Was diet controlled Comments Comments: Patient oriented to practice and discussed care expectations and screenings. ACOG book offered to patient. Discussed routine and specially indicated labs if needed- patient consents to testing. See problem list details for plan information. Optional screening including maternal carrier screenings, neural tube defect screening, genetic screening options including quad screen, nuchal translucency, sequential screening, and NIPT screening offered to patient and patient chose: [ ] 09/13/24 0940 <Electronically signed by Gwen mclean CNM> Date _ Gwen Claudio CNM Cosigner Signature: Date (if applicable) CC: ~ [facility] Work Phone: Reason for referral (narrative)No reason for referral information available[facility]alinga [facility] Work Phone: Summary Purpose Family History Relationship Condition Age at Onset Recorded Date/T lucila father Diabetes mellitus Unknown Hyperlipidemia Unknown Hypertension Unknown Chronic mental illness Unknown mother Hypertension Unknown sister Hereditary spherocytosis Unknown No Family History Records Found Advance Directives No Advanced Directives Records FoundNo Advanced Directives Records FoundNo Advanced Directives Records FoundNo Advanced Directives Records FoundNo Advanced Directives Records Found Chief Complaint and Reason for Visit Chief Complaint Admit Date Urine preg, new pt, multipara August 1:24pm Amb Documentation September 09, 2024 11:41a m New OB, 8 months PP, US at [place], FRANNY 04/11September 13, 2024 8:46am Reason for Visit Admit Date History of depression, curren tly September 13, 2024 8:46am 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 September 13, 2024 8:46a m HSV-1 (herpes simplex virus 1) infection September 13, 2024 8:46am Hx of gestational diabetes i n prior , currently September 13, 2024 8:46am September 13, 2024 8:46a m Stomach ulcer September 13, 2024 8:46a m Supervision of high-risk September 01 3t2024 8:46am Chief Complaint Admit Date Urine preg, new pt, multipara August 1:24pm Amb Documentation September 09, 2024 11:41a m New OB, 8 months PP, US at [place], FRANNY 04/11September 13, 2024 8:46am 14wk OB October 04, 2024 9:35a m Reason for Visit Admit Date History of depression, keyona joseph September 13, 2024 8:46am 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 September 13, 2024 8:46a m HSV-1 (herpes simplex virus 1) infection September 13, 2024 8:46am Hx of gestational diabetes i n prior , currently September 13, 2024 8:46am September 13, 2024 8:46a m Stomach ulcer September 13, 2024 8:46a m Supervision of high-risk September 01 3t2024 8:46am History of depression, keyona joseph October 04, 2024 9:35am 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 October 04, 2024 9:35a m HSV-1 (herpes simplex virus 1) infection October 04, 2024 9:35am Hx of gestational diabetes i n prior , currently October 04, 2024 9:35am October 04, 2024 9:35a m Stomach ulcer October 04, 2024 9:35a m Supervision of high-risk October 04, 2024 9:35am Chief Complaint Admit Date Urine preg, new pt, multipara August 1:24pm Amb Documentation September 09, 2024 11:41a m New OB, 8 months PP, US at [place], FRANNY 04/11September 13, 2024 8:46am 14wk OB October 04, 2024 9:35a m 18wk ob November 02, 2024 3:50p m Reason for Visit Admit Date History of depression, keyona joseph September 13, 2024 8:46am 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 September 13, 2024 8:46a m HSV-1 (herpes simplex virus 1) infection September 13, 2024 8:46am Hx of gestational diabetes i n prior , currently September 13, 2024 8:46am September 13, 2024 8:46a m Stomach ulcer September 13, 2024 8:46a m Supervision of high-risk September 012024 8:46am History of depression, keyona joseph October 04, 2024 9:35am 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 October 04, 2024 9:35a m HSV-1 (herpes simplex virus 1) infection October 04, 2024 9:35am Hx of gestational diabetes i n prior , currently October 04, 2024 9:35am October 04, 2024 9:35a m Supervision of high-risk October 04, 2024 9:35am History of depression, keyona joseph November 02, 2024 3:50pm 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 November 02, 2024 3:50p m HSV-1 (herpes simplex virus 1) infection November 02, 2024 3:50pm Hx of gestational diabetes i n prior , currently November 02, 2024 3:50pm November 02, 2024 3:50p m Stomach ulcer November 02, 2024 3:50p m Supervision of high-risk November 02, 2024 3:50pm Chief Complaint Admit Date Urine preg, new pt, multipara August 1:24pm Amb Documentation September 09, 2024 11:41a m New OB, 8 months PP, US at [place], FRANNY 04/11September 13, 2024 8:46am 14wk OB October 04, 2024 9:35a m 18wk ob November 02, 2024 3:50p m 22wk ob December 01, 2024 3:55 pm Reason for Visit Admit Date History of depression, keyona joseph September 13, 2024 8:46am Hx of gestational diabetes i n prior , currently September 13, 2024 8:46am September 13, 2024 8:46a m Supervision of high-risk September 012024 8:46am 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 September 13, 2024 8:46a m HSV-1 (herpes simplex virus 1) infection September 13, 2024 8:46am Stomach ulcer September 13, 2024 8:46a m History of depression, keyona joseph October 04, 2024 9:35am Hx of gestational diabetes i n prior , currently October 04, 2024 9:35am October 04, 2024 9:35a m Supervision of high-risk October 04, 2024 9:35am 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 October 04, 2024 9:35a m HSV-1 (herpes simplex virus 1) infection October 04, 2024 9:35am History of depression, keyona joseph November 02, 2024 3:50pm Hx of gestational diabetes i n prior , currently November 02, 2024 3:50pm November 02, 2024 3:50p m Supervision of high-risk November 02, 2024 3:50pm 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 November 02, 2024 3:50p m HSV-1 (herpes simplex virus 1) infection November 02, 2024 3:50pm Stomach ulcer November 02, 2024 3:50p m History of depression, keyona joseph December 01, 2024 3:55pm Hx of gestational diabetes i n prior , currently December 01, 2024 3:55pm December 01, 2024 3:55 pm Supervision of high-risk December 01, 2024 3:55pm Chief Complaint Admit Date Amb Documentation September 09, 2024 11:41a m New OB, 8 months PP, US at [place], FRANNY 04/11September 13, 2024 8:46am 14wk OB October 04, 2024 9:35a m 18wk ob November 02, 2024 3:50p m 22wk ob December 01, 2024 3:55 pm 26 wk ob December 26, 2024 3: 28pm Reason for Visit Admit Date History of depression, keyona joseph September 13, 2024 8:46am Hx of gestational diabetes i n prior , currently September 13, 2024 8:46am September 13, 2024 8:46a m Supervision of high-risk September 012024 8:46am 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 September 13, 2024 8:46a m HSV-1 (herpes simplex virus 1) infection September 13, 2024 8:46am Stomach ulcer September 13, 2024 8:46a m History of depression, keyona joseph October 04, 2024 9:35am Hx of gestational diabetes i n prior , currently October 04, 2024 9:35am October 04, 2024 9:35a m Supervision of high-risk October 04, 2024 9:35am 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 October 04, 2024 9:35a m HSV-1 (herpes simplex virus 1) infection October 04, 2024 9:35am History of depression, keyona joseph November 02, 2024 3:50pm Hx of gestational diabetes i n prior , currently November 02, 2024 3:50pm November 02, 2024 3:50p m Supervision of high-risk November 02, 2024 3:50pm 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 November 02, 2024 3:50p m HSV-1 (herpes simplex virus 1) infection November 02, 2024 3:50pm Stomach ulcer November 02, 2024 3:50p m History of depression, keyona joseph December 01, 2024 3:55pm Hx of gestational diabetes i n prior , currently December 01, 2024 3:55pm December 01, 2024 3:55 pm Supervision of high-risk December 01, 2024 3:55pm History of depression, keyona joseph December 26, 2024 3:28pm Hx of gestational diabetes i n prior , currently December 26, 2024 3:28pm December 26, 2024 3: 28pm Supervision of high-risk Augus t 2024 3:28pm Chief Complaint Admit Date New OB, 8 months PP, US at [place], FRANNY 04/11September 13, 2024 8:46am 14wk OB October 04, 2024 9:35a m 18wk ob November 02, 2024 3:50p m 22wk ob December 01, 2024 3:55 pm 26 wk ob December 26, 2024 3: 28pm 28wk ob/glucose January 11, 2025 3:23pm Reason for Visit Admit Date History of depression, keyona joseph September 13, 2024 8:46am Hx of gestational diabetes i n prior , currently September 13, 2024 8:46am September 13, 2024 8:46a m Supervision of high-risk September 012024 8:46am 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 September 13, 2024 8:46a m HSV-1 (herpes simplex virus 1) infection September 13, 2024 8:46am Stomach ulcer September 13, 2024 8:46a m History of depression, keyona joseph October 04, 2024 9:35am Hx of gestational diabetes i n prior , currently October 04, 2024 9:35am October 04, 2024 9:35a m Supervision of high-risk October 04, 2024 9:35am 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 October 04, 2024 9:35a m HSV-1 (herpes simplex virus 1) infection October 04, 2024 9:35am History of depression, keyona joseph November 02, 2024 3:50pm Hx of gestational diabetes i n prior , currently November 02, 2024 3:50pm November 02, 2024 3:50p m Supervision of high-risk November 02, 2024 3:50pm 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 November 02, 2024 3:50p m HSV-1 (herpes simplex virus 1) infection November 02, 2024 3:50pm Stomach ulcer November 02, 2024 3:50p m History of depression, keyona joseph December 01, 2024 3:55pm Hx of gestational diabetes i n prior , currently December 01, 2024 3:55pm December 01, 2024 3:55 pm Supervision of high-risk December 01, 2024 3:55pm History of depression, keyona joseph December 26, 2024 3:28pm Hx of gestational diabetes i n prior , currently December 26, 2024 3:28pm December 26, 2024 3: 28pm Supervision of high-risk Augus 2024 3:28pm History of depression, keyona joseph January 11, 2025 3:23pm Hx of gestational diabetes i n prior , currently January 11, 2025 3:23pm January 11, 2025 3:23pm Supervision of high-risk Tommy mber 2024 3:23pm Chief Complaint Admit Date 14wk OB October 04, 2024 9:35a m 18wk ob November 02, 2024 3:50p m 22wk ob December 01, 2024 3:55 pm 26 wk ob December 26, 2024 3: 28pm 28wk ob/glucose January 11, 2025 3:23pm 30 WK OB January 24, 2025 2:47pm Reason for Visit Admit Date History of depression, keyona joseph October 04, 2024 9:35am Hx of gestational diabetes i n prior , currently October 04, 2024 9:35am October 04, 2024 9:35a m Supervision of high-risk October 04, 2024 9:35am 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 October 04, 2024 9:35a m HSV-1 (herpes simplex virus 1) infection October 04, 2024 9:35am History of depression, keyona joseph November 02, 2024 3:50pm Hx of gestational diabetes i n prior , currently November 02, 2024 3:50pm November 02, 2024 3:50p m Supervision of high-risk November 02, 2024 3:50pm 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 November 02, 2024 3:50p m HSV-1 (herpes simplex virus 1) infection November 02, 2024 3:50pm Stomach ulcer November 02, 2024 3:50p m History of depression, keyona joseph December 01, 2024 3:55pm Hx of gestational diabetes i n prior , currently December 01, 2024 3:55pm December 01, 2024 3:55 pm Supervision of high-risk December 01, 2024 3:55pm History of depression, keyona joseph December 26, 2024 3:28pm Hx of gestational diabetes i n prior , currently December 26, 2024 3:28pm December 26, 2024 3: 28pm Supervision of high-risk Augus t 2024 3:28pm History of depression, keyona joseph January 11, 2025 3:23pm Hx of gestational diabetes i n prior , currently January 11, 2025 3:23pm January 11, 2025 3:23pm Supervision of high-risk Tommy [facility] 2024 3:23pm History of depression, keyona joseph January 24, 2025 2:47pm Hx of gestational diabetes i n prior , currently January 24, 2025 2:47pm January 24, 2025 2:47pm Supervision of high-risk Tommy [facility] 2024 2:47pm Chief Complaint Admit Date 18wk ob November 02, 2024 3:50p m 22wk ob December 01, 2024 3:55 pm 26 wk ob December 26, 2024 3: 28pm 28wk ob/glucose January 11, 2025 3:23pm 30 WK OB January 24, 2025 2:47pm 32 WK OB February 09, 2025 3: 14pm 33 wk ob February 21, 2025 3 :19pm Reason for Visit Admit Date History of depression, keyona joseph November 02, 2024 3:50pm Hx of gestational diabetes i n prior , currently November 02, 2024 3:50pm November 02, 2024 3:50p m Supervision of high-risk November 02, 2024 3:50pm 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 November 02, 2024 3:50p m HSV-1 (herpes simplex virus 1) infection November 02, 2024 3:50pm Stomach ulcer November 02, 2024 3:50p m History of depression, keyona joseph December 01, 2024 3:55pm Hx of gestational diabetes i n prior , currently December 01, 2024 3:55pm December 01, 2024 3:55 pm Supervision of high-risk December 01, 2024 3:55pm History of depression, keyona joseph December 26, 2024 3:28pm Hx of gestational diabetes i n prior , currently December 26, 2024 3:28pm December 26, 2024 3: 28pm Supervision of high-risk Augus t 2024 3:28pm History of depression, keyona joseph January 11, 2025 3:23pm Hx of gestational diabetes i n prior , currently January 11, 2025 3:23pm January 11, 2025 3:23pm Supervision of high-risk Tommy mber 2024 3:23pm History of depression, keyona joseph January 24, 2025 2:47pm Hx of gestational diabetes i n prior , currently January 24, 2025 2:47pm January 24, 2025 2:47pm Supervision of high-risk Tommy mber 2024 2:47pm History of depression, keyona joseph February 09, 2025 3:14pm Hx of gestational diabetes i n prior , currently February 09, 2025 3:14pm February 09, 2025 3: 14pm Supervision of high-risk Octob er 2024 3:14pm History of depression, keyona jsoeph February 21, 2025 3:19pm Hx of gestational diabetes i n prior , currently February 21, 2025 3:19pm February 21, 2025 3 :19pm Supervision of high-risk Octob er 2024 3:19pm Chief Complaint Admit Date 22wk ob December 01, 2024 3:55 pm 26 wk ob December 26, 2024 3: 28pm 28wk ob/glucose January 11, 2025 3:23pm 30 WK OB January 24, 2025 2:47pm 32 WK OB February 09, 2025 3: 14pm 33 wk ob February 21, 2025 3 :19pm 35wk1d ob March 08, 2025 3 :30pm Reason for Visit Admit Date History of depression, keyona joseph December 01, 2024 3:55pm Hx of gestational diabetes i n prior , currently December 01, 2024 3:55pm December 01, 2024 3:55 pm Supervision of high-risk December 01, 2024 3:55pm History of depression, keyona joseph December 26, 2024 3:28pm Hx of gestational diabetes i n prior , currently December 26, 2024 3:28pm December 26, 2024 3: 28pm Supervision of high-risk Augus t 2024 3:28pm History of depression, keyona joseph January 11, 2025 3:23pm Hx of gestational diabetes i n prior , currently January 11, 2025 3:23pm January 11, 2025 3:23pm Supervision of high-risk Septe mber 2024 3:23pm History of depression, keyona tly January 24, 2025 2:47pm Hx of gestational diabetes i n prior , currently January 24, 2025 2:47pm January 24, 2025 2:47pm Supervision of high-risk Septe mber 2024 2:47pm History of depression, currcyn tly February 09, 2025 3:14pm Hx of gestational diabetes i n prior , currently February 09, 2025 3:14pm February 09, 2025 3: 14pm Supervision of high-risk Octob er 2024 3:14pm History of depression, keyona tly February 21, 2025 3:19pm Hx of gestational diabetes i n prior , currently February 21, 2025 3:19pm February 21, 2025 3 :19pm Supervision of high-risk Octob er 2024 3:19pm History of depression, keyona tly March 08, 2025 3:30pm Hx of gestational diabetes i n prior , currently March 08, 2025 3:30pm March 08, 2025 3 :30pm Supervision of high-risk Novem 2024 3:30pm Additional Source Comments Care Team (unrecognized sect ion and content) Care Team Personnel Name: CARON GLASGOW DO Position: P4 Physician - Primary Care Member Role: Primary Care Physician Address: Address: [address] [place] [id number]- Name: FAITH COOK DO Position: ED Physician Member Role: Attending Physician Address: Address: [facility] [address] [place] [address]- [place] Name: Mercy Yin RN Position: AO RN Member Role: RN Care Team Related Persons Name: VAHE ESCALANTE Anthony Address: Home [address] [place], [place] [id number] Patient Care team informatio n (unrecognized section and content) Team Status: Active Member Role Status Dates Dr. Caron Krusemark-Millin , DO Primary Care Provid er Active Team Status: Inactive Member Role Status Dates Gwen Claudio CNM Attending Provider Active S tart: August 19, 2024 End: August 19, 2024 Team Status: Active Member Role Status Dates Dr. Caron Glasgow , DO Primary Care Provid er Active Start: September 09, 2024 Azalia Manzo RN Attending Provider Active St art: September 09, 2024 Team Status: Inactive Member Role Status Dates Gwen Claudio CNM Attending Provider Active S tart: September 13, 2024 End: September 13, 2024 Dr. Caron Glasgow DO Primary Care Provid er Active Start: September 13, 2024 End: September 13, 2024 Dr. Caron Glasgow DO Referring Provider Active Start: September 13, 2024 End: September 13, 2024 Team Status: Active Member Role Status Dates Dr. Caron Glasgow DO Primary Care Provid er Active Start: September 13, 2024 Gwen Claudio CNM Attending Provider Active S tart: September 13, 2024 Gwen Claudio CNM Referring Provider Active S tart: September 13, 2024 Team Status: Inactive Member Role Status Dates Dr. Caron Glasgow DO Primary Care Provid er Active Start: September 13, 2024 End: September 13, 2024 Gwen Claudio CNM Attending Provider Active S tart: September 13, 2024 End: September 13, 2024 Gwen Claudio CNM Referring Provider Active S tart: September 13, 2024 End: September 13, 2024 Team Status: Inactive Member Role Status Dates Dr. Caron Glasgow DO Primary Care Provid er Active Start: October 04, 2024 End: October 04, 2024 Dr. Caron Glasgow DO Referring Provider Active Start: October 04, 2024 End: October 04, 2024 Jessy Foss NP, OCCUPATIONAL SAFETY AND HEALTH MANAGER-C Attending Provider Active Start: October 04, 2024 End: October 04, 2024 Team Status: Active Member Role/Relationship Status Dates Dr. Caron Glasgow DO Primary Care Provid er Active Team Status: Inactive Member Role/Relationship Status Dates Gwen Noam , CNM Attending Provider Active S tart: August 19, 2024 End: August 19, 2024 Team Status: Active Member Role/Relationship Status Dates Dr. Caron Glasgow DO Primary Care Provid er Active Start: September 09, 2024 Azalia Manzo RN Attending Provider Active St art: September 09, 2024 Team Status: Inactive Member Role/Relationship Status Dates Gwen Claudio CNM Attending Provider Active S tart: September 13, 2024 End: September 13, 2024 Dr. Caron Glasgow , DO Primary Care Provid er Active Start: September 13, 2024 End: September 13, 2024 Dr. Caron Glasgow DO Referring Provider Active Start: September 13, 2024 End: September 13, 2024 Team Status: Inactive Member Role/Relationship Status Dates Dr. Caron Glasgow DO Primary Care Provid er Active Start: September 13, 2024 End: September 13, 2024 Gwen Claudio CNM Attending Provider Active S tart: September 13, 2024 End: September 13, 2024 Gwen Claudio CNM Referring Provider Active S tart: September 13, 2024 End: September 13, 2024 Team Status: Inactive Member Role/Relationship Status Dates Dr. Caron Glasgow DO Primary Care Provid er Active Start: October 04, 2024 End: October 04, 2024 Dr. Caron Glasgow DO Referring Provider Active Start: October 04, 2024 End: October 04, 2024 Jessy Foss OCCUPATIONAL SAFETY AND HEALTH MANAGER, OCCUPATIONAL SAFETY AND HEALTH MANAGER-C Attending Provider Active Start: October 04, 2024 End: October 04, 2024 Team Status: Inactive Member Role/Relationship Status Dates Dr. Caron Glasgow DO Primary Care Provid er Active Start: November 02, 2024 End: November 02, 2024 Dr. Caron Glasgow DO Referring Provider Active Start: November 02, 2024 End: November 02, 2024 Dr. Caron Everett DO Attending Provider Activ e Start: November 02, 2024 End: November 02, 2024 Team Status: Inactive Member Role/Relationship Status Dates Dr. Caron daly , DO Primary Care Provider Active Start: December 01, 2024 End: December 01, 2024 Dr. Caron daly , Referring Provider Active Start: December 01 End: December 01, 2024 Dr. Kathy Schwartz MD Attending Provider Active Start: December 01, 2024 End: December 01, 2024 Team Status: Active Member Role/Relationship Status Dates Dr. Caron Glasgow DO Primary Care Provid er Active Start: September 09, 2024 Azalia Manzo RN Attending Provider Active St art: September 09, 2024 Team Status: Inactive Member Role/Relationship Status Dates Gwen Claudio CNM Attending Provider Active S tart: September 13, 2024 End: September 13, 2024 Dr. Caron Glasgow DO Primary Care Provid er Active Start: September 13, 2024 End: September 13, 2024 Dr. Caron Glasgow DO Referring Provider Active Start: September 13, 2024 End: September 13, 2024 Team Status: Inactive Member Role/Relationship Status Dates Dr. Caron Glasgow DO Primary Care Provid er Active Start: September 13, 2024 End: September 13, 2024 Gwen Claudio CNM Attending Provider Active S tart: September 13, 2024 End: September 13, 2024 Gwen Claudio CNM Referring Provider Active S tart: September 13, 2024 End: September 13, 2024 Team Status: Inactive Member Role/Relationship Status Dates Dr. Caron Glasgow DO Primary Care Provid er Active Start: October 04, 2024 End: October 04, 2024 Dr. Caron Glasgow DO Referring Provider Active Start: October 04, 2024 End: October 04, 2024 Jessy Foss NP, OCCUPATIONAL SAFETY AND HEALTH MANAGER-C Attending Provider Active Start: October 04, 2024 End: October 04, 2024 Team Status: Inactive Member Role/Relationship Status Dates Dr. Caron Glasgow DO Primary Care Provid er Active Start: November 02, 2024 End: November 02, 2024 Dr. Caron Glasgow DO Referring Provider Active Start: November 02, 2024 End: November 02, 2024 Dr. Caron Everett DO Attending Provider Activ e Start: November 02, 2024 End: November 02, 2024 Team Status: Inactive Member Role/Relationship Status Dates Dr. Caron daly DO Primary Care Provider Active Start: December 01, 2024 End: December 01, 2024 Dr. Caron daly , Referring Provider Active Start: December 01 End: December 01, 2024 Dr. Kathy Schwartz MD Attending Provider Active Start: December 01, 2024 End: December 01, 2024 Team Status: Inactive Member Role/Relationship Status Dates Dr. Caron daly DO Primary Care Provider Active Start: December End: December 26, 2024 Dr. Caron daly DO Referring Provider Active Start: December 26, 2024 End: December 26, 2024 Jessy Foss OCCUPATIONAL SAFETY AND HEALTH MANAGER, OCCUPATIONAL SAFETY AND HEALTH MANAGER-C Attending Provider Active Start: December 26, 2024 End: December 26, 2024 Team Status: Inactive Member Role/Relationship Status Dates Gwen Claudio CNM Attending Provider Active S tart: September 13, 2024 End: September 13, 2024 Dr. Caron Glasgow DO Primary Care Provid er Active Start: September 13, 2024 End: September 13, 2024 Dr. Caron Glasgow DO Referring Provider Active Start: September 13, 2024 End: September 13, 2024 Team Status: Inactive Member Role/Relationship Status Dates Dr. Caron Glasgow DO Primary Care Provid er Active Start: September 13, 2024 End: September 13, 2024 Gwen Claudio CNM Attending Provider Active S tart: September 13, 2024 End: September 13, 2024 Gwen Claudio CNM Referring Provider Active S tart: September 13, 2024 End: September 13, 2024 Team Status: Inactive Member Role/Relationship Status Dates Dr. Caron Glasgow DO Primary Care Provid er Active Start: October 04, 2024 End: October 04, 2024 Dr. Caron Glasgow DO Referring Provider Active Start: October 04, 2024 End: October 04, 2024 Jessy Foss OCCUPATIONAL SAFETY AND HEALTH MANAGER, OCCUPATIONAL SAFETY AND HEALTH MANAGER-C Attending Provider Active Start: October 04, 2024 End: October 04, 2024 Team Status: Inactive Member Role/Relationship Status Dates Dr. Caron Glasgow , Primary Care Provid er Active Start: November 02, 2024 End: November 02, 2024 Dr. Caron Glasgow , Referring Provider Active Start: November 02, 2024 End: November 02, 2024 Dr. Caron Everett , Attending Provider Activ e Start: November 02, 2024 End: November 02, 2024 Team Status: Inactive Member Role/Relationship Status Dates Dr. Caron daly , Primary Care Provider Active Start: December 01, 2024 End: December 01, 2024 Dr. Caron daly , Referring Provider Active Start: December 01 End: December 01, 2024 Dr. Kathy Schwartz MD Attending Provider Active Start: December 01, 2024 End: December 01, 2024 Team Status: Inactive Member Role/Relationship Status Dates Dr. Caron daly DO Primary Care Provider Active Start: December End: December 26, 2024 Dr. Caron daly , Referring Provider Active Start: December 26, 2024 End: December 26, 2024 Jessy Foss OCCUPATIONAL SAFETY AND HEALTH MANAGER, OCCUPATIONAL SAFETY AND HEALTH MANAGER-C Attending Provider Active Start: December 26, 2024 End: December 26, 2024 Team Status: Inactive Member Role/Relationship Status Dates Dr. Caron Glasgow DO Primary Care Provider Active Start: January 11, 2025 End: January 11, 2025 Dr. Caron Glasgow DO Referring Provider Active Start: January 022024 End: January 11, 2025 Jessy Foss OCCUPATIONAL SAFETY AND HEALTH MANAGER, OCCUPATIONAL SAFETY AND HEALTH MANAGER-C Attending Provider Active Start: January 11, 2025 End: January 11, 2025 Team Status: Active Member Role/Relationship Status Dates Dr. Caron Glasgow DO Primary Care Provider Active Start: January 11, 2025 Jessy Foss OCCUPATIONAL SAFETY AND HEALTH MANAGER, OCCUPATIONAL SAFETY AND HEALTH MANAGER-C Attending Provider Active Start: January 11, 2025 Jessy Foss OCCUPATIONAL SAFETY AND HEALTH MANAGER, OCCUPATIONAL SAFETY AND HEALTH MANAGER-C Referring Provider Active Start: January 11, 2025 Team Status: Active Member Role/Relationship Status Dates Dr. Caron Glasgow , DO Primary care physic anastasiia Active Team Status: Inactive Member Role/Relationship Status Dates Dr. Caron daly , DO Primary care physician Active Start: October 04, 2024 End: October 04, 2024 Dr. Caron daly , DO Referring Provider Active Start: October 04 End: October 04, 2024 Jessy Foss OCCUPATIONAL SAFETY AND HEALTH MANAGER, OCCUPATIONAL SAFETY AND HEALTH MANAGER-C Attending physician Active Start: October 04, 2024 End: October 04, 2024 Team Status: Inactive Member Role/Relationship Status Dates Dr. Caron daly , DO Primary care physician Active Start: November 02, 2024 End: November 02, 2024 Dr. Caron daly , DO Referring Provider Active Start: November 02 End: November 02, 2024 Dr. Caron Everett , DO Attending physician Acti ve Start: November 02, 2024 End: November 02, 2024 Team Status: Inactive Member Role/Relationship Status Dates Dr. Caron daly , DO Primary care physician Active Start: December 01, 2024 End: December 01, 2024 Dr. Caron daly , DO Referring Provider Active Start: December 01 End: December 01, 2024 Dr. Kathy Schwartz MD Attending physician Active Start: December 01, 2024 End: December 01, 2024 Team Status: Inactive Member Role/Relationship Status Dates Dr. Caron daly , DO Primary care physician Active Start: December End: December 26, 2024 Dr. Caron daly , DO Referring Provider Active Start: December 26, 2024 End: December 26, 2024 Jessy Foss OCCUPATIONAL SAFETY AND HEALTH MANAGER, OCCUPATIONAL SAFETY AND HEALTH MANAGER-C Attending physician Active Start: December 26, 2024 End: December 26, 2024 Team Status: Inactive Member Role/Relationship Status Dates Dr. Caron Glasgow , Primary care physician Active Start: 2024 End: January 11, 2025 Dr. Caron Glasgow DO Referring Provider Active Start: January 022024 End: January 11, 2025 Jessy Foss OCCUPATIONAL SAFETY AND HEALTH MANAGER, OCCUPATIONAL SAFETY AND HEALTH MANAGER-C Attending physician Active Start: January 11, 2025 End: January 11, 2025 Team Status: Inactive Member Role/Relationship Status Dates Dr. Caron Glasgow , DO Primary care physician Active Start: 2024 End: January 11, 2025 Jessy Foss OCCUPATIONAL SAFETY AND HEALTH MANAGER, OCCUPATIONAL SAFETY AND HEALTH MANAGER-C Attending physician Active Start: January 11, 2025 End: January 11, 2025 Jessy Foss OCCUPATIONAL SAFETY AND HEALTH MANAGER, OCCUPATIONAL SAFETY AND HEALTH MANAGER-C Referring Provider Active Start: January 11, 2025 End: January 11, 2025 Team Status: Inactive Member Role/Relationship Status Dates Dr. Caron Glasgow , Primary care physician Active Start: 2024 End: January 24, 2025 Dr. Caron Glasgow , Referring Provider Active Start: January [id number] End: January 24, 2025 Gwen Claudio CNM Attending physician Active Start: January 24, 2025 End: January 24, 2025 Team Status: Inactive Member Role/Relationship Status Dates Dr. Caron daly , Primary care physician Active Start: November 02, 2024 End: November 02, 2024 Dr. Caron daly , DO Referring Provider Active Start: November 02 End: November 02, 2024 Dr. Caron Everett , Attending physician Acti ve Start: November 02, 2024 End: November 02, 2024 Team Status: Inactive Member Role/Relationship Status Dates Dr. Caron daly , Primary care physician Active Start: December 01, 2024 End: December 01, 2024 Dr. Caron daly , DO Referring Provider Active Start: December 01 End: December 01, 2024 Dr. Kathy Schwartz MD Attending physician Active Start: December 01, 2024 End: December 01, 2024 Team Status: Inactive Member Role/Relationship Status Dates Dr. Caron daly , Primary care physician Active Start: December End: December 26, 2024 Dr. Caron daly , Referring Provider Active Start: December 26, 2024 End: December 26, 2024 Jessy Foss OCCUPATIONAL SAFETY AND HEALTH MANAGER, OCCUPATIONAL SAFETY AND HEALTH MANAGER-C Attending physician Active Start: December 26, 2024 End: December 26, 2024 Team Status: Inactive Member Role/Relationship Status Dates Dr. Caron Glasgow , DO Primary care physician Active Start: 2024 End: January 11, 2025 Dr. Caron Glasgow , Referring Provider Active Start: January 022024 End: January 11, 2025 Jessy Foss OCCUPATIONAL SAFETY AND HEALTH MANAGER, OCCUPATIONAL SAFETY AND HEALTH MANAGER-C Attending physician Active Start: January 11, 2025 End: January 11, 2025 Team Status: Inactive Member Role/Relationship Status Dates Dr. Caron Glasgow , DO Primary care physician Active Start: 2024 End: January 11, 2025 Jessy Foss OCCUPATIONAL SAFETY AND HEALTH MANAGER, OCCUPATIONAL SAFETY AND HEALTH MANAGER-C Attending physician Active Start: January 11, 2025 End: January 11, 2025 Jessy Foss OCCUPATIONAL SAFETY AND HEALTH MANAGER, OCCUPATIONAL SAFETY AND HEALTH MANAGER-C Referring Provider Active Start: January 11, 2025 End: January 11, 2025 Team Status: Inactive Member Role/Relationship Status Dates Dr. Caron Glasgow , Primary care physician Active Start: 2024 End: January 24, 2025 Dr. Caron Glasgow DO Referring Provider Active Start: January [id number] End: January 24, 2025 Gwen Claudio CNM Attending physician Active Start: January 24, 2025 End: January 24, 2025 Team Status: Inactive Member Role/Relationship Status Dates Dr. Caron daly , Primary care physician Active Start: February End: February 09, 2025 Dr. Caron daly , Referring Provider Active Start: February 09, 2025 End: February 09, 2025 Dr. Caron Everett DO Attending physician Acti ve Start: February 09, 2025 End: February 09, 2025 Team Status: Inactive Member Role/Relationship Status Dates Dr. Craon daly , DO Primary care physician Active Start: February [id number] End: February 21, 2025 Dr. Caron daly , Referring Provider Active Start: February 21, 2025 End: February 21, 2025 Dr. Caron Everett , Attending physician Acti ve Start: February 21, 2025 End: February 21, 2025 Team Status: Inactive Member Role/Relationship Status Dates Dr. Caron daly , DO Primary care physician Active Start: December 01, 2024 End: December 01, 2024 Dr. Caron daly , DO Referring Provider Active Start: December 01 End: December 01, 2024 Dr. Kathy Schwartz MD Attending physician Active Start: December 01, 2024 End: December 01, 2024 Team Status: Inactive Member Role/Relationship Status Dates Dr. Caron daly , Primary care physician Active Start: December End: December 26, 2024 Dr. Caron daly , Referring Provider Active Start: December 26, 2024 End: December 26, 2024 Jessy Foss OCCUPATIONAL SAFETY AND HEALTH MANAGER, OCCUPATIONAL SAFETY AND HEALTH MANAGER-C Attending physician Active Start: December 26, 2024 End: December 26, 2024 Team Status: Inactive Member Role/Relationship Status Dates Dr. Caron Glasgow , Primary care physician Active Start: 2024 End: January 11, 2025 Dr. Caron Glasgow DO Referring Provider Active Start: January 022024 End: January 11, 2025 Jessy Foss OCCUPATIONAL SAFETY AND HEALTH MANAGER, OCCUPATIONAL SAFETY AND HEALTH MANAGER-C Attending physician Active Start: January 11, 2025 End: January 11, 2025 Team Status: Inactive Member Role/Relationship Status Dates Dr. Caron Glasgow DO Primary care physician Active Start: 2024 End: January 11, 2025 Jessy Foss OCCUPATIONAL SAFETY AND HEALTH MANAGER, OCCUPATIONAL SAFETY AND HEALTH MANAGER-C Attending physician Active Start: January 11, 2025 End: January 11, 2025 Jessy Foss OCCUPATIONAL SAFETY AND HEALTH MANAGER, [employer]CCUP[employer] S[employer] AND HEALTH MANAGER-C Referring Provider Active Start: January 11, 2025 End: January 11, 2025 Team Status: Inactive Member Role/Relationship Status Dates Dr. Caron Glasgow DO Primary care physician Active Start: 2024 End: January 24, 2025 Dr. Caron Glasgow DO Referring Provider Active Start: January [id number] End: January 24, 2025 Gwen Claudio CNM Attending physician Active Start: January 24, 2025 End: January 24, 2025 Team Status: Inactive Member Role/Relationship Status Dates Dr. Caron daly DO Primary care physician Active Start: February End: February 09, 2025 Dr. Caron daly DO Referring Provider Active Start: February 09, 2025 End: February 09, 2025 Dr. Caron Everett DO Attending physician Acti ve Start: February 09, 2025 End: February 09, 2025 Team Status: Inactive Member Role/Relationship Status Dates Dr. Caron daly DO Primary care physician Active Start: February [id number] End: February 21, 2025 Dr. Caron daly DO Referring Provider Active Start: February 21, 2025 End: February 21, 2025 Dr. Caron Everett DO Attending physician Acti ve Start: February 21, 2025 End: February 21, 2025 Team Status: Inactive Member Role/Relationship Status Dates Dr. Caron daly DO Primary care physician Active Start: March [id number] End: March 08, 2025 Dr. Caron daly DO Referring Provider Active Start: March 08, 2025 End: March 08, 2025 Dr. Kathy Schwartz MD Attending physician Active Start: March 08, 2025 End: March 08, 2025 INFORMATION SOURCE (unrecogn ized section and content) DATE CREATED AUTHOR 04/14/2023 [facility] ([place]) DATE CREATED AUTHOR AUTHOR'S ORGANIZ ATION 12/25/2023 [facility] [place] DATE CREATED AUTHOR AUTHOR'S ORGANIZ ATION 08/18/2024 [facility] DATE CREATED AUTHOR AUTHOR'S ORGANIZ ATION 12/24/2024 [facility] DATE CREATED AUTHOR AUTHOR'S ANAMARIA ATPAULA 03/14/2025 [facility] Goals (unrecognized section and content) Type Care Experience Lsvdlabor Preference s-CB/BF classes: nolabor support person: Bryanlabor intervention preferences: []pain management options preferred: epiduralcut cord/dad catch: cordbreastfeeding: yesPP control planned: discusseddiscussed possible routes of delivery and associated risks: []special requests: [] Type Detail Care Experience Labor Preferences-CB /BF classes: nolabor support person: Bryanlabor intervention preferences: []pain management options preferred: epiduralcut cord/dad catch: cordbreastfeeding: yesPP control planned: discusseddiscussed possible routes of delivery and associated risks: []special requests: [] Goals may be documented in an alternate section FOR RECORDS PERTAINING TO PATIENTS WHO ARE OR HAVE BEEN ENROLLED IN A CHEMICAL DEPENDENCY/SUBSTANCEABUSE PROGRAM, SOME INFORMATION MAY BE OMITTED. This clinical summary was aggregated from multiple sources. Caution should be exercised in using it in the provision of clinical care. This summary normalizes information from multiple sources, and as a consequence, information in this document may materially change the coding, format and clinical context of patient data. In addition, data may be omitted in some cases. CLINICAL DECISIONS SHOULD BE BASED ON THE PRIMARY CLINICAL RECORDS. [employer] provides no warranty or guarantee of the accuracy or completeness of information in this document.
== END | disposition home or self-care (01) ==
LOC: US 12:50
PROVIDERS: PCP Family Medicine; Referring Provider Advanced Practice Midwife; Visit Provider Advanced Practice Midwife
DX: O26.849 Uterine size-date discrepancy, unspecified trimester (principal); Z3A.00 Weeks of gestation of pregnancy not specified
CPT/HCPCS: 76816

== ENCOUNTER 2025-04-06 07:10 | Inpatient (IN) | payer BC, SELFPAY ==
[2025-04-06] VITALS (70 sets, daily range): BP systolic 103–138; BP diastolic 55–84; PULSE 76–154; RESP 16–20; TEMP 36.5–37.5; O2SAT 79–100; BMI 33.0
--- OUTSIDE RECORDS SUMMARY | 2025-04-06 07:15 | XMS RPT_ITS | CCD ---
Author Organization [facility] Inform ion [facility] Care Team Providers Care Csr Technician Name Role Phone KRUSEMARK-MILLIN DO, CARON Primary Care Physi alessandra JASS HARDWARE TECHNICIAN-CNPATRICE Roberson Attending Unav ailable KRUSEMARK-MILLIN DO, CARON Primary Care Un available KRUSEMARK-MILLIN DO, CARON Primary Care Un available BEITYURY HARDWARE TECHNICIAN-CNDa, PATRICE Gallardo Attending Unav ailable KRUSEMARK-MILLIN DO, [...] DO, CARON Primary Care Un available BEITLER HARDWARE TECHNICIAN-CNMPATRICE R Attending Unav ailable KRUSEMARK-MILLIN DO, CARON Primary Care Un available KRUSEMARK-MILLIN DO, CARON Attending Un available Gwen Claudio CNM Attending Provider Pee MONTELONGO, Dr. Reardon Primary Care Pat silveira Azalia Manzo RN Attending Provider Unavailabl e Ovidio-Natalia MONTELONGO, Dr. Reardon Referring Prov ider Gwen Claudio CNM Referring Provider [phone] Jessy Corbin Attending Provider Rafia Castorena DO, Dr. Reardon Attending Provider Efren VEALSCO, Dr. Chavez Attending Provider [phone] GWEN CLAUDIO Referring Unavailable NO PRIMARY CAREMD Primary Care Unavailable BAUDILIO SAN Attending Unavailable NO PRIMARY CAREMD Primary Care Unavailable JUANPABLO CASTAÑEDA Attending Unavailable GWEN CLAUDIO Referring Unavailable Gwen Claudio CNM Attending Provider [phone] Pee MONTELONGO, Dr. Reardon Primary Care P raoul Jessy Corbin Referring Provider Pee MONTELONGO, Dr. Reardon Primary Care P alfie Pee MONTELONGO, Dr. Reardon Referring Prov ider Prudence JUNIOR JAVA DEVELOPER-C, Jessy Attending Physician [phone] Rafia Castorena DO, Dr. Reardon Attending Physician Efren VELASCO, Dr. Chavez Attending Physician Gwen Claudio CNM Attending Physician [phone] Pee MONTELONGO, Dr. Reardon Primary Care P hysician Miltonusedariusz-Natalia DO, Dr. Reardon Referring Prov ider Reno JUNIOR JAVA DEVELOPER-C, Jessy Attending Physician [phone] Pee DO, Dr. Reardon Primary Care P hysician Ovidio-Natalia DO, Dr. Reardon Referring Prov ider Efren VELASCO, Dr. Chavez Attending Physician Prudence JUNIOR JAVA DEVELOPER-C, Jessy Attending Physician [phone] Prudence JUNIOR JAVA DEVELOPER-C, Jessy Referring Provider [phone] Gwen Claudio CNM Attending Physician [phone] Rafia Castorena DO, Dr. Reardon Attending Physician Azalia Manzo Attending Unavailable Krusemark-Millin, Caron Primary Care Unava ilable Fortjie JUNIOR JAVA DEVELOPER, Silvia Attending Unavailable Krusemark-Millin, Caron Referring Unava ilable Krusemark-Millin, Caron Primary Care Unava ilable Gwen Claudio Attending Unavailable Krusemark-Millin, Caron Primary Care Unava ilable Gwen Claudio Referring Unavailable Gwen Claudio Attending Unavailable Prudence JUNIOR JAVA DEVELOPERJessy Referring Unavailable Prudence JUNIOR JAVA DEVELOPER, Jesys Attending Unavailable Krusemark-Millin, Caron Primary Care Unava ilable Krusemark-Millin, Caron Referring Unava ilable Reno JUNIOR JAVA DEVELOPER, Jessy Attending Unavailable Krusemark-Millin, Caron Primary Care Unava ilable Krusemark-Millin, Caron Referring Unava ilable Vandgarrison Castorena, Caron Attending Unavailabl e Krusemark-Millin, [facility] Care Unava ilable Krusemark-Millin, Caron Referring Unava ilable Marcanthony, Kathy Attending Unavailable Krusemark-Millin, [facility] Unava ilable Krusemark-Millin, Caron Referring Unava ilable Prudence JUNIOR JAVA DEVELOPER, Jessy Attending Unavailable Krusemark-Millin, [facility] Care Unava ilable Krusemark-Millin, Caron Referring Unava ilable [place]o JUNIOR JAVA DEVELOPER, Jessy Attending Unavailable Krusemark-Millin, [facility] Care Unava ilable Krusemark-Millin, Caron Referring Unava ilable Gwen Claudio Attending Unavailable Krusemark-Millin, [facility] Unava ilable Vande Velsteven, Caron Attending Unavailabl e Krusemark-Millin, Caron Referring Unava ilable Krusemark-Millin, [facility] Care Unava ilable Krusemark-Millin, [facility] Primary Care Unava ilable Vande Velsteven, Caron Attending Unavailabl e Krusemark-Millin, Caron Referring Unava ilable Krusemark-Millin, [facility] Care Unava ilable Marcsee, Kathy Attending Unavailable Krusemark-Millin, Caron Referring Unava ilable MarcanthKathy gilbert Attending Unavailable Krusemark-Millin, [facility] Care Unava ilable Krusemark-Millin, Caron Referring Unava ilable Gwen Claudio Attending Unavailable Allergies Allergy Classification Reported Allergen(s) Allergy Type Date of Onset Reaction(s) Facility (1 source) Food Allergies: Uncoded; Translations: [Food Allergies: Uncoded] Food allergy (disorder) 05-09-2023 [facility] Repository Medications Current Medications Medication Drug Class(es) Dates Sig (Normalized) Sig (Original) acetaminophen 500 mg oral tablet (2 sources) Start: 12-09-2023 End: 01-06-2024 Adult Aspirin Regimen 81 mg oral delayed release tablet (1 source) Start: 05-13-2023 Adult Aspirin Regimen 81 mg oral delayed release tablet Dose : 81 mg = 1 tab(s), Oral, qDay, # 30 tab(s), 5 Refill(s), Pharmacy: [facility]/pharmacy #[id number], 153, cm, 05/06/23 15:52:00 EST, Height, kg, 07/24/22 15:49:00 EDT, Dosing Weight Start Date: 05/13/23 Status: Ordered benzocaine 200 mg/ml topical spray (2 sources) Standardized Chemical Allergen Start: 12-09-2023 Start: 12-09-2023 End: 12-23-2023 apply 1 dose topically four times daily Americaine 20% topical spray Dose = 1 zelalem, Topical, QID, X 14 day(s), # 1 EA, 0 Refill(s), Pharmacy: [facility]/pharmacy #[id number], 152.4, cm, 12/08/23 20:15:00 EDT, Height, kg, 12/08/23 20:15:00 EDT, Dosing Weight Start Date: 12/09/23 Stop Date: 12/23/23 Status: Ordered Blood Glucose Test Machine (4 sources) Start: 09-20-2023 Blood Glucose Test Machine See Instructions, Use as directed Brand type per insurance or patient preference, # 1 EA, 0 Refill(s), Pharmacy: [facility]/pharmacy #[id number], Gestational diabetes, 152, cm, 08/25/23 [...] qDay, # 90 tab(s), 3 Refill(s), [id number], 152.4, cm, 02/24/24 13:01:00 EDT, Height, [...] DAILY, # 90 tab(s), 3 Refill(s), [id number], 154.9, cm, 09/12/20 9:42:00 EDT, Height, [...] qDay, # 100 tab(s), 0 Refill(s), Pharmacy: [facility]/pharmacy #[id number], 38 weeks gestation of Gestational [...] 0 Refill(s), 12/23/23 10:16:00 PM EDT, [id number], 152.4, cm, 12/08/23 20:15:00 EDT, Height, [...] 09-09-2024 Episodic Comment on above: 2020 - [place] 2020 [place];neg pap 2022 [place]. Residual codes; unclassified (1 [...] Test Name Value Interpretation Reference Range Facility Quality Assurance Supervisor Body Office Visit Reporton 03-13-2025 Quality Assurance Supervisor Body Office Visit Report [facility] [address], [address] [place] [address] OFFICE VISIT Date of Service: 03/13/25 MR#: [id number] Acct: [id number] Name: CARMEN THOMPSON Rep #: [id number] : 1995 Provider: Dr. 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 Normal [facility] - Chemistry and C hemistry - challengeOrdered By: Kathy Schwartz on 03-08-2025 Glucose Ql (U) Negative [facility] - UrinalysisOrder ed By: Kathy Schwartz on 03-08-2025 Protein Ql (U) Negative [facility] Quality Assurance Supervisor Body Office Visit Reporton 03-08-2025 Quality Assurance Supervisor Body Office Visit Report [facility] [address], [address] [place] [address] OFFICE VISIT Date of Service: 03/08/25 MR#: [id number] Acct: [id number] Name: CARMEN THOMPSON Rep #: [id number] : 1995 Provider: Dr. 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 Date Name GA/Weeks Outcome Route Bth Weight Gen Labor Lgth Anesthesia Del Locatn Provider FOB 12/09/23 Ananda 40 live - full term vacuum 7lbs 2oz Male epidural [facility] [place] Delivery Date: 12/09/23 Last Updated by: [...] 100/69 Negati (more content not included)... Normal [facility] - Chemistry and C hemistry - challengeOrdered By: Caron Castorena on 02-21-2025 Bilirubin Ql (U) Negative [facility] Glucose Ql (U) 100 g/dL [facility] Ketones Ql (U) Negative [facility] pH (U) 5.0 [pH] [facility] Specific gravity (U) [Rel density] 1.020 [facility] Urobilinogen (U) [Mass/Vol] 0.9230940 mg/dL [facility] - Hematology and Cell countsOrdered By: Caron Castorena on 02-21-2025 Hemoglobin Ql (U) Negative [facility] - Specimen inform ationOrdered By: Caron Castorena on 02-21-2025 Clarity (U) Clear [facility] Color (U) Yellow [facility] - UrinalysisOrder ed By: Caron Csatorena on 02-21-2025 Nitrite Ql (U) Negative [facility] Protein Ql (U) Trace [facility] No Panel InformationOrdered By: Caron Castorena on 02-21-2025 Urine Leukocytes Negatve [facility] Quality Assurance Supervisor Body Office Visit Reporton 02-21-2025 Quality Assurance Supervisor Body Office Visit Report [facility] [address], [address] [place] [address] OFFICE VISIT Date of Service: 02/21/25 MR#: [id number] Acct: [id number] Name: CARMEN THOMPSON Rep #: [id number] : 1995 Provider: Dr. 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 ??-???-? (more content not included)... Normal [facility] - Chemistry and C hemistry - challengeOrdered By: Caron Castorena on 02-09-2025 Glucose Ql (U) Negative [facility] - UrinalysisOrder ed By: Caron Castorena on 02-09-2025 Protein Ql (U) Negative [facility] Quality Assurance Supervisor Body Office Visit Reporton 02-09-2025 Quality Assurance Supervisor Body Office Visit Report [facility] [address], [address] [place] [address] OFFICE VISIT Date of Service: 02/09/25 MR#: [id number] Acct: [id number] Name: CARMEN THOMPSON Rep #: [id number] : 1995 Provider: Dr. 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 Date Name GA/Weeks Outcome Route Bth Weight Gen Labor Lgth Anesthesia Del Russellatn Provider [...] -???-???-???-???-???-? ??-???-???-???- (more content not included)... Normal [facility] - Chemistry and C hemistry - challengeOrdered By: Gwen Claudio on 01-24-2025 Glucose Ql (U) Negative [facility] - UrinalysisOrder ed By: Gwen Claudio on 01-24-2025 Protein Ql (U) Negative [facility] Quality Assurance Supervisor Body Office Visit Reporton 01-24-2025 Quality Assurance Supervisor Body Office Visit Report [facility] [address], [address] [place] [address] OFFICE VISIT Date of Service: 01/24/25 MR#: [id number] Acct: [id number] Name: CARMEN THOMPSON Rep #: [id number] : 1995 Provider: GISELLE Brock ams Age/Sex: 29/F Location: [facility] [place] Status: Signed Intake Vital Signs 12/26/24 15:38 01/11/25 15:29 01/24/25 14:51 Height 5 ft 5 ft 5 ft Weight: 164 lb BMI 32.0 BP 105/72 Intake Visit Reasons: 30 WK OB Chief Complaint: 30wk OB Shipping Support Clerk Required: No Is patient in pain?: No [...] 1 current occupational status: employed 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 Normal [facility] Absolute lymphocyte countOrd ered By: Jessy Foss on 01-11-2025 Lymphocytes Auto (Unsp spec) [#/Vol] 1.49 10*3/uL 0.83-4.51 [facility] Absolute neutrophil countOrd ered By: Jessy Foss on 01-11-2025 Neutrophils (Bld) [#/Vol] 4.7 10*3/uL 2.0-7.7 [facility] Automated lymphocyte count a s percentage of total leukocytesOrdered By: Jessy Foss on 01-11-2025 Lymphocytes/100 WBC Auto (Unsp spec) 22.4 % 19-41 [facility] Basophil percentageOrdered B y: Jessy Reno on 01-11-2025 Basophils/100 WBC (Bld) 0.0 % 0-1 [facility] CBC W/Diff, Automatedon 01-02 Absolute Lymph 1.49 X10 3/uL Normal 0.83-4.51 [facility] Comment on above: Performed By: #### L 501.0250, L100.0100, L509.8002, L3890.6006 #### [facility] [address] [place], [address] Absolute Neut 4.7 X10 3/uL Normal 2.0-7.7 [facility] Comment on above: Performed By: #### L 501.0250, L100.0100, L509.8002, L3890.6006 #### [facility] [address] [place], [address] Basophils/100 WBC (Bld) 0.0 % Normal 0-1 [facility] Comment on above: Performed By: #### L 501.0250, L100.0100, L509.8002, L3890.6006 #### [facility] [address] [place], [address] Eosinophils/100 WBC (Bld) 0.9 % Normal 0-5 [facility] Comment on above: Performed By: #### L 501.0250, L100.0100, L509.8002, L3890.6006 #### [facility] [address] [place], [address] Erythrocyte distribution width (RBC) [Ratio] 12.3 % Normal 11.6-14.6 [facility] Comment on above: Performed By: #### L 501.0250, L100.0100, L509.8002, L3890.6006 #### [facility] [address] [place], [address] Hematocrit (Bld) [Volume fraction] 34.7 % Low 37-47 [facility] Comment on above: Performed By: #### L 501.0250, L100.0100, L509.8002, L3890.6006 #### [facility] [address] [place], [address] Hemoglobin (Bld) [Mass/Vol] 11.9 g/dL Low 12.0-15.0 [facility] Comment on above: Performed By: #### L 501.0250, L100.0100, L509.8002, L3890.6006 #### [facility] [address] [place], [address] IG% 0.500 Normal 0.0-0.9 [facility] Comment on above: Result Comment: IG% - Immature Granulocytes (promyelocytes, myelocytes and metamyelocytes) > 1% indicates that a LEFT SHIFT is Present. Performed By: #### L 501.0250, L100.0100, L509.8002, L3890.6006 #### [facility] [address] [place], [address] Lymphocytes/100 WBC (Bld) 22.4 % Normal 19-41 [facility] Comment on above: Performed By: #### L 501.0250, L100.0100, L509.8002, L3890.6006 #### [facility] [address] [place], [address] MCH (RBC) [Entitic mass] 29.9 pg Normal 27.0-32.0 [facility] Comment on above: Performed By: #### L 501.0250, L100.0100, L509.8002, L3890.6006 #### [facility] [address] [place], [address] MCHC (RBC) [Mass/Vol] 34.3 g/dL Normal 32-36 [facility] Comment on above: Performed By: #### L 501.0250, L100.0100, L509.8002, L3890.6006 #### [facility] [address] [place], [address] MCV (RBC) [Entitic vol] 87.2 fL Normal 81-99 [facility] Comment on above: Performed By: #### L 501.0250, L100.0100, L509.8002, L3890.6006 #### [facility] [address] [place], [address] Monocytes/100 WBC (Bld) 6.3 % Normal 0-10 [facility] Comment on above: Performed By: #### L 501.0250, L100.0100, L509.8002, L3890.6006 #### [facility] [address] [place], [address] Neutrophils/100 WBC (Bld) 69.9 % Normal 47-70 [facility] Comment on above: Performed By: #### L 501.0250, L100.0100, L509.8002, L3890.6006 #### [facility] [address] [place], [address] Nucleated RBC (Bld) [#/Vol] 0 10*3/uL Normal 0-5 [facility] Comment on above: Performed By: #### L 501.0250, L100.0100, L509.8002, L3890.6006 #### [facility] [address] [place], [address] Platelet mean volume (Bld) [Entitic vol] 10.9 fL Normal 6.2-12.0 [facility] Comment on above: Performed By: #### L 501.0250, L100.0100, L509.8002, L3890.6006 #### [facility] [address] [place], [address] Platelets (Bld) [#/Vol] 146 10*3/uL Low 150-450 [facility] Comment on above: Performed By: #### L 501.0250, L100.0100, L509.8002, L3890.6006 #### [facility] [address] [place], [address] RBC (Bld) [#/Vol] 3.98 10*6/uL Low 4.2-5.4 [facility] Comment on above: Performed By: #### L 501.0250, L100.0100, L509.8002, L3890.6006 #### [facility] [address] [place], [address] RDW SD 39.3 fl Normal 35.1-43.9 [facility] Comment on above: Performed By: #### L 501.0250, L100.0100, L509.8002, L3890.6006 #### [facility] [address] [place], [address] WBC (Bld) [#/Vol] 6.7 10*3/uL Normal 4.4-11.0 [facility] Comment on above: Performed By: #### L 501.0250, L100.0100, L509.8002, L3890.6006 #### [facility] [address] [place], [address] Eosinophil percentageOrdered By: Jessy Foss on 01-11-2025 Eosinophils/100 WBC (Bld) 0.9 % 0-5 [facility] Erythrocyte distribution wid th ratioOrdered By: Jessymike Foss on 01-11-2025 Erythrocyte distribution width (RBC) [Ratio] 12.3 % 11.6-14.6 [facility] Erythrocyte distribution wid th standard deviationOrdered By: Jessymike Foss on 01-11-2025 Erythrocyte distribution width (RBC) [Ratio] 39.3 fl 35.1-43.9 [facility] Glucose Challenge Gest 1H 50 j carlos 01-11-2025 GLU GEST 50g 1H 119 mg/dL Normal 70-140 [facility] Comment on above: Performed By: #### L 501.0250, L100.0100, L509.8002, L3890.6006 #### [facility] [address] [place], [address] Glucose measurement at 2 melodie rs post-dose gestational glucose tolerance testOrdered By: Jessy Foss on 01-11-2025 Glucose [Mass/Vol] 119 mg/dL 70-140 [facility] HIVon 01-11-2025 HIV Non-Reactive Normal Nonreactive [facility] Comment on above: Result Comment: Non- Reactive Reactive Repeatedly reactive samples must be confirmed according to CDC recommended confirmatory algorithms. The subresults for either HIVAG or AHIV can be used as an aid in the selection of the confirmation algorithm for reactive samples. Send out specimens with Reactive results to [facility] for confirmation. Order the HIV antibody detection and differentiation: [id number] Performed By: #### L 501.9985, L509.4006, L3890.6301, BTS, L3890.6102, L3890.6006, L509.8002, L100.0100 #### [facility] [address] [place], [place], [address] Hematocrit Auto (Bld) [Volum e fraction]Ordered By: Jessy Foss on 01-11-2025 Hematocrit (Bld) [Volume fraction] 34.7 % Low 37-47 [facility] Hemoglobin measurementOrdere d By: Jessy Foss on 01-11-2025 Hemoglobin (Bld) [Mass/Vol] 11.9 g/dL Low 12.0-15.0 [facility] Immature granulocytes/100 WB C Auto (Bld)Ordered By: Jessy Foss on 01-11-2025 Immature granulocytes/100 WBC (Bld) 0.500 % 0.0-0.9 [facility] Comment on above: IG% - Immature Granu locytes (promyelocytes, myelocytes and metamyelocytes) > 1% indicates that a LEFT SHIFT is Present. Laboratory - Chemistry and C hemistry - challengeOrdered By: Jessy Foss on 01-11-2025 Glucose Ql (U) Negative [facility] - UrinalysisOrder ed By: Jessy Foss on 01-11-2025 Protein Ql (U) Negative [facility] MCV (mean corpuscular volume ) determinationOrdered By: Jessy Foss on 01-11-2025 MCV (RBC) [Entitic vol] 87.2 fL 81-99 [facility] Mean corpuscular hemoglobin (MCH) determinationOrdered By: Jessy Foss on 01-11-2025 MCH (RBC) [Entitic mass] 29.9 pg 27.0-32.0 [facility] [facility] Mean corpuscular hemoglobin concentration (MCHC) determinationOrdered By: Jessy Foss on 01-11-2025 MCHC (RBC) [Mass/Vol] 34.3 g/dL 32-36 [facility] Mean platelet volume determi nationOrdered By: Jessy Foss on 01-11-2025 Platelet mean volume (Bld) [Entitic vol] 10.9 fL 6.2-12.0 [facility] Monocyte percentageOrdered B y: Jessy Foss on 01-11-2025 Monocytes/100 WBC (Bld) 6.3 % 0-10 [facility] Neutrophil percentageOrdered By: Jessy Foss on 01-11-2025 Neutrophils/100 WBC (Bld) 69.9 % 47-70 [facility] No Panel InformationOrdered By: Jessy Foss on 01-11-2025 HIV (1&2) Antibody Non-Reactive Nonreactive [facility] Comment on above: Non-ReactiveReactive Repeatedly reactive samples must be confirmed according to CDC recommended confirmatory algorithms. The subresults for either HIVAG or AHIV can be used as an aid in the selection of the confirmation algorithm for reactive samples.Send out specimens with Reactive results to [facility] for confirmation.Order the HIV antibody detection and differentiation: #[id number] Nucleated red blood cell per centageOrdered By: Jessy Foss on 01-11-2025 Nucleated RBC/100 WBC (Bld) [Ratio] 0 % 0-5 [facility] Quality Assurance Supervisor Body Office Visit Reporton 01-11-2025 Quality Assurance Supervisor Body Office Visit Report [facility], [address] [place] [address] OFFICE VISIT Date of Service: 01/11/25 MR#: [id number] Acct: [id number] Name: JAYCARMENMARLIN VARNER Rep #: [id number] : 1995 Provider: ANA MARÍA rodriguez Age/Sex: 29/F Location: [facility] Status: Signed Intake Vital Signs 12/01/24 16:03 12/26/24 15:38 01/11/25 15:29 Height 5 ft 5 ft 5 ft Weight: 161 lb 3 oz BMI 31.4 BP 111/74 Intake Visit Reasons: 28wk ob/glucose Chief Complaint: 28 Week OB/Glucose Shipping Support Clerk Required: No Is patient in pain?: No [...] 1 current occupational status: employed 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 (more content not included)... Normal [facility] Platelet countOrdered By: Jose Foss on 01-11-2025 Platelets (Bld) [#/Vol] 146 10*3/uL Low 150-450 [facility] RBC Auto (Bld) [#/Vol]Ordere d By: Jessy Foss on 01-11-2025 RBC (Bld) [#/Vol] 3.98 10*6/uL Low 4.2-5.4 [facility] Syphilis Antibodieson 2024 Syphilis Abs Non-Reactive Normal Nonreactive [facility] Comment on above: Performed By: #### L 501.9985, L509.4006, L3890.6301, BTS, L3890.6102, L3890.6006, L509.8002, L100.0100 #### [facility] Laboratory [address] [place], [address] White blood cell (WBC) count Ordered By: Jessy Foss on 01-11-2025 WBC (Bld) [#/Vol] 6.7 10*3/uL 4.4-11.0 [facility] Laboratory - Chemistry and C hemistry - challengeOrdered By: Jessy Foss on 12-26-2024 Glucose Ql (U) Negative [facility] Laboratory - UrinalysisOrder ed By: Jessy Foss on 12-26-2024 Protein Ql (U) Negative [facility] Quality Assurance Supervisor Body Office Visit Reporton 12-26-2024 Quality Assurance Supervisor Body Office Visit Report [facility], [address] [place] [address] OFFICE VISIT Date of Service: 12/26/24 MR#: [id number] Acct: [id number] Name: CARMEN THOMPSON Rep #: [id number] : 1995 Provider: ANA MARÍA rodriguez Age/Sex: 29/F Location: [facility] Status: Signed Intake Vital Signs 10/04/24 09:38 12/01/24 16:03 12/26/24 15:33 12/26/24 15:38 Height 5 ft 5 ft 5 ft 5 ft Weight: 158 lb 7 oz BMI 30.9 BP 104/70 Intake Visit Reasons: 26 wk ob Chief Complaint: 26 Week OB Shipping Support Clerk Required: No Is patient in pain?: No [...] 1 current occupational status: employed 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 Date Name GA/Weeks Outcome Route Bth Weight Gen Labor Lgth Anesthesia Del Locatn Provider FOB 12/09/23 Ananda 40 live - full term vacuum 7lbs 2oz [facility]: [facility]23 Last Updated by: Azalia [...] Negative -???-? (more content not included)... Normal [facility] Laboratory - Chemistry and C hemistry - challengeOrdered By: Kathy Schwartz on 12-01-2024 Glucose Ql (U) Negative [facility] Laboratory - UrinalysisOrder ed By: Kathy Schwartz on 12-01-2024 Protein Ql (U) Negative [facility] Quality Assurance Supervisor Body Office Visit Reporton 12-01-2024 Quality Assurance Supervisor Body Office Visit Report [facility] [address], [address] [place] [address] OFFICE VISIT Date of Service: 12/01/24 MR#: [id number] Acct: [id number] Name: CARMEN THOMPSON Rep #: [id number] : 1995 Provider: Dr. 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 Date Name GA/Weeks Outcome Route Bth Weight Gen Labor Lgth Anesthesia Del Locatn Provider FOB 12/09/23 Ananda 40 live - full term vacuum 7lbs 2oz Male epidural [facility] Delivery Date: 12/09/23 Last Updated by: Azalia [...] oz) 1 (more content not included)... Normal [facility] Laboratory - Chemistry and C hemistry - challengeOrdered By: Caron Castorena on 11-02-2024 Glucose Ql (U) Negative [facility] Laboratory - UrinalysisOrder ed By: Caron Castorena on 11-02-2024 Protein Ql (U) Negative [facility] Quality Assurance Supervisor Body Office Visit Reporton 11-02-2024 Quality Assurance Supervisor Body Office Visit Report [facility] [address], [address] [place] [address] OFFICE VISIT Date of Service: 11/02/24 MR#: [id number] Acct: [id number] Name: CARMEN THOMPSON Rep #: [id number] : 1995 Provider: Dr. 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 Date Name GA/Weeks Outcome Route Bth Weight Gen Labor L[facility]est[facility] Del [facility] Provider FOB 12/09/23 Ananda 40 live - full term vacuum 7lbs 2oz Male epidural [facility] Delivery Date: 12/09/23 Last Updated by: Azalia [...] ??-???-???-???-???-??? -???- (more content not included)... Normal [facility] Laboratory - Chemistry and C hemistry - challengeOrdered By: Jessy Foss on 10-04-2024 Glucose Ql (U) Negative [facility] Laboratory - UrinalysisOrder ed By: Jessy Foss on 10-04-2024 Protein Ql (U) Negative [facility] Quality Assurance Supervisor Body Office Visit Reporton 10-04-2024 Quality Assurance Supervisor Body Office Visit Report [facility] [address], [address] [place] [address] OFFICE VISIT Date of Service: 10/04/24 MR#: [id number] Acct: [id number] Name: CARMEN THOMPSON Rep #: [id number] : 1995 Provider: ANA MARÍA rodriguez Age/Sex: 29/F Location: [facility] Status: Signed Intake Vital Signs 08/19/24 13:28 09/13/24 08:51 10/04/24 09:38 Height 5 ft 5 ft 5 ft Weight: 138 lb 133 lb 2 oz 137 lb 2 oz BMI 26.9 25.9 26.7 BP 108/74 100/69 Intake Visit Reasons: 14wk OB Chief Complaint: 14 Week OB Shipping Support Clerk Required: No Is patient in pain?: No Allergies No Known Allergies Allergy (Verified 10/04/24 09:42) Medications ???Medication ???Instructions ???Recorded ???Confirmed ???Type docosahexaenoic acid 200 mg mg PO 08/19/24 10/04/24 History capsule ( DHA) Last Menstrual Period: 06/15/24 Zika: Zika virus screening: Negative : No PFSH PFSH Medical History (Updated 10/04/24 @ 10:04 by Jessy Foss JUNIOR JAVA DEVELOPER, DAVINA-C) 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 Hx of gestational diabetes in prior , currently Surgical History H/O colposcopy with cervical biopsy Family History Father Diabetes Hyperlipidemia Hypertension Chronic mental illness Mother Hypertension Sister Hereditary spherocytosis Social History adopted: No household members: spouse, children and other details: Pt's mom housing: house number of children: 1 current occupational status: employed 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 Date Name GA/Weeks Outcome Route Bth Weight Infant Gen Labor Lgth Anesthesia Del Locatn Provider FOB 12/09/23 Ananda 40 live - full term vacuum 7lbs 2oz Male epidural [facility] Delivery Date: 12/09/23 Last Updated by: Azalia [...] Negative -???-???-? (more content not included)... Normal [facility] Chlamydia/GC ÁNGEL aptimaon CHLAMY,NUC ACID Negative Normal Negative [facility] Comment on above: Performed By: #### L 501.9985, L509.4006, L3890.6301, BTS, L3890.6102, L3890.6006, L509.8002, L100.0100 #### [facility] Laboratory [address] [place], [place], [id number] GC BY NUC ACID Negative Normal Negative [facility] Comment on above: Result Comment: Perf ormed at: =G - [facility] [address] [id number] [employer] Machine Tender: Lara Domingo MD, Phone: [phone] Performed By: #### L 501.9985, L509.4006, L3890.6301, BTS, L3890.6102, L3890.6006, L509.8002, L100.0100 #### [facility] [address] [place], [place], [id number] Urine Cultureon 09-15-2024 URC Below infection leve l. Mixed Gram Pos Gram Neg Org [place] Count <1000 MIXC Mixed contaminants. Submit a new specimen if indicated. Normal [facility] Comment on above: Performed By: #### L 501.9985, L509.4006, L3890.6301, BTS, L3890.6102, L3890.6006, L509.8002, L100.0100 #### [facility] [address] [place], [place], [id number] L3890.6102on 09-14-2024 HEP B Surf Ag Non-Reactive Normal Nonreactive [facility] Comment on above: Result Comment: Reac tive: Presumptive evidence of HBV. Repeatedly reactive samples must be confirmed using a neutralization test ([employer] HBsAg Confirmatory Test) Non-Reactive: HBsAg not detected; does not exclude the possibility of exposure to HBV Performed By: #### L 501.9985, L509.4006, L3890.6301, BTS, L3890.6102, L3890.6006, L509.8002, L100.0100 #### [facility] [address] [place], [place], [phone] (448) Absolute lymphocyte countOrd ered By: Gwen Claudio on 09-13-2024 Lymphocytes Auto (Unsp spec) [#/Vol] 1.12 10*3/uL 0.83-4.51 [facility] Absolute neutrophil countOrd ered By: Gwen Claudio on 09-13-2024 Neutrophils (Bld) [#/Vol] 4.6 10*3/uL 2.0-7.7 [facility] Automated lymphocyte count a s percentage of total leukocytesOrdered By: Gwen Claudio on 09-13-2024 Lymphocytes/100 WBC Auto (Unsp spec) 18.0 % Low 19-41 [facility] Basophil percentageOrdered B y: Gwen Claudio on 09-13-2024 Basophils/100 WBC (Bld) 0.3 % 0-1 [facility] CBC W/Diff, Automatedon 09-01 Absolute Lymph 1.12 X10 3/uL Normal 0.83-4.51 [facility] Comment on above: Performed By: #### L 501.9985, L509.4006, L3890.6301, BTS, L3890.6102, L3890.6006, L509.8002, L100.0100 #### [facility] [address] [place], [address] Absolute Neut 4.6 X10 3/uL Normal 2.0-7.7 [facility] Comment on above: Performed By: #### L 501.9985, L509.4006, L3890.6301, BTS, L3890.6102, L3890.6006, L509.8002, L100.0100 #### [facility] [address] [place], [address] Basophils/100 WBC (Bld) 0.3 % Normal 0-1 [facility] Comment on above: Performed By: #### L 501.9985, L509.4006, L3890.6301, BTS, L3890.6102, L3890.6006, L509.8002, L100.0100 #### [facility] [address] [place], [address] Eosinophils/100 WBC (Bld) 0.8 % Normal 0-5 [facility] Comment on above: Performed By: #### L 501.9985, L509.4006, L3890.6301, BTS, L3890.6102, L3890.6006, L509.8002, L100.0100 #### [facility] [address] [place], [address] Erythrocyte distribution width (RBC) [Ratio] 12.3 % Normal 11.6-14.6 [facility] Comment on above: Performed By: #### L 501.9985, L509.4006, L3890.6301, BTS, L3890.6102, L3890.6006, L509.8002, L100.0100 #### [facility] [address] [place], [address] Hematocrit (Bld) [Volume fraction] 41.0 % Normal 37-47 [facility] Comment on above: Performed By: #### L 501.9985, L509.4006, L3890.6301, BTS, L3890.6102, L3890.6006, L509.8002, L100.0100 #### [facility] [address] [place], [address] Hemoglobin (Bld) [Mass/Vol] 14.1 g/dL Normal 12.0-15.0 [facility] Comment on above: Performed By: #### L 501.9985, L509.4006, L3890.6301, BTS, L3890.6102, L3890.6006, L509.8002, L100.0100 #### [facility] [address] [place], [address] IG% 0.300 Normal 0.0-0.9 [facility] Comment on above: Result Comment: IG% - Immature Granulocytes (promyelocytes, myelocytes and metamyelocytes) > 1% indicates that a LEFT SHIFT is Present. Performed By: #### L 501.9985, L509.4006, L3890.6301, BTS, L3890.6102, L3890.6006, L509.8002, L100.0100 #### [facility] [address] [place], [address] Lymphocytes/100 WBC (Bld) 18.0 % Low 19-41 [facility] Comment on above: Performed By: #### L 501.9985, L509.4006, L3890.6301, BTS, L3890.6102, L3890.6006, L509.8002, L100.0100 #### [facility] [address] [place], [address] MCH (RBC) [Entitic mass] 30.1 pg Normal 27.0-32.0 [facility] Comment on above: Performed By: #### L 501.9985, L509.4006, L3890.6301, BTS, L3890.6102, L3890.6006, L509.8002, L100.0100 #### [facility] [address] [place], [address] MCHC (RBC) [Mass/Vol] 34.4 g/dL Normal 32-36 [facility] Comment on above: Performed By: #### L 501.9985, L509.4006, L3890.6301, BTS, L3890.6102, L3890.6006, L509.8002, L100.0100 #### [facility] [address] [place], [address] MCV (RBC) [Entitic vol] 87.4 fL Normal 81-99 [facility] Comment on above: Performed By: #### L 501.9985, L509.4006, L3890.6301, BTS, L3890.6102, L3890.6006, L509.8002, L100.0100 #### [facility] [address] [place], [address] Monocytes/100 WBC (Bld) 7.1 % Normal 0-10 [facility] Comment on above: Performed By: #### L 501.9985, L509.4006, L3890.6301, BTS, L3890.6102, L3890.6006, L509.8002, L100.0100 #### [facility] [address] [place], [address] Neutrophils/100 WBC (Bld) 73.5 % High 47-70 [facility] Comment on above: Performed By: #### L 501.9985, L509.4006, L3890.6301, BTS, L3890.6102, L3890.6006, L509.8002, L100.0100 #### [facility] [address] [place], [address] Nucleated RBC (Bld) [#/Vol] 0 10*3/uL Normal 0-5 [facility] Comment on above: Performed By: #### L 501.9985, L509.4006, L3890.6301, BTS, L3890.6102, L3890.6006, L509.8002, L100.0100 #### [facility] [address] [place], [address] Platelet mean volume (Bld) [Entitic vol] 10.9 fL Normal 6.2-12.0 [facility] Comment on above: Performed By: #### L 501.9985, L509.4006, L3890.6301, BTS, L3890.6102, L3890.6006, L509.8002, L100.0100 #### [facility] [address] [place], [address] Platelets (Bld) [#/Vol] 198 10*3/uL Normal 150-450 [facility] Comment on above: Performed By: #### L 501.9985, L509.4006, L3890.6301, BTS, L3890.6102, L3890.6006, L509.8002, L100.0100 #### [facility] [address] [place], [address] RBC (Bld) [#/Vol] 4.69 10*6/uL Normal 4.2-5.4 [facility] Comment on above: Performed By: #### L 501.9985, L509.4006, L3890.6301, BTS, L3890.6102, L3890.6006, L509.8002, L100.0100 #### [facility] [address] [place], [address] RDW SD 38.9 fl Normal 35.1-43.9 [facility] Comment on above: Performed By: #### L 501.9985, L509.4006, L3890.6301, BTS, L3890.6102, L3890.6006, L509.8002, L100.0100 #### [facility] [address] [place], [address] WBC (Bld) [#/Vol] 6.2 10*3/uL Normal 4.4-11.0 [facility] Comment on above: Performed By: #### L 501.9985, L509.4006, L3890.6301, BTS, L3890.6102, L3890.6006, L509.8002, L100.0100 #### [facility] [address] [place], [address] Chlamydia trachomatis rRNA d etection by probe and target amplification methodOrdered By: Gwen Claudio on 09-13-2024 C. trachomatis rRNA ÁNGEL+probe Ql (Unsp spec) Negative Negative [facility] Eosinophil percentageOrdered By: Gwen Claudio on 09-13-2024 Eosinophils/100 WBC (Bld) 0.8 % 0-5 [facility] Erythrocyte distribution wid th ratioOrdered By: Gwen Claudio on 09-13-2024 Erythrocyte distribution width (RBC) [Ratio] 12.3 % 11.6-14.6 [facility] Erythrocyte distribution wid th standard deviationOrdered By: Gwen Claudio on 09-13-2024 Erythrocyte distribution width (RBC) [Ratio] 38.9 fl 35.1-43.9 [facility] HIVon 09-13-2024 HIV Non-Reactive Normal Nonreactive [facility] Comment on above: Result Comment: Non- Reactive Reactive Repeatedly reactive samples must be confirmed according to CDC recommended confirmatory algorithms. The subresults for either HIVAG or AHIV can be used as an aid in the selection of the confirmation algorithm for reactive samples. Send out specimens with Reactive results to [facility] for confirmation. Order the HIV antibody detection and differentiation: [id number] Performed By: #### L 501.9985, L509.4006, L3890.6301, BTS, L3890.6102, L3890.6006, L509.8002, L100.0100 #### [facility] [address] [place], [address] Hematocrit Auto (Bld) [Volum e fraction]Ordered By: Gwen Claudio on 09-13-2024 Hematocrit (Bld) [Volume fraction] 41.0 % 37-47 [facility] Hemoglobin A1con 09-13-2024 HbA1c (Bld) [Mass fraction] 5.1 % Normal <=5.6 [facility] Comment on above: Result Comment: Norm al < 5.7 % Prediabetic 5.7 - 6.4 % Diabetic >or= 6.5 % Please note range changes. Performed By: #### L 501.9985, L509.4006, L3890.6301, BTS, L3890.6102, L3890.6006, L509.8002, L100.0100 #### [facility] [address] [place], [place], [address] Hemoglobin A1c percentageOrd ered By: Gwen Claudio on 09-13-2024 HbA1c (Bld) [Mass fraction] 5.1 % <5.7 [facility] Comment on above: Normal < 5.7 % Predi abetic 5.7 - 6.4 % Diabetic >or= 6.5 % Please note range changes. Hemoglobin measurementOrdere d By: Gwen Claudio on 09-13-2024 Hemoglobin (Bld) [Mass/Vol] 14.1 g/dL 12.0-15.0 [facility] Hepatitis C Antibodyon 09-13 Hepatitis C Ab Non-Reactive Normal Nonreactive [facility] Comment on above: Result Comment: Reac tive: Presumptive evidence of antibodies to HCV. Follow CDC recommendations for supplemental testing. Non-Reactive: Antibodies to HCV were not detected; does not exclude the possibility of exposure to HCV Reactive Results are presumptive evidence of antibodies to HCV. Follow CDC recommendations for supplemental testing. Order confirmation testing: HCV Quant by PCR testing - HCVPCR #[id number] Non Reactive: < 0.8 Equivocal: >/= 0.8 to < 1.0 Reactive: >/= 1.0 The CDC requires that a reactive/equivocal HCV antibody result be sent out for confirmation. HCV Quant by PCR testing. Performed By: #### L 501.9985, L509.4006, L3890.6301, BTS, L3890.6102, L3890.6006, L509.8002, L100.0100 #### [facility] [address] [place], [address] Immature granulocytes/100 WB C Auto (Bld)Ordered By: Gwen Claudio on 09-13-2024 Immature granulocytes/100 WBC (Bld) 0.300 % 0.0-0.9 [facility] Comment on above: IG% - Immature Granu locytes (promyelocytes, myelocytes and metamyelocytes) > 1% indicates that a LEFT SHIFT is Present. L509.4006on 09-13-2024 Rub[place] IgG REAC Normal Nonreactive [facility] Comment on above: Result Comment: Anti body Result: Interpretation Non-Reactive: Non-Immune Reactive: Immune The following results were obtained with the [employer]ys Rub[place] IgG assay. Results from assays of other manufacturers cannot be used interchangeably. Performed By: #### L 501.9985, L509.4006, L3890.6301, BTS, L3890.6102, L3890.6006, L509.8002, L100.0100 #### [facility] [address] [place], [address] Laboratory - Microbiology an d Antimicrobial susceptibilityOrdered By: Gwen Claudio on 09-13-2024 HBV surface Ag Ql (S) Non-Reactive Nonreactive [facility] Comment on above: Reactive: Presumptiv e evidence of HBV. Repeatedly reactive samples must be confirmed using a neutralization test ([employer] HBsAg Confirmatory Test)Non-Reactive: HBsAg not detected; does not exclude the possibility of exposure to HBV MCV (mean corpuscular volume ) determinationOrdered By: Gwen Claudio on 09-13-2024 MCV (RBC) [Entitic vol] 87.4 fL 81-99 [facility] Mean corpuscular hemoglobin (MCH) determinationOrdered By: Gwen Claudio on 09-13-2024 MCH (RBC) [Entitic mass] 30.1 pg 27.0-32.0 [facility] Mean corpuscular hemoglobin concentration (MCHC) determinationOrdered By: Gwen Claudio on 09-13-2024 MCHC (RBC) [Mass/Vol] 34.4 g/dL 32-36 [facility] Mean platelet volume determi nationOrdered By: Gwen Claudio on 09-13-2024 Platelet mean volume (Bld) [Entitic vol] 10.9 fL 6.2-12.0 [facility] Monocyte percentageOrdered B y: Gwen Claudio on 09-13-2024 Monocytes/100 WBC (Bld) 7.1 % 0-10 [facility] Neisseria gonorrhoeae nuclei c acid detection by amplified probe techniqueOrdered By: Gwen Claudio on 09-13-2024 N. gonorrhoeae DNA ÁNGEL+probe Ql (Unsp spec) Negative Negative [facility] Comment on above: Performed at: =[address] [id number] Director: Lara Domingo MD, Phone: [phone] Neutrophil percentageOrdered By: Gwen Claudio on 09-13-2024 Neutrophils/100 WBC (Bld) 73.5 % High 47-70 [facility] No Panel InformationOrdered By: Gwen Claudio on 09-13-2024 HIV (1&2) Antibody Non-Reactive Nonreactive [facility] Comment on above: Non-ReactiveReactive Repeatedly reactive samples must be confirmed according to CDC recommended confirmatory algorithms. The subresults for either HIVAG or AHIV can be used as an aid in the selection of the confirmation algorithm for reactive samples.Send out specimens with Reactive results to [facility] for confirmation.Order the HIV antibody detection and differentiation: #[id number] Nucleated red blood cell per centageOrdered By: Gwen Claudio on 09-13-2024 Nucleated RBC/100 WBC (Bld) [Ratio] 0 % 0-5 [facility] Quality Assurance Supervisor Body Office Visit Reporton 09-13-2024 Quality Assurance Supervisor Body Office Visit Report [facility] [address], [address] [place] [address] OFFICE VISIT Date of Service: 09/13/24 MR#: [id number] Acct: [id number] Name: CARMEN THOMPSON Rep #: [id number] : 1995 Provider: GISELLE Brock ams Age/Sex: 29/F Location: [facility] Status: Signed Intake Vital Signs 03/01/24 15:53 08/19/24 13:28 09/13/24 08:51 Height 5 ft 5 ft 5 ft Weight: 133 lb 2 oz BMI 25.9 BP 108/74 Intake Visit Reasons: New OB, 8 months PP, US at [place], FRANNY 04/11 Chief Complaint: New OB Shipping Support Clerk Required: No Is patient in pain?: No [...] current occupational status: employed 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 Date Name GA/Weeks Outcome Route Bth Weight Gen Labor Lgth Anesthesia Del Locatn Provider FOB 12/09/23 Ananda 40 live - full term vacuum 7lbs 2oz Male epidural [facility] [place] Delivery Date: 12/09/23 Last Updated by: Azalia Manzo RN GDM, nuchal cord, Induced d/t est baby size HPI New OB, 8 months PP, US at [place], FRANNY 04/11 Details: CARMEN THOMPSON is a [...] Normal amount/ (more content not included)... Normal [facility] Platelet countOrdered By: Benjaimn Claudio on 09-13-2024 Platelets (Bld) [#/Vol] 198 10*3/uL 150-450 [facility] RBC Auto (Bld) [#/Vol]Ordere d By: Gwen Claudio on 09-13-2024 RBC (Bld) [#/Vol] 4.69 10*6/uL 4.2-5.4 [facility] Syphilis Antibodieson 2024 Syphilis Abs Non-Reactive Normal Nonreactive [facility] Comment on above: Performed By: #### L 501.9985, L509.4006, L3890.6301, BTS, L3890.6102, L3890.6006, L509.8002, L100.0100 #### [facility] [address] [place], [place], [id number] Type AND Screenon 09-13-2024 Ab SCREEN GEL Negative Normal [facility] Comment on above: Order Comment: PN Performed By: #### L 501.9985, L509.4006, L3890.6301, BTS, L3890.6102, L3890.6006, L509.8002, L100.0100 #### [facility] [address] [place], [address] Urine cultureOrdered By: Titi Claudio on 09-13-2024 Bacteria identified Cx Nom (U) Mixed Gram Pos & Gram Neg Org Abnormal [facility] White blood cell (WBC) count Ordered By: Gwen Claudio on 09-13-2024 WBC (Bld) [#/Vol] 6.2 10*3/uL 4.4-11.0 [facility] Laboratory - Chemistry and C hemistry - challengeOrdered By: Gwen Claudio on 08-19-2024 HCG ( test) Ql (U) Positive [facility] Office Visit Reporton 2024 Office Visit Report [facility] [address] [place] [address] OFFICE VISIT Date of Service: 08/19/24 MR#: [id number] Acct: [id number] Patient: CARMEN THOMPSON Rep #: [id number] : 1995 Provider: GISELLE Brock ams Age/Sex: 29/F Location: [facility] Status: Signed Intake Vital Signs 03/01/24 15:53 08/19/24 13:28 Height 5 ft 5 ft Weight: 138 lb BMI 26.9 Intake Visit Reasons: Urine preg, new pt, multipara Shipping Support Clerk Required: No Is patient in pain?: No [...] Cosigner Signature: Date (if applicable) CC: Normal [facility] HPon 05-17-2024 H. Pylori IgG Positive Normal [facility] Comment on above: Result Comment: INTE RPRETATION OF H. PYLORI IGG BY EIA: Negative No detectable antibodies to H. pylori. Positive H. pylori IgG antibody detected. Equivocal Equivocal for IgG antibodies to H. pylori. Repeat testing if still indicated. Performed By: #### L IP, GFR, CMP #### [address] [address] #### HP #### [address] [address] .GFRon 05-11-2024 GFR 161 ml/min/1.73sqm [facility] Comment on above: Result Comment: GFR Population [...] By: #### L IP, GFR, CMP #### [address] [address] #### HP #### [address] [address] GFR Non- 133 ml/min/1.73sqm [facility] Comment on above: Result Comment: GFR Population [...] By: #### L IP, GFR, CMP #### [place] [address] #### HP #### [address] [address] [facility] 05-11-2024 Albumin Level 3.7 G/dL Normal 3.5-5.0 [facility] Comment on above: Performed By: #### L IP, GFR, CMP #### [place] [address] #### HP #### [address] [address] Albumin/Globulin [Mass ratio] 1.2 {ratio} Normal 1.1-2.5 [facility] Comment on above: Performed By: #### L IP, GFR, CMP #### [place] [address] #### HP #### [address] [address] ALP [Catalytic activity/Vol] 101 U/L Normal 40-135 [facility] Comment on above: Performed By: #### L IP, GFR, CMP #### [address] [address] #### HP #### [address] [address] ALT [Catalytic activity/Vol] 21 U/L Normal 14-59 [facility] Comment on above: Performed By: #### L IP, GFR, CMP #### [address] [address] #### HP #### [address] [address] AST [Catalytic activity/Vol] 12 U/L Normal 10-40 [facility] Comment on above: Performed By: #### L IP, GFR, CMP #### [place] [address] #### HP #### [address] [address] Bili Total 0.2 mg/dL Normal 0.2-1.0 [facility] Comment on above: Result Comment: Use of this assay is not recommended for patients undergoing treatment with eltrombopag due to the potential for falsely elevated results. Performed By: #### L IP, GFR, CMP #### [place] [address] #### HP #### [place] [address] BUN/Creatinine Ratio 30 ratio High 7-27 [facility] Comment on above: Performed By: #### L IP, GFR, CMP #### [place] [address] #### HP #### [address] [address] Calcium [Mass/Vol] 8.9 mg/dL Normal 8.4-10.2 [facility] Comment on above: Performed By: #### L IP, GFR, CMP #### [place] [address] #### HP #### [address] [address] Chloride [Moles/Vol] 106 mmol/L Normal 98-107 [facility] Comment on above: Performed By: #### L IP, GFR, CMP #### [place] [address] #### HP #### [address] [address] CO2 [Moles/Vol] 29 mmol/L Normal 22-29 [facility] Comment on above: Performed By: #### L IP, GFR, CMP #### [place] [address] #### HP #### [address] [address] Creatinine [Mass/Vol] 0.54 mg/dL Low 0.55-1.02 [facility] Comment on above: Result Comment: Test ing performed on Siemens Dimension EXL analyzer using a modified kinetic Lokesh technique. Performed By: #### L IP, GFR, CMP #### [address] [address] #### HP #### [address] [address] Electrolyte Balance 7.0 mEq/L Normal 4.0-15.0 [facility] Comment on above: Performed By: #### L IP, GFR, CMP #### [place] [address] #### HP #### [address] [address] Globulin 3.0 G/dL Normal [facility] Comment on above: Performed By: #### L IP, GFR, CMP #### [place] [address] #### HP #### [address] [address] Glucose [Mass/Vol] 82 mg/dL Normal 70-105 [facility] Comment on above: Performed By: #### L IP, GFR, CMP #### [place] [address] #### HP #### [address] [address] Potassium [Moles/Vol] 4.5 mmol/L Normal 3.5-5.1 [facility] Comment on above: Performed By: #### L IP, GFR, CMP #### [place] [address] #### HP #### [address] [address] Sodium [Moles/Vol] 142 mmol/L Normal 136-145 [facility] Comment on above: Performed By: #### L IP, GFR, CMP #### [address] [address] #### HP #### [address] [address] Total Protein 6.7 G/dL Normal 6.4-8.2 [facility] Comment on above: Performed By: #### L IP, GFR, CMP #### [place] [address] #### HP #### [place] [address] Urea nitrogen [Mass/Vol] 16 mg/dL Normal 7-18 [facility] Comment on above: Performed By: #### L IP, GFR, CMP #### [place] [id number] #### HP #### [place] [address] LABORATORYOrdered By: SYSTEM SYSTEM on 05-11-2024 Albumin [...] 05-11-2024 Lipase Level 63 U/L Normal 16-77 [facility] Comment on above: Performed By: #### L IP, GFR, CMP #### [place] [address] #### HP #### [place] [address] HHon 12-10-2023 Hematocrit (Bld) [Volume fraction] 30.2 % Low 37.0-47.0 [facility] ([place]) Comment on above: Performed By: #### C BC, CMP, A1C, GFR, ANEU, ADIFF #### [place] [address] #### RUBIS, HBSAG, VARIS, RPR, HCV1 #### [place] [address] Hgb 10.2 G/dL Low 12.0-16.0 [facility] ([place] Comment on above: Performed By: #### C BC, CMP, A1C, GFR, ANEU, ADIFF #### [place] [address] #### RUBIS, HBSAG, VARIS, RPR, HCV1 #### [place] [address] LABORATORYOrdered By: SYSTEM SYSTEM on 12-10-2023 Hematocrit (Bld) [Volume fraction] 30.2 % Low 37.0 - 47.0 % AO Workflow SS Hemoglobin (Bld) [Mass/Vol] 10.2 G/dL Low 12.0 - 16.0 G/dL AO Workflow SS RPRon 12-10-2023 Reagin Ab RPR Ql (S) Non-Reactive Normal Non-Reactive [facility] ([place]) Comment on above: Result Comment: The RPR [...] globulins. Performed By: #### G L3 #### [address] [address] .Auto Diffon 12-08-2023 Basophil, Absolute 0.0 10 3/mcL Normal 0.0-0.2 [facility] ([place]) Comment on above: Performed By: #### G L2 #### [address] [address] Basophils/100 WBC (Bld) 0.3 % Normal 0.0-2.5 A [facility] ([place]) Comment on above: Performed By: #### G L2 #### [address] [address] Eosinophil, Absolute 0.0 10 3/mcL Normal 0.0-0.4 [facility] ([place]) Comment on above: Performed By: #### G L2 #### [address] [address] Eosinophils/100 WBC (Bld) 0.6 % Normal 0.0-7.0 [facility] ([place] Comment on above: Performed By: #### G L2 #### [address] [address] Lymphocyte, Absolute 1.7 10 3/mcL Normal 0.8-3.9 [facility] ([place] Comment on above: Performed By: #### G L2 #### [address] [address] Lymphocytes/100 WBC (Bld) 24.6 % Normal 10.0-50.0 [facility] ([place] Comment on above: Performed By: #### G L2 #### [address] [address] Monocyte, Absolute 0.6 10 3/mcL Normal 0.2-1.0 [facility] ([place] Comment on above: Performed By: #### G L2 #### [address] [address] Monocytes/100 WBC (Bld) 8.4 % Normal 1.7-13.0 A [facility] ([place] Comment on above: Performed By: #### G L2 #### [address] [address] Neutrophils/100 WBC (Bld) 66.1 % Normal 37.0-80.0 [facility] ([place] Comment on above: Performed By: #### G L2 #### [address] [address] .NEUABSon 12-08-2023 Neutrophil, Absolute 4.7 10 3/mcL Normal 2.9-6.2 [facility] ([place] Comment on above: Performed By: #### Mercy L2 #### [address] [address] ABO/Rh (Gel)on 12-08-2023 ABO/Rh Interp Positive Invalid Interpretation Code [facility] ([place] Comment on above: Performed By: #### G L2 #### [address] [address] ABS (Gel)on 12-08-2023 ABSC Interp (Gel) Negative Normal [facility] ([place] Comment on above: Performed By: #### G L3 #### [address] [address] CBCon 12-08-2023 Erythrocyte distribution width (RBC) [Ratio] 14.7 % High 11.5-14.5 [facility] ([place] Comment on above: Performed By: #### G L2 #### [address] [address] Hematocrit (Bld) [Volume fraction] 33.9 % Low 37.0-47.0 [facility] ([place] Comment on above: Performed By: #### G L2 #### [address] [address] Hgb 11.6 G/dL Low 12.0-16.0 [facility] ([place] Comment on above: Performed By: #### G L2 #### [address] [address] MCH (RBC) [Entitic mass] 28.4 pg Normal 27.0-31.2 [facility] ([place] Comment on above: Performed By: #### G L2 #### [address] [address] MCHC 34.3 G/dL Normal 33.0-37.0 [facility] ([place] Comment on above: Performed By: #### G L2 #### [address] [address] MCV (RBC) [Entitic vol] 82.9 fL Normal 80.0-94.0 A [facility] ([place] Comment on above: Performed By: #### G L2 #### [address] [address] Platelet 147 10 3/mcL Normal 130-400 [facility] ([place] Comment on above: Performed By: #### G L2 #### [address] [address] Platelet mean volume (Bld) [Entitic vol] 9.3 fL Normal 7.4-10.4 [facility] ([place] Comment on above: Performed By: #### G L2 #### [address] [address] RBC 4.09 10 6/mcL Low 4.20-5.40 [facility] ([place] Comment on above: Performed By: #### G L2 #### [address] [address] WBC 7.1 10 3/mcL Normal 4.6-10.8 [facility] ([place] Comment on above: Performed By: #### G L2 #### [address] [address] LABORATORYOrdered By: Cecile Dubon on 12-08-2023 ABO [...] Nom (Bld) A positive (12/08/23 8:15 PM) [facility] Work Phone: Group B Strep Date Performed [id number] [facility] Work Phone: Group B Strep, External Negative (12/08/23 8:15 PM) [facility] Work Phone: Hepatitis B Date Performed [id number] [facility] Work Phone: Hepatitis B, External Negative (12/08/23 8:15 PM) [facility] Work Phone: HIV Antibodies, External Negative (8/6/24 8:15 PM) [facility] Work Phone: RPR, External Nonreactive (12/08/23 8:15 PM) [facility] Work Phone: Rubella, External Immune (12/08/23 8:15 PM) [facility] Work Phone: [id number] 11-27-2023 HSV 1 IgG Type Spec 36.60 Index High 0.00-0.90 [facility] ([place] Comment on above: Result Comment: Nega tive <0.91 Equivocal 0.91 - 1.09 Positive >1.09 Note: Negative indicates no antibodies detected to HSV-1. Equivocal may suggest early infection. If clinically appropriate, retest at later date. Positive indicates antibodies detected to HSV-1. Performed By: #### C BC, CMP, A1C, GFR, ANEU, ADIFF #### [facility] [address] [place], [place] [address] #### RUBIS, HBSAG, VARIS, RPR, HCV1 #### [address] [address] HSV 2 IgG Type Spec <0.91 Normal 0.00-0.90 [facility] ([place]) Comment on above: Result Comment: Nega tive [...] results should be clinically correlated. Performed At: [address] [id number] Susanne Dwyer PhD Ph:[phone] Performed By: #### C BC, CMP, A1C, GFR, ANEU, ADIFF #### [address] [address] #### RUBIS, HBSAG, VARIS, RPR, HCV1 #### [address] [address] HSVABon 11-20-2023 HSV IgM Qualitative Negative Normal Negative [facility] ([place]) Comment on above: Result Comment: HSV IgM [...] after 3-6 weeks is suggested. Performed By: [facility] [address] [place] [address] [employer] Tender: Don Connell III, M.D. CLIA#: [id number] Performed By: #### C BC, CMP, A1C, GFR, ANEU, ADIFF #### [address] [address] #### RUBIS, HBSAG, VARIS, RPR, HCV1 #### [place] [id number] RPRon 11-19-2023 Reagin Ab RPR Ql (S) Non-Reactive Normal Non-Reactive [facility] ([place] Comment on above: Result Comment: The RPR [...] globulins. Performed By: #### G L3 #### [address] [address] .Auto Diffon 11-18-2023 Basophil, Absolute 0.0 10 3/mcL Normal 0.0-0.2 [facility] ([place] Comment on above: Performed By: #### G L3 #### [address] [address] Basophils/100 WBC (Bld) 0.3 % Normal 0.0-2.5 A [facility] ([place]) Comment on above: Performed By: #### G L3 #### [address] [address] Eosinophil, Absolute 0.0 10 3/mcL Normal 0.0-0.4 [facility] ([place] Comment on above: Performed By: #### G L3 #### [address] [address] Eosinophils/100 WBC (Bld) 0.5 % Normal 0.0-7.0 [facility] ([place] Comment on above: Performed By: #### G L3 #### [address] [address] Lymphocyte, Absolute 1.8 10 3/mcL Normal 0.8-3.9 [facility] ([place] Comment on above: Performed By: #### G L3 #### [address] [address] Lymphocytes/100 WBC (Bld) 22.5 % Normal 10.0-50.0 [facility] ([place] Comment on above: Performed By: #### G L3 #### [address] [address] Monocyte, Absolute 0.6 10 3/mcL Normal 0.2-1.0 [facility] ([place] Comment on above: Performed By: #### G L3 #### [address] [address] Monocytes/100 WBC (Bld) 7.2 % Normal 1.7-13.0 A [facility] ([place]) Comment on above: Performed By: #### G L3 #### [address] [address] Neutrophils/100 WBC (Bld) 69.5 % Normal 37.0-80.0 [facility] ([place] Comment on above: Performed By: #### G L3 #### [address] [address] .NEUABSon 11-18-2023 Neutrophil, Absolute 5.5 10 3/mcL Normal 2.9-6.2 [facility] ([place] Comment on above: Performed By: #### G L3 #### [address] [address] CBCon 11-18-2023 Erythrocyte distribution width (RBC) [Ratio] 13.9 % Normal 11.5-14.5 [facility] ([place] Comment on above: Performed By: #### G L3 #### [address] [address] Hematocrit (Bld) [Volume fraction] 35.1 % Low 37.0-47.0 [facility] ([place] Comment on above: Performed By: #### G L3 #### [address] [address] Hgb 11.9 G/dL Low 12.0-16.0 [facility] ([place] Comment on above: Performed By: #### G L3 #### [address] [address] MCH (RBC) [Entitic mass] 28.6 pg Normal 27.0-31.2 [facility] ([place] Comment on above: Performed By: #### G L3 #### [address] [address] MCHC 33.8 G/dL Normal 33.0-37.0 [facility] ([place] Comment on above: Performed By: #### G L3 #### [address] [address] MCV (RBC) [Entitic vol] 84.7 fL Normal 80.0-94.0 A [facility] ([place] Comment on above: Performed By: #### G L3 #### [address] [address] Platelet 155 10 3/mcL Normal 130-400 [facility] ([place] Comment on above: Performed By: #### G L3 #### [address] [address] Platelet mean volume (Bld) [Entitic vol] 8.9 fL Normal 7.4-10.4 [facility] ([place] Comment on above: Performed By: #### G L3 #### [address] [address] RBC 4.15 10 6/mcL Low 4.20-5.40 [facility] ([place] Comment on above: Performed By: #### G L3 #### [address] [address] WBC 7.9 10 3/mcL Normal 4.6-10.8 [facility] ([place] Comment on above: Performed By: #### G L3 #### [address] [address] GBSPCRon 11-12-2023 Group B Strep (PCR) Negative Normal Negative [facility] ([place] Comment on above: Performed By: #### G BSPCR #### [address] [address] Group B Strep PCR Int Normal [facility] [place] Comment on above: Result Comment: Grou p [...] Below Performed By: #### G BSPCR #### [address] [address] LABORATORYOrdered By: Dariusz caro on 11-10-2023 Group [...] 10-07-2023 ABO/Rh Interp Positive Invalid Interpretation Code [facility] ([place] Comment on above: Performed By: #### G L3 #### [place] [address] LABORATORYOrdered By: James Palacio on 10-07-2023 ABO and Rh group Nom (Bld) Blood group A Rh(D) positive Invalid Interpretation Code AO BB Auto SS GL1on 09-19-2023 Glucose [Mass/Vol] 163 mg/dL Normal 120-190 [facility] ([place]) Comment on above: Performed By: #### G L2 #### [place] [id number] GL2on 09-19-2023 Glucose [Mass/Vol] 158 mg/dL Normal 70-165 [facility] ([place] Comment on above: Performed By: #### G L2 #### [address] [address] GL3on 09-19-2023 Glucose [Mass/Vol] 142 mg/dL Normal 70-145 [facility] ([place] Comment on above: Performed By: #### G L3 #### [address] [address] GLFon 09-19-2023 Glucose [Mass/Vol] 82 mg/dL Low 83-110 [facility] ([place] Comment on above: Performed By: #### G L3 #### [address] [address] RPRon 09-16-2023 Reagin Ab RPR Ql (S) Non-Reactive Normal Non-Reactive [facility] ([place] Comment on above: Result Comment: The RPR [...] BC, CMP, A1C, GFR, ANEU, ADIFF #### [place] [address] #### RUBIS, HBSAG, VARIS, RPR, HCV1 #### [place] [address] .Auto Diffon 09-15-2023 Basophil, Absolute 0.0 10 3/mcL Normal 0.0-0.2 [facility] ([place] Comment on above: Performed By: #### C BC, CMP, A1C, GFR, ANEU, ADIFF #### [place] [address] #### RUBIS, HBSAG, VARIS, RPR, HCV1 #### [place] [address] Basophils/100 WBC (Bld) 0.1 % Normal 0.0-2.5 A [facility] ([place] Comment on above: Performed By: #### C BC, CMP, A1C, GFR, ANEU, ADIFF #### [place] [address] #### RUBIS, HBSAG, VARIS, RPR, HCV1 #### [place] [address] Eosinophil, Absolute 0.1 10 3/mcL Normal 0.0-0.4 [facility] ([place] Comment on above: Performed By: #### C BC, CMP, A1C, GFR, ANEU, ADIFF #### [place] [address] #### RUBIS, HBSAG, VARIS, RPR, HCV1 #### [address] [address] Eosinophils/100 WBC (Bld) 0.9 % Normal 0.0-7.0 [facility] ([place] Comment on above: Performed By: #### C BC, CMP, A1C, GFR, ANEU, ADIFF #### [address] [address] #### RUBIS, HBSAG, VARIS, RPR, HCV1 #### [address] [address] Lymphocyte, Absolute 1.7 10 3/mcL Normal 0.8-3.9 [facility] ([place] Comment on above: Performed By: #### C BC, CMP, A1C, GFR, ANEU, ADIFF #### [place] [address] #### RUBIS, HBSAG, VARIS, RPR, HCV1 #### [address] [address] Lymphocytes/100 WBC (Bld) 23.2 % Normal 10.0-50.0 [facility] ([place] Comment on above: Performed By: #### C BC, CMP, A1C, GFR, ANEU, ADIFF #### [place] [address] #### RUBIS, HBSAG, VARIS, RPR, HCV1 #### [address] [address] Monocyte, Absolute 0.6 10 3/mcL Normal 0.2-1.0 [facility] ([place] Comment on above: Performed By: #### C BC, CMP, A1C, GFR, ANEU, ADIFF #### [place] [address] #### RUBIS, HBSAG, VARIS, RPR, HCV1 #### [address] [address] Monocytes/100 WBC (Bld) 8.8 % Normal 1.7-13.0 [facility] [facility] ([place]) Comment on above: Performed By: #### C BC, CMP, A1C, GFR, ANEU, ADIFF #### [address] [address] #### RUBIS, HBSAG, VARIS, RPR, HCV1 #### [address] [address] Neutrophils/100 WBC (Bld) 67.0 % Normal 37.0-80.0 [facility] ([place]) Comment on above: Performed By: #### C BC, CMP, A1C, GFR, ANEU, ADIFF #### [address] [address] #### RUBIS, HBSAG, VARIS, RPR, HCV1 #### [address] [address] .NEUABSon 09-15-2023 Neutrophil, Absolute 4.8 10 3/mcL Normal 2.9-6.2 [facility] ([place]) Comment on above: Performed By: #### C BC, CMP, A1C, GFR, ANEU, ADIFF #### [place] [address] #### RUBIS, HBSAG, VARIS, RPR, HCV1 #### [address] [address] CBCon 09-15-2023 Erythrocyte distribution width (RBC) [Ratio] 13.1 % Normal 11.5-14.5 [facility] ([place]) Comment on above: Performed By: #### C BC, CMP, A1C, GFR, ANEU, ADIFF #### [address] [address] #### RUBIS, HBSAG, VARIS, RPR, HCV1 #### [address] [address] Hematocrit (Bld) [Volume fraction] 33.8 % Low 37.0-47.0 [facility] ([place]) Comment on above: Performed By: #### C BC, CMP, A1C, GFR, ANEU, ADIFF #### [address] [address] #### RUBIS, HBSAG, VARIS, RPR, HCV1 #### [address] [address] Hgb 11.8 G/dL Low 12.0-16.0 [facility] ([place]) Comment on above: Performed By: #### C BC, CMP, A1C, GFR, ANEU, ADIFF #### [place] [address] #### RUBIS, HBSAG, VARIS, RPR, HCV1 #### [place] [address] MCH (RBC) [Entitic mass] 30.2 pg Normal 27.0-31.2 [facility] ([place]) Comment on above: Performed By: #### C BC, CMP, A1C, GFR, ANEU, ADIFF #### [place] [address] #### RUBIS, HBSAG, VARIS, RPR, HCV1 #### [place] [address] MCHC 35.0 G/dL Normal 33.0-37.0 [facility] ([place]) Comment on above: Performed By: #### C BC, CMP, A1C, GFR, ANEU, ADIFF #### [place] [address] #### RUBIS, HBSAG, VARIS, RPR, HCV1 #### [place] [address] MCV (RBC) [Entitic vol] 86.5 fL Normal 80.0-94.0 [facility] ([place]) Comment on above: Performed By: #### C BC, CMP, A1C, GFR, ANEU, ADIFF #### [place] [address] #### RUBIS, HBSAG, VARIS, RPR, HCV1 #### [place] [address] Platelet 165 10 3/mcL Normal 130-400 [facility] ([place]) Comment on above: Performed By: #### C BC, CMP, A1C, GFR, ANEU, ADIFF #### [place] [address] #### RUBIS, HBSAG, VARIS, RPR, HCV1 #### [place] [address] Platelet mean volume (Bld) [Entitic vol] 8.7 fL Normal 7.4-10.4 [facility] ([place]) Comment on above: Performed By: #### C BC, CMP, A1C, GFR, ANEU, ADIFF #### [place] [address] #### RUBIS, HBSAG, VARIS, RPR, HCV1 #### [place] [address] RBC 3.90 10 6/mcL Low 4.20-5.40 [facility] ([place]) Comment on above: Performed By: #### C BC, CMP, A1C, GFR, ANEU, ADIFF #### [place] [address] #### RUBIS, HBSAG, VARIS, RPR, HCV1 #### [place] [address] WBC 7.2 10 3/mcL Normal 4.6-10.8 [facility] ([place]) Comment on above: Performed By: #### C BC, CMP, A1C, GFR, ANEU, ADIFF #### [place] [address] #### RUBIS, HBSAG, VARIS, RPR, HCV1 #### [place] [address] [id number] 09-15-2023 Glucose [Mass/Vol] 158 mg/dL High 70-140 [facility] ([place]) Comment on above: Performed By: #### C BC, CMP, A1C, GFR, ANEU, ADIFF #### [place] [address] #### RUBIS, HBSAG, VARIS, RPR, HCV1 #### [place] [address] LABORATORYOrdered By: SYSTEM SYSTEM on 09-15-2023 Basophil, [...] VARISon 05-22-[address] Positive Normal [facility] ([place]) Comment on above: Result Comment: INTE RPRETATION OF VARICELLA IMMUNE STATUS IgG BY EIA: Negative: No detectable VZV IgG antibody. Positive: VZV IgG antibody Detected. If clinically indicated, order Varicella IgM to rule out recent infection. Equivocal: Equivocal for antibodies to VZV. Suggest repeat testing in 10-14 days. Performed By: #### G L2 #### [place] [address] RPRon 05-21-2023 Reagin Ab RPR Ql (S) Non-Reactive Normal Non-Reactive [facility] ([place]) Comment on above: Result Comment: The RPR [...] globulins. Performed By: #### G L2 #### [place] [address] RUBISon 05-21-[address] Positive Normal Positive [facility] ([place]) Comment on above: Result Comment: This immune status assay detects IgM and/or IgG antibody to Rubella. Interpret results in conjunction with clinical history. POS: Antibody detected; exposure at undetermined recent or distant time. If clinically indicated, order Rubella IGM to rule out recent infection. NEG: No antibody detected. Performed By: #### G L2 #### [place] [address] .Auto Diffon 05-20-2023 Basophil, Absolute 0.0 10 3/mcL Normal 0.0-0.2 [facility] ([place]) Comment on above: Performed By: #### C BC, CMP, A1C, GFR, ANEU, ADIFF #### [place] [address] #### RUBIS, HBSAG, VARIS, RPR, HCV1 #### [address] [address] Basophils/100 WBC (Bld) 0.3 % Normal 0.0-2.5 [facility] ([place]) Comment on above: Performed By: #### C BC, CMP, A1C, GFR, ANEU, ADIFF #### [place] [address] #### RUBIS, HBSAG, VARIS, RPR, HCV1 #### [address] [address] Eosinophil, Absolute 0.1 10 3/mcL Normal 0.0-0.4 [facility] ([place]) Comment on above: Performed By: #### C BC, CMP, A1C, GFR, ANEU, ADIFF #### [place] [address] #### RUBIS, HBSAG, VARIS, RPR, HCV1 #### [address] [address] Eosinophils/100 WBC (Bld) 0.9 % Normal 0.0-7.0 [facility] ([place]) Comment on above: Performed By: #### C BC, CMP, A1C, GFR, ANEU, ADIFF #### [place] [address] #### RUBIS, HBSAG, VARIS, RPR, HCV1 #### [address] [address] Lymphocyte, Absolute 1.9 10 3/mcL Normal 0.8-3.9 [facility] ([place]) Comment on above: Performed By: #### C BC, CMP, A1C, GFR, ANEU, ADIFF #### [place] [address] #### RUBIS, HBSAG, VARIS, RPR, HCV1 #### [address] [address] Lymphocytes/100 WBC (Bld) 23.3 % Normal 10.0-50.0 [facility] ([place]) Comment on above: Performed By: #### C BC, CMP, A1C, GFR, ANEU, ADIFF #### [address] [address] #### RUBIS, HBSAG, VARIS, RPR, HCV1 #### [address] [address] Monocyte, Absolute 0.6 10 3/mcL Normal 0.2-1.0 [facility] [place]) Comment on above: Performed By: #### C BC, CMP, A1C, GFR, ANEU, ADIFF #### [address] [address] #### RUBIS, HBSAG, VARIS, RPR, HCV1 #### [address] [address] Monocytes/100 WBC (Bld) 7.0 % Normal 1.7-13.0 [facility] [place]) Comment on above: Performed By: #### C BC, CMP, A1C, GFR, ANEU, ADIFF #### [address] [address] #### RUBIS, HBSAG, VARIS, RPR, HCV1 #### [address] [address] Neutrophils/100 WBC (Bld) 68.5 % Normal 37.0-80.0 [facility] ([place]) Comment on above: Performed By: #### C BC, CMP, A1C, GFR, ANEU, ADIFF #### [address] [address] #### RUBIS, HBSAG, VARIS, RPR, HCV1 #### [address] [address] .GFRon 05-20-2023 GFR 243 ml/min/1.73sqm Normal [facility] ([place]) Comment on above: Result Comment: GFR Population [...] BC, CMP, A1C, GFR, ANEU, ADIFF #### [address] [address] #### RUBIS, HBSAG, VARIS, RPR, HCV1 #### [address] [address] GFR Non- 200 ml/min/1.73sqm Normal [facility] ([place]) Comment on above: Result Comment: GFR Population [...] BC, CMP, A1C, GFR, ANEU, ADIFF #### [address] [address] #### RUBIS, HBSAG, VARIS, RPR, HCV1 #### [address] [address] .NEUABSon 05-20-2023 Neutrophil, Absolute 5.6 10 3/mcL Normal 2.9-6.2 [facility] ([place]) Comment on above: Performed By: #### C BC, CMP, A1C, GFR, ANEU, ADIFF #### [address] [address] #### RUBIS, HBSAG, VARIS, RPR, HCV1 #### [address] [address] A1Con 05-20-2023 HbA1c (Bld) [Mass fraction] 5.0 % Normal 4.3-6.4 [facility] ([place]) Comment on above: Performed By: #### C BC, CMP, A1C, GFR, ANEU, ADIFF #### [place] [address] #### RUBIS, HBSAG, VARIS, RPR, HCV1 #### [address] [address] CBCon 05-20-2023 Erythrocyte distribution width (RBC) [Ratio] 12.9 % Normal 11.5-14.5 [facility] ([place]) Comment on above: Performed By: #### C BC, CMP, A1C, GFR, ANEU, ADIFF #### [place] [address] #### RUBIS, HBSAG, VARIS, RPR, HCV1 #### [place] [address] Hematocrit (Bld) [Volume fraction] 36.4 % Low 37.0-47.0 [facility] ([place]) Comment on above: Performed By: #### C BC, CMP, A1C, GFR, ANEU, ADIFF #### [place] [address] #### RUBIS, HBSAG, VARIS, RPR, HCV1 #### [address] [address] Hgb 12.8 G/dL Normal 12.0-16.0 [facility] ([place]) Comment on above: Performed By: #### C BC, CMP, A1C, GFR, ANEU, ADIFF #### [place] [address] #### RUBIS, HBSAG, VARIS, RPR, HCV1 #### [place] [id number] MCH (RBC) [Entitic mass] 29.3 pg Normal 27.0-31.2 [facility] ([place]) Comment on above: Performed By: #### C BC, CMP, A1C, GFR, ANEU, ADIFF #### [place] [address] #### RUBIS, HBSAG, VARIS, RPR, HCV1 #### [address] [address] MCHC 35.2 G/dL Normal 33.0-37.0 [facility] ([place]) Comment on above: Performed By: #### C BC, CMP, A1C, GFR, ANEU, ADIFF #### [place] [address] #### RUBIS, HBSAG, VARIS, RPR, HCV1 #### [place] [address] MCV (RBC) [Entitic vol] 83.2 fL Normal 80.0-94.0 [facility] ([place]) Comment on above: Performed By: #### C BC, CMP, A1C, GFR, ANEU, ADIFF #### [place] [address] #### RUBIS, HBSAG, VARIS, RPR, HCV1 #### [address] [address] Platelet 233 10 3/mcL Normal 130-400 [facility] ([place]) Comment on above: Performed By: #### C BC, CMP, A1C, GFR, ANEU, ADIFF #### [place] [address] #### RUBIS, HBSAG, VARIS, RPR, HCV1 #### [place] [address] Platelet mean volume (Bld) [Entitic vol] 8.2 fL Normal 7.4-10.4 [facility] ([place]) Comment on above: Performed By: #### C BC, CMP, A1C, GFR, ANEU, ADIFF #### [place] [address] #### RUBIS, HBSAG, VARIS, RPR, HCV1 #### [place] [id number] RBC 4.38 10 6/mcL Normal 4.20-5.40 [facility] ([place]) Comment on above: Performed By: #### C BC, CMP, A1C, GFR, ANEU, ADIFF #### [place] [address] #### RUBIS, HBSAG, VARIS, RPR, HCV1 #### [place] [address] WBC 8.1 10 3/mcL Normal 4.6-10.8 [facility] ([place]) Comment on above: Performed By: #### C BC, CMP, A1C, GFR, ANEU, ADIFF #### [place] [address] #### RUBIS, HBSAG, VARIS, RPR, HCV1 #### [place] [address] CMPon 05-20-2023 Albumin Level 3.2 G/dL Low 3.5-5.0 [facility] ([place]) Comment on above: Performed By: #### C BC, CMP, A1C, GFR, ANEU, ADIFF #### [place] [address] #### RUBIS, HBSAG, VARIS, RPR, HCV1 #### [place] [address] Albumin/Globulin [Mass ratio] 0.9 {ratio} Low 1.1-2.5 [facility] ([place]) Comment on above: Performed By: #### C BC, CMP, A1C, GFR, ANEU, ADIFF #### [place] [address] #### RUBIS, HBSAG, VARIS, RPR, HCV1 #### [place] [address] ALP [Catalytic activity/Vol] 53 U/L Normal 40-135 [facility] ([place]) Comment on above: Performed By: #### C BC, CMP, A1C, GFR, ANEU, ADIFF #### [address] [address] #### RUBIS, HBSAG, VARIS, RPR, HCV1 #### [address] [address] ALT [Catalytic activity/Vol] 41 U/L Normal 14-59 [facility] ([place]) Comment on above: Performed By: #### C BC, CMP, A1C, GFR, ANEU, ADIFF #### [place] [address] #### RUBIS, HBSAG, VARIS, RPR, HCV1 #### [address] [address] AST [Catalytic activity/Vol] 17 U/L Normal 10-40 [facility] ([place]) Comment on above: Performed By: #### C BC, CMP, A1C, GFR, ANEU, ADIFF #### [place] [address] #### RUBIS, HBSAG, VARIS, RPR, HCV1 #### [address] [address] Bili Total 0.2 mg/dL Normal 0.2-1.0 [facility] ([place]) Comment on above: Result Comment: Use of this assay is not recommended for patients undergoing treatment with eltrombopag due to the potential for falsely elevated results. Performed By: #### C BC, CMP, A1C, GFR, ANEU, ADIFF #### [place] [address] #### RUBIS, HBSAG, VARIS, RPR, HCV1 #### [address] [address] BUN/Creatinine Ratio 37 ratio High 7-27 [facility] ([place]) Comment on above: Performed By: #### C BC, CMP, A1C, GFR, ANEU, ADIFF #### [place] [address] #### RUBIS, HBSAG, VARIS, RPR, HCV1 #### [address] [address] Calcium [Mass/Vol] 9.0 mg/dL Normal 8.4-10.2 [facility] ([place]) Comment on above: Performed By: #### C BC, CMP, A1C, GFR, ANEU, ADIFF #### [address] [address] #### RUBIS, HBSAG, VARIS, RPR, HCV1 #### [address] [address] Chloride [Moles/Vol] 103 mmol/L Normal 98-107 [facility] ([place]) Comment on above: Performed By: #### C BC, CMP, A1C, GFR, ANEU, ADIFF #### [address] [address] #### RUBIS, HBSAG, VARIS, RPR, HCV1 #### [address] [address] CO2 [Moles/Vol] 24 mmol/L Normal 22-29 [facility] ([place]) Comment on above: Performed By: #### C BC, CMP, A1C, GFR, ANEU, ADIFF #### [address] [address] #### RUBIS, HBSAG, VARIS, RPR, HCV1 #### [address] [address] Creatinine [Mass/Vol] 0.38 mg/dL Low 0.55-1.02 [facility] ([place]) Comment on above: Performed By: #### C BC, CMP, A1C, GFR, ANEU, ADIFF #### [address] [address] #### RUBIS, HBSAG, VARIS, RPR, HCV1 #### [address] [address] Electrolyte Balance 11.0 mEq/L Normal 4.0-15.0 [facility] ([place]) Comment on above: Performed By: #### C BC, CMP, A1C, GFR, ANEU, ADIFF #### [address] [address] #### RUBIS, HBSAG, VARIS, RPR, HCV1 #### [address] [address] Globulin 3.4 G/dL Normal [facility] ([place]) Comment on above: Performed By: #### C BC, CMP, A1C, GFR, ANEU, ADIFF #### [place] [address] #### RUBIS, HBSAG, VARIS, RPR, HCV1 #### [address] [address] Glucose [Mass/Vol] 84 mg/dL Normal 70-105 [facility] ([place] Comment on above: Performed By: #### C BC, CMP, A1C, GFR, ANEU, ADIFF #### [place] [address] #### RUBIS, HBSAG, VARIS, RPR, HCV1 #### [address] [address] Potassium [Moles/Vol] 4.4 mmol/L Normal 3.5-5.1 [facility] ([place]) Comment on above: Performed By: #### C BC, CMP, A1C, GFR, ANEU, ADIFF #### [address] [address] #### RUBIS, HBSAG, VARIS, RPR, HCV1 #### [address] [address] Sodium [Moles/Vol] 138 mmol/L Normal 136-145 [facility] ([place] Comment on above: Performed By: #### C BC, CMP, A1C, GFR, ANEU, ADIFF #### [place] [address] #### RUBIS, HBSAG, VARIS, RPR, HCV1 #### [address] [address] Total Protein 6.6 G/dL Normal 6.4-8.2 [facility] ([place]) Comment on above: Performed By: #### C BC, CMP, A1C, GFR, ANEU, ADIFF #### [place] [address] #### RUBIS, HBSAG, VARIS, RPR, HCV1 #### [place] [address] Urea nitrogen [Mass/Vol] 14 mg/dL Normal 7-18 [facility] ([place]) Comment on above: Performed By: #### C BC, CMP, A1C, GFR, ANEU, ADIFF #### [place] [address] #### RUBIS, HBSAG, VARIS, RPR, HCV1 #### [place] [address] HBSAGon 05-20-2023 Hep B Surf Ag Non-Reactive Normal Non-Reactive [facility] ([place]) Comment on above: Performed By: #### C BC, CMP, A1C, GFR, ANEU, ADIFF #### [place] [address] #### RUBIS, HBSAG, VARIS, RPR, HCV1 #### [place] [address] HCVon 05-20-2023 Hep C Ab Non-Reactive Normal Non-Reactive [facility] ([place]) Comment on above: Performed By: #### G L2 #### [place] [address] Hep C Ab Int Normal [facility] ([place]) Comment on above: Result Comment: Nonr eactive: Samples with a value < 0.80 are considered nonreactive (negative) for antibodies to HCV. A negative test result does not exclude the possibility of exposure to or infection with HCV. HCV antibodies may be undetectable in some stages of the infection and in some clinical conditions. See Interp Performed By: #### G L2 #### [place] [address] HIVRPon 05-20-2023 HIV p24 Antigen Non-Reactive Normal Non-Reactive [facility] ([place]) Comment on above: Result Comment: Dete ction of p24 may be inhibited by biotin in the sample, causing false negative results in acute infection. Therefore do not test samples from patients who are taking biotin. Performed By: #### G L2 #### [place] [id number] HIV P24 Int Non-Reactive Invalid Interpretation Code [facility] ([place]) Comment on above: Performed By: #### G L2 #### [place] [id number] [place] [id number] Rapid HIV 1/2 Antibody Non-Reactive Normal Non-Reactiv e [facility] ([place]) Comment on above: Performed By: #### G L2 #### [place] [id number] RHIV 1/2 Ab Int Non-Reactive Invalid Interpretation Code [facility] ([place]) Comment on above: Performed By: #### G L2 #### [place] [address] LABORATORYOrdered By: Juma Martinez on 05-20-2023 HIV [...] Non-Reactive AO Rapid Testing SS LABORATORYOrdered By: [employer] on 05-20-2023 Albumin BCP dye [Mass/Vol] [...] clinical conditions. Invalid Interpretation Code Chemistry S [facility] Reporton 2022 [facility] Report . Pathology Reports Accession: Collected Date/Time: Received Date/Time: Pathologist: [id number] 04/08/2023 16:40 EST 04/08/2023 18:00 EST [facility] Report SPECIMEN: Specimen Description: Liquid Prep Reflex ASCUS+ Specimen: Cervical Screening or Diagnostic: Screening RELEVANT HISTORY: LMP: 03/04 : Yes SPECIMEN ADEQUACY: SATISFACTORY FOR EVALUATION Endocervical/Transform ational zone component present INTERPRETATION/RESULTS : NEGATIVE FOR INTRAEPITHELIAL LESION OR MALIGNANCY COMMENT: This Pap Test was successfully processed and evaluated with the assistance of the [employer] ThinPrep Test Imaging System. Electronically Signed by Pathology report verified by [facility] Screened by: DW Electronically signed by Keyanna Claudio Sign-Out Date: 04/15/2023 14:00 Performing Lab: [facility], [address] [place] [address] Pathology Dept Disclaimer The Pap test is a screening test for cervical cancer. As evidenced by published data, it is subject to both inherent false negative and false positive results. Your patient's results should be interpreted in context with pertinent clinical history including gynecological examination. Normal [facility] ([place]) CTPCRon 04-10-2023 C. trachomatis Interp Normal See CT Interp N [facility] ([place]) Comment on above: Result Comment: C. t rachomatis DNA not detected. Specimen is presumptive negative for C. trachomatis. A negative result does not preclude C. trachomatis infection because results depend on adequate specimen collection, absence of inhibitors, and sufficient DNA to be detected. See CT Interp N Performed By: #### C TPCR, [id number] #### [place] [address] C.trachomatis PCR Negative Normal Negative [facility] ([place]) Comment on above: Result Comment: Mole cular (PCR) assay performed on the [employer] system. Performed By: #### C TPCR, NGPCR1 #### [place] [address] Chlam Source Cervix Normal [facility] ([place]) Comment on above: Performed By: #### C TPCR, NGPCR1 #### [place] [address] C. trachomatis Interp Normal See CT Interp N [facility] ([place]) Comment on above: Result Comment: C. t rachomatis DNA not detected. Specimen is presumptive negative for C. trachomatis. A negative result does not preclude C. trachomatis infection because results depend on adequate specimen collection, absence of inhibitors, and sufficient DNA to be detected. See CT Interp N Performed By: #### C BC, CMP, A1C, GFR, ANEU, ADIFF #### [address] [address] #### RUBIS, HBSAG, VARIS, RPR, HCV1 #### [address] [address] C.trachomatis PCR Negative Normal Negative [facility] ([place]) Comment on above: Result Comment: Mole cular (PCR) assay performed on the [employer]00 system. Performed By: #### C BC, CMP, A1C, GFR, ANEU, ADIFF #### [address] [address] #### RUBIS, HBSAG, VARIS, RPR, HCV1 #### [address] [address] Chlam Source Cervix Normal [facility] ([place]) Comment on above: Performed By: #### C BC, CMP, A1C, GFR, ANEU, ADIFF #### [address] [address] #### RUBIS, HBSAG, VARIS, RPR, HCV1 #### [address] [address] [id number] 04-10-2023 GC PCR Source Cervix Normal [facility] ([place] Comment on above: Performed By: #### C TPCR, NGPCR1 #### [address] [address] N. gonorrhoeae (PCR) Negative Normal Negative [facility] [place] Comment on above: Result Comment: Mole cular (PCR) assay performed on the [employer] System. Performed By: #### C TPCR, NGPCR1 #### [address] [address] N. gonorrhoeae Interp Normal See NG Interp N [facility] ([place] Comment on above: Result Comment: N. g onorrhoeae DNA not detected. Specimen is presumptive negative for N. gonorrhoeae. A negative result does not preclude Neisseria gonorrhoeae infection because results depend on adequate specimen collection, absence of inhibitors, and sufficient DNA to be detected. See NG Interp N Performed By: #### C TPCR, [id number] #### [address] [address] GC PCR Source Cervix Normal [facility] ([place] Comment on above: Performed By: #### C BC, CMP, A1C, GFR, ANEU, ADIFF #### [address] [address] #### RUBIS, HBSAG, VARIS, RPR, HCV1 #### [place] [id number] N. gonorrhoeae (PCR) Negative Normal Negative [facility] [place] Comment on above: Result Comment: Casie oneill (PCR) assay performed on the [employer]00 System. Performed By: #### C BC, CMP, A1C, GFR, ANEU, ADIFF #### [place] [address] #### RUBIS, HBSAG, VARIS, RPR, HCV1 #### [place] [id number] N. gonorrhoeae Interp Normal See NG Interp N [facility] [place] Comment on above: Result Comment: N. g onorrhoeae DNA not detected. Specimen is presumptive negative for N. gonorrhoeae. A negative result does not preclude Neisseria gonorrhoeae infection because results depend on adequate specimen collection, absence of inhibitors, and sufficient DNA to be detected. See NG Interp N Performed By: #### C BC, CMP, A1C, GFR, ANEU, ADIFF #### [place] [address] #### RUBIS, HBSAG, VARIS, RPR, HCV1 #### [place] [id number] DRUGUon 04-09-2023 Amphetamine (u) Negative Normal Negative [facility] ([place] Comment on above: Performed By: #### D RUGU #### [place] [id number] Barbiturate (u) Negative Normal Negative [facility] ([place]) Comment on above: Performed By: #### Elizabeth RUGU #### [facility] [address] [place] [address] Benzodiazepine (u) Negative Normal Negative [facility] ([place]) Comment on above: Performed By: #### Elizabeth RUGU #### [facility] [address] [place] [address] Cannabinoid (u) Negative Normal Negative [facility] ([place] Comment on above: Performed By: #### Elizabeth RUGU #### [facility] [address] [place] [address] Cocaine Ql (U) Negative Normal Negative [facility] ([place] Comment on above: Performed By: #### Elizabeth RUGU #### [address] [address] Fentanyl (u) Negative Normal Negative [facility] ([place] Comment on above: Result Comment: Test ing has been performed FOR MEDICAL PURPOSES ONLY. Performed By: #### Elizabeth RUGU #### [address] [address] Methadone Ql (U) Negative Normal Negative [facility] ([place] Comment on above: Performed By: #### Elizabeth RUGU #### [address] [address] Opiate (u) Negative Normal Negative [facility] ([place] Comment on above: Performed By: #### Elizabeth RUGU #### [address] [address] Oxycodone (u) Negative Normal Negative [facility] ([place] Comment on above: Result Comment: Test ing has been performed FOR MEDICAL PURPOSES ONLY. Performed By: #### Elizabeth RUGU #### [facility] [address] [place] [address] PCP (u) Negative Normal Negative [facility] ([place] Comment on above: Performed By: #### Elizabeth RUGU #### [address] [address] Propoxyphene (u) Negative Normal Negative [facility] ([place] Comment on above: Performed By: #### Elizabeth RUGU #### [address] [address] U pH Drug Scrn 6.5 Normal 5.0-8.0 [facility] ([place] Comment on above: Performed By: #### Elizabeth CASTILLO #### [place] [id number] Urine Drugs screened: See Below Normal [facility] ([place]) Comment on above: Result Comment: This drug [...] PURPOSES ONLY. Performed By: ###Susan CASTILLO #### [place] [address] Amphetamine (u) Negative Normal Negative [facility] ([place] Comment on above: Performed By: #### C BC, CMP, A1C, GFR, ANEU, ADIFF #### [place] [address] #### RUBIS, HBSAG, VARIS, RPR, HCV1 #### [place] [address] Barbiturate (u) Negative Normal Negative [facility] ([place] Comment on above: Performed By: #### C BC, CMP, A1C, GFR, ANEU, ADIFF #### [address] [address] #### RUBIS, HBSAG, VARIS, RPR, HCV1 #### [place] [id number] Benzodiazepine (u) Negative Normal Negative [facility] ([place] Comment on above: Performed By: #### C BC, CMP, A1C, GFR, ANEU, ADIFF #### [place] [address] #### RUBIS, HBSAG, VARIS, RPR, HCV1 #### [place] [address] Cannabinoid (u) Negative Normal Negative [facility] ([place]) Comment on above: Performed By: #### C BC, CMP, A1C, GFR, ANEU, ADIFF #### [place] [address] #### RUBIS, HBSAG, VARIS, RPR, HCV1 #### [place] [address] Cocaine Ql (U) Negative Normal Negative [facility] ([place]) Comment on above: Performed By: #### C BC, CMP, A1C, GFR, ANEU, ADIFF #### [place] [address] #### RUBIS, HBSAG, VARIS, RPR, HCV1 #### [place] [address] Fentanyl (u) Negative Normal Negative [facility] ([place] Comment on above: Result Comment: Test ing has been performed FOR MEDICAL PURPOSES ONLY. Performed By: #### C BC, CMP, A1C, GFR, ANEU, ADIFF #### [place] [address] #### RUBIS, HBSAG, VARIS, RPR, HCV1 #### [place] [address] Methadone Ql (U) Negative Normal Negative [facility] ([place] Comment on above: Performed By: #### C BC, CMP, A1C, GFR, ANEU, ADIFF #### [place] [address] #### RUBIS, HBSAG, VARIS, RPR, HCV1 #### [place] [address] Opiate (u) Negative Normal Negative [facility] ([place] Comment on above: Performed By: #### C BC, CMP, A1C, GFR, ANEU, ADIFF #### [place] [address] #### RUBIS, HBSAG, VARIS, RPR, HCV1 #### [address] [address] Oxycodone (u) Negative Normal Negative [facility] ([place] Comment on above: Result Comment: Test ing has been performed FOR MEDICAL PURPOSES ONLY. Performed By: #### C BC, CMP, A1C, GFR, ANEU, ADIFF #### [address] [address] #### RUBIS, HBSAG, VARIS, RPR, HCV1 #### [address] [address] PCP (u) Negative Normal Negative [facility] ([place] Comment on above: Performed By: #### C BC, CMP, A1C, GFR, ANEU, ADIFF #### [place] [address] #### RUBIS, HBSAG, VARIS, RPR, HCV1 #### [place] [address] Propoxyphene (u) Negative Normal Negative [facility] ([place] Comment on above: Performed By: #### C BC, CMP, A1C, GFR, ANEU, ADIFF #### [place] [address] #### RUBIS, HBSAG, VARIS, RPR, HCV1 #### [place] [id number] U pH Drug Scrn 6.5 Normal 5.0-8.0 [facility] ([place] Comment on above: Performed By: #### C BC, CMP, A1C, GFR, ANEU, ADIFF #### [place] [address] #### RUBIS, HBSAG, VARIS, RPR, HCV1 #### [place] [address] Urine Drugs screened: See Below Normal [facility] ([place]) Comment on above: Result Comment: This drug [...] BC, CMP, A1C, GFR, ANEU, ADIFF #### [facility] [address] [place], [place] [address] #### RUBIS, HBSAG, VARIS, RPR, HCV1 #### [address] [address] LABORATORYOrdered By: Ana Acosta on 04-08-2023 Amphetamines [...] Mixed growth consistent with normal urogenital connie. [facility] Work Phone: LABORATORYOrdered By: SYSTEM SYSTEM [...] 03-08-2025 15:34-0500 Body height 152.[address] Caron Glasgow DO Work Phone: [facility] 03-08-2025 15:34-0500 Body mass index (BMI) [Ratio] 32.6 kg/m2 Dr. Caron Glasgow DO Work Phone: [facility] 03-08-2025 15:34-0500 Body weight 75.[address] Caron Glasgow DO Work Phone: [facility] 03-08-2025 15:34-0500 Diastolic blood pressure 76 mm[Hg] Dr. Caron Glasgow DO Work Phone: [facility] 03-08-2025 15:34-0500 Systolic blood pressure 113 mm[Hg] Dr. Caron Glasgow DO Work Phone: [facility] 02-21-2025 15:27-0400 Body height 152.[address] Caron Glasgow DO Work Phone: [facility] 02-21-2025 15:26-0400 Body mass index (BMI) [Ratio] 32.8 kg/m2 Dr. Caron Glasgow DO Work Phone: [facility] 02-21-2025 15:26-0400 Body weight 76.[address] Caron Glasgow DO Work Phone: [facility] 02-21-2025 15:26-0400 Diastolic blood pressure 81 mm[Hg] Dr. Caron Glasgow DO Work Phone: [facility] 02-21-2025 15:26-0400 Systolic blood pressure 121 mm[Hg] Dr. Caron Glasgow DO Work Phone: [facility] 02-09-2025 15:27-0400 Body mass index (BMI) [Ratio] 32.2 kg/m2 Dr. Caron Glasgow DO Work Phone: [facility] 02-09-2025 15:27-0400 Body weight 74.[address] Caron Glasgow DO Work Phone: [facility] 02-09-2025 15:27-0400 Diastolic blood pressure 68 mm[Hg] Dr. Caron Glasgow DO Work Phone: [facility] 02-09-2025 15:27-0400 Systolic blood pressure 103 mm[Hg] Dr. Caron Glasgow DO Work Phone: [facility] 01-24-2025 14:51-0400 Body height 152.[address] Caron Glasgow DO Work Phone: [facility] 01-24-2025 14:51-0400 Body mass index (BMI) [Ratio] 32 kg/m2 Dr. Caron Glasgow DO Work Phone: [facility] 01-24-2025 14:51-0400 Body weight 74.[address] Caron Glasgow DO Work Phone: [facility] 01-24-2025 14:51-0400 Diastolic blood pressure 72 mm[Hg] Dr. Caron Glasgow DO Work Phone: [facility] 01-24-2025 14:51-0400 Systolic blood pressure 105 mm[Hg] Dr. Caron Glasgow DO Work Phone: [facility] 01-11-2025 15:29-0400 Body height 152.[address] Caron Glasgow DO Work Phone: [facility] 01-11-2025 15:29-0400 Body mass index (BMI) [Ratio] 31.4 kg/m2 Dr. Caron Glasgow DO Work Phone: [facility] 01-11-2025 15:29-0400 Body weight 73.[address] Caron Glasgow DO Work Phone: [facility] 01-11-2025 15:29-0400 Diastolic blood pressure 74 mm[Hg] Dr. Caron Glasgow DO Work Phone: [facility] 01-11-2025 15:29-0400 Systolic blood pressure 111 mm[Hg] Dr. Caron Glasgow DO Work Phone: [facility] 12-26-2024 15:38-0400 Body height 152.[address] Caron Glasgow DO Work Phone: [facility] 12-26-2024 15:33-0400 Body mass index (BMI) [Ratio] 30.9 kg/m2 Dr. Caron Glasgow DO Work Phone: [facility] 12-26-2024 15:33-0400 Body weight 71.[address] Caron Glasgow DO Work Phone: [facility] 12-26-2024 15:33-0400 Diastolic blood pressure 70 mm[Hg] Dr. Caron Glasgow DO Work Phone: [facility] 12-26-2024 15:33-0400 Systolic blood pressure 104 mm[Hg] Dr. Caron Glasgow DO Work Phone: [facility] 12-01-2024 16:03-0400 Body height 152.[address] Caron Glasgow DO Work Phone: [facility] 12-01-2024 15:59-0400 Body mass index (BMI) [Ratio] 29.7 kg/m2 Dr. Caron Glasgow DO Work Phone: [facility] 12-01-2024 15:59-0400 Body weight 69.[address] Caron Glasgow DO Work Phone: [facility] 12-01-2024 15:59-0400 Diastolic blood pressure 71 mm[Hg] Dr. Caron Glasgow DO Work Phone: [facility] 12-01-2024 15:59-0400 Systolic blood pressure 109 mm[Hg] Dr. Caron Glasgow DO Work Phone: [facility] 11-02-2024 15:54-0400 Body height 152.[address] Caron Glasgow DO Work Phone: [facility] 11-02-2024 15:54-0400 Body mass index (BMI) [Ratio] 28 kg/m2 Dr. Caron Glasgow DO Work Phone: [facility] 11-02-2024 15:54-0400 Body weight 65.[address] Caron Glasgow DO Work Phone: [facility] 11-02-2024 15:54-0400 Diastolic blood pressure 70 mm[Hg] Dr. Caron Glasgow DO Work Phone: [facility] 11-02-2024 15:54-0400 Systolic blood pressure 110 mm[Hg] Dr. Caron Glasgow DO Work Phone: [facility] 10-04-2024 09:38-0400 Body height 152.[address] Caron Glasgow DO Work Phone: [facility] 10-04-2024 09:38-0400 Body mass index (BMI) [Ratio] 26.7 kg/m2 Dr. Caron Glasgow DO Work Phone: [facility] 10-04-2024 09:38-0400 Body weight 62.[address] Caron Glasgow DO Work Phone: [facility] 10-04-2024 09:38-0400 Diastolic blood pressure 69 mm[Hg] Dr. Caron Glasgow DO Work Phone: [facility] 10-04-2024 09:38-0400 Systolic blood pressure 100 mm[Hg] Dr. Caron Glasgow DO Work Phone: [facility] 09-13-2024 08:51-0400 Body height 152.[address] Caron Glasgow DO Work Phone: [facility] 09-13-2024 08:51-0400 Body mass index (BMI) [Ratio] 25.9 kg/m2 Dr. Caron Glasgow DO Work Phone: [facility] 09-13-2024 08:51-0400 Body weight 60.[address] Caron Glasgow DO Work Phone: [facility] 09-13-2024 08:51-0400 Diastolic blood pressure 74 mm[Hg] Dr. Caron Glasgow DO Work Phone: [facility] 09-13-2024 08:51-0400 Systolic blood pressure 108 mm[Hg] Dr. Caron Glasgow DO Work Phone: [facility] 08-19-2024 13:28-0400 Body mass index (BMI) [Ratio] 26.9 kg/m2 Dr. Caron Glasgow DO Work Phone: [facility] 08-19-2024 13:28-0400 Body weight 62.[address] Caron Glasgow DO Work Phone: [facility] 12-11-2023 09:54-0400 Body temperature 97.7 [degF] PATRICE REGAN APRN-CNM [facility] 12-11-2023 09:54-0400 Diastolic Blood Pressure Non-Invasive 72 mm[Hg] PATRICE REGAN APRN-CNM [facility] 12-11-2023 09:54-0400 Heart rate 97 /min PATRICE REGAN HARDWARE TECHNICIAN-CNM [facility] 12-11-2023 09:54-0400 Reason For Taking VItal Signs PATRICE REGAN HARDWARE TECHNICIAN-CNM [facility] 12-11-2023 09:54-0400 Respiratory rate 18 /min PATRICE REGAN APRN-CNM [facility] 12-11-2023 09:54-0400 Systolic Blood Pressure Non-Invasive 110 mm[Hg] 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-CNM [facility] 12-11-2023 00:02-0400 Body temperature 96.8 [degF] 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-CNM [facility] 12-11-2023 00:02-0400 Diastolic Blood Pressure Non-Invasive 72 mm[Hg] 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-CNM [facility] 12-11-2023 00:02-0400 Heart rate 81 /min 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-CNM [facility] 12-11-2023 00:02-0400 Reason For Taking VItal Signs 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-CNM [facility] 12-11-2023 00:02-0400 Respiratory rate 16 /min 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-CNM [facility] 12-11-2023 00:02-0400 Systolic Blood Pressure Non-Invasive 110 mm[Hg] 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-CNM [facility] 12-10-2023 16:30-0400 Body temperature 97.52 [degF] 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-CNM [facility] 12-10-2023 16:30-0400 Diastolic Blood Pressure Non-Invasive 63 mm[Hg] 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-CNM [facility] 12-10-2023 16:30-0400 Heart rate 99 /min 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-CNM [facility] 12-10-2023 16:30-0400 Respiratory rate 16 /min PATRICE REGAN HARDWARE TECHNICIAN-CNM [facility] 12-10-2023 16:30-0400 Systolic Blood Pressure Non-Invasive 100 mm[Hg] PATRICE WHITTENITLER HARDWARE TECHNICIAN-CNM [facility] 12-10-2023 08:48-0400 Body temperature 97.16 [degF] 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-CNM [facility] 12-10-2023 08:48-0400 Reason For Taking VItal Signs PATRICE REGAN HARDWARE TECHNICIAN-CNM [facility] 12-09-2023 06:00-0400 Body temperature 98.6 [degF] PATRICE WHITTENITLER HARDWARE TECHNICIAN-CNM [facility] 12-09-2023 03:40-0400 Body temperature 98.24 [degF] 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-CNM [facility] 12-08-2023 20:15-0400 Body height 152.4 cm PATRICE WHITTENRANLER HARDWARE TECHNICIAN-CNM [facility] 12-08-2023 20:15-0400 Body weight 78.1 kg PATRICE BARRAGANLER HARDWARE TECHNICIAN-CNM [facility] 12-08-2023 20:15-0400 Body weight 33.63 kg/m2 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-CNM [facility] 06-16-2022 18:33-0500 Body height 152.[address] FAITH COOK DO [facility] 06-16-2022 18:33-0500 Body temperature 98.06 [degF] DR FAITH COOK DO [facility] 06-16-2022 18:33-0500 Body weight 68.[address] FAITH COOK DO [facility] 06-16-2022 18:33-0500 Diastolic Blood Pressure Non-Invasive [address] FAITH COOK DO [facility] 06-16-2022 18:33-0500 Heart rate 88 /min DR FAITH COOK DO [facility] 06-16-2022 18:33-0500 Respiratory rate 20 /min DR FAITH COOK DO [facility] 06-16-2022 18:33-0500 Systolic Blood Pressure Non-Invasive [address] FAITH COOK DO [facility] Encounters Encounter Date Encounter Type Care Provider Facility Start: 03-13-2025 End: 03-13-2025 ambulatory Kathy Scwhartz Facility:[facility] Start: 03-08-2025 End: 03-08-2025 ambulatory Caron Glasgow Facility:[facility] Start: 02-21-2025 End: 02-21-[address] Caron Everett DO -[facility] Work Phone: Start: 02-21-2025 End: 02-21-[address] Caron Glasgow DO Work Phone: -[facility] Start: 02-09-2025 End: 02-09-[address] Caron Everett DO -[facility] Work Phone: Start: 02-09-2025 End: 02-09-[address] Caron Glasgow DO Work Phone: -[facility] Start: 01-24-2025 End: 01-24-2025 Patient encounter procedure Gwen Claudio CNM -[facility] Work Phone: Start: 01-24-2025 End: 01-24-[address] Caron Glasgow DO Work Phone: -[facility] Start: 01-11-2025 End: 01-11-2025 Patient encounter procedure Jessy Foss JUNIOR JAVA DEVELOPER-C -[facility] Work Phone: Start: 01-11-2025 End: 01-11-[address] Caron Glasgow DO Work Phone: [facility] Start: 01-11-2025 End: 01-11-2025 ambulatory Jessy Foss JUNIOR JAVA DEVELOPER Facility:[facility] Start: 12-26-2024 End: 12-26-2024 Patient encounter procedure Jessy Foss JUNIOR JAVA DEVELOPER-C -[facility] Work Phone: Start: 12-26-2024 End: 12-26-[address] Caron Glasgow DO Work Phone: -[facility] Start: 12-22-2024 End: 12-22-2024 ambulatory GWEN CLAUDIO [facility] Start: 12-01-2024 End: 12-01-[address] Kathy Schwartz MD -[facility] Work Phone: Start: 12-01-2024 End: 12-01-[address] Caron Glasgow DO Work Phone: -[facility] Start: 11-17-2024 End: 11-17-2024 ambulatory MD ARUN PEREZ [facility] Start: 11-02-2024 End: 11-02-[address] Caron Everett DO -[facility] Work Phone: Start: 11-02-2024 End: 11-02-[address] Caron Glasgow DO Work Phone: -[facility] Start: 10-04-2024 End: 10-04-2024 Patient encounter procedure Jessy GOTTI -[facility] Work Phone: Start: 10-04-2024 End: 10-04-[address] Caron Glasgow DO Work Phone: [facility] Work Phone: Start: 09-13-2024 End: 09-13-2024 Patient encounter procedure Gwen FRANKS -[facility] Work Phone: Start: 09-13-2024 End: 09-13-[address] Caron Glasgow DO Work Phone: [facility] Work Phone: Start: 09-13-2024 End: 09-13-2024 ambulatory Caron Glasgow Facility:[facility] Start: 09-09-2024 Non-patient / Non-visit Azalia Manzo RN -[facility] Work Phone: Start: 09-09-2024 ambulatory Azalia Manzo Facility :[facility] Start: 08-19-2024 End: 08-19-2024 Patient encounter procedure Gwen Claudio CNM -[facility] Work Phone: Start: 08-19-2024 End: 08-19-2024 ambulatory Gwen Claudio Facility:[facility] Start: 08-16-2024 ambulatory CARON GLASGOW DO Facility:[facility] Start: 05-11-2024 End: 05-11-2024 ambulatory CARON GLASGOW DO Facility:[facility] Start: 05-11-2024 End: 05-11-2024 Patient encounter procedure CARON PEE DO [facility] Start: 04-05-2024 ambulatory Silvia Nils JUNIOR JAVA DEVELOPER Faci lity:[facility] Start: 12-08-2023 End: 12-11-2023 Evaluation and management of inpatient PATRICE Gallardo JASS HARDWARE TECHNICIAN-CNM [facility] Start: 11-26-2023 End: 11-26-2023 ambulatory HOLLIS MEHTA MD Facility:[facility] Start: 11-26-2023 End: 11-26-2023 Patient encounter procedure HOLLIS MEHTA MD [facility] Start: 11-18-2023 End: 11-18-2023 ambulatory HOLLIS MEHTA MD Facility:[facility] Start: 11-12-2023 End: 11-12-2023 ambulatory PATRICE REGAN Facility:[facility] Start: 11-10-2023 End: 11-14-2023 ambulatory LATOYA IZQUIERDO MD Facility:[facility] Start: 11-10-2023 End: 11-14-2023 Outreach Lab LATOYA IZQUIERDO MD [facility] Start: 10-23-2023 ambulatory PATRICE REGAN Facilit y:[facility] Start: 10-14-2023 End: 10-14-2023 ambulatory PATRICE REGAN Facility:[facility] Start: 10-14-2023 End: 10-14-2023 Patient encounter procedure PATRICE Gallardo JASS HARDWARE TECHNICIAN-CNM [facility] Start: 10-07-2023 End: 10-07-2023 ambulatory PATRICE JASS Facility:[facility] Start: 10-07-2023 End: 10-07-2023 Patient encounter procedure PATRICEMICHEAL REGAN HARDWARE TECHNICIAN-CNM [facility] Start: 09-19-2023 End: 09-19-2023 ambulatory LATOYA IZQUIERDO MD Facility:[facility] Start: 09-15-2023 End: 09-15-2023 ambulatory LATOYA IZQUIERDO MD Facility:[facility] Start: 09-15-2023 End: 09-15-2023 Patient encounter procedure LATOYA IZQUIERDO MD [facility] Start: 07-20-2023 End: 07-20-2023 ambulatory PATRICE JASS Facility:[facility] Start: 07-20-2023 End: 07-20-2023 Patient encounter procedure PATRICE BARRAGANYURY HARDWARE TECHNICIAN-CNM [facility] Start: 05-20-2023 End: 05-20-2023 ambulatory PATRICE WHITTENVINEET Facility:[facility] Start: 05-20-2023 End: 05-20-2023 Patient encounter procedure PATRICE WHITTENITYURY HARDWARE TECHNICIAN-CNM [facility] Start: 04-23-2023 End: 04-23-2023 ambulatory PATRICE WHITTENVINEET Facility:[facility] Start: 04-23-2023 End: 04-23-2023 Patient encounter procedure PATRICE WHITTENITLER HARDWARE TECHNICIAN-CNM [facility] Start: 04-16-2023 ambulatory PATRICERAYMOND WHITTENVINEET Facilit y:B Start: 04-08-2023 End: 04-13-2023 ambulatory PATRICE WHITTENVINEET HARDWARE TECHNICIAN-CNM Facility:A Start: 04-08-2023 End: 04-12-2023 ambulatory PATRICE JASS Facility:[facility] Start: 04-08-2023 End: 04-13-2023 ambulatory CARON GLASGOW DO Facility:[facility] Start: 04-08-2023 End: 04-12-2023 ambulatory PATRICE REGAN Facility:[facility] Start: 04-08-2023 End: 04-12-2023 Outreach Lab PATRICE REGAN HARDWARE TECHNICIAN-CNM [facility] Start: 06-16-2022 End: 06-16-2022 Emergency department patient visit DR FAITH COOK DO [facility] Start: 07-11-2021 End: 07-11-2021 Patient encounter procedure ELY LEE MD [facility] Procedures Date Procedure Procedure Detail [...] HCV Quant by PCR testing - HCVPCR #[id number] Non Reactive: < 0.8 Equivocal: >/= 0.8 [...] Patient encounter procedure History of depression, currently -[facility] Work Phone: Start: 02-21-2025 End: 02-21-2025 Patient encounter procedure History of depression, currently -[facility] Work Phone: Start: 02-21-2025 [facility] Start: 01-11-2025 CBC W Auto Differential panel - Blood [facility] Start: 01-11-2025 Measurement of glucose 2 hours after glucose challenge for glucose tolerance test [facility] Start: 01-11-2025 Serologic test for syphilis [facility] Start: 01-11-2025 [facility] Start: 09-13-2024 CBC W Auto Differential panel - Blood [facility] Start: 09-13-2024 Hemoglobin A1c/Hemoglobin.total in Blood [facility] Start: 09-13-2024 Hepatitis C antibody measurement [facility] Start: 09-13-2024 Rubella IgG measurement [facility] Start: 09-13-2024 Serologic test for syphilis [facility] Start: 09-13-2024 [facility] CBC W Auto Different ial panel - Blood [facility] Chlamydia deoxyribon ucleic acid detection [facility] Erythrocyte mean cor puscular volume determination [facility] Erythrocyte mean cor puscular volume determination [facility] Hematocrit [Volume F raction] of Blood [facility] Hematocrit [Volume F raction] of Blood [facility] Hemoglobin [Mass/vol ume] in Blood [facility] Hemoglobin [Mass/vol ume] in Blood [facility] Hepatitis B virus canales rface Ag [Presence] in Serum [facility] Leukocytes [#/volume ] in Blood [facility] Leukocytes [#/volume ] in Blood [facility] Mean corpuscular hem oglobin concentration determination [facility] Mean corpuscular hem oglobin concentration determination [facility] Mean corpuscular hem oglobin determination [facility] Mean corpuscular hem oglobin determination [facility] Measurement of gluco se 2 hours after glucose challenge for glucose tolerance test [facility] Neutrophil count [facility] Neutrophil count [facility] Neutrophil percent differential count [facility] Neutrophil percent differential count [facility] Platelets [#/volume] in Blood [facility] Platelets [#/volume] in Blood [facility] Red blood cell count [facility] Red blood cell count [facility] Red cell distributio n width determination [facility] Red cell distributio n width determination [facility] Serologic test for syphilis [facility] Payers Date Payer Category Payer Unknown [id number] 2024 Unknown [id number] 2024 Self-pay 2023 Unknown [id number] 1993 Unknown [id number] 2.16.8 40.1.507829.3.579.2.627 1993 Unknown [id number] 2.16.8 40.1.031930.3.579.2.627 1993 Unknown [id number] 2.16.8 40.1.318892.3.579.2.627 1993 Unknown [id number] 2.16.8 40.1.605579.3.579.2.627 1993 Unknown [id number] 2.16.8 40.1.663442.3.579.2.627 1993 Unknown [id number] 2.16.8 40.1.697730.3.579.2.627 1993 Unknown [id number] 2.16.8 40.1.264379.3.579.2.627 1993 Unknown [id number] 2.16.8 40.1.216254.3.579.2.627 1993 Unknown [id number] 2.16.8 40.1.274001.3.579.2.627 1993 Unknown [id number] 2.16.8 40.1.615152.3.579.2.627 1993 Unknown [id number] 2.16.8 40.1.578096.3.579.2.627 1993 Unknown [id number] 2.16.8 40.1.257270.3.579.2.627 1993 Unknown [id number] 2.16.8 40.1.006169.3.579.2.627 1993 Unknown [id number] 2.16.8 40.1.031367.3.579.2.627 1993 Unknown [id number] 2.16.8 40.1.096286.3.579.2.627 1993 Unknown [id number] 2.16.8 40.1.214794.3.579.2.627 1993 Unknown [id number] 2.16.8 40.1.623259.3.579.2.627 1993 Unknown [id number] 2.16.8 40.1.684838.3.579.2.627 1993 Unknown [id number] 2.16.8 40.1.248811.3.579.2.627 1993 Unknown [id number] 2.16.8 40.1.140072.3.579.2.627 1993 Unknown [id number] 2.16.8 40.1.779755.3.579.2.627 1993 Unknown [id number] 2.16. 840.1.161316.3.579.2.479 1993 Unknown [id number] 2.16. 840.1.755279.3.579.2.479 Unknown [id number] 2.16.8 40.1.400683.3.579.2.462 Unknown [id number] 2.16.8 40.1.385756.3.579.2.462 Unknown [id number] 2.16.8 40.1.148832.3.579.2.462 Unknown [id number] 2.16.8 40.1.049473.3.579.2.462 Unknown [id number] 2.16.8 40.1.442256.3.579.2.462 Unknown [id number] 2.16.8 40.1.752768.3.579.2.462 Unknown [id number] 2.16.8 40.1.565646.3.579.2.462 Unknown [id number] 2.16.8 40.1.958362.3.579.2.462 Unknown [id number] 2.16.8 40.1.566391.3.579.2.462 Unknown [id number] 2.16.8 40.1.374020.3.579.2.462 Unknown [id number] 2.16.8 40.1.802347.3.579.2.462 Unknown [id number] 2.16.8 40.1.847502.3.579.2.462 Unknown [id number] 2.16.8 40.1.863403.3.579.2.462 Unknown [id number] 2.16.8 40.1.863678.3.579.2.462 Unknown [id number] 2.16.8 40.1.739622.3.579.2.462 Unknown [id number] 2.16.8 40.1.987207.3.579.2.462 Social History Date Type Detail Facility Start: 06-15-2018 End: 09-09-2024 Never smoked tobacco (finding) [facility] Sex Assigned At [facility] Start: 1995 Sex Assigned At Female A [facility] Start: 06-12-2005 Sex Female (finding) [facility] Sex Female [facility] Procedure Code Equipment Code Equipment Origin al Text Equipment Identifier Dates See Instructions , 1 bottle of 100, # 1 EA, 11 Refill(s), Pharmacy: [facility]/pharmacy #[id number], Gestational diabetes, 152, cm, 08/25/23 15:07:00 EDT, Height, 73.7, kg, 07/30/23 14:27:00 EDT, Dosing Weight Start: 09-20-2023 See Instructions , check blood sugar 4x per day, # 100 EA, 11 Refill(s), Pharmacy: [facility]/pharmacy #4605, Gestational diabetes, 152, cm, 08/25/23 15:07:00 EDT, Height, 73.7, kg, 07/30/23 14:27:00 EDT, Dosing Weight Start: 09-20-2023 See Instructions , 1 bottle of 100, # 200 EA, 3 Refill(s), Pharmacy: [facility]/pharmacy #4605, Gestational diabetes, 152, cm, 10/06/23 15:45:00 EDT, Height, 73.7, kg, 07/30/23 14:27:00 EDT, Dosing Weight Start: 10-14-2023 See Instructions , check blood sugar 4x per day, # 200 EA, 3 Refill(s), Pharmacy: [facility]/pharmacy #4605, Gestational diabetes, 152, cm, 10/06/23 15:45:00 EDT, Height, 73.7, kg, 07/30/23 14:27:00 EDT, Dosing Weight Start: 10-14-2023 See Instructions , 1 bottle of 200. check glucose 4 times per day., # 200 EA, 2 Refill(s), Pharmacy: [facility]/pharmacy #4605, Gestational diabetes, 152, cm, 10/06/23 15:45:00 EDT, Height, 73.7, kg, 07/30/23 14:27:00 EDT, Dosing Weight Start: 10-15-2023 See Instructions , check blood sugar 4x per day, # 200 EA, 3 Refill(s), Pharmacy: [facility]/pharmacy #4605, Gestational diabetes, 152, cm, 10/06/23 15:45:00 EDT, Height, 73.7, kg, 07/30/23 14:27:00 EDT, Dosing Weight Start: 10-14-2023 See Instructions , 1 bottle of 200. check glucose 4 times per day., # 200 EA, 2 Refill(s), Pharmacy: [facility]/pharmacy #4605, Gestational diabetes, 152, cm, 10/06/23 15:45:00 EDT, Height, 73.7, kg, 07/30/23 14:27:00 EDT, Dosing Weight Start: 10-15-2023 See Instructions , check blood sugar 4x per day, # 200 EA, 3 Refill(s), Pharmacy: [facility]/pharmacy #4605, Gestational diabetes, 152, cm, 10/06/23 15:45:00 EDT, Height, 73.7, kg, 07/30/23 14:27:00 EDT, Dosing Weight Start: 10-14-2023 Functional Status Date Assessment Result Facility 12-11-2023 Functional Status Repositions self [facility] 12-11-2023 Functional Status [facility] 12-11-2023 Functional Status [facility] 12-10-2023 Functional Status Ambulation in Room [facility] 12-10-2023 Functional Status [facility] 12-08-2023 Functional Status Home independently [facility] 06-16-2022 Functional Status Room check performed [facility] 06-16-2022 Functional Status [facility] Mental Status Date Assessment Result Facility 12-10-2023 Mental Status Oriented x 4 [facility] 06-16-2022 Mental Status Orientation Oriented x 4 [facility] 06-16-2022 Mental Status [facility] Clinical Notes 06-16-2022 to 02-21-2025 Note Date & Type Note Facility 02-21-2025 Progress note [facility] 02-21-2025 Progress note Note Date/Time February 21, 2025 4:54pm [facility] [address], [address] [place] [address] OFFICE VISIT Date of Service: 02/21/25 MR#: [id number] Acct: [id number] Name: CARMEN THOMPSON Rep #: [id number] : 1995 Provider: Dr. 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 Date Name GA/Weeks Outcome Route Bth Weight Gen Labor Lgth Anesthesia Del Locatn Provider FOB 12/09/23 Ananda 40 live - full term vacuum 7lbs 2oz Male epidural [facility] [place] Delivery Date: 12/09/23 Last Updated by: [...] Symptoms of Preeclampsia, Infant Feeding No , [place] Education and Family Medical Leave or Disability Forms Results POC Urinalysis Dip (Clinic) Office Urine Color Yellow Last Edit by Sernea Castro on 02/21/25 15:37 Office Urine Clarity Clear Last Edit by Serena Castro on 02/21/25 15:37 Office Urine Glucose 100 g/dL Last Edit by Serena Castro on 02/21/25 15: 37 Office Urine Ketones Negative Last Edit by Serena Castro on 02/21/25 15: 37 Off Ur Spec [place] 1.020 Last Edit by Serena Castro on [...] Caron Vande Velde DO [facility] Signature: Date (if applicable) CC: ~ [facility] Work Phone: 1(714) 737-101110-09-2025 Progress [facility] [address] [place] [address], [address] [place] [id number] OFFICE VISIT Date of Service: 02/09/25 MR#: [id number] Acct: [id number] Name: CARMEN THOMPSON Rep #: [id number] : 1995 Provider: Dr. 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 Date Name GA/Weeks Outcome Route Bth Weight Gen Labor Lgth Anesthesia Del Locatn Provider FOB 12/09/23 Ananda 40 live - full term vacuum 7lbs 2oz Male epidural [facility] [place] Delivery Date: 12/09/23 Last Updated [...] -No vB, LOF. G ood FM. [facility] 01/11/25 -?-?-?-?-?-?-?-?-?-?-?-?- 27w 1d 161 lb 3 [...] Symptoms of Preeclampsia, Infant Feeding No , [place] Education and Family Medical Leave or Disability [...] Cosigner Signature: Date (if applicable) CC: ~ [facility]10-09-2025 Progress note Author Caron Castorena [facility] Note Date/Time February 09, 2025 3: 51pm [facility] [address], [address] [place] [address] OFFICE VISIT Date of Service: 02/09/25 MR#: [id number] Acct: [id number] Name: CARMEN THOMPSON Rep #: [id number] : 1995 Provider: Dr. 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 G ood FM. [facility] 01/11/25 -?-?-?-?-?-?-?-?-?-?-?-?- 27w 1d 161 lb 3 [...] Figueroa DO> Date _ [facility] Signature: Date (if applicable) CC: ~ [facility] Work Phone: 1(428) 805-731909-23-2025 [facility] [address] [place] [address], [address] [place] [address] OFFICE VISIT Date of Service: 01/24/25 MR#: [id number] Acct: [id number] Name: CARMEN THOMPSON Rep #: [id number] : 1995 Provider: GISELLE Claudio Age/Sex: 29/F Location: [facility] Status: Signed Intake Vital Signs 12/26/24 15:38 01/11/25 15:29 01/24/25 14:51 Height 5 ft 5 ft 5 ft Weight: 164 lb BMI 32.0 BP 105/72 Intake Visit Reasons: 30 WK OB Chief Complaint: 30wk OB Shipping Support Clerk Required: No Is patient in pain?: No [...] 1 current occupational status: employed 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 current occupational exposures/hazards: Yes pets and animals: Yes (Not managing litter box) pets and animals: cat(s) and other [facility] history of recent travel: No sexually active: [...] times per week duration: < 15 minutes/day jarrod/nondenominational: Muslim seatbelt use: always do you feel safe at home: Yes additional social history: : [place] Demetrius 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 History 2 Elective abortions Hx Para 1 [...] Cosigner Signature: Date (if applicable) CC: ~ [facility]09-23-2025 Progress note Author Gwen Claudio [facility] Note Date/Time January 24, 2025 3:09pm [facility] [address], [address] [place] [address] OFFICE VISIT Date of Service: 01/24/25 MR#: [id number] Acct: [id number] Name: CARMEN THOMPSON Rep #: [id number] : 1995 Provider: GISELLE Claudio Age/Sex: 29/F Location: [facility] Status: Signed Intake Vital Signs 12/26/24 15:38 01/11/25 15:29 01/24/25 14:51 Height 5 ft 5 ft 5 ft Weight: 164 lb BMI 32.0 BP 105/72 Intake Visit Reasons: 30 WK OB Chief Complaint: 30wk OB Shipping Support Clerk Required: No Is patient in pain?: No [...] current occupational status: employed 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 Date Name GA/Weeks Outcome Route Bth Weight Gen Labor Lgth Anesthesia Del Locatn Provider FOB 12/09/23 Ananda 40 live - full term vacuum 7lbs 2oz [facility]: 12/09/23 Last Updated by: Azalia [...] and Symptoms of Preeclampsia, Feeding No , [place] Education and Family Medical Leave or Disability [...] Cosigner Signature: Date (if applicable) CC: ~ [facility] Work Phone: 1(330) 253-447608-25-2025 [facility] [address] [place] [address], [address] [place] [address] OFFICE VISIT Date of Service: 12/26/24 MR#: [id number] Acct: [id number] Name: CARMEN THOMPSON Rep #: [id number] : 1995 Provider: ANA MARÍA Foss Age/Sex: 29/F Location: [facility] Status: Signed Intake Vital Signs 10/04/24 09:38 12/01/24 16:03 12/26/24 15:33 12/26/24 15:38 Height 5 ft 5 ft 5 ft 5 ft Weight: 158 lb 7 oz BMI 30.9 BP 104/70 Intake Visit Reasons: 26 wk ob Chief Complaint: 26 Week OB Shipping Support Clerk Required: No Is patient in pain?: No [...] current occupational status: employed 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 Date Name GA/Weeks Outcome Route Bth Weight Gen Labor Lgth Anesthesia Del Locatn Provider FOB 12/09/23 Ananda 40 live - full term vacuum 7lbs 2oz Male epidural [facility] [place] Delivery Date: 12/09/23 Last Updated by: [...] and Symptoms of Preeclampsia, Feeding Yes , [place] Education and Family Medical Leave or Disability [...] care and follow up. 12/26/24 1549 s JUNIOR JAVA DEVELOPER JUNIOR JAVA DEVELOPER-C> Date _ Jessy Foss JUNIOR JAVA DEVELOPER JUNIOR JAVA DEVELOPER-C Cosigner Signature: Date (if applicable) CC: ~ [facility]08-25-2025 Progress note Author Jessy Foss [facility] Note Date/Time December 26, 2024 3: 49pm [facility] [address], [address] [place] [id number] OFFICE VISIT Date of Service: 12/26/24 MR#: [id number] Acct: [id number] Name: CARMEN THOMPSON Rep #: [id number] : 1995 Provider: ANA MARÍA Foss Age/Sex: 29/F Location: [facility] Status: Signed Intake Vital Signs 10/04/24 09:38 12/01/24 16:03 12/26/24 15:33 12/26/24 15:38 Height 5 ft 5 ft 5 ft 5 ft Weight: 158 lb 7 oz BMI 30.9 BP 104/70 Intake Visit Reasons: 26 wk ob Chief Complaint: 26 Week OB Shipping Support Clerk Required: No Is patient in pain?: No [...] 1 current occupational status: employed 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 12/26/24 8569 <Electronically signed by Jessy mclean NP JUNIOR JAVA DEVELOPER-C> Date _ Jessy Foss NP JUNIOR JAVA DEVELOPER-C Cosigner Signature: Date (if applicable) CC: ~ [facility] [employer] Work Phone: [phone]) 476-596907-31-2025 Evaluation note* Diagnosis Onset Date Resolution Status [...] Supervision of high-risk acute March 08 3:30pm [facility] Work Phone: 1(392) 310-309107-31-2025 [facility] [address] [place] [address], [address] [place], [place] [id number] OFFICE VISIT Date of Service: 12/01/24 MR#: [id number] Acct: [id number] Name: JAYCARMEN MENEZESN Rep #: [id number] : 1995 Provider: Dr. 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 current occupational exposures/hazards: Yes pets and [...] times per week duration: < 15 minutes/day jarrod/nondenominational: Muslim seatbelt use: always do you feel safe at home: Yes additional social history: : [place] 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 Required: No Is patient in pain?: No Feel stressed/tense/nervous/anxious/difficulty sleeping: not at all Allergies No Known Allergies Allergy (Verified 12/01/24 15:59) Medications ?Medication ?Instructions ?Recorded ?Confirmed ?Type docosahexaenoic acid 200 mg mg PO 08/19/24 12/01/24 Hi story capsule ( DHA) Last Menstrual Period: 06/15/24 Zika: Zika virus screening: Negative : No PFSH [facility] Medical History (Updated 12/01/24 @ 16:17 [...] current occupational status: employed 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 Date Name GA/Weeks Outcome Route Bth Weight Infant Gen Labor Lgth Anesthesia Del Locatn Provider FOB 12/09/23 Malave 40 live - full term vacuum 7lbs 2oz Male epidural [facility] Delivery Date: 12/09/23 Last Updated by: Azalia [...] Cosigner Signature: Date (if applicable) CC: ~ [facility] [employer] Work Phone: 1(338) 940-730707-02-2025 Evaluation note* Diagnosis Onset Date Resolution Status [...] Supervision of high-risk acute February 21 3:19pm [facility] Work Phone: 1([phone]) [phone] Evaluation note* Diagnosis Onset Date Resolution Status [...] of high-risk acute January 24, 2025 2:47pm [facility] Work Phone: 1(371) 877-815805-13-2025 Evaluation note* Diagnosis Onset Date Resolution Status [...] high-risk a cute September 13, 2024 8:46am [facility] Work Phone: 1([phone]) 769-925105-13-2025 Evaluation note* Diagnosis Onset Date Resolution Status [...] high-risk a cute October 04, 2024 9:35am [facility] Work Phone: [phone]) [phone] Evaluation note* Diagnosis Onset Date Resolution Status [...] high-risk a cute November 02, 2024 3:50pm [facility] Work Phone: 1([phone]) 391-313205-13-2025 Evaluation note* Diagnosis Onset Date Resolution Status [...] of high-risk acute December 01, 2024 3:55pm [facility] Work Phone: 1([phone]) 132-868005-13-2025 Evaluation note* Diagnosis Onset Date Resolution Status [...] Supervision of high-risk acute December 26 3:28pm [facility] Work Phone: 1([phone]) 273-384105-13-2025 Evaluation note* Diagnosis Onset Date Resolution Status [...] of high-risk acute January 11, 2025 3:23pm [facility] Work Phone: 1([phone]) 896-180205-13-2025 [facility] [address] [place] [address], [address] [place] [address] OFFICE VISIT Date of Service: 09/13/24 MR#: [id number] Acct: [id number] Name: CARMEN THOMPSON Rep #: [id number] : 1995 Provider: GISELLE Claudio Age/Sex: 29/F Location: [facility] Status: Signed Intake Vital Signs 03/01/24 15:53 08/19/24 13:28 09/13/24 08:51 Height 5 ft 5 ft 5 ft Weight: 133 lb 2 oz BMI 25.9 BP 108/74 Intake Visit Reasons: New OB, 8 months PP, US at [place], 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 Date Name GA/Weeks Outcome Route Bth Weight Gen Labor Lgth Anes t hesia Del Locatn Provider FOB 12/09/23 Ananda 40 live - full term vacuum 7lbs 2oz Male epidural [facility] Delivery Date: 12/09/23 Last Updated by: Azalia Manzo RN GDM, nuchal cord, Induced d/t est baby size HPI New OB, 8 months PP, US at [place], [facility] 04/11 Details: CARMEN THOMPSON is a [...] Positive: Diabetes (GDM), Depression/ depression ( depression), [place]yer surgery ([place] in 2020), History of abnormal pap (HPV+) [...] Symptoms of Preeclampsia, Infant Feeding Yes , Education and Family Medical Leave or [...] test positive: Status: Acute Comment: 2020 - [place] (6) HSV-1 (herpes simplex virus 1) infection: [...] Cosigner Signature: Date (if applicable) CC: ~ [facility]08-09-2024 Note Discharge Instructions Thank you for allowing [facility] to assist you with your healthcare needs. The following is importantdischarge information regarding your hospital visit. Your Care Team CARON GLASGOW DO Your Diagnosis Gestational diabetes, diet controlled Vacuum-assisted vaginal delivery What to do next Scheduled Follow-Up Appointments Thursday 10:45 AM EDT Type: WH OV With: LATOYA IZQUIERDO MD Where: [facility] Status: Confirmed Follow Up Appointments Follow Up with LATOYA IZQUIERDO MD When:12/22/2023 10:45 AM EDT Where:[address] [facility] [address] [facility] [address] [phone] Someone Will Contact You Regarding These Home [...] 4 hours Duration: [facility] Unchanged benzocaine topical (Americaine 20% topical spray) 1 application Topical Four (4) times a day Duration: 14 Days [facility] Unchanged famotidine (Pepcid 20 mg oral tablet) 1 tab(s) by mouth Two (2) times a day Unchanged ibuprofen (ibuprofen 800 mg oral tablet) 1 tab(s) by mouth Every 8 hours Duration: 14 Days [facility] [facility]: [address] [place], [place] [id number] [phone] What How Much When Why Comments Stop [...] work with your health care provider or citrix consultant. If you are not : ? [...] about methods of control (contraception). Medicines Take vowa-iog-jaexgyh and prescription medicines only as told by [...] 02/15/2008 Document Revised: 04/23/2018 Document Reviewed: 02/01/2018 [employer] Patient Education 2020 Noxilizer. [facility] Depression and Blues All mothers are [...] psychosis. Often, a screening tool called the Baxley Depression Scale is used to diagnose depression [...] music. Avoid alcohol. Ask for help with ceramic tile installation helper, cooking, grocery shopping, or running errands as needed. Do nottry to do everything. Talk to people close to you about how you are feeling. Get support from your partner, family members, and friends. Try to stay positive in how you think. Think about the things you are grateful for. Do not spend a lot of time alone. Only take ubki-ouy-kavwryn or prescription medicine as directed by your [...] get worse. Resource: [employer] Patient Information 2015 [employer]. This information is not intended to replace [...] sounds, smacking lips, cooing, sighing, or squeaking. Wgod-fx-joxwl movements and sucking on fingers or hands. Fussing or crying. Avoid introducing a pacifier to your baby in the first 4-6 weeks after your baby is born. After this time, you may choose to use a pacifier. Research has shown that pacifier use during the first yearof a baby's life decreases the risk of sudden syndrome (SIDS). Allow your baby to feed [...] able to be present during feedings. Your citrix consultant can help you find a method [...] recommendations, contact your health careprovider or a citrix consultant. Overall health care recommendations while Eat [...] provider before taking any medicines. These include sdcs-hfq-tkpvngv andprescription medicines as well as vitamins and [...] fever. Summary offers many health benefits for infant and mothers. Try to breastfeed your when he or she shows early signs [...] Talk with your health care provider or citrix consultant if you have questions or you face problems as you breastfeed. This information is not intended to replace advice given to you by your health care provider. Make sure you discuss any questions you have with your health care provider. Document Released: 04/20/2006 Document Revised: 07/15/2018 Document Reviewed: 05/22/2017 [employer] Patient Education 2020 [employer] Additional Information VACCINATE! IT SAVES LIVES! Members of the community who have not yet received the COVID-19 vaccine and would like to receive it can visit one of [facility] vaccine clinics. There are many vaccine clinic locations within the [facility]. For locations and available times, please visit www.[email or web address].gov/. It is important to note that some COVID mobile vaccine clinics are held outdoors and may be canceled in rainy or stormy conditions. To learn more about pediatric vaccinations (ages 5-11), we invite you to visit the [facility] webpage. https://www.[facility].org/pages/2852-Guxmh-Gglevhlodlm-Ifcdvfbddf-Bzvqs-Qzc stions.htmlTo learn more about the COVID-19 vaccine, we invite you to visit the CDC website for a list of frequently asked questions. https://www.cdc.gov/coronavirus/2019-ncov/vaccines/faq.html [facility] [employer] Patient Portal Access Instructions: Stay connected with your healthcare team and access your personal medical information anytime with the [employer] Patient Portal.If you would like a full copy of your medical records, please contact the [facility] Medical Records Department, Thursday through Thursday between 8a.m. and 4:30p.m. Please follow the directions below to access the portal: 1.Access the email account you provided upon registration to the [facility].2.Look for an invitation email from [facility].3.Open the email and access the invitation link: Accept Invitation to [employer]4.Fill in the required pagan to create your account. Sign into [email or web address] with your username and password that you [...] you will allow to register on the [employer] Patient Portal for access to your information. You can also access the [employer] Patient Portal on the Connectipity zelalem. Simply click on Health Records under HealthData and then click on the 19pay logo. HOW TO SAFELY DISPOSE OF PRESCRIPTION [...] Call your local pharmacy or go to http://bit.ly/6S5Dc3s to find one close to you.3.Make use of household items: Use cat litter or old coffee grounds to dispose medications if other options arenot available. Mix your drugs with these household products, seal them in an airtight container andthrow it into the garbage. Call [facility]: [phone] to be sure your drugs can be [...] aware that I should contact my doctor. 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 Digitally Signed by ZINA FUENTES MD on 12/10/2023 08:30 AM [facility]08-08-2024 Hospital Discharge instructions Patient Education 12/09/2023 [...] work with your health care provider or citrix consultant. If you are not : ?Avoid [...] about methods of control (contraception). Medicines Take avam-bfv-gfclumf and prescription medicines only as told by [...] 02/15/2008 Document Revised: 04/23/2018 Document Reviewed: 02/01/2018 [employer] Patient Education 2020 [employer]. 12/09/2023 22:17:41 7b- Depression and Blues (02/2020) [...] psychosis. Often, a screening tool called the Baxley Depression Scale is used to diagnose depression [...] music. Avoid alcohol. Ask for help with ceramic tile installation helper, cooking, grocery shopping, or running errands as needed. Do nottry to do everything. Talk to people close to you about how you are feeling. Get support from your partner, family members, and friends. Try to stay positive in how you think. Think about the things you are grateful for. Do not spend a lot of time alone. Only take uhqu-meg-litfuii or prescription medicine as directed by your [...] not doing well or get worse. Resource: [facility] Patient [facility] [address] [facility] [address] [facility]. This information is not intended to replace [...] are also at lower risk for sudden infant syndrome (SIDS). Nutrients in breast milk are [...] sounds, smacking lips, cooing, sighing, or squeaking. Yvvc-ek-evqug movements and sucking on fingers or hands. Fussing or crying. Avoid introducing a pacifier to your baby in the first 4-6 weeks after your baby is born. After this time, you may choose to use a pacifier. Research has shown that pacifier use during the first yearof a baby's life decreases the risk of sudden syndrome (SIDS). Allow your baby to feed [...] able to be present during feedings. Your citrix consultant can help you find a method [...] recommendations, contact your health careprovider or a citrix consultant. Overall health care recommendations while Eat [...] provider before taking any medicines. These include wsbr-ugd-mhuwgtr andprescription medicines as well as vitamins and [...] fever. Summary offers many health benefits for infant and mothers. Try to breastfeed your when he or she shows early signs [...] Talk with your health care provider or citrix consultant if you have questions or you face problems as you breastfeed. This information is not intended to replace advice given to you by your health care provider. Make sure you discuss any questions you have with your health care provider. Document Released: 04/20/2006 Document Revised: 07/15/2018 Document Reviewed: 05/22/2017 [employer] Patient Education 2020 [employer]. Follow Up Care 12/08/2023 20:05:04 With:LATOYA IZQUIERDO MD Address: [address] [place] [address] [place] [address] [phone] When:12/22/2023 10:45:00 [facility] 08-07-2024 Note Date of Service 12/09/23 [...] LATOYA IZQUIERDO MD on 12/09/2023 08:59 PM [facility]08-07-2024 Anesthesiology Consult note Patient: CARMEN THOMPSON Age: 28 years Sex: Female : 1995 Associated Diagnoses: None Author: JAYCEE HENDERSON APRN-MOLD SWABBER Preoperative Information Anesthesia history Patient's history: negative. [...] Problem list: Medical Acne / SNOMED CT 21788067 / Confirmed Allergic rhinitis / SNOMED CT 293711315 / Confirmed Epigastric pain / SNOMED CT 149459580 / Confirmed Family history of hereditary spherocytosis / SNOMED CT 399867687 / Confirmed Acid reflux / SNOMED CT 619995073 / Confirmed Headache / SNOMED CT 34776945 / Confirmed Hyperlipidemia / SNOMED CT 43753786 / Confirmed Bilateral knee pain / SNOMED CT 06502004 / Confirmed Nausea / SNOMED CT 4169179484 / Confirmed Oral herpes / SNOMED CT 052337327 / Confirmed Annual physical exam / SNOMED CT 176366419 / Confirmed / SNOMED CT 615270764 / Confirmed Vitamin D deficiency / SNOMED CT 88089843 / Confirmed, Active Problems (13) Acid reflux Acne Allergic rhinitis Annual physical exam Bilateral knee pain Epigastric pain Family history of hereditary spherocytosis Headache Hyperlipidemia Nausea Oral herpes Vitamin D deficiency Histories Past Medical History: Resolved Anemia, iron deficiency (207781822): Resolved. Perioral dermatitis (687494075): Resolved. Shortness of breath (097408937): Resolved. Bloating (911110590): Resolved. Pharyngitis (8797880891): Resolved. Lipid screening (390722620): Resolved. Sore throat (6370100075): Resolved. Family History: Diabetes mellitus Father Hypertension [...] per month Employment/School 07/30/2023 Status: Employed Comment: [employer] 03/22 - 06/20/2019 10:22 - CARON GLASGOW [...] Signs (last 24 hrs) Last Charted Temp Egydmipt95.5 DegC (DEC 08 12:30) Heart Rate MonitoredH 109 bpm (DEC 08 13:52) QZV153 mmHg (DEC 08 13:52) DBP60 mmHg (DEC 08 13:52) BMI33.63 (DEC 07 20:15) Measurements from flowsheet : Measurements 12/08/2023 20:15 EDT Height 152.4 cm Admission Weight 78.1 kg Currie Body Weight 45.50 kg BSA Admission 1.75 [...] with support Epidural Placed By JAYCEE HENDERSON APRN-MOLD SWABBER Epidural Test Dose Time 12/09/2023 13:41 Epidural [...] LR Premix Diluent mL 12/09/2023 9:27 EDT [facility] Progress Note Obstetric Progress notes. (Modified) 12/09/2023 [...] REGAN Garces's Score 9 Station Calculation -2 [facility] Progress Note OB Labor Progress Note [...] transducer adjusted; Tocotransducer adjusted 12/09/2023 2:25 EDT [facility] Progress Note OB Labor Progress Note [...] Distention Absent Skin Temperature Warm Skin Description Normanna, Dry Skin Integrity Intact Sensory Perception Duncan [...] US transducer 12/08/2023 23:58 EDT Monitoring Annotations Alina Regan CNM at pt's bedside discussing plan [...] to bed from bathroom 12/08/2023 21:40 EDT [facility] History and Physical OB Admission H&P (Modified) [...] Height 152.4 cm Admission Weight 78.1 kg Currie Body Weight 45.50 kg BSA Admission 1.75 [...] Adoption No (Modified) Surrogate No (Modified) Discharge [place] Physician MARCIAL Cannon [facility] Participant No Safe Sleep Environment for [...] No Weight Loss No Preferred Spoken Language Chinese Preferred Written Language Chinese Teaching Evaluation No further teaching needed Safety Brochure Information Reviewed Unable to complete [employer] Video Viewed Patient refused Chief Complaint IOL Accompanied by Spouse Information Given by Spouse Patient's Current Physicians Lucita Regan CNM Emergency Contact Number [place] () [phone] Reason For Visit OB Induction Mode of [...] Heart Tone: 170 . Assessment and Plan [place] Society of Anesthesiologists (ASA) physical status classification: Class II. Anesthetic Preoperative Plan Anesthetic technique: Epidural. Regional: Epidural. Postoperative pain management: Per surgeon. Risks discussed: nausea, vomiting, headache, serious complications. Informed consent: signed by patient. Digitally Signed by JAYCEE HENDERSON on 12/09/2023 01:57 PM [facility]08-07-2024 Note Met with patient brought in [...] HOLLIS MEHTA MD on 12/09/2023 09:32 AM [facility]08-07-2024 Note Met with patient brought in [...] HOLLIS MEHTA MD on 12/09/2023 09:32 AM [facility]08-07-2024 Note Labor Details Baby A FHR Baseline:145 bpm FHR Baseline Variability:Minimal variability FHR Deceleration Description:Variable Membranes Membrane Status:S.R.O.M. Amniotic Fluid Color/Descrip:Clear FHR Accelerations:Absent Uterine Uterine Contraction Frequency1.5-4 Uterine Contraction Monitoring MethodExternal toco Cervical Cervix Dilation3 cm Cervix Obluvcxgdf42 Station-2 Called by RN SROM at 0535- [...] hrs), Blood, Once, Nurse Collect, Preferred Lab: [facility], Stop date 12/08/23 20:31:00 EDT [...] by PATRICE REGAN on 12/09/2023 07:54 AM [facility]08-06-2024 Note Reason for Visit OB Induction [...] hrs), Blood, Once, Nurse Collect, Preferred Lab: [facility], Stop date 12/08/23 20:31:00 EDT [...] by PATRICE REGAN on 12/08/2023 10:37 PM [facility]08-06-2024 Evaluation + Plan noteExtracted from: Title:OB [...] hrs), Blood, Once, Nurse Collect, Preferred Lab: [facility], Stop date 12/08/23 20:31:00 EDT [...] Date:12/22/2023 10:45:00 AM Scheduled Provider:LATOYA IZQUIERDO MD Location:[facility] Appointment Type: OV Future Scheduled Tests Laboratory* Glucose Tolerance Test 3 Hour (AO) 09/16/23 * Complete Blood Count 07/25/23 * Lipid Profile 07/25/23 * Hepatitis C Antibody IgG 07/25/23 * Vitamin D Level 07/25/23 * Complete Metabolic Panel 07/25/23 Radiology* US OB > 14 weeks 11/10/23 [facility] 12-08-2023 Note. MICRO - Microbiology PROCEDURE: Urine Culture [*1] SOURCE: Urine, Clean Catch BODY SITE: COLLECTED DATE/TIME: 04/08/2023 15:49 EST RECEIVED DATE/TIME: 04/09/2023 14:05 EST START DATE/TIME: 04/09/2023 14:06 EST FREE TEXT SOURCE: FINAL REPORTS Final Report [] Verified Date/Time/Personnel: 04/10/2023 14:43 EST 10,000 - 50,000 cfu/ml Mixed growth consistent with normal urogenital connie. Performing Locations *1: This test was performed at: [address], [facility] , [facility] ([place])04-10-2023 Note. MICRO - Microbiology PROCEDURE: Urine Culture [*1] SOURCE: Urine, Clean Catch BODY SITE: COLLECTED DATE/TIME: 04/08/2023 15:49 EST RECEIVED DATE/TIME: 04/09/2023 14:05 EST START DATE/TIME: 04/09/2023 14:06 EST FREE TEXT SOURCE: FINAL REPORTS Final Report [] Verified Date/Time/Personnel: 04/10/2023 14:43 EST 10,000 - 50,000 cfu/ml Mixed growth consistent with normal urogenital connie. Performing Locations *1: This test was performed at: [address] [place], [address]- , [facility] ([place])06-16-2022 Hospital Discharge instructions Patient Education 06/16/2022 19:14:21 [...] swelling, or pus coming from any wound [id number] The [employer]. [address] [facility], [place] [address]. All rights reserved. This information is not intended as a substitute for professional medical care. Always follow yourhealthcare professional's instructions. Follow Up Care 06/16/2022 18:20:36 With:CARON GLASGOW DO Address: [address] [place] [phone] When:2-4 days [facility] 02-13-2023 Note Discharge Instructions Thank you for allowing [facility] to assist you with your healthcare needs. [...] GLASGOW DO When Within 2-4 days Where: [address] [place] [phone] Allergies NKDA (none) Medications Please ask your [...] swelling, or pus coming from any wound [phone] [employer]. [address] [facility], [place] [address]. All rights reserved. This information is not intended as a substitute for professional medical care. Always follow yourhealthcare professional's instructions. Additional Information VACCINATE! IT SAVES LIVES! Members of the community who have not yet received the COVID-19 vaccine and would like to receive it can visit one of [facility] vaccine clinics. There are many vaccine clinic locations within the State. For locations and available times, please visit [email or web address].org. It is important to note that some COVID mobile vaccine clinics are held outdoors and may be canceled in rainy orstormy conditions. To learn more about pediatric vaccinations (ages 5-11), we invite you to visit the [facility] webpage. https://www.[facility].org/pages/3435-Mpghm-Fkkmdlscaww-Cezkvjhjlr-Rudfs-Xbq stions.htmlTo learn more about the COVID-19 vaccine, we invite you to visit the [employer] website for a list of frequently asked questions. https://[facility].org/assets/Fyxvrdtc-swn-Vgbydymz/ozxtg-Ezpckya-Zpvumqitnv _Asked-Questions.pdf [facility] [employer] Patient Portal Access Instructions: Stay connected with your healthcare team and access your personal medical information anytime with the [employer] Patient Portal. If you would like a full copy of your medical records please contact the [facility] Medical Records Department Thursday through Thursday between 8a.m. and 4:30p.m. Please follow the directions below to access the portal: 1.Access the email account you provided upon registration to the hospital.2.Look for an invitation email from [facility].3.Open the email and access the invitation link: Accept Invitation to [employer]4.Fill in the required pagan to create your account. Sign into [email or web address] with your username and password that you [...] you will allow to register on the [employer] Patient Portal for access to your information. You can also access the [employer] Patient Portal on the [employer] zelalem. Simply click on Health Records under [employer] and then click on the 19pay logo. HOW TO SAFELY DISPOSE OF PRESCRIPTION [...] Call your local pharmacy or go to http://[email or web address] Brands/6L7Fh9u to find one close to you.3.Make use of household items: Use cat litter or old coffee grounds to dispose medications if other options arenot available. Mix your drugs with these household products, seal them in an airtight container andthrow it into the garbage. Call [facility]: [phone] to be sure your drugs can be [...] am aware that I should contactmy doctor. 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: Date/Time: Relationship to Patient: Witness Name/Signature: Date[facility]Time[facility] App[facility]ments Appointment Date:07/23/2021 01:40:00 PM Scheduled Provider:CARON GLASGOW DO [place] Appointment Type: Wellness Annual w/Labs Future Scheduled Tests Laboratory* Complete Blood Count 06/21/21 * Lipid Profile 06/21/21 * Vitamin D Level 06/21/21 * Complete Metabolic Panel 06/21/21 [facility] Evaluation + Plan note Future Appointments Appointment Date:07/24/2022 04:00:00 PM Scheduled Provider:CARON GLASGOW DO [place] Appointment Type: Wellness Annual Future Scheduled Tests Laboratory* Basic Metabolic Panel 07/30/22 * Aspartate Aminotransferase 07/30/22 * ALT / SGPT 07/30/22 * Complete Blood Count 07/30/22 * Lipid Profile 07/30/22 * Vitamin D Level 07/30/22 [facility] Evaluation + Plan note Future Appointments Appointment Date:04/23/2023 04:00:00 PM Scheduled Provider: Location:[facility] Appointment Type:US OB < 14 weeks Appointment Date:05/06/2023 03:45:00 PM Scheduled Provider:PATRICE REGAN Location:[facility] Appointment Type:[facility] OB Routine Follow Up Future Scheduled Tests [...] Radiology* US OB < 14 weeks 04/23/23 [facility] Evaluation + Plan note Future Appointments Appointment Date:05/06/2023 03:45:00 PM Scheduled Provider:PATRICE REGAN Location:[facility] Appointment Type:[facility] OB Routine Follow Up Appointment Date:07/27/2023 03:20:00 PM Scheduled Provider:CARON GLASGOW DO [place] [place] Appointment Type:PC Wellness Annual w/Labs Future Scheduled [...] MISC Lab Send out (Blood Specimens) 04/08/23 [facility] Evaluation + Plan note Future Appointments Appointment Date:06/03/2023 03:30:00 PM Scheduled Provider:PATRICE REGAN Location:[facility] Appointment Type: OV OB Routine Follow Up [...] Level 07/30/22 * Complete Metabolic Panel 07/25/23 [facility] Evaluation + Plan note Future Appointments Appointment Date:2023 03:30:00 PM Scheduled Provider:HOLLIS MEHTA MD Location:[facility] Appointment Type: OV OB Routine Follow Up [...] Level 07/30/22 * Complete Metabolic Panel 07/25/23 [facility] Evaluation + Plan note Future Appointments Appointment Date:09/22/2023 03:30:00 PM Scheduled Provider:PATRICE REGAN Location:[facility] Appointment Type: OV OB Routine Follow Up Diagnostic Tests Pending * Rapid Plasma Reagin Test 09/15/23 Future Scheduled Tests Laboratory* Complete Blood Count 07/25/23 * Lipid Profile 07/25/23 * Hepatitis C Antibody IgG 07/25/23 * Vitamin D Level 07/25/23 * Complete Metabolic Panel 07/25/23 [facility] Evaluation + Plan note Future Appointments Appointment Date:10/14/2023 01:00:00 PM Scheduled Provider: Location:[facility] Appointment Type:US OB > 14 wks Appointment Date:10/20/2023 03:45:00 PM Scheduled Provider:LATOYA IZQUIERDO MD Location:[facility] Appointment Type: OV OB Routine Follow Up [...] * US OB > 14 weeks 11/10/23 [facility] Evaluation + Plan note Future Appointments Appointment Date:10/20/2023 03:45:00 PM Scheduled Provider:LATOYA IZQUIERDO MD Location:[facility] Appointment Type: OV OB Routine Follow Up Appointment Date:11/10/2023 01:00:00 PM Scheduled Provider: Location:[facility] Appointment Type:US OB > 14 wks Future Scheduled Tests Laboratory* Glucose Tolerance Test 3 Hour (AO) 09/16/23 * Complete Blood Count 07/25/23 * Lipid Profile 07/25/23 * Hepatitis C Antibody IgG 07/25/23 * Vitamin D Level 07/25/23 * Complete Metabolic Panel 07/25/23 Radiology* US OB > 14 weeks 11/10/23 [facility] Evaluation + Plan note Future Appointments Appointment Date:11/18/2023 11:15:00 AM Scheduled Provider:HOLLIS MEHTA MD Location:[facility] Appointment Type: OV OB Routine Follow Up Future Scheduled Tests Laboratory* Glucose Tolerance Test 3 Hour (AO) 09/16/23 * Complete Blood Count 07/25/23 * Lipid Profile 07/25/23 * Hepatitis C Antibody IgG 07/25/23 * Vitamin D Level 07/25/23 * Complete Metabolic Panel 07/25/23 Radiology* US OB > 14 weeks 11/10/23 [facility] Evaluation + Plan note Future Appointments Appointment Date:12/01/2023 03:45:00 PM Scheduled Provider:PATRICE REGAN Location:[facility] Appointment Type: OV OB Routine Follow Up Diagnostic Tests Pending * HSV 1 and 2 Ab, IgG 11/26/23 Future Scheduled Tests Laboratory* Glucose Tolerance Test 3 Hour (AO) 09/16/23 * Complete Blood Count 07/25/23 * Lipid Profile 07/25/23 * Hepatitis C Antibody IgG 07/25/23 * Vitamin D Level 07/25/23 * Complete Metabolic Panel 07/25/23 Radiology* US OB > 14 weeks 11/10/23 [facility] Evaluation + Plan note Future Appointments Appointment Date:07/18/2024 03:45:00 PM Scheduled Provider:LATOYA IZQUIERDO MD Location:[facility] Appointment Type: OV Diagnostic Tests Pending * Helicobacter Pylori Antibody 05/11/24 Future Scheduled Tests Laboratory* Glucose Tolerance Test 3 Hour (AO) 09/16/23 * Complete Blood Count 07/25/23 * Lipid Profile 07/25/23 * Hepatitis C Antibody IgG 07/25/23 * Vitamin D Level 07/25/23 * Complete Metabolic Panel 07/25/23 Radiology* US OB > 14 weeks 11/10/23 [facility] Evaluation note* Diagnosis Onset Date Resolution [...] high-risk [place] cummins September 13, 2024 8:46am [facility] Work Phone: Hospital course Narrative No data available for this section [facility] Hospital Discharge instructions No data available for this section [facility] Progress note No data available for this section [facility] Proeless note Author Gwen Claudio [facility] Services Note Date/Time September 13, 2024 9:40a m [facility] [address] [place] [address], [address] [place] [address] OFFICE VISIT Date of Service: 09/13/24 MR#: [id number] Acct: [id number] Name: CARMEN THOMPSON Rep #: [id number] : 1995 Provider: GISELLE Claudio Age/Sex: 29/F Location: [facility] Status: Signed Intake Vital Signs 03/01/24 15:53 08/19/24 13:28 09/13/24 08:51 Height 5 ft 5 ft 5 ft Weight: 133 lb 2 oz BMI 25.9 BP 108/74 Intake Visit Reasons: New OB, 8 months PP, US at [facility], FRANNY 04/11 Chief Complaint: 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 Date Name GA/Weeks Outcome Route Bth Weight Infant Gen Labor Lgth Anes t hesia Del Locatn Provider FOB 12/09/23 Ananda 40 live - full term vacuum 7lbs 2oz Male epidural [facility] Delivery Date: 12/09/23 Last Updated by: Azalia Manzo RN GDM, nuchal cord, Induced d/t est baby size HPI New OB, 8 months PP, US at [place], FRANNY 04/11 Details: CARMEN THOMPSON is a [...] Positive: Diabetes (GDM), Depression/ depression ( depression), [place] surgery ([place] in 2020), History of abnormal pap (HPV+) [...] Larc, Signs and Symptoms of Preeclampsia, Feeding Yes , Education and Family Medical Leave or [...] test positive: Status: Acute Comment: 2020 - [place] (6) HSV-1 (herpes simplex virus 1) infection: [...] Cosigner Signature: Date (if applicable) CC: ~ [facility] Work Phone: Reason for referral (narrative)No reason for referral information availableJohn [facility] Work Phone: Summary Purpose Family History Relationship [...] New OB, 8 months PP, US at [place], FRANNY 04/11September 13, 2024 8:46am Reason for [...] New OB, 8 months PP, US at [place], FRANNY 04/11September 13, 2024 8:46am 14wk OB [...] New OB, 8 months PP, US at [place], FRANNY 04/11September 13, 2024 8:46am 14wk OB [...] September 012024 8:46am History of depression, keyona jospeh October 04, 2024 9:35am 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 [...] New OB, 8 months PP, US at [place], FRANNY 04/11September 13, 2024 8:46am 14wk OB [...] New OB, 8 months PP, US at [place], FRANNY 04/11September 13, 2024 8:46am 14wk OB [...] New OB, 8 months PP, US at [place], FRANNY 04/11September 13, 2024 8:46am 14wk OB [...] 11, 2025 3:23pm Supervision of high-risk [facility] 2024 3:23pm History of depression, keyona joseph January 24, 2025 2:47pm Hx of gestational diabetes i n prior , currently January 24, 2025 2:47pm January 24, 2025 2:47pm Supervision of high-risk [facility] 2024 2:47pm Chief Complaint Admit [...] er 2024 3:14pm History of depression, keyona joseph February 21, 2025 3:19pm Hx of gestational [...] Member Role: Primary Care Physician Address: Address: [address] [place] [id number]- Name: FAITH COOK DO Position: ED Physician Member Role: Attending Physician Address: Address: [facility] [address] [place] [address]- [place] Name: Mercy Yin RN Position: AO RN Member Role: RN Care Team Related Persons Name: VAHE ESCALANTE Anthony Address: Home [address], [place] [id number] Patient Care team informatio n (unrecognized section [...] End: October 04, 2024 Jessy Foss NP, JUNIOR JAVA DEVELOPER-C Attending Provider Active Start: October 04, 2024 [...] 2024 End: September 13, 2024 Dr. Caron Glsagow , DO Primary Care Provid er Active [...] 2024 End: October 04, 2024 Jessy Foss JUNIOR JAVA DEVELOPER, JUNIOR JAVA DEVELOPER-C Attending Provider Active Start: October 04, 2024 [...] End: October 04, 2024 Jessy Foss NP, JUNIOR JAVA DEVELOPER-C Attending Provider Active Start: October 04, 2024 [...] 2024 End: December 26, 2024 Jessy Foss JUNIOR JAVA DEVELOPER, JUNIOR JAVA DEVELOPER-C Attending Provider Active Start: December 26, 2024 [...] 2024 End: October 04, 2024 Jessy Foss JUNIOR JAVA DEVELOPER, JUNIOR JAVA DEVELOPER-C Attending Provider Active Start: October 04, 2024 [...] 01, 2024 End: December 01, 2024 Dr. aCron daly , Referring Provider Active Start: December [...] 2024 End: December 26, 2024 Jessy Foss JUNIOR JAVA DEVELOPER, JUNIOR JAVA DEVELOPER-C Attending Provider Active Start: December 26, 2024 End: December 26, 2024 Team Status: Inactive Member Role/Relationship Status Dates Dr. Caron Glasgow DO Primary Care Provider Active Start: January 11, 2025 End: January 11, 2025 Dr. Caron Glasgow DO Referring Provider Active Start: January 022024 End: January 11, 2025 Jessy Foss JUNIOR JAVA DEVELOPER, JUNIOR JAVA DEVELOPER-C Attending Provider Active Start: January 11, 2025 End: January 11, 2025 Team Status: Active Member Role/Relationship Status Dates Dr. Caron Glasgow DO Primary Care Provider Active Start: January 11, 2025 Jessy Foss JUNIOR JAVA DEVELOPER, JUNIOR JAVA DEVELOPER-C Attending Provider Active Start: January 11, 2025 Jessy Foss JUNIOR JAVA DEVELOPER, JUNIOR JAVA DEVELOPER-C Referring Provider Active Start: January 11, 2025 [...] 04 End: October 04, 2024 Jessy Foss JUNIOR JAVA DEVELOPER, JUNIOR JAVA DEVELOPER-C Attending physician Active Start: October 04, 2024 [...] 2024 End: December 26, 2024 Jessy Foss JUNIOR JAVA DEVELOPER, JUNIOR JAVA DEVELOPER-C Attending physician Active Start: December 26, 2024 End: December 26, 2024 Team Status: Inactive Member Role/Relationship Status Dates Dr. Caron Glasgow , Primary care physician Active Start: 2024 End: January 11, 2025 Dr. Caron Glasgow DO Referring Provider Active Start: January 022024 End: January 11, 2025 Jessy Foss JUNIOR JAVA DEVELOPER, JUNIOR JAVA DEVELOPER-C Attending physician Active Start: January 11, 2025 End: January 11, 2025 Team Status: Inactive Member Role/Relationship Status Dates Dr. Caron Glasgow , DO Primary care physician Active Start: 2024 End: January 11, 2025 Jessy Foss JUNIOR JAVA DEVELOPER, JUNIOR JAVA DEVELOPER-C Attending physician Active Start: January 11, 2025 End: January 11, 2025 Jessy Foss JUNIOR JAVA DEVELOPER, JUNIOR JAVA DEVELOPER-C Referring Provider Active Start: January 11, 2025 [...] 2024 End: December 26, 2024 Jessy Foss JUNIOR JAVA DEVELOPER, JUNIOR JAVA DEVELOPER-C Attending physician Active Start: December 26, 2024 End: December 26, 2024 Team Status: Inactive Member Role/Relationship Status Dates Dr. Caron Glasgow , DO Primary care physician Active Start: 2024 End: January 11, 2025 Dr. Caron Glasgow , Referring Provider Active Start: January 022024 End: January 11, 2025 Jessy Foss JUNIOR JAVA DEVELOPER, JUNIOR JAVA DEVELOPER-C Attending physician Active Start: January 11, 2025 End: January 11, 2025 Team Status: Inactive Member Role/Relationship Status Dates Dr. Caron Glasgow , DO Primary care physician Active Start: 2024 End: January 11, 2025 Jessy Foss JUNIOR JAVA DEVELOPER, JUNIOR JAVA DEVELOPER-C Attending physician Active Start: January 11, 2025 End: January 11, 2025 Jessy Foss JUNIOR JAVA DEVELOPER, JUNIOR JAVA DEVELOPER-C Referring Provider Active Start: January 11, 2025 [...] 2024 End: December 26, 2024 Jessy Foss JUNIOR JAVA DEVELOPER, JUNIOR JAVA DEVELOPER-C Attending physician Active Start: December 26, 2024 End: December 26, 2024 Team Status: Inactive Member Role/Relationship Status Dates Dr. Caron Glasgow , Primary care physician Active Start: 2024 End: January 11, 2025 Dr. Caron Glasgow DO Referring Provider Active Start: January 022024 End: January 11, 2025 Jessy Foss JUNIOR JAVA DEVELOPER, JUNIOR JAVA DEVELOPER-C Attending physician Active Start: January 11, 2025 End: January 11, 2025 Team Status: Inactive Member Role/Relationship Status Dates Dr. Caron Glasgow DO Primary care physician Active Start: 2024 End: January 11, 2025 Jessy Foss JUNIOR JAVA DEVELOPER, JUNIOR JAVA DEVELOPER-C Attending physician Active Start: January 11, 2025 End: January 11, 2025 Jessy Foss JUNIOR JAVA DEVELOPER, JUNIOR JAVA DEVELOPER-C Referring Provider Active Start: January 11, 2025 [...] section and content) DATE CREATED AUTHOR 04/14/2023 [facility] ([place]) DATE CREATED AUTHOR AUTHOR'S ORGANIZ ATION 12/25/2023 [facility] ([place]) DATE CREATED AUTHOR AUTHOR'S ORGANIZ ATION 08/18/2024 [facility] DATE CREATED AUTHOR AUTHOR'S ORGANIZ ATION 12/24/2024 [facility] DATE CREATED AUTHOR AUTHOR'S ANAMARIA ATPAULA 03/14/2025 [facility] Goals (unrecognized section and content) Type Care [...] BE BASED ON THE PRIMARY CLINICAL RECORDS. [employer] provides no warranty or guarantee of the accuracy or completeness of information in this document.
--- NOTE | 2025-04-06 07:47 | HP.PCM.OB_ITS ---
HPI - General General Date of Admission: 04/06/25 HPI Narrative CARMEN THOMPSON, is a 29 y/o @ 39 weeks 2 days who presents for IOL. Her baby is estimated to be 8 lbs 5 oz by ultrasound last week, so possibly closer to 9 pounds. Her last baby was 7 lbs 2 oz and was a vacuum extraction but she wishes to try labor. She was found to be 4 cm dilated in the office earlier this week. She was diabetic in her last and this time she passed a 1 hr gct. A repeat GCT was not offered as the diagnosis of LGA was not made until recently. Cephalic position with cardiac activity of 169 bpm. Maximum vertical pocket of 7.5 cm and JOSEF of 18 cm. Placenta is posterior position with grade 3 BPD of 9.5, OFD of the 11.8, HC of 34.2, AC of 37.4, and FL of 7 cm corresponding with average gestational age of 38 weeks and 5 days with FRANNY of 04/09/2025. Estimated weight of 3881g (90 percentile). US/OB Limited With Biometrics IMPRESSION: average gestational age of 38 weeks and 5 days with FRANNY of 04/09/2025. Placenta is posterior position with grade 3 Maternal Data Information FRANNY Calculator Estimated Delivery Date Method Current WG Current Estimate 04/11/25 Ultrasound #2 39w 2d Other Estimates 04/11/25 Ultrasound #1 39w 2d [facility] Medical History 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 Hx of gestational diabetes in prior , currently Home Medications ?Medication ?Instructions ?Recorded ?Last Taken ?Type docosahexaenoic acid 200 mg mg PO 08/19/24 Unknown His tory capsule ( DHA) Allergy/AdvReac Type Severity Reaction Status Date / Time No Known Allergies Allergy Verified 04/04/25 13:39 Family History Father Diabetes Hyperlipidemia Hypertension Chronic mental illness Mother Hypertension Sister Hereditary spherocytosis Surgical History H/O colposcopy with cervical biopsy Social History adopted: No household members: spouse, children and other details: Pt's mom housing: house number of children: 1 current occupational status: employed 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 current occupational exposures/hazards: Yes pets and animals: Yes (Not managing litter box) pets and animals: cat(s) and other details: jennifer history of recent travel: No sexually active: Yes Smoking Status: Never smoker second hand exposure: Yes (PT's mother - smokes outside) alcohol intake: current alcohol intake frequency: holidays/special occasions only details: Not while substance use type: does not use diet: lactose free well-balanced diet: about half the time caffeine: Yes Type: coffee eating out: rarely or never during the past year weight has: decreased > 10 lbs what type of physical activity do you participate in: walking frequency: 1-2 times per week duration: < 15 minutes/day jarrod/jehovah's witness: Mosque seatbelt use: always do you feel safe at home: Yes 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 Date Name GA/Weeks Outcome Route Bth Weight Gen Labor Lgth Anes thes ia [facility] Provider FOB 12/09/23 Ananda 40 live - full term vacuum 7lbs 2oz Male epidural [facility] Delivery Date: 12/09/23 Last Updated by: Azalia Manzo RN GDM, nuchal cord, Induced d/t est baby size Visit Details Expected Delivery Route/Plan Lsvd labor Preferences- CB/BF classes: no labor support person: Edinson labor intervention preferences: [] pain management options preferred: epidural cut cord/dad catch: cord : yes PP control planned: discussed discussed possible routes of delivery and associated risks: [] special requests: [] Plans Covid status: [] Flu vaccine: declined Tdap vaccine: declined Rhogam: NA LARC form signed: yes movement and labor precautions reviewed. Problem list reviewed and updated with the most current plan of care details and appropriate orders placed. Relevant counseling for the gestational age provided. Continue routine care and follow up unless otherwise noted in visit notes/problem list details OB Flowsheet Initial Weight: 133 lb Date -?-?-?-?-?-?-?-?-?-?-?-?- EGA Weight BP Urine Prot -?-?-?-?-?-?-?-?-?-?-?-?- Glucose FHR FuHt Pres Dilation -?-?-?-?-?-?-?-?-?-?-?-?- Effaced St Visit Note 09/13/24 -?-?-?-?-?-?-?-?-?-?-?-?- 10w 0d 133 lb 2 oz (+2 oz) 108/74 -?-?-?-?-?-?-?-?-?-?-?-?- 180 -?-?-?-?-?-?-?-?-?-?-?-?- KW- CRL cons wit h dates. declines NIPT. labs today. anatomy US ordered 10/04/24 -?-?-?-?-?-?-?-?-?-?-?-?- 13w 0d 137 lb 2 oz (+4 lb 2 oz) 100/69 Negative -?-?-?-?-?-?-?-?-?-?-?-?- Negative 164 -?-?-?-?-?-?-?-?-?-?-?-?- MH-No VB. Nausea persists but manageable. Reviewed nl PN labs. 11/02/24 -?-?-?-?-?-?-?-?-?-?-?-?- 17w 1d 143 lb 6 oz (+10 lb 6 oz) 110/70 Negative -?-?-?-?-?-?-?-?-?-?-?-?- Negative 145 -?-?-?-?-?-?-?-?-?-?-?-?- JV- no complaint s today. has anatomy scan 11/1712/01/24 -?-?-?-?-?-?-?-?-?-?-?-?- 21w 2d 152 lb 8 oz (+19 lb 8 oz) 109/71 Negative -?-?-?-?-?-?-?-?-?-?-?-?- Negative 145 -?-?-?-?-?-?-?-?-?-?-?-?- SM- no vb lof go od fm no regular ctx 12/26/24 -?-?-?-?-?-?-?-?-?-?-?-?- 24w 6d 158 lb 7 oz (+25 lb 7 oz) 104/70 Negative -?-?-?-?-?-?-?-?-?-?-?-?- Negative 152 -?-?-?-?-?-?-?-?-?-?-?-?- MH-No vB, LOF. G ood FM. Larc 01/11/25 -?-?-?-?-?-?-?-?-?-?-?-?- 27w 1d 161 lb 3 oz (+28 lb 3 oz) 111/74 Negative -?-?-?-?-?-?-?-?-?-?-?-?- Negative 142 28 -?-?-?-?-?-?-?-?-?-?-?-?- MH-No Vb, LOF. G ood FM. 28 wk labs pending 01/24/25 -?-?-?-?-?-?-?-?-?-?-?-?- 29w 0d 164 lb (+31 lb) 105/72 Negative -?-?-?-?-?-?-?-?-?-?-?-?- Negative 138 30 -?-?-?-?-?-?-?-?-?-?-?-?- KW- no vb/lof/ct x. good fm. 02/09/25 -?-?-?-?--?-?-?-?-?-?-?-?- 31w 2d 165 lb (+32 lb) 103/68 Negative -?-?-?-?-?-?-?-?-?-?-?-?- Negative 130 32 -?-?-?-?-?-?-?-?-?-?-?-?- JV- declines flu . wants to use FMLA a few days a week at end of . no lof, vaginal bleeding, or dec. 02/21/25 -?-?-?-?-?-?-?-?-?-?-?-?- 33w 0d 168 lb 1 oz (+35 lb 1 oz) 121/81 Trace -?-?-?-?-?-?-?-?-?-?-?-?- 100 g/dL 160 33 Cephalic -?-?-?-?-?-?-?-?-?-?-?-?- JV- no lof, vagi nal bleeding, or dec fm. has lower pelvic pressure. baby may have moved from transverse to head down. 03/08/25 -?-?-?-?-?-?-?-?-?-?-?-?- 35w 1d 167 lb 1 oz (+34 lb 1 oz) 113/76 Negative -?-?-?-?-?-?-?-?-?-?-?-?- Negative 140 35 Cephalic -?-?-?-?-?-?-?-?-?-?-?-?- SM- no vb lof go od fm no regular ctx 03/13/25 -?-?-?-?-?-?-?-?-?-?-?-?- 35w 6d 168 lb 1 oz (+35 lb 1 oz) 108/71 Negative -?-?-?-?-?-?-?-?-?-?-?-?- Negative 140 37 Cephalic -?-?-?-?-?-?-?-?-?-?-?-?- SM- no vb lof go od fm n oregular ctx 03/22/25 -?-?-?-?-?-?-?-?-?-?-?-?- 37w 1d 170 lb 1 oz (+37 lb 1 oz) 110/72 Negative -?-?-?-?-?-?-?-?-?-?-?-?- Negative 160 39 Cephalic 3 -?-?-?-?-?-?-?-?-?-?-?-?- 40 -2 KW- no vb/ lof/ctx. good fm GBS today. growth US ordered 03/29/25 -?-?-?-?-?-?-?-?-?-?-?-?- 38w 1d 173 lb 9 oz (+40 lb 9 oz) 121/84 Negative -?-?-?-?-?-?-?-?-?-?-?-?- Negative 137 40 Cephalic -?-?-?-?-?-?-?-?-?-?-?-?- KV- Good FM. No ctx/LOF/VB. GBS neg. Growth US on 03/31. 04/04/25 -?-?-?-?-?-?-?-?-?-?-?-?- 39w 0d 173 lb 9 oz (+40 lb 9 oz) 131/83 Negative -?-?-?-?-?-?-?-?-?-?-?-?- Negative 150 40 Cephalic 4 -?-?-?-?-?-?-?-?-?-?-?-?- 60 -2 KW- no vb/ lof/ctx. good fm. US shows AC in 99% discussed IOL vs check BS. would like to set up IOL for thurs- discussed with JFawn. will call if different than that ROS Constitutional Constitutional: Denies change in weight, fatigue, fever(s), headache(s), poor appetite or weakness Eyes Eyes: Denies blurry vision, change in vision, seeing flashes or spots in vision ENT HEENT: Denies dizziness, headache(s), loss taste/smell or sore throat Cardiovascular Cardiovascular: Denies chest pain, dizziness, dyspnea, irregular heart rhythm, leg edema, palpitations, rapid heart rate or vomiting Respiratory/Chest Respiratory/Chest: Denies chest tightness, cough, dyspnea or breast pain Gastrointestinal Gastrointestinal: Denies abdominal pain, anorexia, constipation, cramping, diarrhea, hemorrhoids, vomiting or weight changes Genitourinary Genitourinary: Denies dysuria, flank pain, genital lesions, genital pain, urinary frequency or urinary urgency Musculoskeletal Musculoskeletal: Denies back pain, difficulty walking, joint pain, limited range of motion, muscle cramps or numbness Integumentary Integumentary: Denies lesions or unusual bruising Neurologic Neurologic: Denies abnormal movements, abnormal speech, dizziness, numbness, seizure-like activity or syncope Psychiatric Psychiatric: Denies anxiety, behavioral changes, change in appetite, change in libido, cognitive impairment, confusion, depression, difficulty concentrating, hallucinations or suicidal thoughts Endocrine Endocrinology: Denies excessive sweating, polydipsia or polyuria Hematologic/Lymphatic Hematologic/Lymphatic: Denies easy bleeding, easy bruising or lymphadenopathy Allergic/Immunologic Allergic/Immunologic: Denies itchy eyes, lip swelling, seasonal rhinorrhea, rhinitis, throat swelling, tongue swelling, eczemia, wheezing or asthma Vital Signs Vital Signs Vital Signs: 04/06/25 07:38 04/06/25 07:38 04/06/25 07:39 Pulse Rate 100 154 H Blood Pressure 119/80 BP Systolic 119 BP Diastolic 80 Pulse Ox 04/06/25 07:39 04/06/25 07:44 04/06/25 07:44 Pulse Rate 111 H Blood Pressure BP Systolic BP Diastolic Pulse Ox 97 98 Weight Weight: 169 lb 5.04 oz Body Mass Index (BMI) 33.0 Physical Exam Const alert, oriented x3, no apparent distress and healthy appearing General Appearance: cooperative; Negative for anxious HEENT normocephalic Face and Sinus: normal facial exam Eyes EOMs intact bilaterally and no scleral icterus General Eye: normal appearance of both eyes Neck full ROM and supple Lymph Lymphatic: no lymphadenopathy noted Resp normal respiratory effort Effort and Inspection: able to speak in complete sentences Cardio regular rate GI soft to palpation and non-tender Inspection: gravid Palpation: soft; Negative for tender Back/Spine no CVA tenderness Extremity normal to inspection, full ROM and no clubbing, cyanosis or edema General Extremity: Negative for calf tenderness or edema Skin Lesions: no lesions Rashes: no rashes Psych mental status grossly normal Labs Labs Labs: Blood Type A POSITIVE Antibody Screen NEGATIVE Hct, (37-47) 34.7 % L Hgb, (12.0-15.0) 11.9 g/dL L Obstetrics Ultrasound Syphilis Total Ab, (Nonreactive) Nonreactive Rubella IgG Antibody, (Nonreactive) REAC Hep Bs Antigen, (Nonreactive) Nonreactive Hepatitis C Antibody, (Nonreactive) Nonreactive Chlamydia DNA (ÁNGEL), (Negative) Negative N.gonorrhoeae DNA (ÁNGEL), (Negative) Negative HIV 1&2 Antibody, (Nonreactive) Nonreactive Glucose 1 Hr 50 gm, (70-140) 119 mg/dL Assessment & Plan (1) Uterine size date discrepancy : COMMENT: growth US ordered (2) Supervision of high-risk : QUALIFIERS: Trimester: second trimester Qualified Code(s): O09.92 - Supervision of high risk , unspecified, second trimester COMMENT: PRR, ; FRANNY 04/11; boy PC: Ananda; : [place] (3) : QUALIFIERS: Weeks of gestation: 39 weeks Qualified Code(s): Z3A.39 - 39 weeks gestation of COMMENT: GBS neg, Discussed genetic/carrier testing - declined. needs fu views. (4) History of depression, currently : COMMENT: no meds (5) Hx of gestational diabetes in prior , currently : COMMENT: Was diet controlled; Nl HgbA1c @ NOB, passed 1h GCT PLAN: Plan Patient presents IOL, plan management for with pitocin/AROM. Pain management: plans epidural. GBS negative. Management of any complications: LGA- plan to check glucose levels during labor. I have reviewed the [facility] and made any clinically relevant updates.
[2025-04-06] MEDS: Lactated Ringers 1,000 ML 50 ML IV (08:05)
[2025-04-06] MEDS: Oxytocin 15 Units/NS 250ml 15 UNITS/250 ML IV.SOLN 2 UNITS IV (08:19)
[2025-04-06 08:34] LABS: Hematocrit 33.3 % (37-47); Hemoglobin 11.3 g/dL (12.0-15.0); Immature Granulocytes Count 0.030 X10^3/uL (0.0-0.0); Mean Corp Hgb Conc 33.9 g/dL (32-36); Mean Corpuscular Volume 80.8 fL (81-99); Mean Platelet Vol. 11.3 fl (6.2-12.0); NRBC Flagged by Analyzer 0 % (0-5); Platelet Count 124 K/mm3 (150-450); RBC Distribution Width CV 13.6 % (11.6-14.6); RBC Distribution Width SD 39.4 fl (35.1-43.9); Red Blood Count 4.12 M/mm3 (4.2-5.4); White Blood Count 5.8 K/mm3 (4.4-11.0)
[2025-04-06 09:30] LABS: Syphilis Antibodies Nonreactive (Nonreactive)
[2025-04-06] MEDS: LACTATED RINGERS 500 ML 999 ML IV ×3 (09:44→15:51)
[2025-04-06] MEDS: fentaNYL-bupivacaine (epidural) 100 ML BAG EPIDURAL ×2 (11:25→16:10)
--- NOTE | 2025-04-06 14:10 | PCM.PN.BLA ---
Progress Note note from 12:30 pm :pt is comfortable with epidural. current tracing: FHT: 140 Moderate variability reactive no decelerations category I tracing [place]: q2-3 min Contractions cx 4/70/-2, membranes ruptured with large amount of clear fluid return A/P: continue pitocin
[2025-04-06] MEDS: Lactated Ringers 1,000 ML 200 ML IV (15:24)
[2025-04-06] MEDS: 0.9% Saline Lock 10 ML Syringe IV (16:52)
--- NOTE | 2025-04-06 18:38 | EX.PCM.OBVAG ---
Assessment & Plan (1) Uterine size date discrepancy : COMMENT: growth US ordered (2) Supervision of high-risk : QUALIFIERS: Trimester: second trimester Qualified Code(s): O09.92 - Supervision of high risk , unspecified, second trimester COMMENT: PRR, ; FRANNY 04/11; boy PC: Ananda; : [place]inson (3) : QUALIFIERS: Weeks of gestation: 39 weeks Qualified Code(s): Z3A.39 - 39 weeks gestation of COMMENT: GBS neg, Discussed genetic/carrier testing - declined. needs fu views. (4) History of depression, currently : COMMENT: no meds (5) Hx of gestational diabetes in prior , currently : COMMENT: Was diet controlled; Nl HgbA1c @ NOB, passed 1h GCT Maternal Data Information FRANNY Calculator Estimated Delivery Date Method Current WG Current Estimate 04/11/25 Ultrasound #2 39w 2d Other Estimates 04/11/25 Ultrasound #1 39w 2d Final FRANNY: 05/12/25 Final FRANNY Source: LMP Gestational age: 39 weeks 2 days Vaginal Delivery Maternal Presentation Maternal Presentation: Elective Induction Type of Induction: Pitocin and Amniotomy Vaginal Delivery Information Procedure Performed: Spontaneous Vaginal Delivery Surgeon/Practitioner: Caron Everett Date of Procedure: 04/06/25 Pre-Procedure Diagnosis: large for gestational age, suspect gestational diabetes based on abdominal circumference of 99th% and past h/o GDM Post-Procedure Diagnosis: large for gestational age, suspect gestational diabetes based on abdominal circumference of 99th% and past h/o GDM Type of anesthesia: Epidural Estimated Blood Loss: 200cc Findings Description of procedure: Patient began pushing and delivered the head in the CLAUS presentation. The head was delivered atraumatically. The anterior and posterior shoulders delivered without complication followed by the rest of the infant and the infant was placed on the maternal abdomen. Delayed cord clamping was employed for approximately 60 seconds. Cord was clamped and cut and gentle traction was applied to the cord and the placenta delivered spontaneously immediately following it was noted to be intact with three-vessel cord. The perineum and vagina were inspected and noted to have a 1st degree perineal laceration. This was repaired with a 3-0 vicryl. EBL was 200cc. Patient and infant tolerated delivery well. Procedure findings: viable male Marco Presentation: Vertex Amniotic Membrane Rupture Type: Artificial Amniotic Fluid Description: Clear Placental Delivery Description: Spontaneous Placenta Disposition: [facility] Specimen collected: No Cord Vessel Description: 3 Vessels Cord Entanglement: None Infant A Gender: Male (1 minute): 8 (5 minute): 9 Delayed Cord Clamping: Yes Mobile Security Specialist citrix consultant: No Post Vaginal Deli Medications given after delivery: IV Pitocin Episiotomy Description: None Laceration: 1st degree Complication Complications: No Multi Select Codes Urinary/Genital Urinary/Genital CPT Codes: 74500 Vaginal Delivery [facility]
--- NOTE | 2025-04-06 18:43 | DCINST_ITS ---
Discharge Instructions DC O2, CPAP, BIPAP needs Home O2 Discharge instructions: No Dressing / Incision Discharge Activity: Return to Normal Activity, May Not Drive (while taking narcotic pain medications.) and May Shower May resume sexual activity in: 4-6 weeks Dressing / Incision Call your doctor if your incision/area has: Continuous Slow Oozing, Sudden Increased Bleeding, Increased Pain/ Swelling, Increased Redness and Foul Smelling Discharge Follow Up Care Please Follow Up With: Caron Everett DO When: Call [phone] to make an appointment with your doctor in 6 weeks. If you had elevated blood pressure or 4th degree laceration, you will need to be seen in 2 weeks. Test Results: Test results from this visit will be discussed in further detail at your follow- up appointment, if applicable. Discharge Plan Admission Admit Date/Time: 04/06/25 07:10 Attending Provider: Caron Everett Primary Care Provider: Caron Weir Discharge Orders/Prescriptions Prescriptions: No Action Vitamin 27 mg iron- 800 mcg tablet 1 tab PO DAILY Referrals / Follow Up: Caron Weir DO [Primary Care Provider, Family Practice]
[2025-04-06] MEDS: Oxytocin 15 Units/NS 250ml 15 UNITS/250 ML IV.SOLN 83 UNITS IV (18:58)
[2025-04-07 04:25] VITALS: PULSE 82; O2SAT 97
[2025-04-07 04:26] VITALS: BP 114/70; PULSE 86; PULSE 87; RESP 16; TEMP 36.6; O2SAT 98
[2025-04-07 06:03] LABS: Hematocrit 30.7 % (37-47); Hemoglobin 10.0 g/dL (12.0-15.0); Mean Corp Hgb Conc 32.6 g/dL (32-36); Mean Corpuscular Volume 82.5 fL (81-99); Mean Platelet Vol. 10.1 fl (6.2-12.0); Platelet Count 108 K/mm3 (150-450); RBC Distribution Width CV 13.6 % (11.6-14.6); RBC Distribution Width SD 40.7 fl (35.1-43.9); Red Blood Count 3.72 M/mm3 (4.2-5.4); White Blood Count 6.7 K/mm3 (4.4-11.0)
--- NOTE | 2025-04-07 06:39 | PCM.PN.OB ---
Subjective Subjective Patient doing well without complaints. Tolerating PO. Ambulating and voiding without difficulty. Feeding well. Denies chest pain, shortness of breath, calf pain/swelling, fevers, chills, lightheadedness. Objective Data Objective Data Vital Signs: Vital Signs Temp Pulse Resp BP Pulse Ox O2 Del Method 97.9 F 86 16 114/70 98 Room Air 04/07/25 04:26 04/07/25 04:26 04/07/25 04:26 04/07/25 04:26 04/07/25 04:26 04/07/25 04:26 Oxygen Delivery Method Room Air Weight: 169 lb 5.04 oz Body Mass Index (BMI) 33.0 Intake & Output: Intake and Output for Last 24 Hours 04/05/25 04/06/25 04/07/25 23:59 23:59 23:59 Intake Total 5013.28 / 5013.28 Output Total 725 / 725 300 / 300 Balance 4288.28 / 4288.28 -300 / -300 Lab / Micro Data 04/07/25 05:50 Labs: Laboratory Results - last 24 hr 04/06/25 08:05: WBC 5.8, RBC 4.12 L, Hgb 11.3 L, Hct 33.3 L, MCV 80.8 L, MCH 27.4, MCHC 33.9, RDW Std Deviation 39.4, RDW Coeff of Darrell 13.6, Plt Count 124 L, MPV 11.3, Immature Gran % (Auto) 0.500, Neut % (Auto) 68.3, Lymph % (Auto) 22.4, [place] % (Auto) 7.8, Eos % (Auto) 0.7, Baso % (Auto) 0.3, Absolute Neuts (auto) 3.9, Absolute Lymphs (auto) 1.29, Nucleated RBC % 0, Syphilis Total Ab Nonreactive, Blood Type A POSITIVE, Antibody Screen NEGATIVE 04/06/25 08:26: POC Glucose 110 H 04/06/25 09:31: POC Glucose 82 04/06/25 13:28: POC Glucose 82 04/06/25 14:26: POC Glucose 72 L 04/06/25 15:37: POC Glucose 78 04/06/25 16:31: POC Glucose 73 L 04/06/25 17:29: POC Glucose 74 04/06/25 19:27: POC Glucose 84 04/07/25 05:50: WBC 6.7, RBC 3.72 L, Hgb 10.0 L, Hct 30.7 L, MCV 82.5, MCH 26.9 L, MCHC 32.6, RDW Std Deviation 40.7, RDW Coeff of Darrell 13.6, Plt Count 108 L, MPV 10.1 04/07/25 05:59: POC Glucose 73 L ROS Constitutional Constitutional: Denies chills, fatigue, fever(s), poor appetite or weakness Eyes Eyes: Denies blurry vision, change in vision, seeing flashes or spots in vision ENT HEENT: Denies dizziness, headache(s), loss taste/smell or sore throat Cardiovascular Cardiovascular: Denies chest pain, dizziness, dyspnea, irregular heart rhythm, palpitations or rapid heart rate Respiratory/Chest Respiratory/Chest: Denies chest tightness, cough, dyspnea or breast pain Gastrointestinal Gastrointestinal: Denies abdominal pain, constipation or vomiting Genitourinary Genitourinary: Denies dysuria or flank pain Musculoskeletal Musculoskeletal: Denies difficulty walking, joint pain, limited range of motion or numbness Neurologic Neurologic: Denies abnormal movements, abnormal speech, dizziness, numbness, seizure-like activity or syncope Psychiatric Psychiatric: Denies anxiety, behavioral changes, change in appetite, confusion, depression or suicidal thoughts Physical Exam Const alert, oriented x3 and no apparent distress General Appearance: cooperative and comfortable Resp normal respiratory effort Cardio regular rate GI normal to inspection, nondistended, normoactive bowel sounds GI Narrative: uterus is firm below umbilicus Palpation: soft Back/Spine no CVA tenderness and thoraco-lumbar ROM normal Extremity normal to inspection, no clubbing, cyanosis or edema, no calf tenderness and no pedal edema Psych mental status grossly normal, thought process normal, cooperative, affect normal, speech normal, activity/motor behavior normal, denies homicidal ideation and denies suicidal ideation Assessment & Plan (1) Vaginal delivery: COMMENT: Poornima MCNULTY 04/06/2025 PLAN: Plan s/p PPD # 1 1. routine post delivery care 2. breast feeding- support given 3. rh positive 4. rubella immune
[2025-04-07 07:42] VITALS: BP 113/72; PULSE 96; PULSE 98; RESP 16; TEMP 36.3; O2SAT 97
[2025-04-07 10:57] VITALS: BP 129/72; PULSE 91
[2025-04-07 11:00] VITALS: BP 129/72; PULSE 93; RESP 16; TEMP 36.6; O2SAT 96
[2025-04-07 15:49] VITALS: BP 120/72; PULSE 85; PULSE 87; RESP 14; TEMP 36.8; O2SAT 98
== END 2025-04-07 19:18 | disposition home or self-care (01) | DRG 807 ==
PROVIDERS: Advanced Practice Midwife; Admitting Provider Obstetrics & Gynecology; PCP Family Medicine; Referring Provider Obstetrics & Gynecology; Visit Provider Obstetrics & Gynecology
DX: O36.63X0 Maternal care for excessive fetal growth, third trimester, not applicable or unspecified (principal); Z37.0 Single live birth; O70.0 First degree perineal laceration during delivery; Z87.59 Personal history of other complications of pregnancy, childbirth and the puerperium; Z3A.39 39 weeks gestation of pregnancy; Z86.59 Personal history of other mental and behavioral disorders
CPT/HCPCS: 59025; 59050; 82962; 85025; 85027; 86780; 86850; 86900; 86901; 99221; A4216; G0378